=== PATIENT | male | born 1950 | race Caucasian/White ===

== ENCOUNTER → 2016-05-13 | Outpatient (CLI) | payer MEDICARE, OTHER ==
[2016-05-13 12:19] LABS: ALT 73 U/L (21-72); AST 100 U/L (17-59); Alkaline Phosphatase 100 U/L (38-126); Anion Gap 9 mmol/L; Blood Urea Nitrogen 16 mg/dL (9-20); Calcium 9.3 mg/dL (8.4-10.2); Carbon Dioxide 29 mmol/L (22-30); Chloride 98 mmol/L (98-107); Cholesterol 179 mg/dL (<200); Glucose 103 mg/dL (74-99); HDL Cholesterol 53 mg/dL (40-60); Non-African American GFR(MDRD) >60 (>60 ml/min/1.73 sqM); Potassium 4.3 mmol/L (3.5-5.1); Sodium 136 mmol/L (137-145); Total Bilirubin 0.9 mg/dL (0.2-1.3); Total Protein 7.6 g/dL (6.3-8.2); Triglycerides 90 mg/dL (<150)
[2016-05-13 12:29] LABS: Basophils % (A) 1 %; CHCM 32.7; Eosinophils # (A) 0.1 k/uL (0-0.7); Eosinophils % (A) 2 %; HCT 45.3 % (39.0-53.0); HDW 2.23; Luc # (Auto) 0.14; Luc % (Auto) 3; Lymphocytes % (A) 46 %; MCH 32.5 pg (25.0-35.0); MCHC 33.1 g/dL (31.0-37.0); MCV 98.2 fL (80.0-100.0); Mean Platelet Volume 6.8; Monocytes # (A) 0.3 k/uL (0-1.0); Monocytes % (A) 7 %; Neutrophils # (A) 1.9 k/uL (1.3-7.7); Neutrophils % (A) 42 %; RBC 4.62 m/uL (4.30-5.90); RDW 13.8 % (11.5-15.5); WBC 4.5 k/uL (3.8-10.6); WBC (Perox) 4.49
== END | disposition home or self-care (01) ==
LOC: LABWHC1 11:31
PROVIDERS: ATTEND Nurse Practitioner Family
DX: I10 Essential (primary) hypertension (principal); E55.9 Vitamin D deficiency, unspecified
CPT/HCPCS: 36415; 80053; 80061; 82306; 84439; 84443; 85025

== ENCOUNTER → 2016-12-22 | Outpatient (CLI) | payer MEDICARE, OTHER ==
--- NOTE | 2016-12-23 07:47 | XR ---
Right knee HISTORY: Chronic pain 3 views of the right knee correlated to prior exam 10/17/2014 There is no significant interval change. IMPRESSION: Osteoarthritis. Possible loose body.
== END ==
LOC: RADXRMAIN 15:55
PROVIDERS: ATTEND Family Medicine
DX: M16.11 Unilateral primary osteoarthritis, right hip (principal)

== ENCOUNTER → 2017-01-17 | Outpatient (CLI) | payer MEDICARE, OTHER ==
--- NOTE | 2017-01-17 15:57 | XR ---
Cervical spine HISTORY: Neck pain, lump posterior right-sided neck Views of the cervical spine, no comparisons There is marked facet arthropathy change present in the cervical spine. Loss of disc height present a t the intervertebral levels. There is multilevel spondylosis. Prevertebral soft tissues are normal. C ervical vertebral bodies show preserved height and alignment. Bone mineralization is normal. IMPRESSION: Degenerative disc disease and facet arthropathy. Cervical MRI may be of benefit.
== END | disposition home or self-care (01) ==
LOC: RADXRMAIN 15:25
PROVIDERS: ATTEND Family Medicine
DX: M50.30 Other cervical disc degeneration, unspecified cervical region (principal); M46.82 Other specified inflammatory spondylopathies, cervical region
CPT/HCPCS: 72050

== ENCOUNTER 2017-06-26 11:17 | Emergency (ER) | payer MEDICARE, OTHER ==
[2017-06-26 12:41] VITALS: BP 150/81; PULSE 62; RESP 16; TEMP 98.2
--- NOTE | 2017-06-26 12:47 | ED ---
General Adult HPI - General Chief complaint: ENT Stated complaint: lt ear impaction Time Seen by Provider: 06/26/17 12:32 Source: patient, RN notes reviewed Mode of arrival: ambulatory Limitations: no limitations - History of Present Illness Initial comments: Patient 66-year-old male presented to the emergency room today with a chief complaint of left sided ear cerumen impaction. Patient states she's had some decreased hearing over the last few days. He states had problems in the past which was family doctor today for this and was advised come here to the emergency room. Patient states that the family physician nurse used to irrigate the ears but there is a new nurse there today. He states he was advised follow-up with a specialist unsure when that appointment is. Patient denies any other complaints or symptoms. - Related Data Home Medications Medication Instructions Recorded Confirmed Aclidinium [place] [Tudorza 400 mcg PO BID 09/06/15 09/06/15 Pressair] Albuterol Inhaler [Ventolin Hfa 1 - 2 puff INHALATION Q6HR PRN 09/06/15 09/06/15 Inhaler] Enalapril [Vasotec] 10 mg PO BID 09/06/15 09/06/15 Gabapentin [Neurontin] 800 mg PO TID 09/06/15 09/06/15 Hydrochlorothiazide [Hydrodiuril] 25 mg PO DAILY 09/06/15 09/06/15 Meloxicam [Mobic] 15 mg PO DAILY 09/06/15 09/06/15 Omeprazole 20 mg PO BID 09/06/15 09/06/15 Primidone [Mysoline] 50 mg PO BID 09/06/15 09/06/15 Propranolol HCl [Propranolol HCl 60 mg PO DAILY 09/06/15 09/06/15 ER] Simvastatin [Zocor] 10 mg PO HS 09/06/15 09/06/15 buPROPion SR [Wellbutrin Sr] 150 mg PO BID 09/06/15 09/06/15 traZODone HCL 50 mg PO TID 09/06/15 09/06/15 Previous Rx's Medication Instructions Recorded Aclidinium [place] [Tudorza 1 puff PO BID #1 inhaler 09/06/15 Pressair] Gabapentin [Neurontin] 800 mg PO TID #90 tab 09/06/15 Omeprazole 20 mg PO BID #60 cap 09/06/15 Ofloxacin 0.3% Otic Soln [Floxin 10 drops LEFT EAR BID 7 Days ml 06/26/17 0.3% Otic Soln] Allergies Allergy/AdvReac Type Severity Reaction Status Date / Time methadone Allergy Rash/Hives Verified 06/26/17 12:41 Review of Systems ROS Statement: Those systems with pertinent positive or pertinent negative responses have been documented in the HPI. ROS Other: All systems not noted in ROS Statement are negative. Past Medical History Past Medical History: COPD, Deep Vein Thrombosis (DVT), Hyperlipidemia, Hypertension Additional Past Medical History / Comment(s): neuropathy, back pain History of Any Multi-Drug Resistant Organisms: None Reported Additional Past Surgical History / Comment(s): eye sx Past Psychological History: Bipolar Smoking Status: Current every day smoker Past Alcohol Use History: None Reported Past Drug Use History: None Reported General Exam - General Exam Comments Initial Comments: General: The patient is awake and alert, in no distress, and does not appear acutely ill. Eye: Pupils are equal, round and reactive to light, extra-ocular movements are intact. No nystagmus. There is normal conjunctiva bilaterally. No signs of icterus. Ears, nose, mouth and throat: There are moist mucous membranes and no oral lesions. Cervical impaction to the left Ear. Right TM clear. Neck: The neck is supple, there is no tenderness or JVD. Musculoskeletal: Normal ROM, no tenderness. Strength 5/5. Sensation intact. Pulses equal bilaterally 2+. Neurological: A&O x 3. CN II-XII intact, There are no obvious motor or sensory deficits. Coordination appears grossly intact. Speech is normal. Skin: Skin is warm and dry and no rashes or lesions are noted. Psychiatric: Cooperative, appropriate mood & affect, normal judgment. Limitations: no limitations Course Vital Signs 06/26/17 12:32 Temperature 98.2 F Pulse Rate 62 Respiratory 16 Rate Blood Pressure 150/81 O2 Sat by Pulse 94 L Oximetry Medical Decision Making - Medical Decision Making Patient did have your irrigation to the left ear which did remove small amount of wax. Patient does admit to some improvement. Patient does have swelling of the ear canal. Will be started on antibiotic drops. He is advised follow-up with his ENT doctor Dr. Clark. Disposition Clinical Impression: Acute otitis externa Disposition: HOME SELF-CARE Condition: Good Instructions: Otitis Externa (ED) Additional Instructions: Please use medication as discussed. Please follow-up with ENT/family doctor in the next 2 days of symptoms have not improved. Please return to emergency room if the symptoms increase or worsen or for any other concerns. Prescriptions: Ofloxacin 0.3% Otic Soln [Floxin 0.3% Otic Soln] 10 drops LEFT EAR BID 7 Days ml Is patient prescribed a controlled substance at discharge?: No Referrals: Raul Bernabe DO [Primary Care Provider] - 1-2 days Time of Disposition: 13:19
== END 2017-06-26 13:29 | disposition home or self-care (01) ==
LOC: EC 11:17
DX: H60.502 Unspecified acute noninfective otitis externa, left ear (principal); J44.9 Chronic obstructive pulmonary disease, unspecified; E78.5 Hyperlipidemia, unspecified; I10 Essential (primary) hypertension; G62.9 Polyneuropathy, unspecified; F17.200 Nicotine dependence, unspecified, uncomplicated; Z79.1 Long term (current) use of non-steroidal anti-inflammatories (NSAID); Z79.899 Other long term (current) drug therapy; Z88.5 Allergy status to narcotic agent
CPT/HCPCS: 99282

== ENCOUNTER → 2018-07-23 | Outpatient (CLI) | payer MEDICARE, OTHER ==
--- NOTE | 2018-07-23 13:52 | XR ---
EXAMINATION TYPE: XR chest 2V DATE OF EXAM: 07/23/2018 COMPARISON: 01/29/2014 TECHNIQUE: PA and lateral views submitted. HISTORY: Hemoptysis FINDINGS: There is a 1.8 cm spiculated mass in the right upper lobe. Biapical pleural thickening. Subsegmental basilar consolidation. Suspect right perihilar adenopathy. Hyperinflation suggests COPD. Hypertrophic and degenerative change of the spine. IMPRESSION: 1. Irregular mass right upper lobe 1.8 cm with suspected right hilar adenopathy. Recommend CT chest. 2. Correlate for COPD.
== END | disposition home or self-care (01) ==
LOC: RADXRMAIN 12:49
PROVIDERS: ATTEND Family Medicine
DX: R91.8 Other nonspecific abnormal finding of lung field (principal); R04.2 Hemoptysis
CPT/HCPCS: 71046

== ENCOUNTER → 2018-08-02 | Outpatient (CLI) | payer MEDICARE, OTHER ==
[2018-08-02 14:45] LABS: Blood Urea Nitrogen 9 mg/dL (9-20)
--- NOTE | 2018-08-02 15:54 | CT ---
EXAMINATION TYPE: CT chest w con DATE OF EXAM: 08/02/2018 COMPARISON: No prior CT. Comparison chest 07/23/2018 HISTORY: Cough, abnormal CXR CT DLP: 629.6 mGycm, Automated exposure control for dose reduction was used. CONTRAST: Performed injected with 100 mL of Isovue 300. TECHNIQUE: Axial images were obtained at 5 mm thick sections. Reconstructed images are reviewed on [employer] ([employer]) computer in the coronal plane. FINDINGS: Portion of the thyroid visualized is normal. There is a suspicious multilobular mass in the right upper lobe. As measured approximately 2.8 x 3.0 cm. Additional workup for neoplasm is recommended. Just below the lobular mass is an additional 0.8 cm density in the periphery of the right upper lung field which is also suspicious. There is a very large pretracheal lymph node which is likely compressing the superior vena cava. Thi s measures 3.9 cm in size and extends to the right main bronchus. The ascending aorta diameter at the level of the main pulmonary artery is 3.8 cm. The main pulmonary artery diameter at the bifurcation is 3.4 cm. Coronary artery calcifications present. Limited CT sections are obtained through the upper abdomen. Abdomen is essentially unremarkable. IMPRESSIONS: 1. Multilobular right upper lobe mass suspicious for neoplasm. 2. Very large right paratracheal lymph node may have partial compression of the superior vena cava pan spicious for metastatic lesion.
== END | disposition home or self-care (01) ==
LOC: RADCTMAIN 14:00
PROVIDERS: ATTEND Family Medicine
DX: R91.8 Other nonspecific abnormal finding of lung field (principal); R59.0 Localized enlarged lymph nodes
CPT/HCPCS: 82565; 84520; 71260; 36415; Q9967

== ENCOUNTER → 2018-08-11 | Outpatient (CLI) | payer MEDICARE, OTHER ==
--- NOTE | 2018-08-11 14:01 | PE ---
EXAMINATION TYPE: PET CT fusion skull to thigh DATE OF EXAM: 08/11/2018 COMPARISON: CT chest August 02, 2018. HISTORY: Lung mass, initial staging study. Abnormal CT. TECHNIQUE: Following the intravenous administration of 11.163 mCi of F-18 FDG, whole body images are performed from the skull base to the midthigh. Images are reviewed on the computer in the coronal, axial, and sagittal planes. Reconstructed rotating images are created on independent workstation and reviewed on the computer. A noncontrast CT is performed in conjunction with the PET scan. SCAN: Initial Scan FINDINGS: SKULL BASE AND NECK: In the deep inferior left parotid gland there is abnormal hypermetabolic oval l esion axial image 34 measuring 1.1 x 0.8 cm, max SUV is 6.61. Just below this in the posterior superficial right parotid gland inferior aspect there is oval 1.1 x 0.7 cm lesion axial image 39 with mild hypermetabolic uptake, max SUV of 2.97. No additional areas of suspicious hypermetabolic uptake. CHEST, MEDIASTINUM, AND HILAR REGION: Corresponding to recent CT there is persistent spiculated and l obulated lateral right upper lobe nodule measuring roughly 2.7 x 1.8 cm axial image 79, max SUV is 7. 28. There is large right paratracheal hypermetabolic mass or adenopathy is hypermetabolic measuring appro ximately 4.5 x 3.3 cm axial image 91, max SUV is 9.53. Craniocaudal extension is roughly 6 to 7 cm in to the right hilum and abutting upper lobe bronchus. No hypermetabolic masses in the left lung are present. ABDOMEN AND PELVIS: No areas of abnormal hypermetabolic uptake. No adrenal masses are seen. OSSEOUS STRUCTURES: No areas of abnormal hypermetabolic uptake. OTHER CT: Moderate to severe calcified plaque bilateral carotid bulbs, right greater than left is pre sent. Consider carotid ultrasound to better evaluate and characterize if desired. There is moderate to severe 3 vessel coronary artery calcification which is noted marked underlying c oronary artery disease. There is lipomatous hypertrophy of the intra-arterial septum. Exam noted suboptimal study due to patient's large body habitus. Metallic densities are presumed guns hot foreign bodies centered near the right hip causing streak artifact. There is facet arthropathy in the lower lumbar spine. IMPRESSION: 1. Suspect primary lung carcinoma with lateral right upper lobe nodule and large right paratracheal m ass extending to right hilar region where it is believed to beginning to invade the right upper lobe bronchus. Bronchoscopy for sampling can be performed. 2. Suspicious bilateral hypermetabolic parotid nodules worrisome for secondary malignancy, advised EN T referral and ultrasound-guided fine-needle aspiration for further investigation.
== END | disposition home or self-care (01) ==
LOC: RADPETMAIN 10:53
PROVIDERS: ATTEND Internal Medicine Critical Care Medicine
DX: R91.8 Other nonspecific abnormal finding of lung field (principal)
CPT/HCPCS: 78815; A9552

== ENCOUNTER 2018-08-15 10:48 | Day surgery (SDC) | payer MEDICARE, OTHER ==
[2018-08-10 16:23] VITALS: BMI 39.9
[~2018-08-15 10:48] MED LIST: ALBUTEROL NEB (CONC) 2.5 MG/0.5 ML INHALATION ONE; ATROPINE SULFATE 0.4 MG/ML 1 ML VIAL IM ONE; LIDOCAINE 2% (PF) 20 MG/ML 5 ML VIAL INHALATION ONE; LIDOCAINE VISCOUS 300 MG/15 ML CUP MUCOUS MEM ONE; SODIUM CHLORIDE 0.9% 1,000 ML IV SCH
[2018-08-15 11:40] LABS: Glucose,Whole Blood 95 mg/dL (75-99)
[2018-08-15] MEDS ORDERED: ONDANSETRON 4 MG/2 ML VIAL IVP ONE (12:35)
--- NOTE | 2018-08-15 12:44 | CT ---
EXAMINATION TYPE: CT Chest rafael Molina Protocol DATE OF EXAM: 08/15/2018 COMPARISON: Chest CT August 02, 2018. PET/CT August 11, 2018. HISTORY: Bronchial navigation. Abnormal CT and PET/CT, lung neoplasm suspected. CT DLP: 720 mGycm Automated exposure control for dose reduction was used. FINDINGS: Exam is for bronchial navigation planning and not diagnostic purposes. There is redemonstration of pan spicious spiculated nodule lateral right upper lung axial series 6 image 15. There is redemonstration of large right paratracheal mass or adenopathy with suspected endobronchial invasion series 5 image 28 redemonstrated. IMPRESSION: ABOVE.
[2018-08-15] MEDS ORDERED: MIDAZOLAM 2 MG/2 ML VIAL ONE (14:01)
[2018-08-15] MEDS ORDERED: PROPOFOL 10 MG/ML 20 ML VIAL IV ONE (14:01)
[2018-08-15] MEDS ORDERED: fentaNYL (PF) 50 MCG/ML 2 ML AMP ONE (14:01)
[2018-08-15] MEDS ORDERED: GLYCOPYRROLATE 0.2 MG/ML 2 ML VIAL ONE (14:01)
[2018-08-15] MEDS ORDERED: LIDOCAINE 1% INJ 10MG/ML (20 ML MDV) ONE (14:01)
[2018-08-15] MEDS ORDERED: SUCCINYLCHOLINE CHLORIDE VIAL 200 MG/10 ML VIAL IV ONE (14:01)
[2018-08-15] MEDS ORDERED: ePHEDrine SULFATE/0.9% NACL/PF 50 MG/5 ML SYRINGE IV ONE (14:01)
[2018-08-15] MEDS ORDERED: ROCURONIUM BROMIDE 10 MG/ML 10 ML VIAL IV ONE (14:01)
[2018-08-15] MEDS ORDERED: NEOSTIGMINE 1 MG/ML 10 ML VIAL ONE (14:01)
[2018-08-15 15:19] VITALS: TEMP 97.1
[2018-08-15 15:35] VITALS: RESP 20
[2018-08-15 16:09] VITALS: PULSE 59
[2018-08-15 16:23] VITALS: BP 131/75
--- NOTE | 2018-08-30 21:32 | PCN ---
PROCEDURE NOTE PROCEDURE PERFORMED: Navigational bronchoscopy. PREOP DIAGNOSIS: Mass, right upper lobe. POSTOP DIAGNOSIS: Mass, right upper lobe. DESCRIPTION OF PROCEDURE: The procedure was done in the operating room. There was informed consent and universal timeout. ANESTHESIA: Anesthesia provided general anesthesia. OPERATORS: Dr. Cary and Dr. Flores. We used a standard electromagnetic navigational system provided by the [facility]. After the patient was adequately sedated and anesthetized and an endotracheal tube placed in the trachea, the bronchoscope adapter for the endotracheal tube was attached. The bronchoscope was inserted through the bronchoscope adapter connected to the endotracheal tube. We made sure that the endotracheal tube was properly positioned in the trachea. Using the navigational system, we were able to navigate into the right upper lobe. There, under electromagnetic surveillance, we were able to sample the right upper lobe lesion. We did brushes and washes. We also did transbronchial biopsies and needle biopsies to that area. Multiple specimens were obtained. There was minimal bleeding. Blood loss was 5 mL or less. There was no immediate complication. The patient was stable throughout the entire procedure. Once the samples had been collected, the bronchoscope was withdrawn. The patient was recovered and extubated. We did speak to the family and gave them an update. The patient tolerated the procedure well. There was no immediate complication. MMODL / IJN: [id number] /
== END 2018-08-15 16:40 | disposition home or self-care (01) ==
LOC: ORWHC2ENDO 10:48
PROVIDERS: ATTEND Internal Medicine Critical Care Medicine
DX: C34.11 Malignant neoplasm of upper lobe, right bronchus or lung (principal); J43.9 Emphysema, unspecified; R04.2 Hemoptysis; I10 Essential (primary) hypertension; J44.1 Chronic obstructive pulmonary disease with (acute) exacerbation; E78.5 Hyperlipidemia, unspecified; Z86.718 Personal history of other venous thrombosis and embolism; G89.29 Other chronic pain; M54.9 Dorsalgia, unspecified; F31.9 Bipolar disorder, unspecified; F41.9 Anxiety disorder, unspecified; B18.2 Chronic viral hepatitis C; Z83.3 Family history of diabetes mellitus; Z82.49 Family history of ischemic heart disease and other diseases of the circulatory system; Z87.891 Personal history of nicotine dependence; K21.9 Gastro-esophageal reflux disease without esophagitis; Z79.1 Long term (current) use of non-steroidal anti-inflammatories (NSAID); Z79.52 Long term (current) use of systemic steroids; Z79.899 Other long term (current) drug therapy; Z88.5 Allergy status to narcotic agent
CPT/HCPCS: 31628; 88104; 88108; 88305; 88173; 71250; 31623; 31627; J2250; J0330; J2710; J2405; J2001; J3010; J2704; 31624; 31625; 31633

== ENCOUNTER 2018-09-04 08:44 | Day surgery (SDC) | payer MEDICARE, OTHER ==
[2018-09-04 09:09] VITALS: TEMP 97.6
[2018-09-04] MEDS ORDERED: ALPRAZolam 0.25 MG TAB PO STA (09:10)
--- NOTE | 2018-09-04 10:17 | P.PCN ---
Date of Procedure: 09/04/18 Preoperative Diagnosis: parotid mass, abnormal pet/ct Postoperative Diagnosis: same Procedure(s) Performed: fna left parotid mass Anesthesia: local Estimated Blood Loss (ml): 5 Pathology: other (to cyto tech) Condition: stable Disposition: no change Indications for Procedure: abnormal pet ct/lung ca Operative Findings: 3 x fna left parotid node
[2018-09-04 10:25] VITALS: BP 129/68; PULSE 68; RESP 18
--- NOTE | 2018-09-04 13:16 | US ---
EXAMINATION TYPE: US biopsy parotid gland DATE OF EXAM: 09/04/2018 COMPARISON: PET/CT 08/11/2018 HISTORY: Parotid nodules. Maximal barrier technique was utilized. After informed consent, skin overlying the left parotid lesi on was localized with ultrasound and the overlying skin prepped and draped. Ultrasound was utilized u sing sterile technique. Lidocaine was used for local anesthesia. 3 passes with a 25-gauge needle wer e made into the nodule and aspirated specimen was submitted to cytology. Following the procedure hem ostasis achieved. No immediate complication. The patient discharged in stable condition. IMPRESSION: STATUS POST ULTRASOUND GUIDED FINE NEEDLE ASPIRATION OF LEFT PAROTID NODULE, PATHOLOGY IS PENDING. THIS PROCEDURE WAS PERFORMED BY THE UNDERSIGNED. Patient deferred right-sided biopsy.
== END 2018-09-04 10:19 | disposition home or self-care (01) ==
LOC: RADPROMAIN 08:44
PROVIDERS: ATTEND Otolaryngology Plastic Surgery within the Head & Neck
DX: D11.0 Benign neoplasm of parotid gland (principal)
CPT/HCPCS: 10005; 42400; 76942; 88173; 88305

== ENCOUNTER → 2018-09-07 | Day surgery (SDC) | payer MEDICARE, OTHER ==
[2018-09-06 12:11] VITALS: BMI 38.9
[~2018-09-07] MED LIST changes: -ALBUTEROL NEB (CONC) 2.5 MG/0.5 ML INHALATION ONE; -ATROPINE SULFATE 0.4 MG/ML 1 ML VIAL IM ONE; +LIDOCAINE 1% INJ 10MG/ML (20 ML MDV) SQ ONE; -LIDOCAINE 2% (PF) 20 MG/ML 5 ML VIAL INHALATION ONE; -LIDOCAINE VISCOUS 300 MG/15 ML CUP MUCOUS MEM ONE; -SODIUM CHLORIDE 0.9% 1,000 ML IV SCH
[2018-09-07 11:04] VITALS: BP 123/57; PULSE 59; RESP 18; TEMP 97.8
[2018-09-07 11:46] LABS: Basophils % (A) 0 %; Eosinophils # (A) 0.1 k/uL (0-0.7); Eosinophils % (A) 2 %; HCT 40.4 % (39.0-53.0); HGB 13.6 gm/dL (13.0-17.5); Lymphocytes # (A) 1.4 k/uL (1.0-4.8); Lymphocytes % (A) 38 %; MCH 31.1 pg (25.0-35.0); MCHC 33.6 g/dL (31.0-37.0); MCV 92.8 fL (80.0-100.0); Mean Platelet Volume 6.4; Monocytes # (A) 0.3 k/uL (0-1.0); Monocytes % (A) 9 %; Neutrophils # (A) 1.8 k/uL (1.3-7.7); Neutrophils % (A) 48 %; Platelet Count 244 k/uL (150-450); RBC 4.36 m/uL (4.30-5.90); RDW 13.9 % (11.5-15.5); WBC 3.8 k/uL (3.8-10.6)
[2018-09-07 11:55] LABS: African American GFR (CKD) >90 (>60 ml/min/1.73 sqM); Anion Gap 10 mmol/L; Blood Urea Nitrogen 12 mg/dL (9-20); Calcium 8.8 mg/dL (8.4-10.2); Carbon Dioxide 24 mmol/L (22-30); Chloride 92 mmol/L (98-107); Glucose 88 mg/dL (74-99); Sodium 126 mmol/L (137-145)
--- NOTE | 2018-09-07 16:33 | IR ---
EXAMINATION TYPE: IR cvc insert >=5 years DATE OF EXAM: 09/07/2018 COMPARISON: NONE CLINICAL HISTORY: Needs long-term intravenous access for chemotherapy. PROCEDURE: After informed consent, the skin overlying the left basilic vein was localized with ultrasound and no ai to be compressible and patent. An ultrasound image was obtained and submitted on the patient's c delgado. The overlying skin was prepped and draped and Lidocaine was used for local anesthesia. A skin huy was made with a scalpel. Access was gained to the vein under ultrasound guidance with a 21 gau ge needle and a 0.018 inch wire was advanced. Access site was dilated with Peel-Away sheath and cath eter tailored to the appropriate length and advanced such that the distal tip is at the cavoatrial ju nction. Spot image was obtained verifying placement. Catheter was fixed to the skin and a sterile d ressing was placed following hemostasis. Catheter was aspirated and flushed with saline. Patient wa s discharged in stable condition without complication.Maximal barrier technique is utilized. Ultraso und image is documented on the chart. Ultrasound used with sterile technique. Fluoro time and fluoroscopic images submitted to document procedure: 0.2 minutes fluoroscopy time, 20 intraoperative images document the procedure IMPRESSION: STATUS POST ULTRASOUND AND FLUOROSCOPIC GUIDED PICC LINE PLACEMENT, READY FOR USE. THIS PROCEDURE WAS PERFORMED BY THE UNDERSIGNED.
== END ==
LOC: CATHCVL 10:37
PROVIDERS: ATTEND Radiology Diagnostic Radiology
DX: I87.2 Venous insufficiency (chronic) (peripheral) (principal); C34.11 Malignant neoplasm of upper lobe, right bronchus or lung; I10 Essential (primary) hypertension; E78.5 Hyperlipidemia, unspecified; Z80.1 Family history of malignant neoplasm of trachea, bronchus and lung; Z80.42 Family history of malignant neoplasm of prostate; Z83.2 Family history of diseases of the blood and blood-forming organs and certain disorders involving the immune mechanism; Z87.891 Personal history of nicotine dependence; Z79.1 Long term (current) use of non-steroidal anti-inflammatories (NSAID); Z79.891 Long term (current) use of opiate analgesic; Z79.899 Other long term (current) drug therapy
CPT/HCPCS: 36573; 80048; 85025; C1751; C1769; J2001

== ENCOUNTER 2018-09-10 15:44 | Emergency (ER) | payer MEDICARE, OTHER ==
[2018-09-10 15:59] VITALS: BP 146/78; PULSE 83; RESP 18; TEMP 98.6
--- NOTE | 2018-09-10 16:52 | ED ---
General Adult HPI - General Chief complaint: Recheck/Abnormal Lab/Rx Stated complaint: high potassium Time Seen by Provider: 09/10/18 16:07 Source: patient Mode of arrival: wheelchair Limitations: no limitations - History of Present Illness Initial comments: Patient signed out AGAINST MEDICAL ADVICE prior to evaluation by myself. According the nurse patient was sent here for elevated potassium. Patient did not want to stay for medical evaluation. No labs or EKG was performed. Patient told the nurse who told me that he has history of hypertension and did not feel the need to be evaluated. - Related Data Home Medications Medication Instructions Recorded Confirmed Albuterol Inhaler [Ventolin Hfa 1 - 2 puff INHALATION Q6HR PRN 09/06/15 09/07/18 Inhaler] Enalapril [Vasotec] 10 mg PO DAILY 09/06/15 09/07/18 Gabapentin [Neurontin] 800 mg PO TID 09/06/15 09/07/18 Meloxicam [Mobic] 15 mg PO DAILY 09/06/15 09/07/18 Omeprazole 20 mg PO BID 09/06/15 09/07/18 Primidone [Mysoline] 50 mg PO TID 09/06/15 09/07/18 Propranolol HCl [Propranolol HCl 60 mg PO DAILY 09/06/15 09/07/18 ER] Simvastatin [Zocor] 10 mg PO DAILY 09/06/15 09/07/18 buPROPion SR [Wellbutrin Sr] 150 mg PO BID 09/06/15 09/07/18 Allergies Allergy/AdvReac Type Severity Reaction Status Date / Time methadone Allergy Swelling Verified 09/10/18 15:59 Review of Systems ROS Statement: Those systems with pertinent positive or pertinent negative responses have been documented in the HPI. ROS Other: All systems not noted in ROS Statement are negative. 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 History of Any Multi-Drug Resistant Organisms: None Reported Past Surgical History: No Surgical Hx Reported Additional Past Surgical History / Comment(s): eye sx, lung biopsy Past Anesthesia/Blood Transfusion Reactions: No Reported Reaction Past Psychological History: Bipolar Smoking Status: Former smoker Past Alcohol Use History: None Reported Past Drug Use History: None Reported - Past Family History Mother Family Medical History: No Reported History Son(s) Family Medical History: Cancer Additional Family Medical History / Comment(s): lung cancer General Exam Limitations: no limitations Course Vital Signs 09/10/18 15:56 Temperature 98.6 F Pulse Rate 83 Respiratory 18 Rate Blood Pressure 146/78 O2 Sat by Pulse 96 Oximetry Disposition Clinical Impression: Abnormal laboratory test Disposition: Left Against Medical Advice Condition: Fair Referrals: Raul Bernabe DO [Primary Care Provider] - 1-2 days Time of Disposition: 16:52
--- NOTE | 2018-09-11 07:28 | CDI ---
Documentation Clarification OP Dear Hammad HANKINS, DO Please do the addendum for physical exam. Thank you, Solange Marquez Manager Philosophy If you have any question, Please contact edi manager at [phone] [facility]
== END 2018-09-10 17:03 | disposition left against medical advice (07) ==
LOC: EC 15:44
DX: R79.89 Other specified abnormal findings of blood chemistry (principal); J44.9 Chronic obstructive pulmonary disease, unspecified; K21.9 Gastro-esophageal reflux disease without esophagitis; E78.5 Hyperlipidemia, unspecified; I10 Essential (primary) hypertension; F31.9 Bipolar disorder, unspecified; G62.9 Polyneuropathy, unspecified; Z86.19 Personal history of other infectious and parasitic diseases; Z85.118 Personal history of other malignant neoplasm of bronchus and lung; Z87.891 Personal history of nicotine dependence; Z86.718 Personal history of other venous thrombosis and embolism; Z79.1 Long term (current) use of non-steroidal anti-inflammatories (NSAID); Z79.899 Other long term (current) drug therapy; Z88.8 Allergy status to other drugs, medicaments and biological substances
CPT/HCPCS: 99499

== ENCOUNTER → 2018-09-26 | Outpatient (CLI) | payer MEDICARE, OTHER ==
--- NOTE | 2018-09-27 07:46 | XR ---
EXAMINATION TYPE: XR chest 2V DATE OF EXAM: 09/26/2018 COMPARISON: Prior chest x-ray 07/23/2018 HISTORY: Cough, R05, right-sided chest pain, history of lung carcinoma TECHNIQUE: Frontal and lateral views of the chest are obtained. FINDINGS: There is a left-sided PICC line in place, distal tip is overlying the superior vena cava. No pneumothorax or pleural effusion. Asymmetric apical density on the right is again noted. Cardiomed iastinal silhouette, pulmonary vascularity and sharon are stable, right perihilar, mediastinal increase d density is again noted. IMPRESSION: Findings compatible with patient's history of lung carcinoma.
== END | disposition home or self-care (01) ==
LOC: RADXRMAIN 14:34
PROVIDERS: ATTEND Family Medicine
DX: R05 Cough (principal); Z85.118 Personal history of other malignant neoplasm of bronchus and lung
CPT/HCPCS: 71046

== ENCOUNTER 2018-10-12 01:21 | Inpatient (IN) | payer MEDICARE, OTHER ==
[2018-10-12] MEDS ORDERED: MORPHINE SULFATE 4 MG/ML SYRINGE IVP STA (01:55)
[2018-10-12] MEDS ORDERED: ALPRAZolam 0.5 MG TAB PO STA (02:08)
--- NOTE | 2018-10-12 02:10 | ED ---
Fall HPI - General Chief Complaint: Fall Stated Complaint: Fall Time Seen by Provider: 10/12/18 01:32 Source: EMS Mode of arrival: EMS - History of Present Illness Initial Comments: Patient is 67-year-old male with a history of lung cancer is presenting to emergency Department after fall. Patient was brought to the ED via EMS. Patient reports ongoing chemotherapy weekly for past 5 weeks. Patient reports being asymptomatic for the first 4 weeks with this last week has caused him lightheadedness, dizziness, hallucinations, gait instability and weakness. Patient reports he was supposed to receive his sixth treatment this week but was unable to make it to his appointment. Patient lives alone. Patient reports he felt twice today due to feeling weak and losing his balance. Patient denies head trauma or syncope. Patient reports pain in his lumbosacral region that is exacerbated in supine position and alleviated when sitting. Patient denies chest pain, chest tightness or shortness of breath. Patient denies one sided weakness, numbness or tingling. Patient denies saddle paresthesias, urinary or bladder incontinence. Patient denies nausea, vomiting. - Related Data Home Medications Medication Instructions Recorded Confirmed Albuterol Inhaler [Ventolin Hfa 1 - 2 puff INHALATION Q6HR PRN 09/06/15 09/07/18 Inhaler] Enalapril [Vasotec] 10 mg PO DAILY 09/06/15 09/07/18 Gabapentin [Neurontin] 800 mg PO TID 09/06/15 09/07/18 Meloxicam [Mobic] 15 mg PO DAILY 09/06/15 09/07/18 Omeprazole 20 mg PO BID 09/06/15 09/07/18 Primidone [Mysoline] 50 mg PO TID 09/06/15 09/07/18 Propranolol HCl [Propranolol HCl 60 mg PO DAILY 09/06/15 09/07/18 ER] Simvastatin [Zocor] 10 mg PO DAILY 09/06/15 09/07/18 buPROPion SR [Wellbutrin Sr] 150 mg PO BID 09/06/15 09/07/18 Allergies Allergy/AdvReac Type Severity Reaction Status Date / Time methadone Allergy Swelling Verified 10/12/18 01:30 Review of Systems ROS Statement: Those systems with pertinent positive or pertinent negative responses have been documented in the HPI. ROS Other: All systems not noted in ROS Statement are negative. 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 History of Any Multi-Drug Resistant Organisms: None Reported Past Surgical History: No Surgical Hx Reported Additional Past Surgical History / Comment(s): eye sx, lung biopsy Past Anesthesia/Blood Transfusion Reactions: No Reported Reaction Past Psychological History: Bipolar Smoking Status: Former smoker Past Alcohol Use History: None Reported Past Drug Use History: None Reported - Past Family History Mother Family Medical History: No Reported History Son(s) Family Medical History: Cancer Additional Family Medical History / Comment(s): lung cancer General Exam Limitations: no limitations General appearance: alert, in no apparent distress Head exam: Present: atraumatic, normocephalic, normal inspection Eye exam: Present: normal appearance, PERRL, EOMI Pupils: Present: normal accommodation ENT exam: Present: normal exam, mucous membranes moist, TM's normal bilaterally, normal external ear exam. Absent: normal oropharynx (2 white lesions noted on lower jaw) Neck exam: Present: normal inspection, full ROM. Absent: lymphadenopathy Respiratory exam: Present: normal lung sounds bilaterally Cardiovascular Exam: Present: regular rate, normal rhythm, normal heart sounds GI/Abdominal exam: Present: soft, normal bowel sounds Extremities exam: Present: normal inspection, tenderness (Vertebral tenderness in the lumbar region.), normal capillary refill, other (+2 ulnar and radial pulses.). Absent: full ROM (Limit range of motion due to pain), calf tenderness (Negative Homans bilaterally.) Back exam: Present: normal inspection, full ROM Neurological exam: Present: alert, oriented X3 Psychiatric exam: Present: normal affect, normal mood Skin exam: Present: warm, intact, normal color Course Vital Signs 10/12/18 10/12/18 10/12/18 01:25 03:13 04:12 Temperature 98 F Pulse Rate 77 84 89 Respiratory 18 18 18 Rate Blood Pressure 109/65 94/50 170/62 O2 Sat by Pulse 90 L 92 L 92 L Oximetry Medical Decision Making - Medical Decision Making Patient is a 67-year-old male presenting to emergency Department after fall. CBC is indicative of leukopenia and anemia. CMP showing neutropenia. Patient was given fluids, morphine and Xanax. CT of the lumbar region is negative for acute fractures or dislocations. An attempt to ambulate the patient was made and he failed. Patient lives home alone and based his condition he cannot take care of himself. Patient will be admitted for further management. The admitting physician is Dr. Orta. Case discussed with Dr. Marquez. - Lab Data Result diagrams: 10/12/18 02:14 10/12/18 02:14 Lab Results 10/12/18 10/12/18 Range/Units 02:14 02:14 WBC 2.2 L (3.8-10.6) k/uL RBC 3.11 L (4.30-5.90) m/uL Hgb 9.7 L D (13.0-17.5) gm/dL Hct 28.7 L (39.0-53.0) % MCV 92.5 (80.0-100.0) fL MCH 31.2 (25.0-35.0) pg MCHC 33.7 (31.0-37.0) g/dL RDW 16.3 H (11.5-15.5) % Plt Count 158 (150-450) k/uL Neutrophils % (Manual) 57 % Lymphocytes % (Manual) 25 % Monocytes % (Manual) 17 % Eosinophils % (Manual) 1 % Neutrophils # (Manual) 1.25 L (1.3-7.7) k/uL Lymphocytes # (Manual) 0.55 L (1.0-4.8) k/uL Monocytes # (Manual) 0.37 (0-1.0) k/uL Eosinophils # (Manual) 0.02 (0-0.7) k/uL Nucleated RBCs 0 (0-0) /100 WBC Manual Slide Review Performed Anisocytosis Slight Sodium 127 L (137-145) mmol/L Potassium 3.9 (3.5-5.1) mmol/L Chloride 93 L (98-107) mmol/L Carbon Dioxide 25 (22-30) mmol/L Anion Gap 9 mmol/L BUN 12 (9-20) mg/dL Creatinine 0.67 (0.66-1.25) mg/dL Est GFR (CKD-EPI)AfAm >90 (>60 ml/min/1.73 sqM) Est GFR (CKD-EPI)NonAf >90 (>60 ml/min/1.73 sqM) Glucose 104 H (74-99) mg/dL Calcium 7.6 L (8.4-10.2) mg/dL Total Bilirubin 1.0 (0.2-1.3) mg/dL AST 54 (17-59) U/L ALT 34 (21-72) U/L Alkaline Phosphatase 109 (38-126) U/L Total Protein 5.8 L (6.3-8.2) g/dL Albumin 2.5 L (3.5-5.0) g/dL Disposition Clinical Impression: Fall Disposition: HOME SELF-CARE Condition: Stable Instructions (If sedation given, give patient instructions): Fall Prevention for Older Adults (ED) Additional Instructions: Patient will be admitted. Is patient prescribed a controlled substance at d/c from ED?: No Referrals: Raul Bernabe DO [Primary Care Provider] - 1-2 days Time of Disposition: 04:28
[2018-10-12 02:34] LABS: Anisocytosis Slight; HCT 28.7 % (39.0-53.0); MCH 31.2 pg (25.0-35.0); MCHC 33.7 g/dL (31.0-37.0); MCV 92.5 fL (80.0-100.0); Mean Platelet Volume 7.1; Platelet Count 158 k/uL (150-450); RBC 3.11 m/uL (4.30-5.90); RDW 16.3 % (11.5-15.5); WBC 2.2 k/uL (3.8-10.6)
[2018-10-12 02:38] LABS: ALT 34 U/L (21-72); AST 54 U/L (17-59); African American GFR (CKD) >90 (>60 ml/min/1.73 sqM); Albumin 2.5 g/dL (3.5-5.0); Alkaline Phosphatase 109 U/L (38-126); Anion Gap 9 mmol/L; Blood Urea Nitrogen 12 mg/dL (9-20); Calcium 7.6 mg/dL (8.4-10.2); Carbon Dioxide 25 mmol/L (22-30); Chloride 93 mmol/L (98-107); Glucose 104 mg/dL (74-99); Potassium 3.9 mmol/L (3.5-5.1); Sodium 127 mmol/L (137-145); Total Protein 5.8 g/dL (6.3-8.2)
[2018-10-12 02:42] LABS: HGB 9.7 gm/dL (13.0-17.5)
--- NOTE | 2018-10-12 02:45 | CT ---
EXAM: CT Lumbar Spine Without Intravenous Contrast CLINICAL HISTORY: ITS.REASON CT Reason: Pain TECHNIQUE: Axial computed tomography images of the lumbar spine without intravenous contrast. CTDI is 88 mGy and DLP is 1675 mGy-cm. This CT exam was performed using one or more of the following dose reduction techniques: automated exposure control, adjustment of the mA and/or kV according to patient size, and/or use of iterative reconstruction technique. COMPARISON: 10/03/14 lumbar radiograph FINDINGS: Vertebrae: Age indeterminate 5% anterior wedging of L1 and 10% anterior wedging of L4. No retropulsion. Nonfused right L1 transverse process, likely congenital. Discs/spinal canal/neural foramina: No significant spinal canal stenosis. Multilevel degenerative disc disease with moderate disc height loss from L1-L3. Soft tissues: Unremarkable. IMPRESSION: Age indeterminate 5% anterior wedging of L1 and 10% anterior wedging of L4.
[2018-10-12 03:09] LABS: Eosinophils # (M) 0.02 k/uL (0-0.7); Lymphocytes # (M) 0.55 k/uL (1.0-4.8); Monocytes # (M) 0.37 k/uL (0-1.0); Neutrophils % (M) 57 %; Nucleated Red Blood Cells 0 /100 WBC (0-0); Total Cells Counted 100
[2018-10-12] MEDS ORDERED: SODIUM CHLORIDE 0.9% 500 ML 500 ML IV ONE (03:14)
[2018-10-12] MEDS ORDERED: NALOXONE 0.4 MG/ML 1 ML VIAL IV PRN (04:14)
[2018-10-12] MEDS: SODIUM CHLORIDE 0.9% 1,000 ML IV SCH ×2 (05:05→18:35)
[2018-10-12] MEDS: HYDROcodone/APAP 10-325MG 1 EACH TAB PO PRN (10:39)
[2018-10-12] MEDS: SYMBICORT 160-4.5 MCG INHALER INHALATION SCH ×2 (11:48→21:33)
[2018-10-12] MEDS: ATORVASTATIN 10 MG TAB PO SCH (12:34)
[2018-10-12] MEDS: PANTOPRAZOLE 40 MG TABLET PO SCH ×2 (12:34→18:34)
[2018-10-12] MEDS: GABAPENTIN 400 MG CAP PO SCH ×3 (12:34→23:40)
[2018-10-12] MEDS: buPROPion SR 150 MG TABLET.ER PO SCH ×2 (12:35→23:40)
[2018-10-12] MEDS: MELOXICAM 7.5 MG TAB PO SCH (12:35)
[2018-10-12] MEDS: PROPRANOLOL LA 60 MG CAP.SA.24H PO SCH (12:36)
[2018-10-12] MEDS: PRIMIDONE 50 MG TAB PO SCH ×3 (12:36→23:40)
[2018-10-12] MEDS: LISINOPRIL 20 MG TAB PO SCH (12:36)
[2018-10-12] MEDS ORDERED: ALPRAZolam 1 MG TAB PO STA (12:43)
--- NOTE | 2018-10-12 12:52 | P.CNOR ---
History of Present Illness - HPI Consult date: 10/12/18 Consult reason: other (Lower extremity weakness and inability to ambulate) History of present illness: Patient is a pleasant 67-year-old male who is admitted to the hospital after having a couple falls yesterday. He says that he is having significant difficulty with his ambulation and mobilization area he says he is a limited ambulator in general but has been worsening over the past weeks. Over the past few days as had some lightheadedness gait instability weakness. He lives alone. He denies any acute other trauma or injury. He says he had a history of pain in his back in the past where he had a fracture which healed appropriately. He denies any changes in bowel bladder function. He has a nausea vomiting or chest pain. He says he has great difficulty trying to stand up on his own and he feels weak in his legs equally bilaterally. Review of Systems As stated per HPI. He denies nausea vomiting 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 History of Any Multi-Drug Resistant Organisms: None Reported Past Surgical History: No Surgical Hx Reported Additional Past Surgical History / Comment(s): eye sx, lung biopsy Past Anesthesia/Blood Transfusion Reactions: No Reported Reaction Past Psychological History: Bipolar Smoking Status: Former smoker Past Alcohol Use History: None Reported Additional Past Alcohol Use History / Comment(s): quit 2018 smoked 45 years 1 ppd, quit drinker 30 years ago Past Drug Use History: None Reported - Past Family History Mother Family Medical History: No Reported History Son(s) Family Medical History: Cancer Additional Family Medical History / Comment(s): lung cancer Medications and Allergies Home Medications Medication Instructions Recorded Confirmed Type Albuterol Inhaler [Ventolin Hfa 1 - 2 puff INHALATION RT-Q4H PRN 09/06/15 10/12/18 History Inhaler] Enalapril [Vasotec] 10 mg PO DAILY 09/06/15 10/12/18 History Gabapentin [Neurontin] 800 mg PO TID 09/06/15 10/12/18 History Meloxicam [Mobic] 15 mg PO DAILY 09/06/15 10/12/18 History Omeprazole 20 mg PO BID 09/06/15 10/12/18 History Primidone [Mysoline] 50 mg PO TID 09/06/15 10/12/18 History Propranolol HCl [Propranolol HCl 60 mg PO DAILY 09/06/15 10/12/18 History ER] Simvastatin [Zocor] 10 mg PO DAILY 09/06/15 10/12/18 History buPROPion SR [Wellbutrin Sr] 150 mg PO BID 09/06/15 10/12/18 History Benzonatate [Tessalon Perles] 100 mg PO TID PRN 10/12/18 10/12/18 History Budesonide-Formot 160-4.5 Mcg 2 puff INHALATION RT-BID 10/12/18 10/12/18 History [Symbicort 160-4.5 Mcg Inhaler] Hydrocodone/Acetaminophen [[place] 1 tab PO Q6HR PRN 10/12/18 10/12/18 History 7.5-325] Prochlorperazine [Compazine] 10 mg PO Q8H PRN 10/12/18 10/12/18 History Allergies Allergy/AdvReac Type Severity Reaction Status Date / Time methadone Allergy Swelling Verified 10/12/18 08:33 Physical Examination Osteopathic Statement: *. No significant issues noted on an osteopathic s tructural exam other than those noted in the History and Physical/Consult. - L Spine: dermatomal strength & reflexes bilateral Strength: hip flexion: 4/5 (And the patient's bilateral lower extremities he has globally 3-4 out of 5 strength with hip flexion and knee extension dorsal flexion plantarflexion and EHL. He has no pain with internal/external rotation of his hips. He is able to lift his legs up off of the bed independently without pain. His pelvis is stable to rock. He has diffusely weak strength in his bilateral lower extremities. His abdomen soft is obese. His upper extremities have good active passive range motion. Has no neural tension signs. HEENT is no [place] atraumatic.) Results - Labs Labs: Abnormal Lab Results - Last 24 Hours (Table) 10/12/18 10/12/18 Range/Units 02:14 02:14 WBC 2.2 L (3.8-10.6) k/uL RBC 3.11 L (4.30-5.90) m/uL Hgb 9.7 L D (13.0-17.5) gm/dL Hct 28.7 L (39.0-53.0) % RDW 16.3 H (11.5-15.5) % Neutrophils # (Manual) 1.25 L (1.3-7.7) k/uL Lymphocytes # (Manual) 0.55 L (1.0-4.8) k/uL Sodium 127 L (137-145) mmol/L Chloride 93 L (98-107) mmol/L Glucose 104 H (74-99) mg/dL Calcium 7.6 L (8.4-10.2) mg/dL Total Protein 5.8 L (6.3-8.2) g/dL Albumin 2.5 L (3.5-5.0) g/dL H & H 10/12/18 Range/Units 02:14 Hgb 9.7 L D (13.0-17.5) gm/dL Hct 28.7 L (39.0-53.0) % Result Diagrams: 10/12/18 02:14 10/12/18 02:14 - Diagnostic results CT Scan - lumbar: report reviewed, image reviewed (Computed tomography scan lumbar spine is reviewed. Shows evidence of compression deformities L1 and L4 with no new height loss. I do not see evidence of new fracture. There is some mild disc bulging but it appears to be chronic. There is some diffuse spondylosis and stenosis but is difficult to fully ascertain the extent of stenosis present.) Assessment and Plan Assessment: Bilateral lower extremity weakness Inability to ambulate Chronic compression deformities L1 and L4 Diffuse lumbar spondylosis Lung cancer with active chemotherapy treatment Plan: Bilateral lower extremity weakness Inability to ambulate Chronic compression deformities L1 and L4 Diffuse lumbar spondylosis Lung cancer with active chemotherapy treatment The patient has had some worsening weakness and is having great copiously with his mobilization due to his lower extremities. His lumbar spine computed tomography scan does not show obvious acute changes but I think further imaging is necessary with MRI to further evaluate his neural compression. He does not have a specific radicular pattern and has primarily generalized weakness at his lower extremities. It is difficult to ascertain if this is stemming from his spine specifically. I would like see how he does with some dedicated steroid medication and we will order that for him. We have ordered Solu-Medrol for him. He is already scheduled for MRI of his lumbar spine and I think that is appropriate. He says he needs a medication help him for his claustrophobia we will order Xanax for him. We will have further recommendations based on the results of the MRI and we will see how he does with medication. Would like to see how he does with physical therapy as well we'll order that as well.
--- NOTE | 2018-10-12 14:22 | P.CONS ---
History of Present Illness - Reason for Consult Consult date: 10/12/18 Inability to walk lung cancer Requesting physician: Micah Orta - Chief Complaint Debility - History of Present Illness Mr. White is a pleasant male patient of Dr. Coats who is currently undergoing treatment for non-small cell lung cancer he has a weekly carboplatin and Taxol with concurrent radiation last treatment was October 02. He has been requiring G CSF growth factors secondary to chemo-induced cytopenias. When he originally presented within July 2018 he presented with complaints of progressive weakness shortness of breath and cough his symptoms had been pers istent over the past year although he stated that they were getting worse within the past month and more closer to diagnosis with evidence of hemoptysis. A chest x-ray on 07/23/2018 revealed an irregular mass in the right upper lobe which was 1.8 centimeters was suspected right hilar adenopathy CAT scan on August 02 showed multiple lobular masses in the right upper lobe of the lung measuring 2.8 x 3 cm there is also a large pretracheal prostate with superior vena cava at 3.9 cm extending to the right mainstream bronchus. PET scan completed on August 29 right upper lobe nodule with an SUV of 7.8 with a size of 2.7 x 1.8 abutting the right main bronchus a hypermetabolic nodule was seen in the right parotid gland also with a SUV of 6.61 underwent a bronchoscopy on August 15 and pathology did reveal moderate differentiated squamous cell carcinoma MRI of the brain was negative for metastatic disease at that time and he began concurrent carboplatin and Taxol therapy on 09/10/2018 has been tolerating well until recently has been having difficulty ambulating numbness tingling in fingers and toes and occasional nausea which was controlled with Compazine He says that he is having significant difficulty with his ambulation in general but has been worsening over the past weeks. Over the past few days as had some lightheadedness gait instability weakness. He lives alone. No changes in bowel bladder function. He has occassional nausea no vomiting or chest pain. He says he has great difficulty trying to stand up on his own and he feels weak in his legs equally bilaterally. He is now admitted after fall Review of Systems A 14 point review of systems was assessed and completed and are all negative except for HPI 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 History of Any Multi-Drug Resistant Organisms: None Reported Past Surgical History: No Surgical Hx Reported Additional Past Surgical History / Comment(s): eye sx, lung biopsy Past Anesthesia/Blood Transfusion Reactions: No Reported Reaction Past Psychological History: Bipolar Smoking Status: Former smoker Past Alcohol Use History: None Reported Additional Past Alcohol Use History / Comment(s): quit 2018 smoked 45 years 1 ppd, quit drinker 30 years ago Past Drug Use History: None Reported - Past Family History Mother Family Medical History: No Reported History Son(s) Family Medical History: Cancer Additional Family Medical History / Comment(s): lung cancer Medications and Allergies Home Medications Medication Instructions Recorded Confirmed Type Albuterol Inhaler [Ventolin Hfa 1 - 2 puff INHALATION RT-Q4H PRN 09/06/15 10/12/18 History Inhaler] Enalapril [Vasotec] 10 mg PO DAILY 09/06/15 10/12/18 History Gabapentin [Neurontin] 800 mg PO TID 09/06/15 10/12/18 History Meloxicam [Mobic] 15 mg PO DAILY 09/06/15 10/12/18 History Omeprazole 20 mg PO BID 09/06/15 10/12/18 History Primidone [Mysoline] 50 mg PO TID 09/06/15 10/12/18 History Propranolol HCl [Propranolol HCl 60 mg PO DAILY 09/06/15 10/12/18 History ER] Simvastatin [Zocor] 10 mg PO DAILY 09/06/15 10/12/18 History buPROPion SR [Wellbutrin Sr] 150 mg PO BID 09/06/15 10/12/18 History Benzonatate [Tessalon Perles] 100 mg PO TID PRN 10/12/18 10/12/18 History Budesonide-Formot 160-4.5 Mcg 2 puff INHALATION RT-BID 10/12/18 10/12/18 History [Symbicort 160-4.5 Mcg Inhaler] Hydrocodone/Acetaminophen [[place] 1 tab PO Q6HR PRN 10/12/18 10/12/18 History 7.5-325] Prochlorperazine [Compazine] 10 mg PO Q8H PRN 10/12/18 10/12/18 History Allergies Allergy/AdvReac Type Severity Reaction Status Date / Time methadone Allergy Swelling Verified 10/12/18 08:33 Physical Exam Vitals: Vital Signs Temp Pulse Pulse Resp BP BP Pulse Ox 10/12/18 11:24 97.5 F L 71 18 126/76 94 L 10/12/18 07:30 18 10/12/18 05:38 97.5 F L 76 16 113/74 91 L 10/12/18 05:08 98.3 F 70 18 101/58 93 L 10/12/18 04:12 89 18 107/62 92 L 10/12/18 03:13 84 18 94/50 92 L 10/12/18 01:25 98 F 77 18 109/65 90 L Intake and Output 10/11/18 10/12/18 10/12/18 22:59 06:59 14:59 Intake Total 590 Output Total 800 Balance 590 -800 Intake: Oral 590 Output: Urine 800 Other: Voiding Method Urinal # Voids 2 Weight 135.034 kg General: Alert and Oriented x3, No Acute Distress Head: Normocytic, Atraumatic Neck: Supple Mouth: No Lesions, No Thrush Eyes: Non-sclerotic No Palpable cervical, supraclavicular, axillary adenopathy Heart: Regular Rate, Regular Rhythm Lungs: Clear to Ausculations, No Wheeze, No Rhonchi, Diminishe bilateral lower lobes, No increased respiratory effort noted Abdomen: Soft, Non-Distended, Non-Tended, BSx4 Extremities: No Edema, Equal Strength Neurological: No Focal Defects: No sensory or motor deficits noted Psych: Calm and cooperative Results CBC & Chem 7: 10/12/18 02:14 10/12/18 02:14 Labs: Abnormal Lab Results - Last 24 Hours (Table) 10/12/18 10/12/18 Range/Units 02:14 02:14 WBC 2.2 L (3.8-10.6) k/uL RBC 3.11 L (4.30-5.90) m/uL Hgb 9.7 L D (13.0-17.5) gm/dL Hct 28.7 L (39.0-53.0) % RDW 16.3 H (11.5-15.5) % Neutrophils # (Manual) 1.25 L (1.3-7.7) k/uL Lymphocytes # (Manual) 0.55 L (1.0-4.8) k/uL Sodium 127 L (137-145) mmol/L Chloride 93 L (98-107) mmol/L Glucose 104 H (74-99) mg/dL Calcium 7.6 L (8.4-10.2) mg/dL Total Protein 5.8 L (6.3-8.2) g/dL Albumin 2.5 L (3.5-5.0) g/dL Comments: CT lumbar Assessment and Plan Plan: Assessment and rcommendations: Non-Small Cell Lung Cancer - Squamous Cell: - Currently on concurrent chemo and radiation weekly carbo and taxol Inability to ambulity and weakness lower extremities: - CT lumbar spine Reviewed - MRI Thoracic and Lumbar Recommended - Rec Dex q6-8hours possibility of compression or metastatic disease. Patient on Methyprednisone, continue and re-evaluate after imaging - Unable to perform MRI brain with contrast secondary to need to be sent out for test, will do CT brain with contrast here and MRI (preferred with contrast Spine) as send out to appropriate machine. Notified unable to perfor thoracic and with contrast secondary to time slot therefore will perform Lumbar without contrast and again re-evaluate. Hyponatremia: - Dehydration versus SIADH - Re-assess mets to brain Plan: - Ortho spine following - Radiation oncology Following - CBC/CMP daily - Steroids and PPI - Brain imaging - Spoke with Radiation onc Once established diagnoses plan can be set in place and will likely require hold of chemotherapy and radiation to participate in outpatient rehabiliation
[2018-10-12 14:46] VITALS: BMI 36.2
[2018-10-12] MEDS ORDERED: RX INFO: IV CONTRAST WAS GIVEN 1 EACH MISC MISCELLANE PRN (15:09)
[2018-10-12] MEDS: DIPHENOX-ATROP 2.5-0.025 MG 1 EACH TAB PO PRN (15:44)
--- NOTE | 2018-10-12 16:56 | P.HPIM ---
History of Present Illness H&P Date: 10/12/18 Chief Complaint: Weak and tired History of presenting complaint: This is a pleasant 67-year-old patient of Dr. Laura Bernabe. Patient's oncologist is Dr. Mireles and radiation oncologist is Dr. Knox. Patient chronic stable medical conditions include COPD, GERD, hypertension, hyperlipidemia, osteoarthritis and peripheral neuropathy. Patient has been diagnosed with moderately differentiated's, squamous cell carcinoma. Has been getting weekly treatment with carboplatin and Taxol with concurrent radiation treatment. Last radiation treatment was October 02. Patient also got chemo-induced cytopenias. Patient is weekly chemotherapy. Has received 5 cycles. In the last few days patient has been become progressively weak. Had some vomiting. Also has some diarrhea. Has been using a walker. Appetite has been told. Weak and tired. She also took a couple of falls because of weakness. Had a CAT scan in the ER. Showed 5% anterior wedging of L1 and 10% anterior wedging of L4. Somewhat age indeterminate. Because of weakness patient is having trouble walking. No bowel or urinary retention. Admitted for the same. No fever no chills. 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 Stopped in 2017. Lives alone. No alcohol. Used to work in construction. Family history: Lung cancer Physical examination: VITAL SIGNS: 98, 77, 18, 109/65, 90% room air GENERAL: BMI 36.2, laying in bed, tired appearing. EYES: Pupils equal. Conjunctiva palel. HEENT: External appearance of nose and ears normal, oral cavity grossly normal. NECK: JVD not raised; masses not palpable. HEART: First and second heart sounds are normal; no edema. LUNGS: Respiratory rate increased, decreased breath sounds. ABDOMEN: Soft, nontender, liver spleen not palpable, no masses palpable. PSYCH: Alert and oriented x3; mood and affect normal. NEUROLOGICAL: Cranial nerves grossly intact; no facial asymmetry, decreased bowel in the lower extremity, decreased sensation distally. LYMPHATICS: No lymph nodes palpable in the axilla and neck Investigations: White count 2.2 hemoglobin 9.7 platelets 158 potassium 3.9 bun 12 creatinine 0.67 Albumin 2.5 sodium 127 Computed tomography scan of the lumbar spine as above Assessment: -This patient presents with difficulty walking. Has had couple of falls. Patient is found to have some anterior wedging of L1 and L4. Orthopedic spine Dr. Haq was consulted. 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 MRI of the spine was ordered. Patient did open MRI. They're looking at getting in the right Dr. Chavez's office or at [facility]. Further plan depending on the findings. Patient was seen by oncology. Care was discussed with the patient. Questions were answered. Home medications resumed. Patient also in IV Solu-Medrol and anti-inflammatory. Given IV fluids. Lovenox for DVT prophylaxis. 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 History of Any Multi-Drug Resistant Organisms: None Reported Past Surgical History: No Surgical Hx Reported Additional Past Surgical History / Comment(s): eye sx, lung biopsy Past Anesthesia/Blood Transfusion Reactions: No Reported Reaction Past Psychological History: Bipolar Smoking Status: Former smoker Past Alcohol Use History: None Reported Additional Past Alcohol Use History / Comment(s): quit 2018 smoked 45 years 1 ppd, quit drinker 30 years ago Past Drug Use History: None Reported - Past Family History Mother Family Medical History: No Reported History Son(s) Family Medical History: Cancer Additional Family Medical History / Comment(s): lung cancer Medications and Allergies Home Medications Medication Instructions Recorded Confirmed Type Albuterol Inhaler [Ventolin Hfa 1 - 2 puff INHALATION RT-Q4H PRN 09/06/15 10/12/18 History Inhaler] Enalapril [Vasotec] 10 mg PO DAILY 09/06/15 10/12/18 History Gabapentin [Neurontin] 800 mg PO TID 09/06/15 10/12/18 History Meloxicam [Mobic] 15 mg PO DAILY 09/06/15 10/12/18 History Omeprazole 20 mg PO BID 09/06/15 10/12/18 History Primidone [Mysoline] 50 mg PO TID 09/06/15 10/12/18 History Propranolol HCl [Propranolol HCl 60 mg PO DAILY 09/06/15 10/12/18 History ER] Simvastatin [Zocor] 10 mg PO DAILY 09/06/15 10/12/18 History buPROPion SR [Wellbutrin Sr] 150 mg PO BID 09/06/15 10/12/18 History Benzonatate [Tessalon Perles] 100 mg PO TID PRN 10/12/18 10/12/18 History Budesonide-Formot 160-4.5 Mcg 2 puff INHALATION RT-BID 10/12/18 10/12/18 History [Symbicort 160-4.5 Mcg Inhaler] Hydrocodone/Acetaminophen [[place] 1 tab PO Q6HR PRN 10/12/18 10/12/18 History 7.5-325] Prochlorperazine [Compazine] 10 mg PO Q8H PRN 10/12/18 10/12/18 History Allergies Allergy/AdvReac Type Severity Reaction Status Date / Time methadone Allergy Swelling Verified 10/12/18 08:33 Physical Exam Vitals: Vital Signs Temp Pulse Pulse Resp BP BP Pulse Ox 10/12/18 11:24 97.5 F L 71 18 126/76 94 L 10/12/18 07:30 18 10/12/18 05:38 97.5 F L 76 16 113/74 91 L 10/12/18 05:08 98.3 F 70 18 101/58 93 L 10/12/18 04:12 89 18 107/62 92 L 10/12/18 03:13 84 18 94/50 92 L 10/12/18 01:25 98 F 77 18 109/65 90 L Intake and Output 10/12/18 10/12/18 10/12/18 06:59 14:59 22:59 Intake Total 590 Output Total 800 Balance 590 -800 Intake: Oral 590 Output: Urine 800 Other: Voiding Method Urinal # Voids 2 # Bowel Movements 1 1 Weight 135.034 kg 135.034 kg Results CBC & Chem 7: 10/12/18 02:14 10/12/18 02:14 Labs: Abnormal Lab Results - Last 24 Hours (Table) 10/12/18 10/12/18 Range/Units 02:14 02:14 WBC 2.2 L (3.8-10.6) k/uL RBC 3.11 L (4.30-5.90) m/uL Hgb 9.7 L D (13.0-17.5) gm/dL Hct 28.7 L (39.0-53.0) % RDW 16.3 H (11.5-15.5) % Neutrophils # (Manual) 1.25 L (1.3-7.7) k/uL Lymphocytes # (Manual) 0.55 L (1.0-4.8) k/uL Sodium 127 L (137-145) mmol/L Chloride 93 L (98-107) mmol/L Glucose 104 H (74-99) mg/dL Calcium 7.6 L (8.4-10.2) mg/dL Total Protein 5.8 L (6.3-8.2) g/dL Albumin 2.5 L (3.5-5.0) g/dL Thrombosis Risk Factor Assmnt - Choose All That Apply Each Factor Represents 1 point: Obesity (BMI >25) Each Risk Factor Represents 2 Points: Age 61-74 years, Malignancy Each Risk Factor Represents 3 Points: History of DVT/PE Thrombosis Risk Factor Assessment Total Risk Factor Score: 8 Thrombosis Risk Factor Assessment Level: High Risk
[2018-10-12] MEDS: ENOXAPARIN 40 MG/0.4 ML SYRINGE SQ SCH (18:35)
--- NOTE | 2018-10-12 19:45 | CT ---
EXAMINATION TYPE: CT brain w con DATE OF EXAM: 10/12/2018 COMPARISON: NONE HISTORY: Confusion, Concern for mets CT DLP: 1013.7 mGycm Automated Exposure Control for Dose Reduction was Utilized. TECHNIQUE: CT scan of the head is performed with IV contrast.,CT scan of the head is performed withou t and with with IV Contrast, patient injected with 100 mL of Isovue 300. FINDINGS: The ventricles and sulci are within normal limits in size. Diffuse age-related atrophy is seen as there is peripheral sulcal and ventricular symmetric prominence. Postcontrast images show no suspicious enhancing intraparenchymal mass. The globes are intact and the visualized sinuses are nguyen ar. Slight nodular prominence of the right ICA terminus is seen on postcontrast series 3 image 20. Ca lvarium appears intact. Mild atherosclerosis of the intracranial vasculature. IMPRESSION: 1. No abnormal intracranial enhancement. No evidence of intracranial metastasis on CT. MRI would prov suman increased sensitivity for small lesions. 2. Further evaluation of the right MCA terminus could also BE performed with MRA Brain to evaluate fo r small aneurysm or prominent infundibulum.
[2018-10-12] MEDS: methylPREDNISolone SOD SUCCI 125 MG/2 ML VIAL IV SCH (23:39)
[2018-10-13 07:39] LABS: Anisocytosis Slight; HCT 31.1 % (39.0-53.0); MCH 31.7 pg (25.0-35.0); MCHC 32.1 g/dL (31.0-37.0); Macrocytosis Slight; Mean Platelet Volume 7.9; Platelet Count 128 k/uL (150-450); RBC 3.16 m/uL (4.30-5.90); RDW 17.7 % (11.5-15.5); WBC 1.6 k/uL (3.8-10.6)
[2018-10-13 07:40] LABS: MCV 98.6 fL (80.0-100.0)
[2018-10-13 07:52] LABS: African American GFR (CKD) >90 (>60 ml/min/1.73 sqM); Albumin 2.5 g/dL (3.5-5.0); Anion Gap 10 mmol/L; Blood Urea Nitrogen 10 mg/dL (9-20); Calcium 7.8 mg/dL (8.4-10.2); Carbon Dioxide 23 mmol/L (22-30); Chloride 98 mmol/L (98-107); Glucose 136 mg/dL (74-99); Sodium 131 mmol/L (137-145); Total Bilirubin 0.9 mg/dL (0.2-1.3); Total Protein 6.1 g/dL (6.3-8.2)
[2018-10-13 08:04] LABS: ALT 39 U/L (21-72); AST 59 U/L (17-59); Potassium 5.1 mmol/L (3.5-5.1)
[2018-10-13 08:05] LABS: Alkaline Phosphatase 98 U/L (38-126); Magnesium 1.4 mg/dL (1.6-2.3)
[2018-10-13] MEDS: LISINOPRIL 20 MG TAB PO SCH (08:13)
[2018-10-13] MEDS: PRIMIDONE 50 MG TAB PO SCH ×3 (08:13→22:11)
[2018-10-13] MEDS: MELOXICAM 7.5 MG TAB PO SCH (08:13)
[2018-10-13] MEDS: PROPRANOLOL LA 60 MG CAP.SA.24H PO SCH (08:13)
[2018-10-13] MEDS: buPROPion SR 150 MG TABLET.ER PO SCH ×2 (08:13→22:11)
[2018-10-13] MEDS: GABAPENTIN 400 MG CAP PO SCH ×3 (08:14→22:11)
[2018-10-13] MEDS: ATORVASTATIN 10 MG TAB PO SCH (08:14)
[2018-10-13] MEDS: PANTOPRAZOLE 40 MG TABLET PO SCH ×2 (08:14→15:18)
[2018-10-13] MEDS: methylPREDNISolone SOD SUCCI 125 MG/2 ML VIAL IV SCH (08:15)
[2018-10-13] MEDS: SODIUM CHLORIDE 0.9% 1,000 ML IV SCH (08:15)
[2018-10-13] MEDS: ENOXAPARIN 40 MG/0.4 ML SYRINGE SQ SCH (08:15)
[2018-10-13] MEDS: SYMBICORT 160-4.5 MCG INHALER INHALATION SCH ×2 (08:26→20:15)
[2018-10-13] MEDS: HYDROcodone/APAP 10-325MG 1 EACH TAB PO PRN ×3 (08:31→22:15)
[2018-10-13 08:36] LABS: Band Neutrophils % 3 %; Basophils # (M) 0.02 k/uL (0-0.2); Eosinophils # (M) 0.02 k/uL (0-0.7); Lymphocytes # (M) 0.18 k/uL (1.0-4.8); Monocytes # (M) 0.08 k/uL (0-1.0); Neutrophils % (M) 79 %; Nucleated Red Blood Cells 0 /100 WBC (0-0); Poikilocytosis (M) Present; Total Cells Counted 100
--- NOTE | 2018-10-13 09:53 | P.PN ---
Subjective Progress Note Date: 10/13/18 Principal diagnosis: Lower extremity weakness and inability to ambulate The patient is a 67 y/o male who we have been following for bilateral lower extremity weakness and inability to ambulate. An MRI was obtained yesterday and the patient was started on Solu-Medrol. This morning, the patient is sleeping soundly and will only arouse briefly and fall quickly back to sleep. He appears comfortable today. Objective - Vital Signs Vital signs: Vital Signs Temp 97.8 F 10/13/18 04:42 Pulse 79 10/13/18 04:42 Resp 16 10/13/18 04:42 BP 148/74 10/13/18 04:42 Pulse Ox 94 L 10/13/18 04:42 Intake & Output 10/12/18 10/13/18 10/13/18 18:59 06:59 18:59 Intake Total 815 Output Total 800 300 Balance -800 515 Weight 135.034 kg Intake: Intake, IV Titration 225 Amount Sodium Chloride 0.9% 1, 225 000 ml @ 75 mls/hr IV . [id number] [facility] Rx#:[id number] Oral 590 Output: Urine 800 300 Other: Voiding Method Urinal Urinal # Voids 2 2 # Bowel Movements 1 - Exam The patient is a 67-year-old male who is in no acute distress. Upon exam he was sleeping, but easily arouses to voice but falls back to sleep. Unable to do full lumbar and lower extremity exam today. - Labs CBC & Chem 7: 10/13/18 06:54 10/13/18 06:54 Labs: Abnormal Lab Results - Last 24 Hours (Table) 10/13/18 10/13/18 Range/Units 06:54 06:54 WBC 1.6 L (3.8-10.6) k/uL RBC 3.16 L (4.30-5.90) m/uL Hgb 10.0 L (13.0-17.5) gm/dL Hct 31.1 L (39.0-53.0) % RDW 17.7 H (11.5-15.5) % Plt Count 128 L (150-450) k/uL Lymphocytes # (Manual) 0.18 L (1.0-4.8) k/uL Sodium 131 L (137-145) mmol/L Creatinine 0.49 L (0.66-1.25) mg/dL Glucose 136 H (74-99) mg/dL Calcium 7.8 L (8.4-10.2) mg/dL Magnesium 1.4 L (1.6-2.3) mg/dL Total Protein 6.1 L (6.3-8.2) g/dL Albumin 2.5 L (3.5-5.0) g/dL Assessment and Plan (1) Unable to ambulate Current Visit: Yes Status: Acute Code(s): R26.2 - DIFFICULTY IN WALKING, NOT ELSEWHERE CLASSIFIED SNOMED Code(s): 787053705 (2) Fall Current Visit: Yes Status: Acute Code(s): W19.XXXA - UNSPECIFIED FALL, INITIAL ENCOUNTER SNOMED Code(s): 9838409 Plan: The MRI findings were reviewed. No acute fractures or changes seen within the lumbar spine. No evidence of acute cord compression. Continue Solu-Medrol and [place] for pain. Continue physical therapy. We will continue to follow patient closely.
--- NOTE | 2018-10-13 13:03 | P.PN ---
Subjective Progress Note Date: 10/13/18 The patient was quite sleepy, but arousable. Even when awake he was quite drowsy. He stated that his diarrhea was decreased. He still quite weak but feels somewhat stronger. He stated that he was able to ambulate to the bathroom without difficulty. No history of any progressive loss of sensation in his lower extremities. Bowel and bladder sensation are maintained Objective - Vital Signs Vital signs: Vital Signs Temp 97.9 F 10/13/18 12:01 Pulse 75 10/13/18 12:01 Resp 17 10/13/18 12:01 BP 143/76 10/13/18 12:01 Pulse Ox 94 L 10/13/18 12:01 Intake & Output 10/12/18 10/13/18 10/13/18 18:59 06:59 18:59 Intake Total 815 Output Total 800 300 Balance -800 515 Weight 135.034 kg Intake: Intake, IV Titration 225 Amount Sodium Chloride 0.9% 1, 225 000 ml @ 75 mls/hr IV . [id number] [facility] Rx#:[id number] Oral 590 Output: Urine 800 300 Other: Voiding Method Urinal Urinal Urinal # Voids 2 2 # Bowel Movements 1 - Constitutional General appearance: Present: no acute distress - EENT Eyes: Present: EOMI ENT: Present: hearing grossly normal, normal oropharynx - Respiratory Respiratory: bilateral: CTA - Cardiovascular Rhythm: regular Heart sounds: normal: S1, S2 - Gastrointestinal General gastrointestinal: Present: normal bowel sounds, soft - Integumentary Integumentary: Present: normal - Neurologic Neurologic: Present: CNII-XII intact - Musculoskeletal Musculoskeletal: Present: generalized weakness, strength equal bilaterally - Psychiatric Psychiatric: Present: A&O x's 3, appropriate affect - Labs CBC & Chem 7: 10/13/18 06:54 10/13/18 06:54 Labs: Abnormal Lab Results - Last 24 Hours (Table) 10/13/18 10/13/18 Range/Units 06:54 06:54 WBC 1.6 L (3.8-10.6) k/uL RBC 3.16 L (4.30-5.90) m/uL Hgb 10.0 L (13.0-17.5) gm/dL Hct 31.1 L (39.0-53.0) % RDW 17.7 H (11.5-15.5) % Plt Count 128 L (150-450) k/uL Lymphocytes # (Manual) 0.18 L (1.0-4.8) k/uL Sodium 131 L (137-145) mmol/L Creatinine 0.49 L (0.66-1.25) mg/dL Glucose 136 H (74-99) mg/dL Calcium 7.8 L (8.4-10.2) mg/dL Magnesium 1.4 L (1.6-2.3) mg/dL Total Protein 6.1 L (6.3-8.2) g/dL Albumin 2.5 L (3.5-5.0) g/dL Assessment and Plan (1) Weakness generalized Narrative/Plan: The patient overall feels stronger. He has not had any recurrent falls. He was able to relate to the bathroom. There is no evidence of any progressive weakne ss or loss of sensation in the lower extremities, bowel or bladder. Clinically there appeared to be no evidence of cord compression. At the time of my evaluation MRI of the spine was pending . However CT scans had not shown any evidence of destructive lesions or cord compression either. Therefore at this time it is more likely that his symptoms of fall and difficulty regulating would due to generalized weakness, likely from dehydration. If MRI is negative for cord compression, the patient can be weaned off steroids Continue IV hydration. Current Visit: Yes Status: Acute Code(s): R53.1 - WEAKNESS SNOMED Code(s): 19362399 (2) Mass of upper lobe of right lung Narrative/Plan: The patient is currently on concurrent chemoradiation. We will resume treatment, once acute situation has sufficiently resolved. He has only one more weekly chemotherapy treatment left. Current Visit: No Status: Acute Code(s): R91.8 - OTHER NONSPECIFIC ABNORMAL FINDING OF LUNG FIELD SNOMED Code(s): 408670539 (3) Pancytopenia due to antineoplastic chemotherapy Narrative/Plan: Most recent chemotherapy was earlier this week. His counts are reduced but all are in a safe range and do not require supplementation. Continue to monitor Current Visit: Yes Status: Acute Code(s): D61.810 - ANTINEOPLASTIC CHEMOTHERAPY INDUCED PANCYTOPENIA; T45.1X5A - ADVERSE EFFECT OF ANTINEOPLASTIC AND IMMUNOSUP DRUGS, INIT SNOMED Code(s): 637690091781350
--- NOTE | 2018-10-13 15:34 | P.PN ---
Progress Note - Text Progress Note Date: 10/13/18 Chief Complaint: Weak and tired Interval history: This is a pleasant 67-year-old patient of Dr. Laura Bernabe. Patient's oncologist is Dr. Mireles and radiation oncologist is Dr. Knox. Patient chronic stable medical conditions include COPD, GERD, hypertension, hyperlipidemia, osteoarthritis and peripheral neuropathy. Patient has been diagnosed with moderately differentiated's, squamous cell carcinoma. Has been getting weekly treatment with carboplatin and Taxol with concurrent radiation treatment. Last radiation treatment was October 02. Patient also got chemo-induced cytopenias. Patient is weekly chemotherapy. Has received 5 cycles. In the last few days patient has been become progressively weak. Had some vomiting. Also has some diarrhea. Has been using a walker. Appetite has been told. Weak and tired. She also took a couple of falls because of weakness. Had a CAT scan in the ER. Showed 5% anterior wedging of L1 and 10% anterior wedging of L4. Somewhat age indeterminate. Because of weakness patient is having trouble walking. No bowel or urinary retention. Admitted for the same. No fever no chills. Today-laying bed. Feeling better. Did have an open MRI. No cord compression was reported. Appetite is fair. Able to get to the bathroom with a walker. Active Medications Hydrocodone Bitart/Acetaminophen ([place] 10) 1 each PO Q6H PRN PRN Reason: Pain Last Admin: 10/13/18 15:16 Dose: 1 each Documented by: Atorvastatin Calcium (Lipitor) 10 mg PO DAILY [facility] Last Admin: 10/13/18 08:14 Dose: 10 mg Documented by: Benzonatate (Tessalon Perles) 100 mg PO TID PRN PRN Reason: Cough Budesonide/Formoterol Fumarate (Symbicort 160-4.5 Mcg Inhaler) 2 puff INHALATION RT-BID [facility] Last Admin: 10/13/18 08:26 Dose: 2 puff Documented by: Bupropion HCl (Wellbutrin Sr) 150 mg PO BID [facility] Last Admin: 10/13/18 08:13 Dose: 150 mg Documented by: Diphenoxylate HCl/Atropine (Lomotil) 1 each PO Q6HR PRN PRN Reason: Diarrhea Last Admin: 10/12/18 15:44 Dose: 1 each Documented by: Enoxaparin Sodium (Lovenox) 40 mg SQ DAILY [facility] Last Admin: 10/13/18 08:15 Dose: 40 mg Documented by: Gabapentin (Neurontin) 800 mg PO TID [facility] Last Admin: 10/13/18 15:16 Dose: 800 mg Documented by: Sodium Chloride ([place] 0.9%) 1,000 mls @ 75 mls/hr IV .[id number] [facility] Last Admin: 10/13/18 08:15 Dose: 75 mls/hr Documented by: Lisinopril (Zestril) 20 mg PO DAILY [facility] Last Admin: 10/13/18 08:13 Dose: 20 mg Documented by: Meloxicam (Mobic) 15 mg PO DAILY [facility] Last Admin: 10/13/18 08:13 Dose: 15 mg Documented by: Methylprednisolone Sodium Succinate (Solu-Medrol) 60 mg IV Q12HR [facility] Last Admin: 10/13/18 08:15 Dose: 60 mg Documented by: Miscellaneous Information (Rx Info: Iv Contrast Was Given) 1 each MISCELLANE DAILY PRN PRN Reason: Per Protocol Stop: 10/14/18 15:09 Naloxone HCl (Narcan) 0.2 mg IV Q2M PRN PRN Reason: Opioid Reversal Pantoprazole Sodium (Protonix) 40 mg PO AC-BID [facility] Last Admin: 10/13/18 15:18 Dose: 40 mg Documented by: Primidone (Mysoline) 50 mg PO TID [facility] Last Admin: 10/13/18 15:18 Dose: 50 mg Documented by: Propranolol HCl (Inderal La) 60 mg PO DAILY [facility] Last Admin: 10/13/18 08:13 Dose: 60 mg Documented by: Physical examination: VITAL SIGNS: 97.9, city 5, 17, 143% 6, 94% room air GENERAL: Laying in bed, more cheerful today. EYES: Pupils equal. Conjunctiva palel. HEENT: External appearance of nose and ears normal, oral cavity grossly normal. NECK: JVD not raised; masses not palpable. HEART: First and second heart sounds are normal; no edema. LUNGS: Respiratory rate increased, decreased breath sounds. ABDOMEN: Soft, nontender, liver spleen not palpable, no masses palpable. PSYCH: Alert and oriented x3; mood and affect normal. NEUROLOGICAL: Cranial nerves grossly intact; no facial asymmetry, decreased power in the lower extremity, decreased sensation distally. Able to walk to the bathroom with walker Investigations: White count 1.6 hemoglobin 10 platelets 128 Potassium 5.1 creatinine 0[address] Chavez's office-no evidence of cord chronic depression Assessment: -This patient presents with difficulty walking. Has had couple of falls. Patient is found to have some anterior wedging of L1 and L4. Orthopedic spine Dr. Haq was consulted. 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 PTOT is on the case. Depending how he does, he will go to to rehab on Monday. Care was discussed with the patient.
[2018-10-13] MEDS: BENZONATATE 100 MG CAP PO PRN (19:37)
[2018-10-14] MEDS: ALBUTEROL NEBULIZED 2.5 MG/3 ML INHALATION PRN ×7 (00:33→23:36)
[2018-10-14] MEDS: DIPHENOX-ATROP 2.5-0.025 MG 1 EACH TAB PO PRN (03:49)
[2018-10-14] MEDS: SODIUM CHLORIDE 0.9% 1,000 ML IV SCH ×2 (03:54→11:04)
[2018-10-14] MEDS: HYDROcodone/APAP 10-325MG 1 EACH TAB PO PRN ×4 (03:59→23:10)
[2018-10-14] MEDS: BENZONATATE 100 MG CAP PO PRN ×2 (04:23→13:36)
[2018-10-14] MEDS: GABAPENTIN 400 MG CAP PO SCH ×3 (07:31→21:39)
[2018-10-14] MEDS: LISINOPRIL 20 MG TAB PO SCH (07:31)
[2018-10-14] MEDS: ENOXAPARIN 40 MG/0.4 ML SYRINGE SQ SCH (07:31)
[2018-10-14] MEDS: PROPRANOLOL LA 60 MG CAP.SA.24H PO SCH (07:31)
[2018-10-14] MEDS: ATORVASTATIN 10 MG TAB PO SCH (07:32)
[2018-10-14] MEDS: buPROPion SR 150 MG TABLET.ER PO SCH ×2 (07:32→21:40)
[2018-10-14] MEDS: MELOXICAM 7.5 MG TAB PO SCH (07:32)
[2018-10-14] MEDS: PRIMIDONE 50 MG TAB PO SCH ×3 (07:33→21:40)
[2018-10-14] MEDS: PANTOPRAZOLE 40 MG TABLET PO SCH ×2 (07:33→17:02)
[2018-10-14] MEDS: SYMBICORT 160-4.5 MCG INHALER INHALATION SCH ×2 (07:54→20:07)
--- NOTE | 2018-10-14 09:58 | P.PN ---
Subjective Progress Note Date: 10/14/18 Principal diagnosis: Lower extremity weakness and inability to ambulate The patient is a 67 y/o male who we have been following for bilateral lower extremity weakness and inability to ambulate. An MRI was obtained and the patient was started on Solu-Medrol. This morning, the patient states his pain has not improved but his mobility has improved according to nursing staff. He has been up to the bathroom with his 4-wheeled walker and assistance. He is refusing skilled rehab at this time. The patient states he needs to be home tomorrow to pay his bills. Objective - Vital Signs Vital signs: Vital Signs Temp 97.4 F L 10/14/18 05:39 Pulse 80 10/14/18 08:07 Resp 16 10/14/18 05:39 BP 147/78 10/14/18 05:39 Pulse Ox 95 10/14/18 05:39 Intake & Output 10/13/18 10/14/18 10/14/18 18:59 06:59 18:59 Intake Total 240 815 Output Total 300 Balance -60 815 Intake: Intake, IV Titration 225 Amount Sodium Chloride 0.9% 1, 225 000 ml @ 75 mls/hr IV . [id number] [facility] Rx#:[id number] Oral 240 590 Output: Urine 300 Other: Voiding Method Urinal Urinal # Voids 2 3 # Bowel Movements 1 - Exam The patient is a 67-year-old male who is in no acute distress. He is alert and oriented 3. Abdomen is soft and nontender. No neurological changes to his legs since admission. Bilateral sustained dorsiflexion and plantar flexion and EHL function. He has good foot and ankle motion. Bilateral calves are soft and nontender. Neurological and circulatory status is intact. - Labs CBC & Chem 7: 10/13/18 06:54 10/13/18 06:54 Assessment and Plan (1) Unable to ambulate Current Visit: Yes Status: Acute Code(s): R26.2 - DIFFICULTY IN WALKING, NOT ELSEWHERE CLASSIFIED SNOMED Code(s): 196611658 (2) Fall Current Visit: Yes Status: Acute Code(s): W19.XXXA - UNSPECIFIED FALL, INI TIAL ENCOUNTER SNOMED Code(s): 1278204 Plan: The clinical and MRI findings were discussed with the patient. No acute fractures or changes seen within the lumbar spine. No evidence of acute cord compression. Continue pain control. Internal medicine discontinued Solu-medrol. Continue physical therapy. We recommend skill rehab but the patient states he has someone to stay with him for 3 weeks after discharge. From an orthopedic standpoint, the patient appears to be improving. He may follow up with Dr. Haq in the office as an outpatient if needed.
--- NOTE | 2018-10-14 15:06 | P.PN ---
Progress Note - Text Progress Note Date: 10/14/18 Chief Complaint: Weak and tired Interval history: This is a pleasant 67-year-old patient of Dr. Laura Bernabe. Patient's oncologist is Dr. Mireles and radiation oncologist is Dr. Knox. Patient chronic stable medical conditions include COPD, GERD, hypertension, hyperlipidemia, osteoarthritis and peripheral neuropathy. Patient has been diagnosed with moderately differentiated's, squamous cell carcinoma. Has been getting weekly treatment with carboplatin and Taxol with concurrent radiation treatment. Last radiation treatment was October 02. Patient also got chemo-induced cytopenias. Patient is weekly chemotherapy. Has received 5 cycles. In the last few days patient has been become progressively weak. Had some vomiting. Also has some diarrhea. Has been using a walker. Appetite has been told. Weak and tired. She also took a couple of falls because of weakness. Had a CAT scan in the ER. Showed 5% anterior wedging of L1 and 10% anterior wedging of L4. Somewhat age indeterminate. Because of weakness patient is having trouble walking. No bowel or urinary retention. Admitted for the same. No fever no chills. Today-current is to feel better. Appetite much improved. Patient actually wanted to go home maybe. 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 Active Medications Hydrocodone Bitart/Acetaminophen ([place] 10) 1 each PO Q6H PRN PRN Reason: Pain Last Admin: 10/14/18 11:00 Dose: 1 each Documented by: Albuterol Sulfate (Ventolin Nebulized) 2.5 mg INHALATION RT-Q4H PRN PRN Reason: Shortness Of Breath Or Wheezing Last Admin: 10/14/18 11:20 Dose: 2.5 mg Documented by: Atorvastatin Calcium (Lipitor) 10 mg PO DAILY [facility] Last Admin: 10/14/18 07:32 Dose: 10 mg Documented by: Benzonatate (Tessalon Perles) 100 mg PO TID PRN PRN Reason: Cough Last Admin: 10/14/18 13:36 Dose: 100 mg Documented by: Budesonide/Formoterol Fumarate (Symbicort 160-4.5 Mcg Inhaler) 2 puff INHALATION RT-BID [facility] Last Admin: 10/14/18 07:54 Dose: 2 puff Documented by: Bupropion HCl (Wellbutrin Sr) 150 mg PO BID [facility] Last Admin: 10/14/18 07:32 Dose: 150 mg Documented by: Diphenoxylate HCl/Atropine (Lomotil) 1 each PO Q6HR PRN PRN Reason: Diarrhea Last Admin: 10/14/18 03:49 Dose: 1 each Documented by: Enoxaparin Sodium (Lovenox) 40 mg SQ DAILY [facility] Last Admin: 10/14/18 07:31 Dose: 40 mg Documented by: Gabapentin (Neurontin) 800 mg PO TID [facility] Last Admin: 10/14/18 07:31 Dose: 800 mg Documented by: Sodium Chloride (Saline 0.9%) 1,000 mls @ 75 mls/hr IV .[id number] [facility] Last Admin: 10/14/18 11:04 Dose: 75 mls/hr Documented by: Lisinopril (Zestril) 20 mg PO DAILY [facility] Last Admin: 10/14/18 07:31 Dose: 20 mg Documented by: Meloxicam (Mobic) 15 mg PO DAILY [facility] Last Admin: 10/14/18 07:32 Dose: 15 mg Documented by: Miscellaneous Information (Rx Info: Iv Contrast Was Given) 1 each MISCELLANE DAILY PRN PRN Reason: Per Protocol Stop: 10/14/18 15:09 Naloxone HCl (Narcan) 0.2 mg IV Q2M PRN PRN Reason: Opioid Reversal Pantoprazole Sodium (Protonix) 40 mg PO AC-BID [facility] Last Admin: 10/14/18 07:33 Dose: 40 mg Documented by: Primidone (Mysoline) 50 mg PO TID [facility] Last Admin: 10/14/18 07:33 Dose: 50 mg Documented by: Propranolol HCl (Inderal La) 60 mg PO DAILY [facility] Last Admin: 10/14/18 07:31 Dose: 60 mg Documented by: Physical examination: VITAL SIGNS: 97.8, 66, 17, 173 x 100, 94 % room air GENERAL: Laying in bed propped up, more comfortable. EYES: Pupils equal. Conjunctiva palel. HEENT: External appearance of nose and ears normal, oral cavity grossly normal. NECK: JVD not raised; masses not palpable. HEART: First and second heart sounds are normal; no edema. LUNGS: Respiratory rate increased, decreased breath sounds. ABDOMEN: Soft, nontender, liver spleen not palpable, no masses palpable. PSYCH: Alert and oriented x3; mood and affect normal. NEUROLOGICAL: Cranial nerves grossly intact; no facial asymmetry, decreased power in the lower extremity, decreased sensation distally. Able to walk to the bathroom with walker Investigations: White count 1.6 hemoglobin 10 platelets 128 Potassium 5.1 creatinine 0[address] Chavez's office-no evidence of cord chronic depression Assessment: -This patient presents with difficulty walking. Has had couple of falls. Patient is found to have some anterior wedging of L1 and L4. Orthopedic spine Dr. Haq was consulted. 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 Social work and case repairer to coordinate discharge
[2018-10-15] MEDS: BENZONATATE 100 MG CAP PO PRN ×2 (00:25→08:20)
[2018-10-15] MEDS: HYDROcodone/APAP 10-325MG 1 EACH TAB PO PRN ×2 (04:59→11:32)
[2018-10-15] MEDS: ENOXAPARIN 40 MG/0.4 ML SYRINGE SQ SCH (08:19)
[2018-10-15] MEDS: PANTOPRAZOLE 40 MG TABLET PO SCH (08:20)
[2018-10-15] MEDS: GABAPENTIN 400 MG CAP PO SCH (08:20)
[2018-10-15] MEDS: LISINOPRIL 20 MG TAB PO SCH (08:20)
[2018-10-15] MEDS: DIPHENOX-ATROP 2.5-0.025 MG 1 EACH TAB PO PRN (08:20)
[2018-10-15] MEDS: ATORVASTATIN 10 MG TAB PO SCH (08:20)
[2018-10-15] MEDS: buPROPion SR 150 MG TABLET.ER PO SCH (08:20)
[2018-10-15] MEDS: PRIMIDONE 50 MG TAB PO SCH (08:21)
[2018-10-15] MEDS: MELOXICAM 7.5 MG TAB PO SCH (08:21)
[2018-10-15] MEDS: PROPRANOLOL LA 60 MG CAP.SA.24H PO SCH (08:21)
[2018-10-15] MEDS: SODIUM CHLORIDE 0.9% 1,000 ML IV SCH ×2 (08:23→14:36)
[2018-10-15] MEDS: SYMBICORT 160-4.5 MCG INHALER INHALATION SCH (08:56)
[2018-10-15] MEDS: ALBUTEROL NEBULIZED 2.5 MG/3 ML INHALATION PRN (08:56)
[2018-10-15 09:55] LABS: Anisocytosis Slight; HCT 30.4 % (39.0-53.0); HGB 10.3 gm/dL (13.0-17.5); MCHC 33.9 g/dL (31.0-37.0); MCV 94.3 fL (80.0-100.0); Macrocytosis Slight; Mean Platelet Volume 7.3; Platelet Count 192 k/uL (150-450); RBC 3.22 m/uL (4.30-5.90); RDW 18.6 % (11.5-15.5); WBC 3.3 k/uL (3.8-10.6)
[2018-10-15 10:00] LABS: ALT 58 U/L (21-72); AST 106 U/L (17-59); African American GFR (CKD) >90 (>60 ml/min/1.73 sqM); Albumin 2.5 g/dL (3.5-5.0); Alkaline Phosphatase 99 U/L (38-126); Anion Gap 9 mmol/L; Blood Urea Nitrogen 9 mg/dL (9-20); Calcium 8.1 mg/dL (8.4-10.2); Carbon Dioxide 27 mmol/L (22-30); Chloride 98 mmol/L (98-107); Glucose 141 mg/dL (74-99); Potassium 4.6 mmol/L (3.5-5.1); Sodium 134 mmol/L (137-145); Total Bilirubin 0.7 mg/dL (0.2-1.3)
[2018-10-15 11:08] LABS: Basophils # (M) 0.03 k/uL (0-0.2); Eosinophils # (M) 0.03 k/uL (0-0.7); Lymphocytes # (M) 0.73 k/uL (1.0-4.8); Metamyelocytes # (M) 0.03 k/uL (0); Metamyelocytes % 1 %; Monocytes # (M) 0.66 k/uL (0-1.0); Myelocytes # (M) 0.07 k/uL (0); Myelocytes % 2 %; Neutrophils % (M) 55 %; Nucleated Red Blood Cells 0 /100 WBC (0-0); Total Cells Counted 200
[2018-10-15 11:09] LABS: Poikilocytosis (M) Present
--- NOTE | 2018-10-15 12:02 | P.PN ---
Subjective Progress Note Date: 10/15/18 Principal diagnosis: Dehydration on chemo Patient eager to go home Objective - Vital Signs Vital signs: Vital Signs Temp 97.7 F 10/15/18 05:00 Pulse 76 10/15/18 09:06 Resp 18 10/15/18 07:15 BP 152/62 10/15/18 05:00 Pulse Ox 95 10/15/18 05:00 Intake & Output 10/14/18 10/15/18 10/15/18 18:59 06:59 18:59 Intake Total 240 675 Output Total 300 800 Balance -60 -125 Intake: Intake, IV Titration 225 Amount Sodium Chloride 0.9% 1, 225 000 ml @ 75 mls/hr IV . [id number] EMILY Rx#:[id number] Oral 240 450 Output: Urine 300 800 Other: Voiding Method Urinal Urinal Urinal # Voids 3 2 # Bowel Movements 2 - Exam General: Alert and Oriented x3, No Acute Distress Head: Normocytic, Atraumatic Neck: Supple Mouth: No Lesions, No Thrush Eyes: Non-sclerotic No Palpable cervical, supraclavicular, axillary adenopathy Heart: Regular Rate, Regular Rhythm Lungs: Clear to Ausculations, No Wheeze, No Rhonchi, Diminishe bilateral lower lobes, No increased respiratory effort noted Abdomen: Soft, Non-Distended, Non-Tended, BSx4 Extremities: No Edema, Equal Strength Neurological: No Focal Defects: No sensory or motor deficits noted Psych: Calm and cooperative - Labs CBC & Chem 7: 10/15/18 08:58 10/15/18 08:58 Labs: Abnormal Lab Results - Last 24 Hours (Table) 10/15/18 10/15/18 Range/Units 08:58 08:58 WBC 3.3 L (3.8-10.6) k/uL RBC 3.22 L (4.30-5.90) m/uL Hgb 10.3 L (13.0-17.5) gm/dL Hct 30.4 L (39.0-53.0) % RDW 18.6 H (11.5-15.5) % Lymphocytes # (Manual) 0.73 L (1.0-4.8) k/uL Metamyelocytes # (Man) 0.03 H (0) k/uL Myelocytes # (Manual) 0.07 H (0) k/uL Sodium 134 L (137-145) mmol/L Creatinine 0.55 L (0.66-1.25) mg/dL Glucose 141 H (74-99) mg/dL Calcium 8.1 L (8.4-10.2) mg/dL AST 106 H (17-59) U/L Total Protein 6.0 L (6.3-8.2) g/dL Albumin 2.5 L (3.5-5.0) g/dL Assessment and Plan Plan: Assessment and recommendations: Non-Small Cell Lung Cancer - Squamous Cell: - Currently on concurrent chemo and radiation weekly carbo and taxol Inability to ambulity and weakness lower extremities: - CT lumbar spine Reviewed - MRI Thoracic and Lumbar Recommended - Rec Dex q6-8hours possibility of compression or metastatic disease. Patient on Methyprednisone, continue and re-evaluate after imaging - Unable to perform MRI brain with contrast secondary to need to be sent out for test, will do CT brain with contrast here and MRI (preferred with contrast Spine) as send out to appropriate machine. Notified unable to perfor thoracic and with contrast secondary to time slot therefore will perform Lumbar without contrast and again re-evaluate. Hyponatremia: - Dehydration versus SIADH - Re-assess mets to brain Plan: - Ok with discharge from oncology standpoint - Re-education on adequate po intake and hydration - Set up for IV Hydration 2 days after next cycle - office will call to set up next follow-up date - Await repeat labs prior to discharge. - Appreciate PT/OT recs, rec home PT/OT home care at discharge
[2018-10-15 12:28] VITALS: BP 143/83; PULSE 73; RESP 16; TEMP 97.6
--- NOTE | 2018-10-15 23:56 | P.DS ---
Providers Date of admission: 10/12/18 04:48 Expected date of discharge: 10/15/18 Attending physician: Micah Orta Consults: 10/12/18 10:18 Consult Physician Routine Consulting Provider: Beth Haq Consult Reason/Comments: lumbar fractute/fall Do you want consulting provider notified?: Yes 10/12/18 11:53 Consult Physician Routine Consulting Provider: Sean Mireles Consult Reason/Comments: reccomendation treatment versus rehab Do you want consulting provider notified?: Yes 10/12/18 14:12 Consult Physician Routine Consulting Provider: Christopher Knox Consult Reason/Comments: inability to ambulate, PKTY Ashwini Do you want consulting provider notified?: Yes Primary care physician: Raul Bernabe [facility] Course: Hospital course: This is a pleasant 67-year-old patient of Dr. Laura Bernabe. Patient's oncologist is Dr. Mireles and radiation oncologist is Dr. Knox. Patient chronic stable medical conditions include COPD, GERD, hypertension, hyperlipidemia, osteoarthritis and peripheral neuropathy. Patient has been diagnosed with moderately differentiated's, squamous cell carcinoma. Has been getting weekly treatment with carboplatin and Taxol with concurrent radiation treatment. Last radiation treatment was October 02. Patient also got chemo-induced cytopenias. Patient is weekly chemotherapy. Has received 5 cycles. In the last few days patient has been become progressively weak. Had some vomiting. Also has some diarrhea. Has been using a walker. Appetite has been told. Weak and tired. She also took a couple of falls because of weakness. Had a CAT scan in the ER. Showed 5% anterior wedging of L1 and 10% anterior wedging of L4. Somewhat age indeterminate. Because of weakness patient is having trouble walking. No bowel or urinary retention. Admitted for the same. No fever no chills. Patient had an MRI done. No evidence of spinal cord involvement. Patient is doing much better. Starting a diet. Using a walker. She'll be going home with home physical therapy. cleared by oncology and orthopedic spine Consultation: Dr. Armando Ward from orthopedic spine Dr. Mireles from oncology Physical examination: VITAL SIGNS: 97 x 6, 73, 16, 143 Curtis 3, 97% room air GENERAL: Sitting up, comfortable. EYES: Pupils equal. Conjunctiva palel. HEENT: External appearance of nose and ears normal, oral cavity grossly normal. NECK: JVD not raised; masses not palpable. HEART: First and second heart sounds are normal; no edema. LUNGS: Respiratory rate increased, decreased breath sounds. ABDOMEN: Soft, nontender, liver spleen not palpable, no masses palpable. PSYCH: Alert and oriented x3; mood and affect normal. NEUROLOGICAL: Cranial nerves grossly intact; no facial asymmetry, decreased power in the lower extremity, decreased sensation distally. Walking much better with a walker Investigations: White count 3.3 hemoglobin 10.3 platelets 192 potassium 4.6 creatinine 0[address] Chavez's office-no evidence of cord chronic compression Assessment: -Acute medical debility from chemotherapy, peripheral neuropathy, improving. 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 -COPD in an ex-smoker -GERD -Hyperlipidemia -Essential hypertension -Primary osteoarthritis -Peripheral neuropathy from a combination of being on chemotherapy and from underlying malignancy Disposition: Home with physical therapy Patient Condition at Discharge: Stable Plan - Discharge Summary Discharge Rx Participant: No New Discharge Prescriptions: Continue Meloxicam [Mobic] 15 mg PO DAILY Omeprazole 20 mg PO BID Enalapril [Vasotec] 10 mg PO DAILY buPROPion SR [Wellbutrin SR] 150 mg PO BID Simvastatin [Zocor] 10 mg PO DAILY Gabapentin [Neurontin] 800 mg PO TID Albuterol Inhaler [Ventolin Hfa Inhaler] 1 - 2 puff INHALATION RT-Q4H PRN PRN Reason: Shortness Of Breath Primidone [Mysoline] 50 mg PO TID Propranolol HCl [Propranolol HCl ER] 60 mg PO DAILY Benzonatate [Tessalon Perles] 100 mg PO TID PRN PRN Reason: Cough Hydrocodone/Acetaminophen [[place] 7.5-325] 1 tab PO Q6HR PRN PRN Reason: Pain Budesonide-Formot 160-4.5 Mcg [Symbicort 160-4.5 Mcg Inhaler] 2 puff INHALATION RT-BID Prochlorperazine [Compazine] 10 mg PO Q8H PRN PRN Reason: Nausea And Vomiting Discharge Medication List Albuterol Inhaler [Ventolin Hfa Inhaler] 1 - 2 puff INHALATION RT-Q4H PRN 09/06/15 [History] Enalapril [Vasotec] 10 mg PO DAILY 09/06/15 [History] Gabapentin [Neurontin] 800 mg PO TID 09/06/15 [History] Meloxicam [Mobic] 15 mg PO DAILY 09/06/15 [History] Omeprazole 20 mg PO BID 09/06/15 [History] Primidone [Mysoline] 50 mg PO TID 09/06/15 [History] Propranolol HCl [Propranolol HCl ER] 60 mg PO DAILY 09/06/15 [History] Simvastatin [Zocor] 10 mg PO DAILY 09/06/15 [History] buPROPion SR [Wellbutrin SR] 150 mg PO BID 09/06/15 [History] Benzonatate [Tessalon Perles] 100 mg PO TID PRN 10/12/18 [History] Budesonide-Formot 160-4.5 Mcg [Symbicort 160-4.5 Mcg Inhaler] 2 puff INHALATION RT-BID 10/12/18 [History] Hydrocodone/Acetaminophen [[place] 7.5-325] 1 tab PO Q6HR PRN 10/12/18 [History] Prochlorperazine [Compazine] 10 mg PO Q8H PRN 10/12/18 [History] Follow up Appointment(s)/Referral(s): oncologist, [Other] - 1 Week Sean Mireles MD [STAFF PHYSICIAN] - 10/19/18 8:15 am () Beth Haq DO [Doctor of Osteopathic Medicine] - As Needed Raul Bernabe DO [Primary Care Provider] - 10/25/18 3:45 pm [facility] Visiting Nurse, [NON-STAFF] - 1-2 Days Patient Instructions/Handouts: Fall Prevention for Older Adults (ED) Activity/Diet/Wound Care/Special Instructions: Patient will be admitted. Discharge Disposition: HOME WITH HOME HEALTH SERVICES
--- NOTE | 2018-10-16 00:11 | P.PN ---
Subjective Progress Note Date: 10/15/18 The patient overall feels much improved, and is anxious to go home. He states that he gets dizzy if he stands up suddenly, but otherwise is able to ambulate to the bathroom without much discomfort. Diarrhea has slowed considerably. Appetite is improved. Objective - Vital Signs Vital signs: Vital Signs Temp 97.6 F 10/15/18 12:27 Pulse 73 10/15/18 12:27 Resp 16 10/15/18 12:27 BP 143/83 10/15/18 12:27 Pulse Ox 97 10/15/18 12:27 Intake & Output 10/15/18 10/15/18 10/16/18 06:59 18:59 06:59 Intake Total 675 1450 Output Total 800 Balance -125 1450 Intake: Intake, IV Titration 225 550 Amount Sodium Chloride 0.9% 1, 225 550 000 ml @ 75 mls/hr IV . [id number] EMILY Rx#:[id number] Oral 450 900 Output: Urine 800 Other: Voiding Method Urinal Urinal # Voids 2 3 # Bowel Movements 2 - Constitutional General appearance: Present: no acute distress - Respiratory Respiratory: bilateral: CTA - Cardiovascular Rhythm: regular Heart sounds: normal: S1, S2 - Gastrointestinal General gastrointestinal: Present: normal bowel sounds, soft - Integumentary Integumentary: Present: normal - Neurologic Neurologic: Present: CNII-XII intact - Musculoskeletal Musculoskeletal: Present: generalized weakness - Psychiatric Psychiatric: Present: A&O x's 3, appropriate affect - Labs CBC & Chem 7: 10/15/18 08:58 10/15/18 08:58 Labs: Abnormal Lab Results - Last 24 Hours (Table) 10/15/18 10/15/18 Range/Units 08:58 08:58 WBC 3.3 L (3.8-10.6) k/uL RBC 3.22 L (4.30-5.90) m/uL Hgb 10.3 L (13.0-17.5) gm/dL Hct 30.4 L (39.0-53.0) % RDW 18.6 H (11.5-15.5) % Lymphocytes # (Manual) 0.73 L (1.0-4.8) k/uL Metamyelocytes # (Man) 0.03 H (0) k/uL Myelocytes # (Manual) 0.07 H (0) k/uL Sodium 134 L (137-145) mmol/L Creatinine 0.55 L (0.66-1.25) mg/dL Glucose 141 H (74-99) mg/dL Calcium 8.1 L (8.4-10.2) mg/dL AST 106 H (17-59) U/L Total Protein 6.0 L (6.3-8.2) g/dL Albumin 2.5 L (3.5-5.0) g/dL Assessment and Plan (1) Weakness generalized Narrative/Plan: There his been no evidence of infection. Patient has improved with decrease in diarrhea, and hydration. Most likely his symptoms are due to dehydration. Imaging study of the spine showed no evidence of cord compression. Patient can be discharged from our standpoint, if felt to be okay by the admitting service. He has been assessed for possible JULIANA, but would rather be discharged home with home physical therapy Status: Acute Code(s): R53.1 - WEAKNESS SNOMED Code(s): 49428068 (2) Mass of upper lobe of right lung Narrative/Plan: Currently on chemoradiation. This will resume after discharge, assuming counts have recovered sufficiently Status: Acute Code(s): R91.8 - OTHER NONSPECIFIC ABNORMAL FINDING OF LUNG FIELD SNOMED Code(s): 833065183 (3) Pancytopenia due to antineoplastic chemotherapy Narrative/Plan: Repeat labs today, prior to discharge to ensure adequate counts. Resume chemotherapy/radiation only after count recovery Status: Acute Code(s): D61.810 - ANTINEOPLASTIC CHEMOTHERAPY INDUCED PANCYTOPENIA; T45.1X5A - ADVERSE EFFECT OF ANTINEOPLASTIC AND IMMUNOSUP DRUGS, INIT SNOMED Code(s): 559038429358796
== END 2018-10-15 15:56 | disposition home health service (06) | DRG 640 ==
LOC: EC 01:21 → 3NMEDONC 04:48 → OBSVTOIN 04:48
PROVIDERS: ADMIT Hospitalist; ATTEND Hospitalist
PROC: 05HB33Z Insertion of Infusion Device into Right Basilic Vein, Percutaneous Approach (ICD-10-PCS; principal; 2018-10-15 10:45)
DX: E87.1 Hypo-osmolality and hyponatremia (principal); D61.810 Antineoplastic chemotherapy induced pancytopenia; C34.90 Malignant neoplasm of unspecified part of unspecified bronchus or lung; M48.56XA Collapsed vertebra, not elsewhere classified, lumbar region, initial encounter for fracture; T45.1X5A Adverse effect of antineoplastic and immunosuppressive drugs, initial encounter; G62.9 Polyneuropathy, unspecified; E78.5 Hyperlipidemia, unspecified; E86.0 Dehydration; I10 Essential (primary) hypertension; J44.9 Chronic obstructive pulmonary disease, unspecified; K21.9 Gastro-esophageal reflux disease without esophagitis; M19.90 Unspecified osteoarthritis, unspecified site; M47.816 Spondylosis without myelopathy or radiculopathy, lumbar region; W19.XXXA Unspecified fall, initial encounter; Z79.1 Long term (current) use of non-steroidal anti-inflammatories (NSAID); Z79.51 Long term (current) use of inhaled steroids; Z79.899 Other long term (current) drug therapy; Z80.1 Family history of malignant neoplasm of trachea, bronchus and lung; Z87.891 Personal history of nicotine dependence; R26.2 Difficulty in walking, not elsewhere classified; Z60.2 Problems related to living alone; K76.9 Liver disease, unspecified; Z91.81 History of falling; Z88.5 Allergy status to narcotic agent; R53.81 Other malaise
CPT/HCPCS: 36410; 36415; 70460; 72131; 76937; 80053; 83735; 85025; 94640

== ENCOUNTER 2018-11-06 16:20 | Inpatient (IN) | payer MEDICARE, OTHER ==
[2018-11-06] MEDS ORDERED: SODIUM CHLORIDE 0.9% 1,000 ML IV STA ×2 (16:30→17:44)
[2018-11-06] MEDS ORDERED: MORPHINE SULFATE 4 MG/ML SYRINGE IVP STA (16:34)
[2018-11-06] MEDS ORDERED: ACETAMINOPHEN TAB 500 MG TAB PO STA (16:39)
--- NOTE | 2018-11-06 16:39 | ED ---
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 No fevers or recent travel history no sick contacts. She has multiple recent hospital admissions including earlier this month. Patient denying any significant pain or changes in pain from prior. He did have a fall today's had multiple falls since last admission is daily N his right hip and his back states he always has significant back pain. No fevers. No other complaints MD Complaint: generalized weakness, difficulty walking -: days(s) Location: generalized, other (Also complaining of right hip and back pain) Severity: moderate Severity scale (1-10): 7 Consistency: constant Improves with: none Worsens with: none Context: history of similar Associated Symptoms: loss of appetite, nausea/vomiting - Related Data Home Medications Medication Instructions Recorded Confirmed Albuterol Inhaler [Ventolin Hfa 2 puff INHALATION RT-Q4H PRN 09/06/15 11/06/18 Inhaler] Enalapril [Vasotec] 10 mg PO DAILY 09/06/15 11/06/18 Gabapentin [Neurontin] 800 mg PO TID 09/06/15 11/06/18 Meloxicam [Mobic] 15 mg PO DAILY 09/06/15 11/06/18 Omeprazole 20 mg PO BID 09/06/15 11/06/18 Primidone [Mysoline] 50 mg PO TID 09/06/15 11/06/18 Propranolol HCl [Propranolol HCl 60 mg PO DAILY 09/06/15 11/06/18 ER] Simvastatin [Zocor] 10 mg PO DAILY 09/06/15 11/06/18 buPROPion SR [Wellbutrin SR] 150 mg PO BID 09/06/15 11/06/18 Benzonatate [Tessalon Perles] 100 mg PO TID PRN 10/12/18 11/06/18 Budesonide-Formot 160-4.5 Mcg 2 puff INHALATION RT-BID 10/12/18 11/06/18 [Symbicort 160-4.5 Mcg Inhaler] Hydrocodone/Acetaminophen [[place] 1 tab PO Q6HR PRN 10/12/18 11/06/18 7.5-325] Prochlorperazine [Compazine] 10 mg PO Q8H PRN 10/12/18 11/06/18 Allergies Allergy/AdvReac Type Severity Reaction Status Date / Time methadone Allergy Swelling Verified 11/06/18 18:10 Review of Systems ROS Statement: Those systems with pertinent positive or pertinent negative responses have been documented in the HPI. ROS Other: All systems not noted in ROS Statement are negative. 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 History of Any Multi-Drug Resistant Organisms: None Reported Past Surgical History: No Surgical Hx Reported Additional Past Surgical History / Comment(s): eye sx, lung biopsy Past Anesthesia/Blood Transfusion Reactions: No Reported Reaction Past Psychological History: Bipolar Smoking Status: Former smoker Past Alcohol Use History: None Reported Past Drug Use History: None Reported - Past Family History Mother Family Medical History: No Reported History Son(s) Family Medical History: Cancer Additional Family Medical History / Comment(s): lung cancer General Exam Limitations: no limitations General appearance: alert, in no apparent distress Head exam: Present: atraumatic, normocephalic, normal inspection Eye exam: Present: normal appearance, PERRL, EOMI. Absent: scleral icterus, conjunctival injection, periorbital swelling ENT exam: Present: normal exam, mucous membranes moist Neck exam: Present: normal inspection. Absent: tenderness, meningismus, lymphadenopathy Respiratory exam: Present: normal lung sounds bilaterally. Absent: respiratory distress, wheezes, rales, rhonchi, stridor Cardiovascular Exam: Present: regular rate, normal rhythm, normal heart sounds. Absent: systolic murmur, diastolic murmur, rubs, gallop, clicks GI/Abdominal exam: Present: soft, normal bowel sounds. Absent: distended, tenderness, guarding, rebound, rigid Extremities exam: Present: normal inspection, full ROM, normal capillary refill. Absent: tenderness, pedal edema, joint swelling, calf tenderness Back exam: Present: normal inspection Neurological exam: Present: alert, oriented X3, CN II-XII intact Psychiatric exam: Present: normal affect, normal mood Skin exam: Present: warm, dry, intact, normal color. Absent: rash Course Vital Signs 11/06/18 11/06/18 11/06/18 16:23 17:31 18:54 Temperature 100.0 F H 98.2 F Pulse Rate 76 76 73 Respiratory 16 16 16 Rate Blood Pressure 117/69 110/66 106/68 O2 Sat by Pulse 97 99 99 Oximetry - Reevaluation(s) Reevaluation #1: 11/06/18 16:39 Adequate record reviewed Reevaluation #2: 11/06/18 18:16 Symptoms mildly improved with IV hydration fever control Reevaluation #3: 11/06/18 18:16 Vital Signs remained normal and stable 11/06/18 18:17 Patient's in no acute distress EKG Findings - EKG Comments: EKG Findings:: EKG shows sinus tach heart rate 11, MN 150, QRS 92, QTc 503 Medical Decision Making - Medical Decision Making 68 male the ER for evaluation of weakness and fall. Patient has positive neutropenia positive fever, will admit for IV antibiotics - Lab Data Result diagrams: 11/06/18 16:54 11/06/18 16:54 Lab Results 11/06/18 11/06/18 11/06/18 Range/Units 16:54 16:54 16:54 WBC 0.5 L* (3.8-10.6) k/uL RBC 2.79 L (4.30-5.90) m/uL Hgb 9.1 L (13.0-17.5) gm/dL Hct 26.5 L (39.0-53.0) % MCV 94.8 (80.0-100.0) fL MCH 32.7 (25.0-35.0) pg MCHC 34.5 (31.0-37.0) g/dL RDW 19.8 H (11.5-15.5) % Plt Count 90 L D (150-450) k/uL Neutrophils # [employer]STER Differential Comment P Manual Slide Review Performed Hypochromasia (manual) Present Anisocytosis Slight Anisocytosis (manual) Present Macrocytosis Slight Stomatocytes Present PT (9.0-12.0) sec INR (<1.2) APTT (22.0-30.0) sec Sodium 126 L (137-145) mmol/L Potassium 4.5 (3.5-5.1) mmol/L Chloride 93 L (98-107) mmol/L Carbon Dioxide 24 (22-30) mmol/L Anion Gap 9 mmol/L BUN 10 (9-20) mg/dL Creatinine 0.42 L (0.66-1.25) mg/dL Est GFR (CKD-EPI)AfAm >90 (>60 ml/min/1.73 sqM) Est GFR (CKD-EPI)NonAf >90 (>60 ml/min/1.73 sqM) Glucose 106 H (74-99) mg/dL Lactic Ac Sepsis Rflx Plasma Lactic Acid Art 2.6 H* (0.7-2.0) mmol/L Calcium 8.3 L (8.4-10.2) mg/dL Magnesium 1.5 L (1.6-2.3) mg/dL Total Bilirubin 1.8 H (0.2-1.3) mg/dL AST 45 (17-59) U/L ALT 36 (21-72) U/L Alkaline Phosphatase 117 (38-126) U/L Troponin I (0.000-0.034) ng/mL Total Protein 6.9 (6.3-8.2) g/dL Albumin 3.1 L (3.5-5.0) g/dL 11/06/18 11/06/18 11/06/18 Range/Units 16:54 17:21 18:00 WBC (3.8-10.6) k/uL RBC (4.30-5.90) m/uL Hgb (13.0-17.5) gm/dL Hct (39.0-53.0) % MCV (80.0-100.0) fL MCH (25.0-35.0) pg MCHC (31.0-37.0) g/dL RDW (11.5-15.5) % Plt Count (150-450) k/uL Neutrophils # Differential Comment Manual Slide Review Hypochromasia (manual) Anisocytosis Anisocytosis (manual) Macrocytosis Stomatocytes PT 11.1 (9.0-12.0) sec INR 1.0 (<1.2) APTT 19.6 L (22.0-30.0) sec Sodium (137-145) mmol/L Potassium (3.5-5.1) mmol/L Chloride (98-107) mmol/L Carbon Dioxide (22-30) mmol/L Anion Gap mmol/L BUN (9-20) mg/dL Creatinine (0.66-1.25) mg/dL Est GFR (CKD-EPI)AfAm (>60 ml/min/1.73 sqM) Est GFR (CKD-EPI)NonAf (>60 ml/min/1.73 sqM) Glucose (74-99) mg/dL Lactic Ac Sepsis Rflx Y Plasma Lactic Acid Art (0.7-2.0) mmol/L Calcium (8.4-10.2) mg/dL Magnesium (1.6-2.3) mg/dL Total Bilirubin (0.2-1.3) mg/dL AST (17-59) U/L ALT (21-72) U/L Alkaline Phosphatase (38-126) U/L Troponin I <0.012 (0.000-0.034) ng/mL Total Protein (6.3-8.2) g/dL Albumin (3.5-5.0) g/dL - Radiology Data Radiology results: report reviewed (X-ray pelvis right hip negative for traumatic injury, chest x-ray shows no significant pneumonia some atelectasis), image reviewed Critical Care Time Critical Care Time: Yes Total Critical Care Time: 31 Disposition Clinical Impression: Weakness generalized, Hyponatremia, Neutropenic fever, Fall Disposition: ADMITTED IP TO THIS [facility] Condition: Serious Is patient prescribed a controlled substance at d/c from ED?: No
[2018-11-06 17:13] LABS: Anisocytosis Slight; HCT 26.5 % (39.0-53.0); HGB 9.1 gm/dL (13.0-17.5); MCH 32.7 pg (25.0-35.0); MCHC 34.5 g/dL (31.0-37.0); MCV 94.8 fL (80.0-100.0); Macrocytosis Slight; Mean Platelet Volume 7.9; RBC 2.79 m/uL (4.30-5.90); RDW 19.8 % (11.5-15.5)
[2018-11-06 17:17] LABS: ALT 36 U/L (21-72); AST 45 U/L (17-59); African American GFR (CKD) >90 (>60 ml/min/1.73 sqM); Albumin 3.1 g/dL (3.5-5.0); Alkaline Phosphatase 117 U/L (38-126); Anion Gap 9 mmol/L; Blood Urea Nitrogen 10 mg/dL (9-20); Calcium 8.3 mg/dL (8.4-10.2); Carbon Dioxide 24 mmol/L (22-30); Chloride 93 mmol/L (98-107); Glucose 106 mg/dL (74-99); Magnesium 1.5 mg/dL (1.6-2.3); Potassium 4.5 mmol/L (3.5-5.1); Sodium 126 mmol/L (137-145); Total Bilirubin 1.8 mg/dL (0.2-1.3); Total Protein 6.9 g/dL (6.3-8.2)
[2018-11-06 17:18] LABS: WBC 0.5 k/uL (3.8-10.6)
[2018-11-06 17:40] LABS: Anisocytosis (M) Present; Hypochromasia (M) Present; Platelet Count 90 k/uL (150-450); Stomatocytes Present
[2018-11-06] MEDS ORDERED: PIPERACILLIN-TAZOBACTAM 3.375 GM in SODIUM CHLORIDE 0.9% 100 ML IVPB STA (17:44)
[2018-11-06] MEDS ORDERED: VANCOMYCIN IV PER PHARMACY 1 EACH MISC MISCELLANE PRN (17:44)
[2018-11-06] MEDS ORDERED: VANCOMYCIN 2,000 MG in SODIUM CHLORIDE 0.9% 500 ML 500 ML IVPB STA (17:49)
[2018-11-06 18:26] LABS: Prothrombin Time 11.1 sec (9.0-12.0)
[2018-11-06 18:28] LABS: Partial Thromboplastin Time 19.6 sec (22.0-30.0)
[2018-11-06] MEDS: SODIUM CHLORIDE 0.9% 1,000 ML IV SCH (18:48)
[2018-11-06 19:16] LABS: Appearance,Urine Cloudy (Clear); Bilirubin,Urine Negative (Negative); Blood,Urine Negative (Negative); Color,Urine Yellow; Glucose,Urine (UA) Negative (Negative); Ketones,Urine Negative (Negative); Leukocyte Esterase,Urine Negative (Negative); Mucus,Urine Occasional /hpf; Nitrite,Urine Negative (Negative); PH, Urine 7.5 (5.0-8.0); Protein,Urine 1+ (Negative); Specific Gravity,Urine 1.022 (1.001-1.035); WBC,Urine 3 /hpf (0-5)
--- NOTE | 2018-11-06 20:26 | XR ---
EXAMINATION: XR chest 2V DATE AND TIME: 11/06/2018 7:14 PM CLINICAL INDICATION: PHH; Weakness TECHNIQUE: Departmental protocol COMPARISON: 09/26/2018 FINDINGS: Since the prior study of the left upper extremity PICC line has been removed. The lungs are predominantly clear and well expanded. However, there is a new linear band of added opa [place] at the left mid lung zone, which could represent discoid atelectasis. The previously seen linear band of added opacity in the lateral right apex is redemonstrated. The pleural spaces are negative. The cardiac silhouette is borderline enlarged. The remainder of the mediastinal silhouette is unremar kable. The skeletal structures and soft tissues are negative for acute findings. IMPRESSION: Predominantly stable chest, but horizontal linear band of added opacity left midlung zone noted.
--- NOTE | 2018-11-06 20:27 | XR ---
PROCEDURE: XR Hip RT and AP Pelvis - 3V DATE AND TIME: 11/06/2018 7:14 PM CLINICAL INDICATION: PHH; Pain TECHNIQUE: Department protocol COMPARISON: None FINDINGS: There is no fracture or malalignment. The soft tissues are negative for acute findings. [place] metallic opacities over the right hip noted. IMPRESSION: NO ACUTE PROCESS.
[2018-11-06] MEDS: MORPHINE SULFATE 4 MG/ML SYRINGE IVP PRN (20:49)
[2018-11-06 21:34] VITALS: BMI 35.2
[2018-11-06] MEDS ORDERED: BENZONATATE 100 MG CAP PO PRN (22:49)
[2018-11-06] MEDS ORDERED: PROCHLORPERAZINE 10 MG TAB PO PRN (22:49)
[2018-11-06] MEDS ORDERED: ALBUTEROL NEBULIZED 2.5 MG/3 ML INHALATION PRN (22:49)
[2018-11-06] MEDS: GABAPENTIN 400 MG CAP PO SCH (23:32)
[2018-11-06] MEDS: MELATONIN 3 MG TABLET PO PRN (23:32)
[2018-11-06] MEDS: PRIMIDONE 50 MG TAB PO SCH (23:32)
[2018-11-06] MEDS: buPROPion SR 150 MG TABLET.ER PO SCH (23:32)
[2018-11-06] MEDS: PIPERACILLIN-TAZOBACTAM 3.375 GM in SODIUM CHLORIDE 0.9% 100 ML IVPB SCH (23:35)
[2018-11-07] MEDS: SODIUM CHLORIDE 0.9% 1,000 ML IV SCH ×4 (01:36→20:15)
[2018-11-07] MEDS ORDERED: VANCOMYCIN 2,000 MG in SODIUM CHLORIDE 0.9% 500 ML 500 ML IVPB SCH (02:00)
[2018-11-07] MEDS ORDERED: MORPHINE SULFATE 4 MG/ML SYRINGE ONE (04:06)
[2018-11-07] MEDS: PANTOPRAZOLE 40 MG TABLET PO SCH (06:11)
[2018-11-07 07:41] LABS: African American GFR (CKD) >90 (>60 ml/min/1.73 sqM)
[2018-11-07] MEDS: SYMBICORT 160-4.5 MCG INHALER INHALATION SCH ×2 (07:56→19:26)
[2018-11-07] MEDS: ATORVASTATIN 10 MG TAB PO SCH (07:59)
[2018-11-07] MEDS: MELOXICAM 7.5 MG TAB PO SCH (07:59)
[2018-11-07] MEDS: PROPRANOLOL LA 60 MG CAP.SA.24H PO SCH (07:59)
[2018-11-07] MEDS: buPROPion SR 150 MG TABLET.ER PO SCH ×2 (07:59→22:31)
[2018-11-07] MEDS: GABAPENTIN 400 MG CAP PO SCH ×3 (08:00→22:31)
[2018-11-07] MEDS: PRIMIDONE 50 MG TAB PO SCH ×3 (08:00→22:32)
[2018-11-07] MEDS: LISINOPRIL 20 MG TAB PO SCH (08:00)
[2018-11-07] MEDS: PIPERACILLIN-TAZOBACTAM 3.375 GM in SODIUM CHLORIDE 0.9% 100 ML IVPB SCH ×3 (08:00→23:00)
[2018-11-07] MEDS: MORPHINE SULFATE 4 MG/ML SYRINGE IVP PRN ×3 (08:21→20:35)
[2018-11-07] MEDS: VANCOMYCIN 2,000 MG in SODIUM CHLORIDE 0.9% 500 ML 500 ML IVPB SCH ×2 (12:46→20:08)
[2018-11-07] MEDS: HYDROcodone/APAP 7.5-325MG 1 EACH TAB PO PRN (12:58)
--- NOTE | 2018-11-07 14:40 | P.CONS ---
History of Present Illness - Reason for Consult Consult date: 11/07/18 Malignancy on treatment - Chief Complaint weakness - History of Present Illness Mr. White is a pleasant male patient of Dr. Coats who is currently undergoing treatment for non-small cell lung cancer he has a weekly carboplatin and Taxol with concurrent radiation last treatment was October 02. He has been requiring G CSF growth factors secondary to chemo-induced cytopenias. When he originally presented within July 2018 he presented with complaints of progressive weakness shortness of breath and cough his symptoms had been persistent over the past year although he stated that they were getting worse within the past month and more closer to diagnosis with evidence of hemoptysis. A chest x-ray on 07/23/2018 revealed an irregular mass in the right upper lobe which was 1.8 centimeters was suspected right hilar adenopathy CAT scan on August 02 showed multiple lobular masses in the right upper lobe of the lung measuring 2.8 x 3 cm there is also a large pretracheal prostate with superior vena cava at 3.9 cm extending to the right mainstream bronchus. PET scan completed on August 29 right upper lobe nodule with an SUV of 7.8 with a size of 2.7 x 1.8 abutting the right main bronchus a hypermetabolic nodule was seen in the right parotid gland also with a SUV of 6.61 underwent a bronchoscopy on August 15 and pathology did reveal moderate differentiated squamous cell carcinoma MRI of the brain was negative for metastatic disease at that time and he began concurrent carboplatin and Taxol therapy on 09/10/2018 has been tolerating well until recently has been having difficulty ambulating numbness tingling in fingers and toes and occasional nausea which was controlled with Compazine He was recently admitted for significant difficulty with his ambulation in general but has been worsening over the past weeks. Over the past few days as had some lightheadedness gait instability weakness. He lives alone. No changes in bowel bladder function. He has occassional nausea no vomiting or chest pain. He says he has great difficulty trying to stand up on his own and he feels weak in his legs equally bilaterally. Underwent MRI and testing and worked with PT.OT improved and was discharged He now presents back to emergency for further evaluation of weakness. His last treatment carboplatin and taxol on 11.02.18, he has been receiving Neupogen daily after chemotherapy due to insurance and last received on 11.05. Review of Systems A 14 point review of systems was assessed and completed and are all negative except for HPI 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 History of Any Multi-Drug Resistant Organisms: None Reported Past Surgical History: No Surgical Hx Reported Additional Past Surgical History / Comment(s): eye sx, lung biopsy Past Anesthesia/Blood Transfusion Reactions: No Reported Reaction Past Psychological History: Bipolar Smoking Status: Former smoker Past Alcohol Use History: None Reported Additional Past Alcohol Use History / Comment(s): quit 2018 smoked 45 years 1 ppd, quit drinker 30 years ago Past Drug Use History: None Reported - Past Family History Mother Family Medical History: No Reported History Son(s) Family Medical History: Cancer Additional Family Medical History / Comment(s): lung cancer Medications and Allergies Home Medications Medication Instructions Recorded Confirmed Type Albuterol Inhaler [Ventolin Hfa 2 puff INHALATION RT-Q4H PRN 09/06/15 11/06/18 History Inhaler] Enalapril [Vasotec] 10 mg PO DAILY 09/06/15 11/06/18 History Gabapentin [Neurontin] 800 mg PO TID 09/06/15 11/06/18 History Meloxicam [Mobic] 15 mg PO DAILY 09/06/15 11/06/18 History Omeprazole 20 mg PO BID 09/06/15 11/06/18 History Primidone [Mysoline] 50 mg PO TID 09/06/15 11/06/18 History Propranolol HCl [Propranolol HCl 60 mg PO DAILY 09/06/15 11/06/18 History ER] Simvastatin [Zocor] 10 mg PO DAILY 09/06/15 11/06/18 History buPROPion SR [Wellbutrin SR] 150 mg PO BID 09/06/15 11/06/18 History Benzonatate [Tessalon Perles] 100 mg PO TID PRN 10/12/18 11/06/18 History Budesonide-Formot 160-4.5 Mcg 2 puff INHALATION RT-BID 10/12/18 11/06/18 History [Symbicort 160-4.5 Mcg Inhaler] Hydrocodone/Acetaminophen [[place] 1 tab PO Q6HR PRN 10/12/18 11/06/18 History 7.5-325] Prochlorperazine [Compazine] 10 mg PO Q8H PRN 10/12/18 11/06/18 History Allergies Allergy/AdvReac Type Severity Reaction Status Date / Time methadone Allergy Swelling Verified 11/06/18 18:10 Physical Exam Vitals: Vital Signs Temp Pulse Pulse Resp BP BP Pulse Ox 11/07/18 12:21 98.5 F 79 16 112/57 98 11/07/18 08:08 98.6 F 88 16 116/59 93 L 11/07/18 04:00 98.9 F 80 18 110/55 93 L 11/07/18 00:00 97.6 F 77 18 93/51 98 11/06/18 21:25 98.2 F 75 18 138/65 95 11/06/18 21:20 75 18 11/06/18 20:52 97.6 F 78 19 130/80 98 11/06/18 18:54 98.2 F 73 16 106/68 99 11/06/18 17:31 76 16 110/66 99 11/06/18 16:23 100.0 F H 76 16 117/69 97 Intake and Output 11/06/18 11/07/18 11/07/18 22:59 06:59 14:59 Intake Total 360 Output Total 400 800 Balance -400 -440 Intake: Oral 360 Output: Urine 400 800 Other: Voiding Method Urinal Urinal Urinal Weight 131.542 kg 131 kg General: Alert and Oriented x3, No Acute Distress Head: Normocytic, Atraumatic Neck: Supple Mouth: No Lesions, No Thrush Eyes: Non-sclerotic No Palpable cervical, supraclavicular, axillary adenopathy Heart: Regular Rate, Regular Rhythm Lungs: Clear to Ausculations, No Wheeze, No Rhonchi, Diminishe bilateral lower lobes, No increased respiratory effort noted Abdomen: Soft, Non-Distended, Non-Tended, BSx4 Extremities: No Edema, Equal Strength Neurological: No Focal Defects: No sensory or motor deficits noted Psych: Calm and cooperative Results CBC & Chem 7: 08/28/19 15:21 11/07/18 07:10 Labs: Abnormal Lab Results - Last 24 Hours (Table) 11/06/18 11/06/18 11/06/18 Range/Units 16:54 16:54 16:54 WBC 0.5 L* (3.8-10.6) k/uL RBC 2.79 L (4.30-5.90) m/uL Hgb 9.1 L (13.0-17.5) gm/dL Hct 26.5 L (39.0-53.0) % RDW 19.8 H (11.5-15.5) % Plt Count 90 L D (150-450) k/uL APTT (22.0-30.0) sec Sodium 126 L (137-145) mmol/L Chloride 93 L (98-107) mmol/L Creatinine 0.42 L (0.66-1.25) mg/dL Glucose 106 H (74-99) mg/dL Plasma Lactic Acid Art 2.6 H* (0.7-2.0) mmol/L Calcium 8.3 L (8.4-10.2) mg/dL Magnesium 1.5 L (1.6-2.3) mg/dL Total Bilirubin 1.8 H (0.2-1.3) mg/dL Albumin 3.1 L (3.5-5.0) g/dL Urine Protein (Negative) Urine Mucus (None) /hpf 11/06/18 11/06/18 11/07/18 Range/Units 18:00 18:55 07:10 WBC (3.8-10.6) k/uL RBC (4.30-5.90) m/uL Hgb (13.0-17.5) gm/dL Hct (39.0-53.0) % RDW (11.5-15.5) % Plt Count (150-450) k/uL APTT 19.6 L (22.0-30.0) sec Sodium (137-145) mmol/L Chloride (98-107) mmol/L Creatinine 0.41 L (0.66-1.25) mg/dL Glucose (74-99) mg/dL Plasma Lactic Acid Art (0.7-2.0) mmol/L Calcium (8.4-10.2) mg/dL Magnesium (1.6-2.3) mg/dL Total Bilirubin (0.2-1.3) mg/dL Albumin (3.5-5.0) g/dL Urine Protein 1+ H (Negative) Urine Mucus Occasional H (None) /hpf Microbiology - Last 24 Hours (Table) 11/06/18 18:55 Urine Culture - Preliminary Urine,Voided Assessment and Plan Plan: Assessment and recommendations: Non-Small Cell Lung Cancer - Squamous Cell: - Currently on concurrent chemo and radiation weekly carbo and taxol - Last 11.02.18 with neuopgen (only one day) 11.05 Inability to ambulity and weakness lower extremities last admission: - He underwent full work-up with CT lumbar spine, MRI Thoracic and Lumbar imaging brain. treated with steroid, fluid and PT/OT Hyponatremia: - Dehydration versus SIADH - Re-assess mets to brain, unable to obtain MRI last admission he did not follow-up with outpatient MRI - Will order to reassess - Rec Dieticien and Nephrology evaluation Febrile Neutropenia: - ID is following and managed Dr. Castro - Re-started Neupogen equavalent GEORGE Fine
[2018-11-07] MEDS: FILGRASTIM-SNDZ 480 MCG/0.8 ML SYRINGE SQ SCH (16:41)
[2018-11-07 16:42] LABS: Anisocytosis Slight; HCT 22.2 % (39.0-53.0); MCH 32.9 pg (25.0-35.0); MCHC 34.4 g/dL (31.0-37.0); MCV 95.8 fL (80.0-100.0); Macrocytosis Slight; Mean Platelet Volume 7.7; RBC 2.32 m/uL (4.30-5.90); RDW 19.8 % (11.5-15.5)
[2018-11-07 16:43] LABS: HGB 7.6 gm/dL (13.0-17.5)
[2018-11-07 16:56] LABS: Platelet Count 51 k/uL (150-450); Poikilocytosis (M) Present; Rouleaux Present; WBC 0.4 k/uL (3.8-10.6)
--- NOTE | 2018-11-07 21:53 | P.HPIM ---
History of Present Illness H&P Date: 11/07/18 Chief Complaint: Falls History of presenting complaint: This is a ple pleasant 68-year-old patient of Dr. Laura Bernabe. Patient's oncologist is Dr. Mireles and radiation oncologist is Dr. Knox. Patient chronic stable medical conditions include COPD, GERD, hypertension, hyperlipidemia, osteoarthritis and peripheral neuropathy. Patient has been diagnosed with moderately differentiated's, squamous cell carcinoma. Has been getting weekly treatment with carboplatin and Taxol with concurrent radiation treatment. Last radiation treatment was October 02. Patient also got chemo-induced cytopenias. Patient was getting weekly chemotherapy. Has received 5 cycles. Patient was admitted earlier in the month on October 12. Patient denies presented with falls feeling weak and tired. Patient does have a walker. But at home some does not use the same. Yet again presented with a fall. He was not using his walker. Was dizzy. Appetite is okay. No chest pain no palpitation. 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 Stopped in 2018. Lives alone. No alcohol. Used to work in construction. Family history: Lung cancer Physical examination: VITAL SIGNS: 100.0, 76, 16, 117/69, 97% room air GENERAL: BMI 35.2, laying in bed, not in distress EYES: Pupils equal. Conjunctiva pale. HEENT: External appearance of nose and ears normal, oral cavity grossly normal. NECK: JVD not raised; masses not palpable. HEART: First and second heart sounds are normal; no edema. LUNGS: Respiratory rate increased, decreased breath sounds. ABDOMEN: Soft, nontender, liver spleen not palpable, no masses palpable. PSYCH: Alert and oriented x3; mood and affect normal. NEUROLOGICAL: Cranial nerves grossly intact; no facial asymmetry, decreased sensation distally. LYMPHATICS: No lymph nodes palpable in the axilla and neck Investigations: White count 0.5 hemoglobin 9.1 platelets 90 sodium 126 potassium 4.5 Bun 10 creatinine 0.4 to lactic acid 2.6 total bilirubin 1.8 albumin 3.1 EKG tracing personally reviewed by me poor baseline tracing Hip and pelvis x-ray negative for fracture Chest x-ray film personally reviewed by me know obvious infiltrates Assessment: -Febrile neutropenia -Lactic acidosis possibly predominantly type II -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 Consultations made to oncology and infectious disease. Home medications are renewed. Patient is empirically on vancomycin and Zosyn. Patient also on filgrastim. Expect the patient will hospital at least for 2 nights. We'll also give the patient normal saline. Repeat labs in the morning 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 History of Any Multi-Drug Resistant Organisms: None Reported Past Surgical History: No Surgical Hx Reported Additional Past Surgical History / Comment(s): eye sx, lung biopsy Past Anesthesia/Blood Transfusion Reactions: No Reported Reaction Past Psychological History: Bipolar Smoking Status: Former smoker Past Alcohol Use History: None Reported Additional Past Alcohol Use History / Comment(s): quit 2018 smoked 45 years 1 ppd, quit drinker 30 years ago Past Drug Use History: None Reported - Past Family History Mother Family Medical History: No Reported History Son(s) Family Medical History: Cancer Additional Family Medical History / Comment(s): lung cancer Medications and Allergies Home Medications Medication Instructions Recorded Confirmed Type Albuterol Inhaler [Ventolin Hfa 2 puff INHALATION RT-Q4H PRN 09/05/11/06/18 History Inhaler] Enalapril [Vasotec] 10 mg PO DAILY 09/06/15 11/06/18 History Gabapentin [Neurontin] 800 mg PO TID 09/06/15 11/06/18 History Meloxicam [Mobic] 15 mg PO DAILY 09/06/15 11/06/18 History Omeprazole 20 mg PO BID 09/06/15 11/06/18 History Primidone [Mysoline] 50 mg PO TID 09/06/15 11/06/18 History Propranolol HCl [Propranolol HCl 60 mg PO DAILY 09/06/15 11/06/18 History ER] Simvastatin [Zocor] 10 mg PO DAILY 09/06/15 11/06/18 History buPROPion SR [Wellbutrin SR] 150 mg PO BID 09/06/15 11/06/18 History Benzonatate [Tessalon Perles] 100 mg PO TID PRN 10/12/18 11/06/18 History Budesonide-Formot 160-4.5 Mcg 2 puff INHALATION RT-BID 10/12/18 11/06/18 History [Symbicort 160-4.5 Mcg Inhaler] Hydrocodone/Acetaminophen [[place] 1 tab PO Q6HR PRN 10/12/18 11/06/18 History 7.5-325] Prochlorperazine [Compazine] 10 mg PO Q8H PRN 10/12/18 11/06/18 History Allergies Allergy/AdvReac Type Severity Reaction Status Date / Time methadone Allergy Swelling Verified 11/06/18 18:10 Physical Exam Vitals: Vital Signs Temp Pulse Pulse Resp BP BP Pulse Ox 11/07/18 08:08 98.6 F 88 16 116/59 93 L 11/07/18 04:00 98.9 F 80 18 110/55 93 L 11/07/18 00:00 97.6 F 77 18 93/51 98 11/06/18 21:25 98.2 F 75 18 138/65 95 11/06/18 21:20 75 18 11/06/18 20:52 97.6 F 78 19 130/80 98 11/06/18 18:54 98.2 F 73 16 106/68 99 11/06/18 17:31 76 16 110/66 99 11/06/18 16:23 100.0 F H 76 16 117/69 97 Intake and Output 11/06/18 11/07/18 11/07/18 22:59 06:59 14:59 Output Total 400 Balance -400 Output: Urine 400 Other: Voiding Method Urinal Urinal Urinal Weight 131.542 kg 131 kg Results CBC & Chem 7: 11/07/18 15:21 11/07/18 07:10 Labs: Abnormal Lab Results - Last 24 Hours (Table) 11/06/18 11/06/18 11/06/18 Range/Units 16:54 16:54 16:54 WBC 0.5 L* (3.8-10.6) k/uL RBC 2.79 L (4.30-5.90) m/uL Hgb 9.1 L (13.0-17.5) gm/dL Hct 26.5 L (39.0-53.0) % RDW 19.8 H (11.5-15.5) % Plt Count 90 L D (150-450) k/uL APTT (22.0-30.0) sec Sodium 126 L (137-145) mmol/L Chloride 93 L (98-107) mmol/L Creatinine 0.42 L (0.66-1.25) mg/dL Glucose 106 H (74-99) mg/dL Plasma Lactic Acid Art 2.6 H* (0.7-2.0) mmol/L Calcium 8.3 L (8.4-10.2) mg/dL Magnesium 1.5 L (1.6-2.3) mg/dL Total Bilirubin 1.8 H (0.2-1.3) mg/dL Albumin 3.1 L (3.5-5.0) g/dL Urine Protein (Negative) Urine Mucus (None) /hpf 11/06/18 11/06/18 11/07/18 Range/Units 18:00 18:55 07:10 WBC (3.8-10.6) k/uL RBC (4.30-5.90) m/uL Hgb (13.0-17.5) gm/dL Hct (39.0-53.0) % RDW (11.5-15.5) % Plt Count (150-450) k/uL APTT 19.6 L (22.0-30.0) sec Sodium (137-145) mmol/L Chloride (98-107) mmol/L Creatinine 0.41 L (0.66-1.25) mg/dL Glucose (74-99) mg/dL Plasma Lactic Acid Art (0.7-2.0) mmol/L Calcium (8.4-10.2) mg/dL Magnesium (1.6-2.3) mg/dL Total Bilirubin (0.2-1.3) mg/dL Albumin (3.5-5.0) g/dL Urine Protein 1+ H (Negative) Urine Mucus Occasional H (None) /hpf Microbiology - Last 24 Hours (Table) 11/06/18 18:55 Urine Culture - Preliminary Urine,Voided Thrombosis Risk Factor Assmnt - Choose All That Apply Any of the Below Risk Factors Present?: Yes Each Factor Represents 1 point: Abnormal pulmonary function (COPD) Other Risk Factors: Yes Each Risk Factor Represents 2 Points: Age 61-74 years Other congenital or acquired thrombophilia - If yes, enter type in comment: No Thrombosis Risk Factor Assessment Total Risk Factor Score: 3 Thrombosis Risk Factor Assessment Level: Moderate Risk
[2018-11-07] MEDS: MELATONIN 3 MG TABLET PO PRN (22:32)
[2018-11-08] MEDS: SODIUM CHLORIDE 0.9% 1,000 ML IV SCH ×3 (04:59→17:42)
[2018-11-08] MEDS: VANCOMYCIN 2,000 MG in SODIUM CHLORIDE 0.9% 500 ML 500 ML IVPB SCH (04:59)
[2018-11-08] MEDS: PANTOPRAZOLE 40 MG TABLET PO SCH (06:14)
--- NOTE | 2018-11-08 07:39 | P.CONS ---
History of Present Illness - Reason for Consult Consult date: 11/07/18 Febrile neutropenia Requesting physician: Micah Orta - Chief Complaint Weakness and fall x few days - History of Present Illness Patient is a 68-year-old male with a past medical history significant for non-small cell lung cancer for the patient is currently undergoing chemotherapy last chemo has been on October 02 presenting to the ER with chief complaints of generalized weakness and no energy and falls patient did have a fall before coming to the hospital has been complaining of some pain in his hip area patient on presentation hospital noticed to have low-grade fever of 160 with the left upper lobe infiltrate the patient has been complaining of shortn ess of breath he did have a cough which is mildly did in intensity and is mostly dry in nature no pleuritic chest pain no nausea no vomiting or choking on the food no known pain and no diarrhea denies having any urinary symptoms and his UA was negative patient was started on vancomycin and Zosyn and admitted to the hospital infectious disease was consulted for further recommendation regarding antibiotic therapy Review of Systems Positive points has been mentioned in HPI rest of the systems are negative Past Medical History Past Medical History: Cancer, COPD, Deep Vein Thrombosis (DVT), GERD/Reflux, Hyperlipidemia, Hypertension, Liver Disease, Osteoarthritis (OA) Additional Past Medical History / Comment(s): neuropathy, back pain with 2 broken vertebrae but no surgery, hepatitis C 20 years ago with treatment and not detected since, states he has cancer but he does not know what kind but biopsy d ated 08/15/18 of lung is invasive moderately differentiated squamous cell carcinoma History of Any Multi-Drug Resistant Organisms: None Reported Past Surgical History: No Surgical Hx Reported Additional Past Surgical History / Comment(s): eye sx, lung biopsy Past Anesthesia/Blood Transfusion Reactions: No Reported Reaction Past Psychological History: Bipolar Smoking Status: Former smoker Past Alcohol Use History: None Reported Additional Past Alcohol Use History / Comment(s): quit 2018 smoked 45 years 1 ppd, quit drinker 30 years ago Past Drug Use History: None Reported - Past Family History Mother Family Medical History: No Reported History Son(s) Family Medical History: Cancer Additional Family Medical History / Comment(s): lung cancer Medications and Allergies Home Medications Medication Instructions Recorded Confirmed Type Albuterol Inhaler [Ventolin Hfa 2 puff INHALATION RT-Q4H PRN 09/06/15 11/06/18 History Inhaler] Enalapril [Vasotec] 10 mg PO DAILY 09/06/15 11/06/18 History Gabapentin [Neurontin] 800 mg PO TID 09/06/15 11/06/18 History Meloxicam [Mobic] 15 mg PO DAILY 09/06/15 11/06/18 History Omeprazole 20 mg PO BID 09/06/15 11/06/18 History Primidone [Mysoline] 50 mg PO TID 09/06/15 11/06/18 History Propranolol HCl [Propranolol HCl 60 mg PO DAILY 09/06/15 11/06/18 History ER] Simvastatin [Zocor] 10 mg PO DAILY 09/06/15 11/06/18 History buPROPion SR [Wellbutrin SR] 150 mg PO BID 09/06/15 11/06/18 History Benzonatate [Tessalon Perles] 100 mg PO TID PRN 10/12/18 11/06/18 History Budesonide-Formot 160-4.5 Mcg 2 puff INHALATION RT-BID 10/12/18 11/06/18 History [Symbicort 160-4.5 Mcg Inhaler] Hydrocodone/Acetaminophen [[place] 1 tab PO Q6HR PRN 10/12/18 11/06/18 History 7.5-325] Prochlorperazine [Compazine] 10 mg PO Q8H PRN 10/12/18 11/06/18 History Allergies Allergy/AdvReac Type Severity Reaction Status Date / Time methadone Allergy Swelling Verified 11/06/18 18:10 Physical Exam Vitals: Vital Signs Temp Pulse Pulse Resp BP BP Pulse Ox 11/07/18 12:21 98.5 F 79 16 112/57 98 11/07/18 08:08 98.6 F 88 16 116/59 93 L 11/07/18 04:00 98.9 F 80 18 110/55 93 L 11/07/18 00:00 97.6 F 77 18 93/51 98 11/06/18 21:25 98.2 F 75 18 138/65 95 11/06/18 21:20 75 18 11/06/18 20:52 97.6 F 78 19 130/80 98 11/06/18 18:54 98.2 F 73 16 106/68 99 11/06/18 17:31 76 16 110/66 99 11/06/18 16:23 100.0 F H 76 16 117/69 97 Intake and Output 11/06/18 11/07/18 11/07/18 22:59 06:59 14:59 Intake Total 360 Output Total 400 800 Balance -400 -440 Intake: Oral 360 Output: Urine 400 800 Other: Voiding Method Urinal Urinal Urinal Weight 131.542 kg 131 kg GENERAL DESCRIPTION: Elderly male lying in bed, no distress. No tachypnea or accessory muscle of respiration use. HEENT: Shows Pallor , no scleral icterus. Oral mucous membrane is dry. No pharyngeal erythema or thrush NECK: Trachea central, no thyromegaly. LUNGS: Unlabored breathing. Decreased breath sound the bases. No wheeze or crackle. HEART: S1, S2, regular rate and rhythm. No loud murmur ABDOMEN: Soft, no tenderness , guarding or rigidity, no organomegaly EXTREMITIES: No edema of feet. SKIN: No rash, no masses palpable. NEUROLOGICAL: The patient is awake, alert, oriented x3, mood and affect normal. Results CBC & Chem 7: 11/07/18 15:21 11/07/18 07:10 Labs: Abnormal Lab Results - Last 24 Hours (Table) 11/06/18 11/06/18 11/06/18 Range/Units 16:54 16:54 16:54 WBC 0.5 L* (3.8-10.6) k/uL RBC 2.79 L (4.30-5.90) m/uL Hgb 9.1 L (13.0-17.5) gm/dL Hct 26.5 L (39.0-53.0) % RDW 19.8 H (11.5-15.5) % Plt Count 90 L D (150-450) k/uL APTT (22.0-30.0) sec Sodium 126 L (137-145) mmol/L Chloride 93 L (98-107) mmol/L Creatinine 0.42 L (0.66-1.25) mg/dL Glucose 106 H (74-99) mg/dL Plasma Lactic Acid Art 2.6 H* (0.7-2.0) mmol/L Calcium 8.3 L (8.4-10.2) mg/dL Magnesium 1.5 L (1.6-2.3) mg/dL Total Bilirubin 1.8 H (0.2-1.3) mg/dL Albumin 3.1 L (3.5-5.0) g/dL Urine Protein (Negative) Urine Mucus (None) /hpf 11/06/18 11/06/18 11/07/18 Range/Units 18:00 18:55 07:10 WBC (3.8-10.6) k/uL RBC (4.30-5.90) m/uL Hgb (13.0-17.5) gm/dL Hct (39.0-53.0) % RDW (11.5-15.5) % Plt Count (150-450) k/uL APTT 19.6 L (22.0-30.0) sec Sodium (137-145) mmol/L Chloride (98-107) mmol/L Creatinine 0.41 L (0.66-1.25) mg/dL Glucose (74-99) mg/dL Plasma Lactic Acid Art (0.7-2.0) mmol/L Calcium (8.4-10.2) mg/dL Magnesium (1.6-2.3) mg/dL Total Bilirubin (0.2-1.3) mg/dL Albumin (3.5-5.0) g/dL Urine Protein 1+ H (Negative) Urine Mucus Occasional H (None) /hpf Microbiology - Last 24 Hours (Table) 11/06/18 18:55 Urine Culture - Preliminary Urine,Voided Assessment and Plan Assessment: 1-patient presented to hospital with generalized weakness and no energy falls in this patient who is currently undergoing chemotherapy for non-small cell lung cancer patient did have evidence of neutropenia/leukopenia and he did have a low-grade fever with some respiratory symptoms and a left upper lobe infiltrate concerning for possible pneumonia as the patient currently with no other clinical focus of infection of his UA has been negative his abdominal soft and clinical examination and no evidence of any cellulitis or joint swelling Plan: 1-discontinue the vancomycin and Zosyn to decrease risk of nephrotoxicity 2-cefepime 2 g every 8 hours 3-try to obtained sputum for Gram stain and culture 4-repeat chest x-ray PA and lateral we will follow on clinical condition and culture to further adjust medication if needed Thank you for this consultation will follow this patient along with you
[2018-11-08 07:51] LABS: African American GFR (CKD) >90 (>60 ml/min/1.73 sqM); Anion Gap 6 mmol/L; Blood Urea Nitrogen 5 mg/dL (9-20); Calcium 7.4 mg/dL (8.4-10.2); Carbon Dioxide 24 mmol/L (22-30); Chloride 98 mmol/L (98-107); Glucose 111 mg/dL (74-99); Potassium 3.5 mmol/L (3.5-5.1); Sodium 128 mmol/L (137-145)
[2018-11-08] MEDS: GABAPENTIN 400 MG CAP PO SCH ×3 (07:53→20:41)
[2018-11-08] MEDS: ATORVASTATIN 10 MG TAB PO SCH (07:54)
[2018-11-08] MEDS: buPROPion SR 150 MG TABLET.ER PO SCH ×2 (07:54→20:41)
[2018-11-08] MEDS: MELOXICAM 7.5 MG TAB PO SCH (07:54)
[2018-11-08] MEDS: LISINOPRIL 20 MG TAB PO SCH (07:55)
[2018-11-08] MEDS: PRIMIDONE 50 MG TAB PO SCH ×3 (07:55→20:41)
[2018-11-08] MEDS: FILGRASTIM-SNDZ 480 MCG/0.8 ML SYRINGE SQ SCH (07:55)
[2018-11-08] MEDS: PROPRANOLOL LA 60 MG CAP.SA.24H PO SCH (07:55)
[2018-11-08] MEDS: MORPHINE SULFATE 4 MG/ML SYRINGE IVP PRN ×3 (07:55→23:54)
[2018-11-08 08:37] LABS: Anisocytosis Slight; HGB 7.1 gm/dL (13.0-17.5); MCH 33.8 pg (25.0-35.0); MCHC 35.8 g/dL (31.0-37.0); MCV 94.2 fL (80.0-100.0); Macrocytosis Slight; Mean Platelet Volume 8.3; RDW 19.8 % (11.5-15.5)
[2018-11-08] MEDS: SYMBICORT 160-4.5 MCG INHALER INHALATION SCH ×2 (08:53→19:29)
[2018-11-08 08:55] LABS: WBC 0.2 k/uL (3.8-10.6)
[2018-11-08 08:56] LABS: HCT 19.8 % (39.0-53.0)
[2018-11-08 10:31] LABS: Platelet Count 47 k/uL (150-450)
[2018-11-08] MEDS: CEFEPIME 2 GM in SODIUM CHLORIDE 0.9% 100 ML IVPB SCH ×3 (11:45→23:55)
[2018-11-08 13:25] LABS: ALT 33 U/L (21-72); AST 27 U/L (17-59); Albumin 2.4 g/dL (3.5-5.0); Alkaline Phosphatase 80 U/L (38-126); Total Bilirubin 0.7 mg/dL (0.2-1.3); Total Protein 5.7 g/dL (6.3-8.2)
[2018-11-08] MEDS: HYDROcodone/APAP 7.5-325MG 1 EACH TAB PO PRN ×2 (15:13→19:53)
[2018-11-08] MEDS: MELATONIN 3 MG TABLET PO PRN (20:41)
--- NOTE | 2018-11-08 20:54 | P.PN ---
Progress Note - Text Progress Note Date: 11/08/18 Chief Complaint: Falls Interval history: This is a ple pleasant 68-year-old patient of Dr. Laura Bernabe. Patient's oncologist is Dr. Mireles and radiation oncologist is Dr. Knox. Patient chronic stable medical conditions include COPD, GERD, hypertension, hyperlipidemia, osteoarthritis and peripheral neuropathy. Patient has been diagnosed with moderately differentiated's, squamous cell carcinoma. Has been getting weekly treatment with carboplatin and Taxol with concurrent radiation treatment. Last radiation treatment was October 02. Patient also got chemo-induced cytopenias. Patient was getting weekly chemotherapy. Has received 5 cycles. Patient was admitted earlier in the month on October 12. Patient denies presented with falls feeling weak and tired. Patient does have a walker. But at home some does not use the same. Yet again presented with a fall. He was not using his walker. Was dizzy. Appetite is okay. No chest pain no palpitation. Had a temperature of 100 in the ER Admitted with febrile neutropenia, asthenia weak and tired Today-laying in bed. Tired appearing. Did tolerate his breakfast. Fevers are down. Review of systems: Was done for constitutional, cardiovascular, GI, pulmonary. relevant finding as above Active Medications Hydrocodone Bitart/Acetaminophen ([place] 7.5-325) 1 each PO Q6HR PRN PRN Reason: Pain Last Admin: 11/08/18 19:53 Dose: 1 each Documented by: Albuterol Sulfate (Ventolin Nebulized) 2.5 mg INHALATION RT-Q4H PRN PRN Reason: Shortness Of Breath Atorvastatin Calcium (Lipitor) 10 mg PO DAILY [facility] Last Admin: 11/08/18 07:54 Dose: 10 mg Documented by: Benzonatate (Tessalon Perles) 100 mg PO TID PRN PRN Reason: Cough Budesonide/Formoterol Fumarate (Symbicort 160-4.5 Mcg Inhaler) 2 puff INHALATION RT-BID [facility] Last Admin: 11/08/18 19:29 Dose: Not Given Documented by: Bupropion HCl (Wellbutrin Sr) 150 mg PO BID [facility] Last Admin: 11/08/18 20:41 Dose: 150 mg Documented by: Filgrastim (Zarxio) 480 mcg SQ DAILY [facility] Last Admin: 11/08/18 07:55 Dose: 480 mcg Documented by: Gabapentin (Neurontin) 800 mg PO TID [facility] Last Admin: 11/08/18 20:41 Dose: 800 mg Documented by: Sodium Chloride (Saline 0.9%) 1,000 mls @ 150 mls/hr IV .Q6H40M [facility] Last Admin: 11/08/18 17:42 Dose: Not Given Documented by: Cefepime HCl 2 gm/ Sodium (Chloride) 100 mls @ 200 mls/hr IVPB Q8HR [facility] Last Admin: 11/08/18 17:37 Dose: 200 mls/hr Documented by: Lisinopril (Zestril) 20 mg PO DAILY [facility] Last Admin: 11/08/18 07:55 Dose: 20 mg Documented by: Melatonin (Melatonin) 3 mg PO HS PRN PRN Reason: Insomnia Last Admin: 11/08/18 20:41 Dose: 3 mg Documented by: Meloxicam (Mobic) 15 mg PO DAILY [facility] Last Admin: 11/08/18 07:54 Dose: 15 mg Documented by: Morphine Sulfate (Morphine Sulfate (Inj)) 4 mg IVP Q4HR PRN PRN Reason: Pain Last Admin: 11/08/18 15:32 Dose: 4 mg Documented by: Pantoprazole Sodium (Protonix) 20 mg PO DAILY@0730 [facility] Last Admin: 11/08/18 06:14 Dose: 20 mg Documented by: Primidone (Mysoline) 50 mg PO TID [facility] Last Admin: 11/08/18 20:41 Dose: 50 mg Documented by: Prochlorperazine Maleate (Compazine) 10 mg PO Q8H PRN PRN Reason: Nausea And Vomiting Propranolol HCl (Inderal La) 60 mg PO DAILY [facility] Last Admin: 11/08/18 07:55 Dose: 60 mg Documented by: Physical examination: VITAL SIGNS: 98.3, 78, 16, 1:30 was 64, 94% room air GENERAL: Laying in bed, awake EYES: Pupils equal. Conjunctiva pale. HEENT: External appearance of nose and ears normal, oral cavity grossly normal. NECK: JVD not raised; masses not palpable. HEART: First and second heart sounds are normal; no edema. LUNGS: Respiratory rate increased, decreased breath sounds. ABDOMEN: Soft, nontender, liver spleen not palpable, no masses palpable. PSYCH: Alert and oriented x3; mood and affect normal. Investigations: White count 0.2 hemoglobin 7.1 L 47 potassium 3.5 sodium 128 creatinine 0.46 Admission labs: White count 0.5 hemoglobin 9.1 platelets 90 sodium 126 potassium 4.5 Bun 10 creatinine 0.4 to lactic acid 2.6 total bilirubin 1.8 albumin 3.1 EKG tracing personally reviewed by me poor baseline tracing Hip and pelvis x-ray negative for fracture Chest x-ray film personally reviewed by me know obvious infiltrates Assessment: -Febrile neutropenia, source unknown -Lactic acidosis possibly predominantly type II -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 Also getting IV fluids. Care was discussed with the patient. Encouraged to sit up in a chair. Follow
[2018-11-08] MEDS: LACTATED RINGERS 1,000 ML IV SCH (23:53)
[2018-11-09] MEDS: MORPHINE SULFATE 4 MG/ML SYRINGE IVP PRN ×5 (03:58→21:47)
--- NOTE | 2018-11-09 05:16 | PN ---
PROGRESS NOTE DATE OF SERVICE: 11/08/2018 REASON FOR FOLLOWUP: Febrile neutropenia and concern for possible pneumonia. INTERVAL HISTORY: The patient is currently afebrile. Patient has been breathing more comfortably. He denies having any chest pain. Occasional cough. No nausea, no vomiting. No abdominal pain, no diarrhea. PHYSICAL EXAMINATION: On examination, blood pressure 132/81 with a pulse of 83, temperature 98.4. He is 94% on room air. General description is an elderly male lying in bed in no distress. RESPIRATORY SYSTEM: Unlabored breathing, decreased breath sounds. No wheeze. HEART: S1, S2. Regular rate and rhythm. ABDOMEN: Soft, no tenderness. LABS: Hemoglobin is 7.1, white count 0.2 with a BUN of 5, creatinine 0.46. Blood and sputum cultures so far negative. DIAGNOSTIC IMPRESSION AND PLAN: Patient admitted to the hospital with generalized weakness, no energy in this patient who did have a low-grade fever and concern for pneumonia in this patient who did have neutropenic currently covered with cefepime on presentation with a fever. The patient to continue with cefepime to continue with cefepime while inpatient and waiting for the culture to finalized. Continue with supportive care. MMODL / IJN: [id number] /
[2018-11-09] MEDS: PANTOPRAZOLE 40 MG TABLET PO SCH (06:11)
[2018-11-09 08:11] LABS: African American GFR (CKD) >90 (>60 ml/min/1.73 sqM); Anion Gap 7 mmol/L; Blood Urea Nitrogen 5 mg/dL (9-20); Calcium 7.6 mg/dL (8.4-10.2); Carbon Dioxide 25 mmol/L (22-30); Chloride 96 mmol/L (98-107); Glucose 116 mg/dL (74-99); Potassium 3.3 mmol/L (3.5-5.1); Sodium 128 mmol/L (137-145)
[2018-11-09 08:17] LABS: Anisocytosis Slight; HGB 7.6 gm/dL (13.0-17.5); MCH 33.7 pg (25.0-35.0); MCHC 34.5 g/dL (31.0-37.0); MCV 97.6 fL (80.0-100.0); Macrocytosis Slight; Mean Platelet Volume 7.6; RBC 2.26 m/uL (4.30-5.90); RDW 18.5 % (11.5-15.5)
[2018-11-09] MEDS: PROPRANOLOL LA 60 MG CAP.SA.24H PO SCH (08:21)
[2018-11-09] MEDS: GABAPENTIN 400 MG CAP PO SCH ×3 (08:21→21:43)
[2018-11-09] MEDS: buPROPion SR 150 MG TABLET.ER PO SCH ×2 (08:22→21:42)
[2018-11-09] MEDS: MELOXICAM 7.5 MG TAB PO SCH (08:22)
[2018-11-09] MEDS: PRIMIDONE 50 MG TAB PO SCH ×3 (08:23→21:43)
[2018-11-09] MEDS: CEFEPIME 2 GM in SODIUM CHLORIDE 0.9% 100 ML IVPB SCH ×2 (08:23→16:14)
[2018-11-09] MEDS: ATORVASTATIN 10 MG TAB PO SCH (08:23)
[2018-11-09] MEDS: LISINOPRIL 20 MG TAB PO SCH (08:23)
[2018-11-09 08:24] LABS: Platelet Count 51 k/uL (150-450); WBC 0.3 k/uL (3.8-10.6)
[2018-11-09] MEDS: FILGRASTIM-SNDZ 480 MCG/0.8 ML SYRINGE SQ SCH (08:24)
[2018-11-09] MEDS: SYMBICORT 160-4.5 MCG INHALER INHALATION SCH ×2 (08:31→18:38)
[2018-11-09 09:01] LABS: Poikilocytosis (M) Present
[2018-11-09] MEDS ORDERED: POTASSIUM CHLORIDE ER 20 MEQ TAB.ER PO STA (09:53)
[2018-11-09] MEDS: LACTATED RINGERS 1,000 ML IV SCH ×2 (12:18→16:15)
--- NOTE | 2018-11-09 15:08 | P.PN ---
Subjective Progress Note Date: 11/09/18 Principal diagnosis: neutropenia, weakness Hypokalemia and hyponatremia today. CBC not improved Objective - Vital Signs Vital signs: Vital Signs Temp 98.6 F 11/09/18 12:00 Pulse 80 11/09/18 12:00 Resp 18 11/09/18 12:00 BP 130/64 11/09/18 12:00 Pulse Ox 97 11/09/18 12:00 Intake & Output 11/08/18 11/09/18 11/09/18 18:59 06:59 18:59 Intake Total 720 1540 840 Balance 720 1540 840 Weight 297.2 kg Intake: Intake, IV Titration 1300 600 Amount Cefepime 2 gm In Sodium 100 Chloride 0.9% 100 ml @ 200 mls/hr IVPB Q8HR [facility] Rx#:[id number] Lactated Ringers 1,000 ml 600 @ 75 mls/hr IV .[id number] [facility] Rx#:[id number] Sodium Chloride 0.9% 1, 1200 000 ml @ 150 mls/hr IV . Q6H40M [facility] Rx#:[id number] Oral 720 240 240 Other: Voiding Method Urinal Urinal # Voids 2 - Exam General: Alert and Oriented x3, No Acute Distress Head: Normocytic, Atraumatic Neck: Supple Mouth: No Lesions, No Thrush Eyes: Non-sclerotic No Palpable cervical, supraclavicular, axillary adenopathy Heart: Regular Rate, Regular Rhythm Lungs: Clear to Ausculations, No Wheeze, No Rhonchi, Diminishe bilateral lower lobes, No increased respiratory effort noted Abdomen: Soft, Non-Distended, Non-Tended, BSx4 Extremities: No Edema, Equal Strength Neurological: No Focal Defects: No sensory or motor deficits noted Psych: Calm and cooperative - Labs CBC & Chem 7: 11/09/18 06:55 11/09/18 06:55 Labs: Abnormal Lab Results - Last 24 Hours (Table) 11/09/18 11/09/18 Range/Units 06:55 06:55 WBC 0.3 L* (3.8-10.6) k/uL RBC 2.26 L (4.30-5.90) m/uL Hgb 7.6 L (13.0-17.5) gm/dL Hct 22.0 L (39.0-53.0) % RDW 18.5 H (11.5-15.5) % Plt Count 51 L (150-450) k/uL Sodium 128 L (137-145) mmol/L Potassium 3.3 L (3.5-5.1) mmol/L Chloride 96 L (98-107) mmol/L BUN 5 L (9-20) mg/dL Creatinine 0.46 L (0.66-1.25) mg/dL Glucose 116 H (74-99) mg/dL Calcium 7.6 L (8.4-10.2) mg/dL Microbiology - Last 24 Hours (Table) 11/06/18 17:13 Blood Culture - Preliminary Blood No Growth after 48 hours 11/08/18 16:48 Sputum Culture - Final Sputum Assessment and Plan Plan: Assessment and recommendations: Non-Small Cell Lung Cancer - Squamous Cell: - Currently on concurrent chemo and radiation weekly carbo and taxol - Last 11.02. with neuopgen (only one day) 8. Inability to ambulity and weakness lower extremities last admission: - He underwent full work-up with CT lumbar spine, MRI Thoracic and Lumbar imaging brain. treated with steroid, fluid and PT/OT Hyponatremia: - Dehydration versus SIADH - Re-assess mets to brain, unable to obtain MRI last admission he did not follow-up with outpatient MRI - Will order to reassess - Rec Dieticien and Nephrology evaluation Febrile Neutropenia: - ID is following and managed Dr. Castro - Re-started Neupogen equavalent - Afebrile since admission - COntinue Zarxio Hypokalemia: - supp per primary and check mag GEORGE Fine
--- NOTE | 2018-11-09 21:29 | P.PN ---
Progress Note - Text Progress Note Date: 11/09/18 Chief Complaint: Falls Interval history: This is a pleasant 68-year-old patient of Dr. Laura Bernabe. Patient's oncologist is Dr. Mireles and radiation oncologist is Dr. Knox. Patient chronic stable medical conditions include COPD, GERD, hypertension, hyperlipidemia, osteoarthritis and peripheral neuropathy. Patient has been diagnosed with moderately differentiated's, squamous cell carcinoma. Has been getting weekly treatment with carboplatin and Taxol with concurrent radiation treatment. Last radiation treatment was October 02. Patient also got chemo-induced cytopenias. Patient was getting weekly chemotherapy. Has received 5 cycles. Patient was admitted earlier in the month on October 12. Patient denies presented with falls feeling weak and tired. Patient does have a walker. But at home some does not use the same. Yet again presented with a fall. He was not using his walker. Was dizzy. Appetite is okay. No chest pain no palpitation. Had a temperature of 100 in the ER Admitted with febrile neutropenia, asthenia weak and tired Today-feel a bit better. Tolerating a diet. Bit tired. Getting antibiotics. Review of systems: Was done for constitutional, cardiovascular, GI, pulmonary. relevant finding as above Active Medications Hydrocodone Bitart/Acetaminophen ([place] 7.5-325) 1 each PO Q6HR PRN PRN Reason: Pain Last Admin: 11/08/18 19:53 Dose: 1 each Documented by: Albuterol Sulfate (Ventolin Nebulized) 2.5 mg INHALATION RT-Q4H PRN PRN Reason: Shortness Of Breath Atorvastatin Calcium (Lipitor) 10 mg PO DAILY [facility] Last Admin: 11/09/18 08:23 Dose: 10 mg Documented by: Benzonatate (Tessalon Perles) 100 mg PO TID PRN PRN Reason: Cough Budesonide/Formoterol Fumarate (Symbicort 160-4.5 Mcg Inhaler) 2 puff INHALATION RT-BID [facility] Last Admin: 11/09/18 18:38 Dose: 2 puff Documented by: Bupropion HCl (Wellbutrin Sr) 150 mg PO BID [facility] Last Admin: 11/09/18 08:22 Dose: 150 mg Documented by: Filgrastim (Zarxio) 480 mcg SQ DAILY [facility] Last Admin: 11/09/18 08:24 Dose: 480 mcg Documented by: Gabapentin (Neurontin) 800 mg PO TID [facility] Last Admin: 11/09/18 16:14 Dose: 800 mg Documented by: Cefepime HCl 2 gm/ Sodium (Chloride) 100 mls @ 200 mls/hr IVPB Q8HR [facility] Last Admin: 11/09/18 16:14 Dose: 200 mls/hr Documented by: Lactated Ringer's (Lactated Ringers) 1,000 mls @ 75 mls/hr IV .[id number] [facility] Last Admin: 11/09/18 16:15 Dose: 75 mls/hr Documented by: Lisinopril (Zestril) 20 mg PO DAILY [facility] Last Admin: 11/09/18 08:23 Dose: 20 mg Documented by: Melatonin (Melatonin) 3 mg PO HS PRN PRN Reason: Insomnia Last Admin: 11/08/18 20:41 Dose: 3 mg Documented by: Meloxicam (Mobic) 15 mg PO DAILY [facility] Last Admin: 11/09/18 08:22 Dose: 15 mg Documented by: Morphine Sulfate (Morphine Sulfate (Inj)) 4 mg IVP Q4HR PRN PRN Reason: Pain Last Admin: 11/09/18 16:24 Dose: 4 mg Documented by: Pantoprazole Sodium (Protonix) 20 mg PO DAILY@0730 [facility] Last Admin: 11/09/18 06:11 Dose: 20 mg Documented by: Primidone (Mysoline) 50 mg PO TID [facility] Last Admin: 11/09/18 16:14 Dose: 50 mg Documented by: Prochlorperazine Maleate (Compazine) 10 mg PO Q8H PRN PRN Reason: Nausea And Vomiting Propranolol HCl (Inderal La) 60 mg PO DAILY [facility] Last Admin: 11/09/18 08:21 Dose: 60 mg Documented by: Physical examination: VITAL SIGNS: Afebrile, 74, 18, 107/53, 97% room air GENERAL: Propped up in bed, awake EYES: Pupils equal. Conjunctiva pale. HEENT: External appearance of nose and ears normal, oral cavity grossly normal. NECK: JVD not raised; masses not palpable. HEART: First and second heart sounds are normal; no edema. LUNGS: Respiratory rate increased, decreased breath sounds. ABDOMEN: Soft, nontender, liver spleen not palpable, no masses palpable. PSYCH: Alert and oriented x3; mood and affect normal. Investigations: White count 0.3 hemoglobin 7.6 platelets 51 potassium 3.3 creatinine 0.46 Blood, urine culture, all negative Admission labs: White count 0.5 hemoglobin 9.1 platelets 90 sodium 126 potassium 4.5 Bun 10 creatinine 0.4 to lactic acid 2.6 total bilirubin 1.8 albumin 3.1 EKG tracing personally reviewed by me poor baseline tracing Hip and pelvis x-ray negative for fracture Chest x-ray film personally reviewed by me know obvious infiltrates Assessment: -Febrile neutropenia, source unknown, with tragal improvement -Lactic acidosis possibly predominantly type II -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 -Pancytopenia from chemotherapy, slow to respond -Hyponatremia likely from hypoosmolality from decreased solute intake -Moderately differentiated squamous cell carcinoma of the lung undergoing chemo and radiation treatment -COPD in an ex-smoker -GERD -Hyperlipidemia -Essential hypertension -Primary osteoarthritis -Peripheral neuropathy from a combination of being on chemotherapy and from underlying malignancy Plan: Continue on IV cefepime, also on filgrastim. Other medications to continue. Care was discussed with the patient. Follow.
[2018-11-09] MEDS: MELATONIN 3 MG TABLET PO PRN (21:47)
[2018-11-10] MEDS: CEFEPIME 2 GM in SODIUM CHLORIDE 0.9% 100 ML IVPB SCH ×3 (00:47→16:11)
[2018-11-10] MEDS: MORPHINE SULFATE 4 MG/ML SYRINGE IVP PRN ×5 (01:44→20:46)
[2018-11-10] MEDS: LACTATED RINGERS 1,000 ML IV SCH ×3 (05:14→20:50)
[2018-11-10 06:14] LABS: Anisocytosis Moderate; HCT 23.6 % (39.0-53.0); HGB 8.5 gm/dL (13.0-17.5); Hyperchromasia Slight; MCH 33.8 pg (25.0-35.0); MCV 93.7 fL (80.0-100.0); Macrocytosis Slight; Mean Platelet Volume 8.7; RBC 2.52 m/uL (4.30-5.90); RDW 20.1 % (11.5-15.5); WBC 0.7 k/uL (3.8-10.6)
[2018-11-10 06:15] LABS: Platelet Count 38 k/uL (150-450)
[2018-11-10 06:30] LABS: Polychromasia Present
[2018-11-10 06:34] LABS: African American GFR (CKD) >90 (>60 ml/min/1.73 sqM); Anion Gap 8 mmol/L; Blood Urea Nitrogen 5 mg/dL (9-20); Calcium 7.9 mg/dL (8.4-10.2); Carbon Dioxide 25 mmol/L (22-30); Chloride 96 mmol/L (98-107); Glucose 113 mg/dL (74-99); Sodium 129 mmol/L (137-145)
[2018-11-10] MEDS: PANTOPRAZOLE 40 MG TABLET PO SCH (06:38)
[2018-11-10 06:57] LABS: Potassium 3.6 mmol/L (3.5-5.1)
[2018-11-10] MEDS: MELOXICAM 7.5 MG TAB PO SCH (08:02)
[2018-11-10] MEDS: buPROPion SR 150 MG TABLET.ER PO SCH ×2 (08:03→22:48)
[2018-11-10] MEDS: GABAPENTIN 400 MG CAP PO SCH ×3 (08:03→20:45)
[2018-11-10] MEDS: PRIMIDONE 50 MG TAB PO SCH ×3 (08:03→20:46)
[2018-11-10] MEDS: ATORVASTATIN 10 MG TAB PO SCH (08:03)
[2018-11-10] MEDS: LISINOPRIL 20 MG TAB PO SCH (08:03)
[2018-11-10] MEDS: PROPRANOLOL LA 60 MG CAP.SA.24H PO SCH (08:03)
[2018-11-10] MEDS: FILGRASTIM-SNDZ 480 MCG/0.8 ML SYRINGE SQ SCH (08:03)
[2018-11-10] MEDS: SYMBICORT 160-4.5 MCG INHALER INHALATION SCH ×2 (08:09→21:17)
--- NOTE | 2018-11-10 10:18 | PN ---
PROGRESS NOTE DATE OF SERVICE: 11/09/2018 REASON FOR FOLLOWUP: Febrile neutropenia. INTERVAL HISTORY: The patient is currently afebrile. The patient has been breathing comfortably. He did have very minimal cough, not bringing up any sputum. No chest pain. No nausea, no vomiting. No abdominal pain, no diarrhea. PHYSICAL EXAMINATION: Blood pressure is 135/72 with a pulse of 81, temperature 98.5. He is 98% on room air. General description is an elderly male, lying in bed in no distress. RESPIRATORY SYSTEM: Unlabored breathing. Decreased breath sounds at bases, no wheeze. HEART: S1, S2. Regular rate and rhythm. ABDOMEN: Soft, no tenderness. LABS: Hemoglobin 7.7, white count is 0.3, BUN of 5, creatinine 0.46. DIAGNOSTIC IMPRESSION AND PLAN: Patient admitted to the hospital with fever and did have evidence of neutropenia with some abdominal [QAMARKER] and possible pneumonia. Patient is currently covered with to continue home. Will monitor his clinical course closely. Continue supportive care. MMODL / IJN: [id number] /
--- NOTE | 2018-11-10 17:28 | P.PN ---
Progress Note - Text Progress Note Date: 11/10/18 Chief Complaint: Falls Interval history: This is a pleasant 68-year-old patient of Dr. Laura Bernabe. Patient's oncologist is Dr. Mireles and radiation oncologist is Dr. Knox. Patient chronic stable medical conditions include COPD, GERD, hypertension, hyperlipidemia, osteoarthritis and peripheral neuropathy. Patient has been diagnosed with moderately differentiated's, squamous cell carcinoma. Has been getting weekly treatment with carboplatin and Taxol with concurrent radiation treatment. Last radiation treatment was October 02. Patient also got chemo-induced cytopenias. Patient was getting weekly chemotherapy. Has received 5 cycles. Patient was admitted earlier in the month on October 12. Patient denies presented with falls feeling weak and tired. Patient does have a walker. But at home some does not use the same. Yet again presented with a fall. He was not using his walker. Was dizzy. Appetite is okay. No chest pain no palpitation. Had a temperature of 100 in the ER Admitted with febrile neutropenia, asthenia weak and tired Today-No new issues today. Just feels a bit tired. Otherwise doing well. Starting a diet. Cultures remain negative. Hasn't been out of bed. Review of systems: Was done for constitutional, cardiovascular, GI, pulmonary. relevant finding as above Active Medications Hydrocodone Bitart/Acetaminophen ([place] 7.5-325) 1 each PO Q6HR PRN PRN Reason: Pain Last Admin: 11/08/18 19:53 Dose: 1 each Documented by: Albuterol Sulfate (Ventolin Nebulized) 2.5 mg INHALATION RT-Q4H PRN PRN Reason: Shortness Of Breath Atorvastatin Calcium (Lipitor) 10 mg PO DAILY [facility] Last Admin: 11/10/18 08:03 Dose: 10 mg Documented by: Benzonatate (Tessalon Perles) 100 mg PO TID PRN PRN Reason: Cough Budesonide/Formoterol Fumarate (Symbicort 160-4.5 Mcg Inhaler) 2 puff INHALATION RT-BID [facility] Last Admin: 11/10/18 08:09 Dose: 2 puff Documented by: Bupropion HCl (Wellbutrin Sr) 150 mg PO BID [facility] Last Admin: 11/10/18 08:03 Dose: 150 mg Documented by: Filgrastim (Zarxio) 480 mcg SQ DAILY [facility] Last Admin: 11/10/18 08:03 Dose: 480 mcg Documented by: Gabapentin (Neurontin) 800 mg PO TID [facility] Last Admin: 11/10/18 16:10 Dose: 800 mg Documented by: Cefepime HCl 2 gm/ Sodium (Chloride) 100 mls @ 200 mls/hr IVPB Q8HR [facility] Last Admin: 11/10/18 16:11 Dose: 200 mls/hr Documented by: Lactated Ringer's (Lactated Ringers) 1,000 mls @ 75 mls/hr IV .[id number] [facility] Last Admin: 11/10/18 16:12 Dose: Not Given Documented by: Lisinopril (Zestril) 20 mg PO DAILY [facility] Last Admin: 11/10/18 08:03 Dose: 20 mg Documented by: Melatonin (Melatonin) 3 mg PO HS PRN PRN Reason: Insomnia Last Admin: 11/09/18 21:47 Dose: 3 mg Documented by: Meloxicam (Mobic) 15 mg PO DAILY [facility] Last Admin: 11/10/18 08:02 Dose: 15 mg Documented by: Morphine Sulfate (Morphine Sulfate (Inj)) 4 mg IVP Q4HR PRN PRN Reason: Pain Last Admin: 11/10/18 14:10 Dose: 4 mg Documented by: Pantoprazole Sodium (Protonix) 20 mg PO DAILY@0730 [facility] Last Admin: 11/10/18 06:38 Dose: 20 mg Documented by: Primidone (Mysoline) 50 mg PO TID [facility] Last Admin: 11/10/18 16:10 Dose: 50 mg Documented by: Prochlorperazine Maleate (Compazine) 10 mg PO Q8H PRN PRN Reason: Nausea And Vomiting Propranolol HCl (Inderal La) 60 mg PO DAILY [facility] Last Admin: 11/10/18 08:03 Dose: 60 mg Documented by: Physical examination: VITAL SIGNS: 97.8, 76, 16, 11 3 x 6 2, 96% room air GENERAL: Laying in bed, awake, comfortable EYES: Pupils equal. Conjunctiva pale. HEENT: External appearance of nose and ears normal, oral cavity grossly normal. NECK: JVD not raised; masses not palpable. HEART: First and second heart sounds are normal; no edema. LUNGS: Respiratory rate increased, decreased breath sounds. ABDOMEN: Soft, nontender, liver spleen not palpable, no masses palpable. PSYCH: Alert and oriented x3; mood and affect normal. Investigations: White count 0.7 hemoglobin 8.5 potassium 3.6 sodium 129 Blood, urine culture, all negative Admission labs: White count 0.5 hemoglobin 9.1 platelets 90 sodium 126 potassium 4.5 Bun 10 creatinine 0.4 to lactic acid 2.6 total bilirubin 1.8 albumin 3.1 EKG tracing personally reviewed by me poor baseline tracing Hip and pelvis x-ray negative for fracture Chest x-ray film personally reviewed by me know obvious infiltrates Assessment: -Febrile neutropenia, possible pneumonia, with continued improvement -Lactic acidosis possibly predominantly type II -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 -Pancytopenia from chemotherapy, slow to respond -Hyponatremia likely from hypoosmolality from decreased solute intake -Moderately differentiated squamous cell carcinoma of the lung undergoing chemo and radiation treatment -COPD in an ex-smoker -GERD -Hyperlipidemia -Essential hypertension -Primary osteoarthritis -Peripheral neuropathy from a combination of being on chemotherapy and from underlying malignancy Plan: Continue on IV cefepime, also on filgrastim. Spoke to the nurse to have the patient sit up in a chair. And ambulate as tolerated. White count is slowly coming up.
--- NOTE | 2018-11-10 21:27 | PN ---
PROGRESS NOTE DATE OF SERVICE: 11/10/2018 REASON FOR FOLLOWUP: Febrile neutropenia and possible pneumonia. INTERVAL HISTORY: The patient is currently afebrile. The patient has been breathing more comfortably. He has some cough, although decreased intensity. No chest pain. No nausea, vomiting. No abdominal pain, no diarrhea. PHYSICAL EXAMINATION: Blood pressure 119/56, pulse of 64, temperature 97.9, he is 94% on room air. General description is an elderly male lying in bed in no distress. Respiratory system: Unlabored breathing with decreased breath sounds in the base, with no wheeze. Heart S1, S2. Regular rhythm and rate. Abdomen soft, no tenderness. LABS: Hemoglobin 8.5, white count 0.7, BUN of 5, creatinine 0.48. Sputum has been negative. DIAGNOSTIC IMPRESSION AND PLAN: Patient with febrile neutropenia, possible pneumonia. Currently covered with cefepime to continue for now as no resistant organism has been grown. ( ) oral antibiotic on discharge. Continue supportive care. MMODL / IJN: [id number] /
[2018-11-11] MEDS: MORPHINE SULFATE 4 MG/ML SYRINGE IVP PRN ×5 (01:21→21:05)
[2018-11-11] MEDS: CEFEPIME 2 GM in SODIUM CHLORIDE 0.9% 100 ML IVPB SCH ×4 (01:25→23:06)
[2018-11-11] MEDS: PANTOPRAZOLE 40 MG TABLET PO SCH (06:18)
[2018-11-11 06:47] LABS: Anisocytosis Moderate; HCT 21.2 % (39.0-53.0); HGB 7.4 gm/dL (13.0-17.5); MCH 33.4 pg (25.0-35.0); MCV 95.3 fL (80.0-100.0); Macrocytosis Slight; Mean Platelet Volume 7.8; Poikilocytosis Slight; RBC 2.23 m/uL (4.30-5.90); RDW 20.7 % (11.5-15.5); WBC 2.4 k/uL (3.8-10.6)
[2018-11-11 07:03] LABS: Platelet Count 61 k/uL (150-450)
[2018-11-11 07:09] LABS: Band Neutrophils % 9 %; Eosinophils # (M) 0.02 k/uL (0-0.7); Lymphocytes # (M) 0.31 k/uL (1.0-4.8); Metamyelocytes # (M) 0.14 k/uL (0); Metamyelocytes % 6 %; Monocytes # (M) 0.38 k/uL (0-1.0); Myelocytes # (M) 0.02 k/uL (0); Myelocytes % 1 %; Neutrophils % (M) 54 %; Nucleated Red Blood Cells 0 /100 WBC (0-0); Total Cells Counted 100
[2018-11-11] MEDS: SYMBICORT 160-4.5 MCG INHALER INHALATION SCH ×2 (08:17→20:12)
[2018-11-11] MEDS: buPROPion SR 150 MG TABLET.ER PO SCH ×2 (09:36→21:04)
[2018-11-11] MEDS: PRIMIDONE 50 MG TAB PO SCH ×3 (09:36→21:04)
[2018-11-11] MEDS: PROPRANOLOL LA 60 MG CAP.SA.24H PO SCH (09:36)
[2018-11-11] MEDS: LISINOPRIL 20 MG TAB PO SCH (09:36)
[2018-11-11] MEDS: MELOXICAM 7.5 MG TAB PO SCH (09:36)
[2018-11-11] MEDS: ATORVASTATIN 10 MG TAB PO SCH (09:36)
[2018-11-11] MEDS: GABAPENTIN 400 MG CAP PO SCH ×3 (09:36→21:04)
[2018-11-11] MEDS: LACTATED RINGERS 1,000 ML IV SCH (09:46)
--- NOTE | 2018-11-11 10:47 | P.PN ---
Subjective Progress Note Date: 11/11/18 The patient feels stronger overall. No history of any fevers/chills/nausea/vomiting. No diarrhea noted this time. Appetite is improving. Objective - Vital Signs Vital signs: Vital Signs Temp 97.9 F 11/11/18 09:10 Pulse 78 11/11/18 09:10 Resp 16 11/11/18 09:10 BP 122/58 11/11/18 09:10 Pulse Ox 96 11/11/18 09:10 Intake & Output 11/10/18 11/11/18 11/11/18 18:59 06:59 18:59 Intake Total 1642 850 480 Balance 1642 850 480 Weight 135.9 kg Intake: Intake, IV Titration 700 450 Amount Cefepime 2 gm In Sodium 100 Chloride 0.9% 100 ml @ 200 mls/hr IVPB Q8HR [facility] Rx#:[id number] Lactated Ringers 1,000 ml 600 450 @ 75 mls/hr IV .[id number] [facility] Rx#:[id number] Oral 942 400 480 Other: Voiding Method Urinal # Voids 2 3 - Constitutional General appearance: Present: no acute distress - EENT Eyes: Present: EOMI ENT: Present: hearing grossly normal, normal oropharynx - Respiratory Respiratory: bilateral: CTA - Cardiovascular Rhythm: regular Heart sounds: normal: S1, S2 - Gastrointestinal General gastrointestinal: Present: normal bowel sounds, soft - Integumentary Integumentary: Present: normal - Neurologic Neurologic: Present: CNII-XII intact - Musculoskeletal Musculoskeletal: Present: generalized weakness, strength equal bilaterally - Psychiatric Psychiatric: Present: A&O x's 3, appropriate affect - Labs CBC & Chem 7: 11/11/18 05:46 11/10/18 05:43 Labs: Abnormal Lab Results - Last 24 Hours (Table) 11/11/18 Range/Units 05:46 WBC 2.4 L (3.8-10.6) k/uL RBC 2.23 L (4.30-5.90) m/uL Hgb 7.4 L (13.0-17.5) gm/dL Hct 21.2 L (39.0-53.0) % RDW 20.7 H (11.5-15.5) % Plt Count 61 L D (150-450) k/uL Lymphocytes # (Manual) 0.31 L (1.0-4.8) k/uL Metamyelocytes # (Man) 0.14 H (0) k/uL Myelocytes # (Manual) 0.02 H (0) k/uL Microbiology - Last 24 Hours (Table) 11/06/18 17:13 Blood Culture - Preliminary Blood No Growth after 96 hours Assessment and Plan (1) Neutropenic fever Narrative/Plan: He has had no recurrence of fever. Neutropenia is resolving with WBC 2.4 and ANC greater than 1000 today. Continue filgrastim today. If WBC is in the normal range, this can be stopped tomorrow. Continue antibiotics per ID. Cultures negative so far. Current Visit: Yes Status: Acute Code(s): D70.9 - NEUTROPENIA, UNSPECIFIED; R50.81 - FEVER PRESENTING WITH CONDITIONS CLASSIFIED ELSEWHERE SNOMED Code(s): 848641308 (2) Pancytopenia due to antineoplastic chemotherapy Narrative/Plan: WBC improving as noted. Hemoglobin and platelets are in a safe range. Continue to monitor with transfusions as needed Current Visit: No Status: Acute Code(s): D61.810 - ANTINEOPLASTIC CH EMOTHERAPY INDUCED PANCYTOPENIA; T45.1X5A - ADVERSE EFFECT OF ANTINEOPLASTIC AND IMMUNOSUP DRUGS, INIT SNOMED Code(s): 941238233245282 (3) Mass of upper lobe of right lung Narrative/Plan: He will resume treatment as an outpatient, once performance status improves sufficiently Current Visit: No Status: Acute Code(s): R91.8 - OTHER NONSPECIFIC ABNORMAL FINDING OF LUNG FIELD SNOMED Code(s): 007153290
[2018-11-11] MEDS: FILGRASTIM-SNDZ 480 MCG/0.8 ML SYRINGE SQ SCH (12:45)
[2018-11-11] MEDS: HYDROcodone/APAP 7.5-325MG 1 EACH TAB PO PRN (12:45)
[2018-11-11] MEDS ORDERED: LACTULOSE 20 GM/30 ML CUP PO ONE (18:46)
[2018-11-11 20:06] VITALS: RESP 18
--- NOTE | 2018-11-11 20:55 | P.PN ---
Progress Note - Text Progress Note Date: 11/11/18 Chief Complaint: Falls Interval history: This is a pleasant 68-year-old patient of Dr. Laura Bernabe. Patient's oncologist is Dr. Mireles and radiation oncologist is Dr. Knox. Patient chronic stable medical conditions include COPD, GERD, hypertension, hyperlipidemia, osteoarthritis and peripheral neuropathy. Patient has been diagnosed with moderately differentiated's, squamous cell carcinoma. Has been getting weekly treatment with carboplatin and Taxol with concurrent radiation treatment. Last radiation treatment was October 02. Patient also got chemo-induced cytopenias. Patient was getting weekly chemotherapy. Has received 5 cycles. Patient was admitted earlier in the month on October 12. Patient denies presented with falls feeling weak and tired. Patient does have a walker. But at home some does not use the same. Yet again presented with a fall. He was not using his walker. Was dizzy. Appetite is okay. No chest pain no palpitation. Had a temperature of 100 in the ER Admitted with febrile neutropenia, possible pneumonia asthenia weak and tired Today-feeling better. Blood counts are improving. Up to the bathroom. Eating better. Review of systems: Was done for constitutional, cardiovascular, GI, pulmonary. relevant finding as above Active Medications Hydrocodone Bitart/Acetaminophen ([place] 7.5-325) 1 each PO Q6HR PRN PRN Reason: Pain Last Admin: 11/11/18 12:45 Dose: 1 each Documented by: Albuterol Sulfate (Ventolin Nebulized) 2.5 mg INHALATION RT-Q4H PRN PRN Reason: Shortness Of Breath Atorvastatin Calcium (Lipitor) 10 mg PO DAILY [facility] Last Admin: 11/11/18 09:36 Dose: 10 mg Documented by: Benzonatate (Tessalon Perles) 100 mg PO TID PRN PRN Reason: Cough Budesonide/Formoterol Fumarate (Symbicort 160-4.5 Mcg Inhaler) 2 puff INHALATION RT-BID [facility] Last Admin: 11/11/18 20:12 Dose: 2 puff Documented by: Bupropion HCl (Wellbutrin Sr) 150 mg PO BID [facility] Last Admin: 11/11/18 09:36 Dose: 150 mg Documented by: Filgrastim (Zarxio) 480 mcg SQ DAILY [facility] Last Admin: 11/11/18 12:45 Dose: 480 mcg Documented by: Gabapentin (Neurontin) 800 mg PO TID [facility] Last Admin: 11/11/18 17:04 Dose: 800 mg Documented by: Cefepime HCl 2 gm/ Sodium (Chloride) 100 mls @ 200 mls/hr IVPB Q8HR [facility] Last Admin: 11/11/18 17:03 Dose: 200 mls/hr Documented by: Lactated Ringer's (Lactated Ringers) 1,000 mls @ 75 mls/hr IV .[id number] [facility] Last Admin: 11/11/18 09:46 Dose: 75 mls/hr Documented by: Lisinopril (Zestril) 20 mg PO DAILY [facility] Last Admin: 11/11/18 09:36 Dose: 20 mg Documented by: Melatonin (Melatonin) 3 mg PO HS PRN PRN Reason: Insomnia Last Admin: 11/09/18 21:47 Dose: 3 mg Documented by: Meloxicam (Mobic) 15 mg PO DAILY [facility] Last Admin: 11/11/18 09:36 Dose: 15 mg Documented by: Morphine Sulfate (Morphine Sulfate (Inj)) 4 mg IVP Q4HR PRN PRN Reason: Pain Last Admin: 11/11/18 17:04 Dose: 4 mg Documented by: Pantoprazole Sodium (Protonix) 20 mg PO DAILY@0730 [facility] Last Admin: 11/11/18 06:18 Dose: 20 mg Documented by: Primidone (Mysoline) 50 mg PO TID [facility] Last Admin: 11/11/18 17:04 Dose: 50 mg Documented by: Prochlorperazine Maleate (Compazine) 10 mg PO Q8H PRN PRN Reason: Nausea And Vomiting Propranolol HCl (Inderal La) 60 mg PO DAILY [facility] Last Admin: 11/11/18 09:36 Dose: 60 mg Documented by: Physical examination: VITAL SIGNS: 97.8, 75, 16, 121/63, 95% room air GENERAL: Laying in bed, more poor. EYES: Pupils equal. Conjunctiva pale. HEENT: External appearance of nose and ears normal, oral cavity grossly normal. NECK: JVD not raised; masses not palpable. HEART: First and second heart sounds are normal; no edema. LUNGS: Respiratory rate increased, decreased breath sounds. ABDOMEN: Soft, nontender, liver spleen not palpable, no masses palpable. PSYCH: Alert and oriented x3; mood and affect normal. Investigations: White count 2.4 hemoglobin 7.4 platelets 61 Blood, urine culture, all negative Admission labs: White count 0.5 hemoglobin 9.1 platelets 90 sodium 126 potassium 4.5 Bun 10 creatinine 0.4 to lactic acid 2.6 total bilirubin 1.8 albumin 3.1 EKG tracing personally reviewed by me poor baseline tracing Hip and pelvis x-ray negative for fracture Chest x-ray film personally reviewed by me know obvious infiltrates Assessment: -Febrile neutropenia, possible pneumonia, much improved -Lactic acidosis possibly predominantly type II -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 -Pancytopenia from chemotherapy, slow to respond -Hyponatremia likely from hypoosmolality from decreased solute intake -Moderately differentiated squamous cell carcinoma of the lung undergoing chemo and radiation treatment -COPD in an ex-smoker -GERD -Hyperlipidemia -Essential hypertension -Primary osteoarthritis -Peripheral neuropathy from a combination of being on chemotherapy and from underlying malignancy Plan: She'll overall looking much better. Counts are much improved. Hopefully can be discharged tomorrow. Discussed with the patient. Encouraged to ambulate.
[2018-11-11] MEDS: MELATONIN 3 MG TABLET PO PRN (23:07)
--- NOTE | 2018-11-11 23:29 | PN ---
PROGRESS NOTE DATE OF SERVICE: 11/11/2018 REASON FOR FOLLOW UP: Febrile neutropenia. INTERVAL HISTORY: The patient is currently afebrile. Patient has been breathing comfortably. The patient did have occasional dry hacking cough, but no chest pain. No nausea, vomiting. No abdominal pain and no diarrhea. PHYSICAL EXAMINATION: Blood pressure 120/58 with a pulse of 70, temperature 97.9, he is 96% on room air. General description is an elderly male lying in bed in no distress. Respiratory system: Unlabored breathing, decreased breath sounds in the base, no wheeze. Heart S1, S2. Regular rate and rhythm. Abdomen soft. LABS: Hemoglobin 7.4, white 2.4. Blood culture so far negative. Sputum is negative. DIAGNOSTIC IMPRESSION AND PLAN: Patient with febrile neutropenia concerning for possible gram-negative, however, sputum has been negative for resistant pathogen. Currently on cefepime will be transitioned to oral antibiotic on discharge short course. Continue supportive care. MMODL / IJN: [id number] /
[2018-11-12] MEDS: MORPHINE SULFATE 4 MG/ML SYRINGE IVP PRN ×2 (02:17→08:54)
[2018-11-12] MEDS: PANTOPRAZOLE 40 MG TABLET PO SCH (06:43)
[2018-11-12] MEDS: LACTATED RINGERS 1,000 ML IV SCH (06:44)
[2018-11-12 06:50] LABS: Anisocytosis Slight; HCT 22.7 % (39.0-53.0); HGB 7.9 gm/dL (13.0-17.5); MCH 32.9 pg (25.0-35.0); MCHC 34.7 g/dL (31.0-37.0); MCV 95.1 fL (80.0-100.0); Macrocytosis Slight; Mean Platelet Volume 7.6; Poikilocytosis Slight; RBC 2.38 m/uL (4.30-5.90); RDW 19.5 % (11.5-15.5)
[2018-11-12 06:51] LABS: Platelet Count 73 k/uL (150-450)
[2018-11-12 07:10] LABS: Band Neutrophils % 5 %; Eosinophils # (M) 0.07 k/uL (0-0.7); Lymphocytes # (M) 0.33 k/uL (1.0-4.8); Monocytes # (M) 0.98 k/uL (0-1.0); Myelocytes # (M) 0.07 k/uL (0); Myelocytes % 1 %; Neutrophils % (M) 74 %; Nucleated Red Blood Cells 1 /100 WBC (0-0); Total Cells Counted 200; WBC 6.5 k/uL (3.8-10.6)
[2018-11-12 07:11] LABS: Polychromasia Present
[2018-11-12] MEDS: SYMBICORT 160-4.5 MCG INHALER INHALATION SCH (08:04)
[2018-11-12] MEDS: CEFEPIME 2 GM in SODIUM CHLORIDE 0.9% 100 ML IVPB SCH (08:53)
[2018-11-12] MEDS: PRIMIDONE 50 MG TAB PO SCH (08:53)
[2018-11-12] MEDS: ATORVASTATIN 10 MG TAB PO SCH (08:53)
[2018-11-12] MEDS: MELOXICAM 7.5 MG TAB PO SCH (08:53)
[2018-11-12] MEDS: GABAPENTIN 400 MG CAP PO SCH (08:53)
[2018-11-12] MEDS: LISINOPRIL 20 MG TAB PO SCH (08:53)
[2018-11-12] MEDS: PROPRANOLOL LA 60 MG CAP.SA.24H PO SCH (08:56)
[2018-11-12] MEDS: buPROPion SR 150 MG TABLET.ER PO SCH (08:57)
[2018-11-12] MEDS: FILGRASTIM-SNDZ 480 MCG/0.8 ML SYRINGE SQ SCH (09:03)
[2018-11-12] MEDS ORDERED: CEFDINIR 300 MG CAP PO STA (10:54)
[2018-11-12 12:43] VITALS: BP 118/65; PULSE 76; TEMP 98.1
--- NOTE | 2018-11-12 12:44 | PN ---
PROGRESS NOTE DATE OF SERVICE: 11/12/2018. REASON FOR FOLLOWUP: Pneumonia. INTERVAL HISTORY: The patient is currently afebrile. The patient has been feeling better. He is breathing more comfortably. Denies any chest pain. Occasional cough. No nausea, no vomiting. No abdominal pain and no diarrhea. PHYSICAL EXAMINATION: Blood pressure 145/75 with a pulse of 83, temperature 97.6. He is 94% on room air. General description is an elderly male lying in bed in no distress. RESPIRATORY SYSTEM: Unlabored breathing. Clear to auscultation anteriorly. HEART: S1, S2. Regular rate and rhythm. ABDOMEN: Soft, no tenderness. LABS: Hemoglobin 7.8, white count 6.5. Sputum with Dulce likely a colonizer. DIAGNOSTIC IMPRESSION AND PLAN: Patient admitted to the hospital with febrile neutropenia. The patient's neutropenia has resolved. Sputum has been negative for resistant pathogen. Dulce is likely a colonizer and no need for any therapy for the same. Finish therapy with short course of oral Ceftin. Prescription sent to the pharmacy. Continue supportive care. MMODL / IJN: [id number] /
--- NOTE | 2018-11-12 16:59 | P.DS ---
Providers Date of admission: 11/06/18 18:15 Expected date of discharge: 11/12/18 Attending physician: Micah Orta Consults: 11/06/18 19:16 Consult Physician Routine Consulting Provider: Paul Castro Consult Reason/Comments: fever Do you want consulting provider notified?: Yes 11/06/18 20:26 Consult Physician Routine Consulting Provider: Denny Molina Consult Reason/Comments: known Do you want consulting provider notified?: Yes Primary care physician: [facility] Course: Chief Complaint: [place] Hospital course: This is a pleasant 68-year-old patient of Dr. Laura Bernabe. Patient's oncologist is Dr. Mireles and radiation oncologist is Dr. Knox. Patient chronic stable medical conditions include COPD, GERD, hypertension, hyperlipidemia, osteoarthritis and peripheral neuropathy. Patient has been diagnosed with moderately differentiated's, squamous cell carcinoma. Has been getting weekly treatment with carboplatin and Taxol with concurrent radiation treatment. Last radiation treatment was October 02. Patient also got chemo-induced cytopenias. Patient was getting weekly chemotherapy. Has received 5 cycles. Patient was admitted earlier in the month on October 12. Patient denies presented with falls feeling weak and tired. Patient does have a walker. But at home some does not use the same. Yet again presented with a fall. He was not using his walker. Was dizzy. Appetite is okay. No chest pain no palpitation. Had a temperature of 100 in the ER Admitted with febrile neutropenia, possible pneumonia asthenia weak and tired. Doing well. Patient's white count did come up with G-CSF. Doing well at the time of discharge up and about. Care was discussed with the patient. Cultures all remained negative. Consultation: Dr. Castro from ID Dr. Mireles from oncology Physical examination: VITAL SIGNS: 97.6, 83, 18, 145 and 75, 94% room air GENERAL: Sitting up comfortable-looking current. EYES: Pupils equal. Conjunctiva pale. HEENT: External appearance of nose and ears normal, oral cavity grossly normal. NECK: JVD not raised; masses not palpable. HEART: First and second heart sounds are normal; no edema. LUNGS: Respiratory rate increased, decreased breath sounds. ABDOMEN: Soft, nontender, liver spleen not palpable, no masses palpable. PSYCH: Alert and oriented x3; mood and affect normal. Investigations: White count 6.5 hemoglobin 7.9 platelets 73 Blood, urine culture, all negative Sputum culture growing Dulce glabrata-felt to be colonizing per ID Admission labs: White count 0.5 hemoglobin 9.1 platelets 90 sodium 126 potassium 4.5 Bun 10 creatinine 0.4 to lactic acid 2.6 total bilirubin 1.8 albumin 3.1 EKG tracing personally reviewed by me poor baseline tracing Hip and pelvis x-ray negative for fracture Chest x-ray film personally reviewed by me know obvious infiltrates Discharge diagnosis: -Febrile neutropenia, possible pneumonia, much improved -Lactic acidosis possibly predominantly type II -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 -COPD in an ex-smoker -GERD -Hyperlipidemia -Essential hypertension -Primary osteoarthritis -Peripheral neuropathy from a combination of being on chemotherapy and from underlying malignancy Disposition: Home Patient Condition at Discharge: Stable Plan - Discharge Summary Discharge Rx Participant: No New Discharge Prescriptions: New Cefuroxime Axetil [Ceftin] 500 mg PO BID #14 tab Melatonin 3 mg PO HS PRN tablet PRN Reason: Insomnia Continue Meloxicam [Mobic] 15 mg PO DAILY Omeprazole 20 mg PO BID Enalapril [Vasotec] 10 mg PO DAILY buPROPion SR [Wellbutrin SR] 150 mg PO BID Simvastatin [Zocor] 10 mg PO DAILY Gabapentin [Neurontin] 800 mg PO TID Albuterol Inhaler [Ventolin Hfa Inhaler] 2 puff INHALATION RT-Q4H PRN PRN Reason: Shortness Of Breath Primidone [Mysoline] 50 mg PO TID Propranolol HCl [Propranolol HCl ER] 60 mg PO DAILY Benzonatate [Tessalon Perles] 100 mg PO TID PRN PRN Reason: Cough Hydrocodone/Acetaminophen [[place] 7.5-325] 1 tab PO Q6HR PRN PRN Reason: Pain Budesonide-Formot 160-4.5 Mcg [Symbicort 160-4.5 Mcg Inhaler] 2 puff INHALATION RT-BID Prochlorperazine [Compazine] 10 mg PO Q8H PRN PRN Reason: Nausea And Vomiting Discharge Medication List Albuterol Inhaler [Ventolin Hfa Inhaler] 2 puff INHALATION RT-Q4H PRN 09/06/15 [History] Enalapril [Vasotec] 10 mg PO DAILY 09/06/15 [History] Gabapentin [Neurontin] 800 mg PO TID 09/06/15 [History] Meloxicam [Mobic] 15 mg PO DAILY 09/06/15 [History] Omeprazole 20 mg PO BID 09/06/15 [History] Primidone [Mysoline] 50 mg PO TID 09/06/15 [History] Propranolol HCl [Propranolol HCl ER] 60 mg PO DAILY 09/06/15 [History] Simvastatin [Zocor] 10 mg PO DAILY 09/06/15 [History] buPROPion SR [Wellbutrin SR] 150 mg PO BID 09/06/15 [History] Benzonatate [Tessalon Perles] 100 mg PO TID PRN 10/12/18 [History] Budesonide-Formot 160-4.5 Mcg [Symbicort 160-4.5 Mcg Inhaler] 2 puff INHALATION RT-BID 10/12/18 [History] Hydrocodone/Acetaminophen [[place] 7.5-325] 1 tab PO Q6HR PRN 10/12/18 [History] Prochlorperazine [Compazine] 10 mg PO Q8H PRN 10/12/18 [History] Cefuroxime Axetil [Ceftin] 500 mg PO BID #14 tab 11/12/18 [Rx] Melatonin 3 mg PO HS PRN tablet 11/12/18 [Rx] Follow up Appointment(s)/Referral(s): Mono Dumont MD [Primary Care Provider] - 1-2 days (Pt make appointment, as the office is closed at time of discharge.) [facility] Visiting Nurse, [NON-STAFF] - 1-2 Days (Pt make appointment, as the office is closed at time of discharge.) Patient Instructions/Handouts: Neutropenia (DC) Discharge Disposition: HOME SELF-CARE
== END 2018-11-12 15:01 | disposition home health service (06) | DRG 193 ==
LOC: EC 16:20 → 3SCARD 18:15
PROVIDERS: ADMIT Hospitalist; ATTEND Hospitalist
PROC: 05HB33Z Insertion of Infusion Device into Right Basilic Vein, Percutaneous Approach (ICD-10-PCS; principal; 2018-11-07 10:10)
DX: J18.9 Pneumonia, unspecified organism (principal); D61.810 Antineoplastic chemotherapy induced pancytopenia; C34.11 Malignant neoplasm of upper lobe, right bronchus or lung; E87.1 Hypo-osmolality and hyponatremia; E87.2 Acidosis; J44.0 Chronic obstructive pulmonary disease with (acute) lower respiratory infection; M48.56XA Collapsed vertebra, not elsewhere classified, lumbar region, initial encounter for fracture; G62.9 Polyneuropathy, unspecified; D70.3 Neutropenia due to infection; R50.81 Fever presenting with conditions classified elsewhere; E78.5 Hyperlipidemia, unspecified; E87.6 Hypokalemia; I10 Essential (primary) hypertension; K21.9 Gastro-esophageal reflux disease without esophagitis; M19.91 Primary osteoarthritis, unspecified site; T45.1X5A Adverse effect of antineoplastic and immunosuppressive drugs, initial encounter; R29.6 Repeated falls; M19.90 Unspecified osteoarthritis, unspecified site; E86.0 Dehydration; Z79.1 Long term (current) use of non-steroidal anti-inflammatories (NSAID); Z79.51 Long term (current) use of inhaled steroids; Z79.899 Other long term (current) drug therapy; Z88.5 Allergy status to narcotic agent; Z86.718 Personal history of other venous thrombosis and embolism; Z87.891 Personal history of nicotine dependence; Z80.1 Family history of malignant neoplasm of trachea, bronchus and lung; W19.XXXA Unspecified fall, initial encounter
CPT/HCPCS: 36410; 36415; 71046; 73502; 76937; 80048; 80053; 81001; 82565; 83605; 83735; 84484; 85025; 85610; 85730; 87040; 87070; 87086; 87205; 87502; 94640; 96365; 96366; 96375; 96376; 99291

== ENCOUNTER → 2018-12-29 | Outpatient (CLI) | payer MEDICARE, OTHER ==
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
== END | disposition home or self-care (01) ==
LOC: RADPETMAIN 07:26
PROVIDERS: ATTEND Internal Medicine Hematology & Oncology
DX: R91.8 Other nonspecific abnormal finding of lung field (principal)
CPT/HCPCS: 78815; A9552

== ENCOUNTER → 2019-02-05 | Day surgery (SDC) | payer MEDICARE, OTHER ==
[2019-02-04 08:49] VITALS: BMI 36.9
[~2019-02-05] MED LIST changes: +BUPIVACAIN-EPI 0.25%-1:200,000 30 ML VIAL SQ ONE; +DEXAMETHASONE SOD PHOSPHATE 10 MG/ML 1 ML VIAL IV ONE; +HEPARIN SODIUM 1,000 UN/ML (10ML VL) MISCELLANE ONE; +HYDROmorphone 0.5 MG/0.5 ML SYRINGE IVP PRN; +IOPAMIDOL-370 50ML BTL MISCELLANE ONE; +KETAMINE 10 MG/ML 20 ML VIAL ONE; +LACTATED RINGERS 1,000 ML IV SCH; +LIDOCAINE 1% 20 ML VIAL (10MG/ML) FOR IV START INTRADERMA PRN; -LIDOCAINE 1% INJ 10MG/ML (20 ML MDV) SQ ONE; +MIDAZOLAM 2 MG/2 ML VIAL ONE; +ONDANSETRON 4 MG/2 ML VIAL IVP ONE; +PROPOFOL 10 MG/ML 20 ML VIAL IV ONE; +Pre Op ABX Message 1 EACH MISC MISCELLANE ONE; +fentaNYL (PF) 50 MCG/ML 2 ML AMP ONE
[2019-02-05 12:40] VITALS: TEMP 97.3
--- NOTE | 2019-02-05 14:26 | P.OP ---
Date of Procedure: 02/05/19 Preoperative Diagnosis: Lung cancer, need for IV access Postoperative Diagnosis: Lung cancer, need for IV access Procedure(s) Performed: Port placement Anesthesia: MAC Surgeon: Lila Leiva Estimated Blood Loss (ml): 5 Pathology: none sent Condition: stable Disposition: PACU Indications for Procedure: The patient needs a port for chemotherapy Description of Procedure: The patient's taken the operative suite where he is prepped and draped in the usual sterile manner under IV sedation. Local anesthetic was instilled into the skin and subcutaneous tissue on the right chest wall, then above the clavicle, and then 2 finger breaths above the clavicle and posterior to the sternocleidomastoid muscle. The internal jugular vein is cannulated using ultrasound guidance. A guidewire is passed easily and the position is verified fluoroscopically. A skin huy is made near the guidewire and a skin incision is made on the anterior chest wall. A catheter is tunneled between the 2 openings. A vessel dilator with breakaway sheath was placed over the guidewire into the superior vena cava and the position was verified fluoroscopically. The catheter was then threaded through the breakaway sheath into the superior vena cava and position was verified fluoroscopically. The breakaway sheath was removed. The catheter was trimmed to size and attached to the previously flushed port. The port was secured to the fascia of the anterior chest wall using 0 Vicryl. The skin incisions were closed with 4-0 Vicryl in a subcuticular manner. Steri- Strips were applied. Nursing had requested that the port be left access as he was receiving treatment tomorrow. So the port was accessed percutaneously. It showed good back flash of dark red blood and flushed easily with heparinized saline solution. Sterile dressings were applied. He tolerated the procedure without difficulty and was taken to recovery room in satisfactory condition. According to or personnel, all counts were correct. Plan - Discharge Summary Discharge Rx Participant: No New Discharge Prescriptions: No Action Meloxicam [Mobic] 15 mg PO DAILY Omeprazole 20 mg PO BID Enalapril [Vasotec] 10 mg PO DAILY buPROPion SR [Wellbutrin SR] 150 mg PO BID Simvastatin [Zocor] 10 mg PO DAILY Gabapentin [Neurontin] 800 mg PO TID Albuterol Inhaler [Ventolin Hfa Inhaler] 2 puff INHALATION RT-Q4H PRN PRN Reason: Shortness Of Breath Primidone [Mysoline] 50 mg PO TID Propranolol HCl [Propranolol HCl ER] 60 mg PO DAILY Hydrocodone/Acetaminophen [[place] 7.5-325] 1 tab PO Q6HR PRN PRN Reason: Pain Budesonide-Formot 160-4.5 Mcg [Symbicort 160-4.5 Mcg Inhaler] 2 puff INHALATION RT-BID Magnesium (Unknown Dose) 1 tab PO DAILY Discharge Medication List Albuterol Inhaler [Ventolin Hfa Inhaler] 2 puff INHALATION RT-Q4H PRN 09/06/15 [History] Enalapril [Vasotec] 10 mg PO DAILY 09/06/15 [History] Gabapentin [Neurontin] 800 mg PO TID 09/06/15 [History] Meloxicam [Mobic] 15 mg PO DAILY 09/06/15 [History] Omeprazole 20 mg PO BID 09/06/15 [History] Primidone [Mysoline] 50 mg PO TID 09/06/15 [History] Propranolol HCl [Propranolol HCl ER] 60 mg PO DAILY 09/06/15 [History] Simvastatin [Zocor] 10 mg PO DAILY 09/06/15 [History] buPROPion SR [Wellbutrin SR] 150 mg PO BID 09/06/15 [History] Budesonide-Formot 160-4.5 Mcg [Symbicort 160-4.5 Mcg Inhaler] 2 puff INHALATION RT-BID 10/12/18 [History] Hydrocodone/Acetaminophen [[place] 7.5-325] 1 tab PO Q6HR PRN 10/12/18 [History] Magnesium (Unknown Dose) 1 tab PO DAILY 02/04/19 [History] Activity/Diet/Wound Care/Special Instructions: Ice to the incision 24 hours. Leave the current dressings in place until then the dressings may be removed and you may shower. Do not shower with the port accessed however. Remove the Steri-Strips in 1-2 weeks. Expect some bruising. Call if you have questions or concerns. Follow-up with Dr. Leiva as needed. Discharge Disposition: HOME SELF-CARE
[2019-02-05 14:44] VITALS: BP 113/70; PULSE 68; RESP 18
--- NOTE | 2019-02-05 15:44 | FL ---
Fluoroscopy HISTORY: Port-A-Cath placement 4 seconds fluoroscopy time supplied to the referring clinician. 1 intraoperative C-arm images docume nt the procedure. See dictated report from general surgery.
== END | disposition home or self-care (01) ==
LOC: OR 12:05
PROVIDERS: ATTEND Surgery
DX: C34.90 Malignant neoplasm of unspecified part of unspecified bronchus or lung (principal); I10 Essential (primary) hypertension; J44.9 Chronic obstructive pulmonary disease, unspecified; E78.00 Pure hypercholesterolemia, unspecified; K21.9 Gastro-esophageal reflux disease without esophagitis; M19.90 Unspecified osteoarthritis, unspecified site; Z86.19 Personal history of other infectious and parasitic diseases; Z88.5 Allergy status to narcotic agent; Z87.891 Personal history of nicotine dependence; Z79.891 Long term (current) use of opiate analgesic; Z79.899 Other long term (current) drug therapy
CPT/HCPCS: 77001; 36561; C1788; J2250; J1100; J2405; J3010; J1644; J2704; Q9967

== ENCOUNTER → 2019-04-24 | Outpatient (CLI) | payer MEDICARE, OTHER ==
[2019-04-24 08:45] LABS: African American GFR (CKD) >90 (>60 ml/min/1.73 sqM); Blood Urea Nitrogen 13 mg/dL (9-20); Non-African American GFR(CKD) >90 (>60 ml/min/1.73 sqM)
--- NOTE | 2019-04-24 13:23 | CT ---
EXAMINATION TYPE: CT ChestAbdPelvis w con DATE OF EXAM: 04/24/2019 COMPARISON: Prior PET/CT 12/29/2018 HISTORY: Lung Cancer CT DLP: 1934 mGycm Automated exposure control for dose reduction was used. CONTRAST: CT scan of the chest, abdomen and pelvis is performed with Oral Contrast and with IV Contrast, patien t injected with 100 ml mL of Isovue 300. FINDINGS: LUNGS: There are similar findings, abnormal increased attenuation is present in the right upper lobe adjacent to the mediastinum with abnormal soft tissue about the right upper lobe bronchus, right main stem bronchus and extending into the retrocaval pretracheal region with some mass effect in the poste rior aspect of the superior vena cava. The right upper lobe lung nodule is again identified is measur ing 5 mm now measures approximately 2 cm in size. Abnormal stellate density in the right upper lobe h as increased towards the cardiac apex extending to the pleural surface as compared to prior exam. Lef t upper lobe lung nodule is present measuring 16 mm where as in retrospect approximately 5 mm on prio r exam. There is volume loss in the right hemithorax. No pleural or pericardial effusion. There is pan ggestion of an additional nodular density towards the right upper lobe on axial image 16 and 17 withi n the abnormal soft tissue measuring 13 mm. MEDIASTINUM: There are no greater than 1 cm hilar or mediastinal lymph nodes. No pericardial effusi on is seen. Port-A-Cath is present on the right pectoral region courses via a internal jugular appro ach into the superior vena cava. Cortical spaces are present. AORTA: No significant abnormality is seen. OTHER: No additional significant abnormality is seen. LIVER/GB: No significant abnormality is appreciated. PANCREAS: No significant abnormality is seen. SPLEEN: There is easily present about the spleen. ADRENALS: No significant abnormality is seen. KIDNEYS: No significant abnormality is seen. REPRODUCTIVE ORGANS: No gross abnormality seen. BOWEL: Indeterminate thickening of the rectosigmoid junction is present, suggestion of some pericolo eliana fat increased attenuation FREE AIR: No Free Air visible. ASCITES: None seen. RETROPERITONEAL ADENOPATHY: No retroperitoneal adenopathy is seen. LYMPH NODES: No greater than 1 cm abdominal or pelvic lymph nodes are appreciated. URINARY BLADDER: No significant abnormality is seen. PELVIC ADENOPATHY: None visualized. OSSEOUS STRUCTURES: Extensive metallic densities are scattered at the level of the soft tissues at t he proximal right femur. IMPRESSION: Pulmonary nodules have increased in size, progression in the increased attenuation in the right upper lobe could be related to posttreatment change, difficult to exclude postobstructive atel ectasis versus radiation change, spread of tumor.
== END | disposition home or self-care (01) ==
LOC: RADPROMAIN 07:42
PROVIDERS: ATTEND Internal Medicine Hematology & Oncology
DX: Z03.89 Encounter for observation for other suspected diseases and conditions ruled out (principal); C34.11 Malignant neoplasm of upper lobe, right bronchus or lung; R91.8 Other nonspecific abnormal finding of lung field
CPT/HCPCS: 82565; 84520; 71260; 74177; Q9967

== ENCOUNTER 2019-08-30 17:25 | Inpatient (IN) | payer MEDICARE, OTHER ==
[2019-08-30] MEDS ORDERED: ALBUTEROL NEBULIZED 2.5 MG/3 ML INHALATION STA (17:28)
[2019-08-30] MEDS ORDERED: IPRATROPIUM 0.5 MG/2.5 ML NEBU INHALATION STA (17:28)
[2019-08-30] MEDS ORDERED: methylPREDNISolone SOD SUCCI 125 MG/2 ML VIAL IV STA (17:28)
--- NOTE | 2019-08-30 17:36 | ED ---
General Adult HPI - General Stated complaint: SOB Time Seen by Provider: 08/30/19 17:28 Source: patient, EMS, RN notes reviewed, old records reviewed - History of Present Illness Initial comments: 68-year-old male history of COPD, lung cancer presenting for evaluation of worsening dyspnea. No reported fever. Patient has a cough which is also been worsening over the past one week. He has currently following with both pulmono logy and oncology. He states he has not had any recent chemotherapy. He denies fever. Denies central chest pain. Denies lower extremity pain or swelling. - Related Data Home Medications Medication Instructions Recorded Confirmed Albuterol Inhaler (Mhu) [Ventolin 2 puff INHALATION RT-Q4H PRN 09/06/15 02/05/19 Hfa Inhaler (Mhu)] Enalapril [Vasotec] 10 mg PO DAILY 09/06/15 02/05/19 Gabapentin [Neurontin] 800 mg PO TID 09/06/15 02/05/19 Meloxicam [Mobic] 15 mg PO DAILY 09/06/15 02/05/19 Omeprazole 20 mg PO BID 09/06/15 02/05/19 Primidone [Mysoline] 50 mg PO TID 09/06/15 02/05/19 Propranolol HCl [Propranolol HCl 60 mg PO DAILY 09/06/15 02/05/19 ER] Simvastatin [Zocor] 10 mg PO DAILY 09/06/15 02/05/19 buPROPion SR [Wellbutrin SR] 150 mg PO BID 09/06/15 02/05/19 Budesonide-Formot 160-4.5 Mcg 2 puff INHALATION RT-BID 10/12/18 02/05/19 [Symbicort 160-4.5 Mcg Inhaler] Hydrocodone/Acetaminophen [[place] 1 tab PO Q6HR PRN 10/12/18 02/05/19 7.5-325] Magnesium (Unknown Dose) 1 tab PO DAILY 02/04/19 02/05/19 Allergies Allergy/AdvReac Type Severity Reaction Status Date / Time methadone Allergy Swelling Verified 08/30/19 17:42 of Ears Review of Systems ROS Statement: Those systems with pertinent positive or pertinent negative responses have been documented in the HPI. ROS Other: All systems not noted in ROS Statement are negative. Past Medical History Past Medical History: Cancer, COPD, Deep Vein Thrombosis (DVT), GERD/Reflux, Hyperlipidemia, Hypertension, Liver Disease, Osteoarthritis (OA) Additional Past Medical History / Comment(s): neuropathy, hx broken vertebrae., back pain, states hx of fall x2 during chemo tx., hepatitis C 20 years ago with tx, Right Lung Cancer (2019)- Chemo & radiation tx., Pt states abcess on gum and thrush which is "almost gone"- pt to notify Dr. Leiva. History of Any Multi-Drug Resistant Organisms: None Reported Past Surgical History: No Surgical Hx Reported Additional Past Surgical History / Comment(s): eye sx, lung biopsy, liver bx Past Anesthesia/Blood Transfusion Reactions: No Reported Reaction Past Psychological History: Bipolar Additional Psychological History / Comment(s): pt does not think he has bipolar. Smoking Status: Former smoker Past Alcohol Use History: None Reported Additional Past Alcohol Use History / Comment(s): quit 2018 smoked 45 years 1 ppd, quit drinker 30 years ago Past Drug Use History: None Reported - Past Family History Mother Family Medical History: No Reported History Son(s) Family Medical History: Cancer Additional Family Medical History / Comment(s): lung cancer General Exam General appearance: alert, in no apparent distress Head exam: Present: atraumatic, normocephalic Eye exam: Present: normal appearance, PERRL, EOMI ENT exam: Present: normal exam Neck exam: Present: normal inspection. Absent: tenderness, meningismus Respiratory exam: Present: respiratory distress, wheezes, rhonchi, decreased breath sounds Cardiovascular Exam: Present: regular rate, normal rhythm GI/Abdominal exam: Present: soft. Absent: distended, tenderness, guarding Extremities exam: Present: normal capillary refill. Absent: pedal edema Neurological exam: Present: alert, oriented X3, CN II-XII intact. Absent: motor sensory deficit Psychiatric exam: Present: normal affect, normal mood Skin exam: Present: warm, dry, intact. Absent: cyanosis, diaphoretic Course Vital Signs 08/30/19 08/30/19 08/30/19 17:39 17:40 18:06 Temperature 98.2 F Pulse Rate 66 89 90 Respiratory 18 Rate Blood Pressure 130/85 O2 Sat by Pulse 95 Oximetry EKG Findings - EKG Comments: EKG Findings:: EKG: Sinus rhythm with first-degree AV block, occasional PVC, Q waves in the inferior leads rate of 90, SC interval 260, QRS duration 92, QTC 440, no ST segment elevation. Medical Decision Making - Medical Decision Making 60-year-old male with COPD, lung cancer presenting with dyspnea. Patient has cough, no spasm, diffuse wheezing. Chest x-ray showing elevation of the right hemidiaphragm and progression of known right lung mass. Patient has normal white blood cell count, stable hemoglobin, he has hyponatremia with sodium 128) treated with normal saline. He will be admitted for COPD exacerbation, reevaluation by both pulmonology and oncology. Case discussed with Dr. Hinds will admit - Lab Data Result diagrams: 08/30/19 18:15 08/30/19 18:15 Lab Results 08/30/19 08/30/19 08/30/19 Range/Units 18:15 18:15 18:15 WBC 5.2 (3.8-10.6) k/uL RBC 3.78 L (4.30-5.90) m/uL Hgb 12.4 L (13.0-17.5) gm/dL Hct 35.8 L (39.0-53.0) % MCV 94.8 (80.0-100.0) fL MCH 32.9 (25.0-35.0) pg MCHC 34.7 (31.0-37.0) g/dL RDW 14.8 (11.5-15.5) % Plt Count 184 (150-450) k/uL Neutrophils % 55 % Lymphocytes % 28 % Monocytes % 8 % Eosinophils % 5 % Basophils % 1 % Neutrophils # 2.9 (1.3-7.7) k/uL Lymphocytes # 1.5 (1.0-4.8) k/uL Monocytes # 0.4 (0-1.0) k/uL Eosinophils # 0.3 (0-0.7) k/uL Basophils # 0.0 (0-0.2) k/uL PT 11.5 (9.0-12.0) sec INR 1.1 (<1.2) APTT 26.4 (22.0-30.0) sec Sodium 128 L (137-145) mmol/L Potassium 4.6 (3.5-5.1) mmol/L Chloride 91 L (98-107) mmol/L Carbon Dioxide 28 (22-30) mmol/L Anion Gap 9 mmol/L BUN 14 (9-20) mg/dL Creatinine 0.54 L (0.66-1.25) mg/dL Est GFR (CKD-EPI)AfAm >90 (>60 ml/min/1.73 sqM) Est GFR (CKD-EPI)NonAf >90 (>60 ml/min/1.73 sqM) Glucose 105 H (74-99) mg/dL Plasma Lactic Acid Art (0.7-2.0) mmol/L Calcium 9.1 (8.4-10.2) mg/dL Magnesium 1.5 L (1.6-2.3) mg/dL Total Bilirubin 1.0 (0.2-1.3) mg/dL AST 64 H (17-59) U/L ALT 50 H (4-49) U/L Alkaline Phosphatase 170 H (38-126) U/L NT-Pro-B Natriuret Pep pg/mL Total Protein 7.4 (6.3-8.2) g/dL Albumin 3.4 L (3.5-5.0) g/dL 08/30/19 08/30/19 Range/Units 18:15 18:15 WBC (3.8-10.6) k/uL RBC (4.30-5.90) m/uL Hgb (13.0-17.5) gm/dL Hct (39.0-53.0) % MCV (80.0-100.0) fL MCH (25.0-35.0) pg MCHC (31.0-37.0) g/dL RDW (11.5-15.5) % Plt Count (150-450) k/uL Neutrophils % % Lymphocytes % % Monocytes % % Eosinophils % % Basophils % % Neutrophils # (1.3-7.7) k/uL Lymphocytes # (1.0-4.8) k/uL Monocytes # (0-1.0) k/uL Eosinophils # (0-0.7) k/uL Basophils # (0-0.2) k/uL PT (9.0-12.0) sec INR (<1.2) APTT (22.0-30.0) sec Sodium (137-145) mmol/L Potassium (3.5-5.1) mmol/L Chloride (98-107) mmol/L Carbon Dioxide (22-30) mmol/L Anion Gap mmol/L BUN (9-20) mg/dL Creatinine (0.66-1.25) mg/dL Est GFR (CKD-EPI)AfAm (>60 ml/min/1.73 sqM) Est GFR (CKD-EPI)NonAf (>60 ml/min/1.73 sqM) Glucose (74-99) mg/dL Plasma Lactic Acid Art 1.0 (0.7-2.0) mmol/L Calcium (8.4-10.2) mg/dL Magnesium (1.6-2.3) mg/dL Total Bilirubin (0.2-1.3) mg/dL AST (17-59) U/L ALT (4-49) U/L Alkaline Phosphatase (38-126) U/L NT-Pro-B Natriuret Pep 322 pg/mL Total Protein (6.3-8.2) g/dL Albumin (3.5-5.0) g/dL Critical Care Time Critical Care Time: Yes Total Critical Care Time: 35 Disposition Clinical Impression: Acute exacerbation of chronic obstructive pulmonary disease Disposition: ADMITTED IP TO THIS [facility] Condition: Stable Is patient prescribed a controlled substance at d/c from ED?: No Referrals: Jonas Thomas MD [Primary Care Provider] - 1-2 days Decision to Admit Reason: Admit from EC Decision Date: 08/30/19 Decision Time: 19:29
[2019-08-30 18:26] LABS: Basophils % (A) 1 %; Eosinophils # (A) 0.3 k/uL (0-0.7); Eosinophils % (A) 5 %; HCT 35.8 % (39.0-53.0); HGB 12.4 gm/dL (13.0-17.5); Lymphocytes # (A) 1.5 k/uL (1.0-4.8); Lymphocytes % (A) 28 %; MCH 32.9 pg (25.0-35.0); MCHC 34.7 g/dL (31.0-37.0); MCV 94.8 fL (80.0-100.0); Mean Platelet Volume 6.7; Monocytes # (A) 0.4 k/uL (0-1.0); Monocytes % (A) 8 %; Neutrophils # (A) 2.9 k/uL (1.3-7.7); Neutrophils % (A) 55 %; Platelet Count 184 k/uL (150-450); RBC 3.78 m/uL (4.30-5.90); RDW 14.8 % (11.5-15.5); WBC 5.2 k/uL (3.8-10.6)
[2019-08-30 18:43] LABS: ALT 50 U/L (4-49); AST 64 U/L (17-59); African American GFR (CKD) >90 (>60 ml/min/1.73 sqM); Albumin 3.4 g/dL (3.5-5.0); Alkaline Phosphatase 170 U/L (38-126); Anion Gap 9 mmol/L; Blood Urea Nitrogen 14 mg/dL (9-20); Calcium 9.1 mg/dL (8.4-10.2); Carbon Dioxide 28 mmol/L (22-30); Chloride 91 mmol/L (98-107); Glucose 105 mg/dL (74-99); Magnesium 1.5 mg/dL (1.6-2.3); Non-African American GFR(CKD) >90 (>60 ml/min/1.73 sqM); Potassium 4.6 mmol/L (3.5-5.1); Sodium 128 mmol/L (137-145); Total Protein 7.4 g/dL (6.3-8.2)
--- NOTE | 2019-08-30 18:47 | XR ---
EXAMINATION TYPE: XR chest 2V DATE OF EXAM: 08/30/2019 COMPARISON: 11/06/2018. CT 04/24/2019. HISTORY: 68-year-old male shortness of breath, difficulty breathing TECHNIQUE: AP and lateral views FINDINGS: New asymmetric elevation right hemidiaphragm. Heart remains enlarged. Diffuse interstitial density. T he focal 2 x 1 cm mass projecting in the right midlung. No sizable effusion. The minor fissure appear s to be upwardly retracted. Right-sided injection port with catheter tip at the mid to lower SVC. IMPRESSION: There seems to be progressive enlargement of a 3.1 cm right midlung mass as compared to the CT of 04/13. Volume loss in the right hemithorax with upward retraction of the right hemidiaphragm. Given upward d isplacement of the minor fissure as well, suspect this to be secondary to ongoing partial collapse of the right upper lobe as seen on CT.
[2019-08-30] MEDS ORDERED: MAGNESIUM SULFATE-D5W PMX 1 GM in DEXTROSE/WATER 1 100ML.BAG IVPB ONE (18:49)
[2019-08-30 18:55] LABS: INR 1.1 (<1.2); Partial Thromboplastin Time 26.4 sec (22.0-30.0); Prothrombin Time 11.5 sec (9.0-12.0)
[2019-08-30] MEDS: SODIUM CHLORIDE 0.9% 1,000 ML IV SCH (19:15)
[2019-08-30] MEDS ORDERED: IPRATROPIUM-ALBUTEROL 3 ML NEB INHALATION PRN (19:23)
[2019-08-30] MEDS: SYMBICORT 160-4.5 MCG INHALER INHALATION SCH (22:01)
[2019-08-30] MEDS: IPRATROPIUM-ALBUTEROL 3 ML NEB INHALATION SCH (22:01)
[2019-08-30] MEDS: GABAPENTIN 400 MG CAP PO SCH (22:07)
--- NOTE | 2019-08-30 23:22 | P.HPADDEND ---
H&P Addendum H&P Addendum Date: 08/30/19 Advanced Care Planning Active diagnoses: obstructive pneumonia , lung cancer progressive Background: The patient was admitted for treatment of copd exacerbation , Obstuctive pneumonia , and hyponatremia Discussion: Person(s) present and participating in discussion: The patient, and myself Summary: the patient lives alone, he receives visiting nurse service, he has been confined to home , self isolating and following good hygiene. He wishes to be full code, he is willing to use BiPAP if needed, and to use everything that is medically indicated to save his life , including pressors and intubation if needed. I explained to the patient his provisional diagnosis and treatment plan. Patient is hoping in improving his breathing , and pursuing treatment for his lung cancer Time spent: Total time spent face to face in education and discussion directly related to advanced care plannin minutes
--- NOTE | 2019-08-30 23:38 | P.HPIM ---
History of Present Illness H&P Date: 08/30/19 Chief Complaint: progressive dyspnea 68 year old male with hypertension , lung cancer diagnosed one year ago , COPD, and he quit smoking 2 years ago patient comes in from home with complaint of progressive dyspnea, and coughing productive of whitish sputum, no blood. no fever, no chills. he reports progressive dyspnea over the past week, with occasional wheezing. patient has not been confined to home, self isolating and social distancing, he only gets visits from his nurse. he denies any sick contacts or travel he reports SOB on minimal exertion . denies any sore throat, loss of taste, or smell sensation , denies any chest pain , nausea or vomiting ,denies any liza rrhea or GI bleed. patient during his interview, coughed occasionally , denies any chest pain , and reports chronic low back pain that he is asking for pain medication s in the ED , the CXR did show progression of his right mid lung mass of 3.1 cm compared to his prior CT , and collapse of the right upper lung, suspected to have post obstructive pneumonia blood work , showed no leukocytosis , stable Hgb, hyponatremia . Review of Systems Pertinent positives as noted in HPI. All other systems were reviewed and are negative Past Medical History Past Medical History: Cancer, COPD, Deep Vein Thrombosis (DVT), GERD/Reflux, Hyperlipidemia, Hypertension, Liver Disease, Osteoarthritis (OA) Additional Past Medical History / Comment(s): neuropathy, hx broken vertebrae., back pain, states hx of fall x2 during chemo tx., hepatitis C 20 years ago with tx, Right Lung Cancer (2019)- Chemo & radiation tx. History of Any Multi-Drug Resistant Organisms: None Reported Past Surgical History: No Surgical Hx Reported Additional Past Surgical History / Comment(s): eye sx, lung biopsy, liver bx Past Anesthesia/Blood Transfusion Reactions: No Reported Reaction Past Psychological History: Bipolar Additional Psychological History / Comment(s): pt does not think he has bipolar. Smoking Status: Former smoker Past Alcohol Use History: None Reported Additional Past Alcohol Use History / Comment(s): quit 2018 smoked 45 years 1 ppd, quit drinker 30 years ago Past Drug Use History: None Reported - Past Family History Mother Family Medical History: No Reported History Son(s) Family Medical History: Cancer Additional Family Medical History / Comment(s): lung cancer Medications and Allergies Home Medications Medication Instructions Recorded Confirmed Type Enalapril [Vasotec] 10 mg PO DAILY 09/06/15 08/30/19 History Gabapentin [Neurontin] 800 mg PO TID 09/06/15 08/30/19 History Meloxicam [Mobic] 15 mg PO DAILY 09/06/15 08/30/19 History Omeprazole 20 mg PO BID 09/06/15 08/30/19 History Primidone [Mysoline] 50 mg PO TID 09/06/15 08/30/19 History Simvastatin [Zocor] 10 mg PO DAILY 09/06/15 08/30/19 History buPROPion SR [Wellbutrin SR] 150 mg PO BID 09/06/15 08/30/19 History Budesonide-Formot 160-4.5 Mcg 2 puff INHALATION RT-BID 10/12/18 08/30/19 History [Symbicort 160-4.5 Mcg Inhaler] Hydrocodone/Acetaminophen [[place] 1 tab PO BID PRN 10/12/18 08/30/19 History 7.5-325] Albuterol Sulfate [Albuterol 2 puff PO RT-Q6H 08/30/19 08/30/19 History Sulfate Hfa] Propranolol HCl 60 mg PO DAILY 08/30/19 08/30/19 History Allergies Allergy/AdvReac Type Severity Reaction Status Date / Time methadone Allergy Swelling Verified 08/30/19 22:06 of Ears Physical Exam Vitals: Vital Signs Temp Pulse Resp BP Pulse Ox 08/30/19 18:06 90 08/30/19 17:40 89 08/30/19 17:39 98.2 F 66 18 130/85 95 Intake and Output 08/30/19 08/30/19 08/30/19 06:59 14:59 22:59 Other: Weight 136.078 kg Constitutional: No acute distress, conversant, pleasant Eyes: Anicteric sclerae, moist conjunctiva, Pupils equal round reactive to light ENMT: NC/AT Oropharynx clear, no erythema, exudates Neck: Supple, FROM, no masses, or JVD No carotid bruits No thyromegaly Lungs: bronchial breathing right upper lung, no wheezing , no rhoci, no rales Clear to percussion Normal respiratory effort, no accessory muscle use Cardiovascular: Heart regular in rate and rhythm, No murmurs, gallops, or rubs trace peripheral edema bilaterally Abdominal: Soft Nontender, no guarding, rebound or rigidity Abdomen moving with respiration Normoactive bowel sounds No hepatomegaly, No splenomegaly No palpable mass No abdominal wall hernia noted Skin: Normal temperature, tone, texture, turgor No induration No subcutaneous nodules No rash, lesions No ulcers Extremities: No digital cyanosis No clubbing Pedal pulses intact and symmetrical Radial pulses intact and symmetrical No calf tenderness Psychiatric: Alert and oriented to person, place and time Appropriate affect fair judgement Neuro Muscles Strength 5/5 in all 4 extremities Sensation to light touch grossly present throughout Cranial nerves II-XII grossly intact No focal sensory deficits Lymphatics: no palpable cervical or supraclavicular , or inguinal lymph nodes Results CBC & Chem 7: 08/30/19 18:15 08/30/19 18:15 Labs: Abnormal Lab Results - Last 24 Hours (Table) 08/30/19 08/30/19 Range/Units 18:15 18:15 RBC 3.78 L (4.30-5.90) m/uL Hgb 12.4 L (13.0-17.5) gm/dL Hct 35.8 L (39.0-53.0) % Sodium 128 L (137-145) mmol/L Chloride 91 L (98-107) mmol/L Creatinine 0.54 L (0.66-1.25) mg/dL Glucose 105 H (74-99) mg/dL Magnesium 1.5 L (1.6-2.3) mg/dL AST 64 H (17-59) U/L ALT 50 H (4-49) U/L Alkaline Phosphatase 170 H (38-126) U/L Albumin 3.4 L (3.5-5.0) g/dL Assessment and Plan Assessment: 68 year old male with lung cancer, comes in due to progressive SOB, and coughing , suspected to have post obstructive penumonia, and progressive lung cancer, admitted as inpatient with anticipated length of stay > 2 midnights post obstructive pneumonia progressive lung cancer start patient on Unasyn follow up cultures pulmonary consult oncology consult pain control of his chronic low back pain 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 trial of normal saline, if no improvement in sodium , then hold NS IVF to avoid worsening due to SIADH this could be chronic and stable acute COPD exacerbation systemic IV steroids breathing treatment PRN supplemental oxygen as needed hypertension controlled resume home meds anemia of chronic disease patient denies any bleeding continue to monitor verify home medication s patient did not have his list of meds CODE STATUS: full code DVT prophylaxis: heparin sc tid Discussed with: Patient, ER, RN Anticipated length of stay > than [address]: home A total of 75 minutes was spent on the care of this complex patient more than 50% of the time was spent in counseling and care coordination.
[2019-08-30] MEDS: methylPREDNISolone SOD SUCCI 125 MG/2 ML VIAL IV SCH (23:59)
[2019-08-31] MEDS: MORPHINE SULFATE 4 MG/ML SYRINGE IVP PRN ×3 (00:03→21:11)
[2019-08-31] MEDS: methylPREDNISolone SOD SUCCI 125 MG/2 ML VIAL IV SCH ×3 (05:36→17:31)
[2019-08-31] MEDS: AMPICILLIN-SULBACTAM 3 GM in SODIUM CHLORIDE 0.9% 100 ML IVPB SCH ×4 (05:36→11:34)
[2019-08-31] MEDS: SYMBICORT 160-4.5 MCG INHALER INHALATION SCH ×2 (07:56→19:11)
[2019-08-31] MEDS: IPRATROPIUM-ALBUTEROL 3 ML NEB INHALATION SCH ×4 (07:56→19:09)
[2019-08-31 08:03] LABS: Basophils % (A) 0 %; Eosinophils % (A) 1 %; HCT 35.9 % (39.0-53.0); HGB 12.4 gm/dL (13.0-17.5); Lymphocytes # (A) 0.6 k/uL (1.0-4.8); Lymphocytes % (A) 17 %; MCH 32.9 pg (25.0-35.0); MCHC 34.4 g/dL (31.0-37.0); MCV 95.7 fL (80.0-100.0); Mean Platelet Volume 7.2; Monocytes # (A) 0.1 k/uL (0-1.0); Monocytes % (A) 2 %; Neutrophils # (A) 2.5 k/uL (1.3-7.7); Neutrophils % (A) 80 %; Platelet Count 161 k/uL (150-450); RBC 3.76 m/uL (4.30-5.90); RDW 14.5 % (11.5-15.5); WBC 3.2 k/uL (3.8-10.6)
[2019-08-31 08:24] LABS: African American GFR (CKD) >90 (>60 ml/min/1.73 sqM); Anion Gap 7 mmol/L; Blood Urea Nitrogen 11 mg/dL (9-20); Calcium 8.9 mg/dL (8.4-10.2); Carbon Dioxide 30 mmol/L (22-30); Chloride 92 mmol/L (98-107); Glucose 211 mg/dL (74-99); Magnesium 1.6 mg/dL (1.6-2.3); Non-African American GFR(CKD) >90 (>60 ml/min/1.73 sqM); Potassium 4.4 mmol/L (3.5-5.1); Sodium 129 mmol/L (137-145)
[2019-08-31] MEDS: GABAPENTIN 400 MG CAP PO SCH ×3 (08:57→21:11)
[2019-08-31] MEDS: SODIUM CHLORIDE 0.9% 1,000 ML IV SCH (08:57)
[2019-08-31] MEDS: PANTOPRAZOLE 40 MG TABLET PO SCH (08:57)
[2019-08-31] MEDS: PROPRANOLOL LA 60 MG CAP.SA.24H PO SCH (08:57)
[2019-08-31] MEDS: HEPARIN SODIUM,PORCINE 5,000 UNIT/ML 1 ML VIAL SQ SCH ×3 (08:57→17:31)
[2019-08-31] MEDS: ATORVASTATIN 10 MG TAB PO SCH (08:57)
--- NOTE | 2019-08-31 14:32 | CONS ---
CONSULTATION PULMONARY/CRITICAL CARE CONSULTATION: DATE OF CONSULTATION: 08/31/2019 This is a 68-year-old male with a history of underlying severe COPD and recently diagnosed lung cancer. In fact, I think I did his navigational bronchoscopy back in early 2018. I believe his diagnosis was that of non-small cell lung cancer and I think it is quite advanced. Anyway, he went to chemotherapy with Dr. Molina I believe and also radiation therapy with Dr. Mathew Steinberg. Apparently, he has been following with either Dr. Molina or Dr. Mireles. His primary care provider is Dr. Thomas. Anyway, he comes into the hospital through the emergency room on August 29 with complaints of increasing shortness of breath as well as some cough. The cough is sometimes productive of yellow phlegm. No fever or chills. No chest pain or chest discomfort. He also denies any nausea, vomiting, diarrhea, or any abdominal pain and also likewise denies any genitourinary complaints. The patient is status post chemotherapy and radiation therapy as mentioned. In addition, he apparently was receiving some immune therapy for about 4 months before the COVID pandemic prevented him from having any additional treatment. MEDICATIONS: Reviewed. He is on albuterol inhaler, Vasotec, Neurontin, Mobic, omeprazole, Mysoline, propranolol, Zocor, Wellbutrin SR, Symbicort, [place], and magnesium. ALLERGIES: METHADONE. PAST MEDICAL HISTORY: Includes severe COPD, lung cancer, DVT, GERD, hyperlipidemia, hypertension, and osteoarthritis. Other medical issues include neuropathy, chronic back pain, hepatitis C, as well as some other minor medical problems. SURGICAL HISTORY: Includes the navigational bronchoscopy done by [facility], liver biopsy, and eye surgery. SOCIAL HISTORY: Positive for previous heavy tobacco use. Does not smoke currently. Denies alcohol. No illicit drug use. He quit drinking 30 years ago. He quit smoking in 2018. Smoked a pack a day for 45 years. FAMILY HISTORY: Positive for a mother who is healthy and actually a son, surprisingly, who had lung cancer. REVIEW OF SYSTEMS: CONSTITUTIONAL: Negative. NEUROLOGIC: Negative. HEENT: Negative. CARDIOVASCULAR: Negative. PULMONARY: Shortness of breath and cough, productive of phlegm. GI: Negative. : Negative. RHEUMATOLOGIC: Negative. IMMUNOLOGIC: Negative. ENDOCRINOLOGIC: Negative. DERMATOLOGIC: Negative. PHYSICAL EXAMINATION: VITAL SIGNS: Current vital signs are reviewed. Temperature 97.8, heart rate 88, respiratory rate 16, blood pressure 168/69 and saturations of 91% on 3 L. Appears in no acute distress. There is no conversational dyspnea, use of accessory muscles or audible wheezing. HEENT: Examination is grossly unremarkable. NECK: Supple. Full range of motion. No adenopathy, thyromegaly or neck vein distention. CARDIOVASCULAR: Examination reveals regular rhythm and rate. Heart rate 88 beats per minute. S1, S2 normal. LUNGS: Reveal a few scattered rhonchi. Breath sounds are diminished throughout. No wheezes or crackles. ABDOMEN: Obese. Bowel sounds are heard. EXTREMITIES are intact. No cyanosis, clubbing, or edema. SKIN: Without rash. NEUROLOGIC: Examination is brief but nonfocal. LABS: Reviewed. White count 3.2, hemoglobin 12.4, hematocrit 35.9, platelet count 161,000. PT/INR normal, PTT normal. Sodium 129, potassium 4.4, chloride 92, CO2 is 30, anion gap 7. BUN and creatinine were 11 and 0.47. N terminal proBNP was 322. Micro is negative. A chest x-ray shows an increasing lesion in the right mid lung measuring about 3.1 cm, compared to the CT scan that was done April 24, 2019. In addition, there is some volume loss in the right hemithorax with upward retraction of the right hemidiaphragm. Current medications are reviewed. He is on Unasyn, Lipitor, Symbicort, gabapentin, heparin, albuterol and Atrovent updrafts q.i.d. and p.r.n., melatonin, Solu-Medrol, morphine, Protonix propranolol, sodium chloride. I am going to add Symbicort to the regimen, DC the Unasyn in favor of an oral antibiotic. ASSESSMENT: 1. Chronic obstructive pulmonary disease exacerbation complicated by mild purulent tracheobronchitis. 2. No evidence to suggest pneumonia at this time. 3. Advanced lung cancer, squamous cell type, diagnosed by navigational bronchoscopy by myself earlier last year, status post chemotherapy and radiation therapy and immune therapy with Imfinzi. 4. History of deep venous thrombosis. 5. History of gastroesophageal reflux disease. 6. Hyperlipidemia. 7. History of hypertension. 8. History of hepatitis C. 9. Degenerative joint disease. 10.Neuropathy. 11.Chronic back pain. PLAN: The patient has been seen by either Dr. Molina or Aline. They should be consulted. I will add Symbicort and DC the Unasyn in favor of an oral antibiotic. His other medications are appropriate. Quite concerning as the lesion in the right mid lung which is increasing in size compared to a CT scan done in April of this year. A followup CT scan should be done. Additional recommendations and suggestions are forthcoming. Prognosis is guarded. The patient was on treatment with Imfinzi but apparently due to the COVID pandemic, that has not been able to be continued. MMODL / IJN: [id number] /
--- NOTE | 2019-08-31 15:05 | P.PN ---
Subjective Progress Note Date: 08/31/19 Principal diagnosis: sob Patient is feeling better compared to when he came in. Still feeling weak, no fevers or chills. No chest pain. Still having a cough. Objective - Vital Signs Vital signs: Vital Signs Temp 97.5 F L 08/31/19 11:31 Pulse 79 08/31/19 11:31 Resp 17 08/31/19 11:31 BP 120/68 08/31/19 11:31 Pulse Ox 95 08/31/19 11:31 Intake & Output 08/30/19 08/31/19 08/31/19 18:59 06:59 18:59 Intake Total 1540 Output Total 700 Balance 840 Weight 136.078 kg 136.078 kg Intake: Intake, IV Titration 700 Amount Ampicillin-Sulbactam 3 gm 200 In Sodium Chloride 0.9% 100 ml @ 200 mls/hr IVPB Q6HR [facility] Rx#:[id number] Sodium Chloride 0.9% 1, 500 000 ml @ 75 mls/hr IV . [id number] [facility] Rx#:[id number] Oral 840 Output: Urine 700 Other: # Voids 1 - Exam Constitutional: No acute distress, conversant, pleasant Eyes:Anicteric sclerae, moist conjunctiva, no lid-lag, PERRLA, ENMT: Oropharynx clear, no erythema, exudates Neck: Supple, FROM, no masses, or JVD, No carotid bruits, No thyromegaly Lungs: Significant wheezing on the right chest field , Normal respiratory effort, no accessory muscle use Cardiovascular: Heart regular in rate and rhythm, No murmurs, gallops, or rubs, No peripheral edema Abdominal: Soft, Nontender, no guarding, rebound or rigidity, Normoactive bowel sounds, No hepatomegaly, No splenomegaly, No palpable mass Skin: Normal temperature, tone, texture, turgor, no induration, No subcutaneous nodules, No rash, lesions, No ulcers Extremities: No digital cyanosis, No clubbing, Pedal pulses intact and symmetrical, Radial pulses intact and symmetrical, No calf tenderness Psychiatric: Alert and oriented to person, place and time, appropriate affect, intact judgement Neuro: Muscles Strength 5/5 in all 4 extremities, Sensation to light touch grossly present throughout, Cranial nerves II-XII grossly intact, no focal sensory deficits - Labs CBC & Chem 7: 08/31/19 07:40 08/31/19 07:40 Labs: Abnormal Lab Results - Last 24 Hours (Table) 08/30/19 08/30/19 08/31/19 Range/Units 18:15 18:15 07:40 WBC 3.2 L (3.8-10.6) k/uL RBC 3.78 L 3.76 L (4.30-5.90) m/uL Hgb 12.4 L 12.4 L (13.0-17.5) gm/dL Hct 35.8 L 35.9 L (39.0-53.0) % Lymphocytes # 0.6 L (1.0-4.8) k/uL Sodium 128 L (137-145) mmol/L Chloride 91 L (98-107) mmol/L Creatinine 0.54 L (0.66-1.25) mg/dL Glucose 105 H (74-99) mg/dL Magnesium 1.5 L (1.6-2.3) mg/dL AST 64 H (17-59) U/L ALT 50 H (4-49) U/L Alkaline Phosphatase 170 H (38-126) U/L Albumin 3.4 L (3.5-5.0) g/dL 08/31/19 Range/Units 07:40 WBC (3.8-10.6) k/uL RBC (4.30-5.90) m/uL Hgb (13.0-17.5) gm/dL Hct (39.0-53.0) % Lymphocytes # (1.0-4.8) k/uL Sodium 129 L (137-145) mmol/L Chloride 92 L (98-107) mmol/L Creatinine 0.47 L (0.66-1.25) mg/dL Glucose 211 H (74-99) mg/dL Magnesium (1.6-2.3) mg/dL AST (17-59) U/L ALT (4-49) U/L Alkaline Phosphatase (38-126) U/L Albumin (3.5-5.0) g/dL Assessment and Plan Plan: Post obstructive pneumonia with progressive lung cancer Antibiotics switched to Augmentin follow up sputum and blood cultures pulmonary recommendations appreciated oncology consult pending pain control of his chronic low back pain Hyponatremia Secondary to dehydration versus SIADH Improved with normal saline, will continue, follow in a.m. Acute COPD exacerbation Continue systemic IV steroids and bronchodilators supplemental oxygen as needed Hypertension controlled resume home meds Anemia of chronic disease Stable CODE STATUS: full code DVT prophylaxis: heparin sc tid Discussed with: Patient, RN Anticipated discharge place: home
--- NOTE | 2019-08-31 15:29 | P.CONS ---
History of Present Illness - Reason for Consult Consult date: 08/31/19 lung cancer Requesting physician: Vishnu Hinds - Chief Complaint SOB - History of Present Illness Mr. White is a very pleasant 68 yo male with multiple comorbidities as listed in PMH including stage III lung cancer on maintenance immunotherapy under Dr. Mireles, who is here for worsening SOB, found to have increasing lung nodule on CXR as well as COPD exacerbation and pneumonia, possibly post-obstructive pneumonia. Last chemotherapy was given on 06/12/19, and pt has not followed up since then. Send 07/2018 when he presented to his PCP for worsening shortness of breath and cough. He was treated with steroid pack without significant relief. Further workup revealed an irregular mass in the right upper lobe, multilobular mass in the right upper lung, peripheral right upper lung nodules, as well as large pretracheal lymph node compressing the superior vena cava. 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 MRI of the brain was negative. He was started on concurrent chemotherapy with radiation with carboplatin and Taxol on 09/10/18. He completed 5 cycles. He did miss several days of radiation and ended up extending his radiation course to complete the full dose. Last radiation 11/23/18. He was hospitalized during this time for weakness. Posttreatment PET scan from 12/31/18 showed a complete response he was started on maintenance immunotherapy in 02/06/19, which she has been tolerating. Last computed tomography scan from 04/2019 suggestive of possible progression. He was last seen by Dr. Mireles on 05/10/19 at which time repeat computed tomography scan was recommended 4-6 weeks later. He continued to have Imfinzi immunotherapy until 06/12/19 when he stopped following up due to COVID. Unfortunately it does not appear that he had repeat imaging since 04/2019. Now presents with worsening SOB and CXR suggestive of 3mg lung nodule from 2cm on prior CT chest in 04/2019. Review of Systems All systems: negative Constitutional: Reports as per HPI Past Medical History Past Medical History: Cancer, COPD, Deep Vein Thrombosis (DVT), GERD/Reflux, Hyperlipidemia, Hypertension, Liver Disease, Osteoarthritis (OA) Additional Past Medical History / Comment(s): neuropathy, hx broken vertebrae., back pain, states hx of fall x2 during chemo tx., hepatitis C 20 years ago with tx, Right Lung Cancer (2019)- Chemo & radiation tx. History of Any Multi-Drug Resistant Organisms: None Reported Past Surgical History: No Surgical Hx Reported Additional Past Surgical History / Comment(s): eye sx, lung biopsy, liver bx Past Anesthesia/Blood Transfusion Reactions: No Reported Reaction Past Psychological History: Bipolar Additional Psychological History / Comment(s): pt does not think he has bipolar. Smoking Status: Former smoker Past Alcohol Use History: None Reported Additional Past Alcohol Use History / Comment(s): quit 2018 smoked 45 years 1 ppd, quit drinker 30 years ago Past Drug Use History: None Reported - Past Family History Mother Family Medical History: No Reported History Son(s) Family Medical History: Cancer Additional Family Medical History / Comment(s): lung cancer Medications and Allergies Home Medications Medication Instructions Recorded Confirmed Type Enalapril [Vasotec] 10 mg PO DAILY 09/06/15 08/30/19 History Gabapentin [Neurontin] 800 mg PO TID 09/06/15 08/30/19 History Meloxicam [Mobic] 15 mg PO DAILY 09/06/15 08/30/19 History Omeprazole 20 mg PO BID 09/06/15 08/30/19 History Primidone [Mysoline] 50 mg PO TID 09/06/15 08/30/19 History Simvastatin [Zocor] 10 mg PO DAILY 09/06/15 08/30/19 History buPROPion SR [Wellbutrin SR] 150 mg PO BID 09/06/15 08/30/19 History Budesonide-Formot 160-4.5 Mcg 2 puff INHALATION RT-BID 10/12/18 08/30/19 History [Symbicort 160-4.5 Mcg Inhaler] Hydrocodone/Acetaminophen [[place] 1 tab PO BID PRN 10/12/18 08/30/19 History 7.5-325] Albuterol Sulfate [Albuterol 2 puff PO RT-Q6H 08/30/19 08/30/19 History Sulfate Hfa] Propranolol HCl 60 mg PO DAILY 08/30/19 08/30/19 History Allergies Allergy/AdvReac Type Severity Reaction Status Date / Time methadone Allergy Swelling Verified 08/30/19 22:06 of Ears Physical Exam Vitals: Vital Signs Temp Pulse Pulse Resp BP BP Pulse Ox 08/31/19 11:31 97.5 F L 79 17 120/68 95 08/31/19 08:13 89 08/31/19 07:56 88 08/31/19 05:40 97.8 F 100 16 168/69 91 L 08/31/19 00:00 20 08/30/19 22:11 94 08/30/19 22:01 94 08/30/19 21:09 97.6 F 86 20 157/89 91 L 08/30/19 20:00 98.4 F 87 16 146/59 93 L 08/30/19 18:06 90 08/30/19 17:40 89 08/30/19 17:39 98.2 F 66 18 130/85 95 Intake and Output 08/30/19 08/31/19 08/31/19 22:59 06:59 14:59 Intake Total 480 1060 Output Total 700 Balance 480 360 Intake: Intake, IV Titration 700 Amount Ampicillin-Sulbactam 3 gm 200 In Sodium Chloride 0.9% 100 ml @ 200 mls/hr IVPB Q6HR [facility] Rx#:[id number] Sodium Chloride 0.9% 1, 500 000 ml @ 75 mls/hr IV . [id number] [facility] Rx#:[id number] Oral 480 360 Output: Urine 700 Other: # Voids 1 Weight 136.078 kg Constitutional: No acute distress. HEENT: Mucosa moist. Neck: Neck supple. Lungs:No respiratory distress. On NC. Heart: Normal rate. Abdomen: Soft, nontender, nondistended. MSK: 4/4 strength in all 4 extremities. Neuro: Alert and oriented x 3. Skin: No jaundice. Psych: Appropriate affect. Results CBC & Chem 7: 08/31/19 07:40 08/31/19 07:40 Labs: Abnormal Lab Results - Last 24 Hours (Table) 08/30/19 08/30/19 08/31/19 Range/Units 18:15 18:15 07:40 WBC 3.2 L (3.8-10.6) k/uL RBC 3.78 L 3.76 L (4.30-5.90) m/uL Hgb 12.4 L 12.4 L (13.0-17.5) gm/dL Hct 35.8 L 35.9 L (39.0-53.0) % Lymphocytes # 0.6 L (1.0-4.8) k/uL Sodium 128 L (137-145) mmol/L Chloride 91 L (98-107) mmol/L Creatinine 0.54 L (0.66-1.25) mg/dL Glucose 105 H (74-99) mg/dL Magnesium 1.5 L (1.6-2.3) mg/dL AST 64 H (17-59) U/L ALT 50 H (4-49) U/L Alkaline Phosphatase 170 H (38-126) U/L Albumin 3.4 L (3.5-5.0) g/dL 08/31/19 Range/Units 07:40 WBC (3.8-10.6) k/uL RBC (4.30-5.90) m/uL Hgb (13.0-17.5) gm/dL Hct (39.0-53.0) % Lymphocytes # (1.0-4.8) k/uL Sodium 129 L (137-145) mmol/L Chloride 92 L (98-107) mmol/L Creatinine 0.47 L (0.66-1.25) mg/dL Glucose 211 H (74-99) mg/dL Magnesium (1.6-2.3) mg/dL AST (17-59) U/L ALT (4-49) U/L Alkaline Phosphatase (38-126) U/L Albumin (3.5-5.0) g/dL Chest x-ray: report reviewed, image reviewed CT scan - chest: report reviewed, image reviewed Assessment and Plan Assessment: 1. P[place]om[place] 2. COPD exacerbation 3. Lung cancer on immunotherapy Plan: Mr. White is a very pleasant 68 yo male with stage III squamous cell lung cancer s/p chemotherapy with RT in -11/2018 followed by maintenance immunotherapy starting 01/2019, last treatment given on 06/12/19 and pt failed to follow up afterwards due to COVID who is here for SOB felt to be due to COPD exacerbation and pneumonia. Imaging with CXR suggestive of progressing lung nodules. Patient's last CT was 04/2019 and repeat was recommended in 4-6 weeks. This was not done due to Covid. There was concern even at that time of disease progression. Agree with COPD and pneumonia treatment. Recommend repeating CT of the chest. This could be done outpatient after infection improves. Hold further treatments until patient improves and is discharged. He will need to follow-up with Dr. Mireles to discuss further treatment based on his imaging results. Discussed with patient and he is agreeable to the plan. All of his questions were answered.
[2019-08-31] MEDS ORDERED: SYMBICORT 160-4.5 MCG INHALER INHALATION SCH (20:00)
[2019-08-31] MEDS: MELATONIN 3 MG TABLET PO SCH ×2 (21:11)
[2019-08-31] MEDS: AMOXIC-POT CLAV 875-125MG 1 EACH TAB PO SCH (21:11)
[2019-09-01] MEDS: HEPARIN SODIUM,PORCINE 5,000 UNIT/ML 1 ML VIAL SQ SCH ×4 (00:13→23:14)
[2019-09-01] MEDS: methylPREDNISolone SOD SUCCI 125 MG/2 ML VIAL IV SCH ×5 (00:14→23:14)
[2019-09-01] MEDS: SODIUM CHLORIDE 0.9% 1,000 ML IV SCH ×3 (01:59→23:17)
[2019-09-01] MEDS: MORPHINE SULFATE 4 MG/ML SYRINGE IVP PRN ×3 (02:31→16:53)
[2019-09-01 07:11] LABS: HGB 11.8 gm/dL (13.0-17.5); MCH 33.2 pg (25.0-35.0); MCHC 34.6 g/dL (31.0-37.0); MCV 96.1 fL (80.0-100.0); Mean Platelet Volume 7.1; Platelet Count 185 k/uL (150-450); RBC 3.54 m/uL (4.30-5.90); RDW 14.6 % (11.5-15.5); WBC 8.4 k/uL (3.8-10.6)
[2019-09-01] MEDS: IPRATROPIUM-ALBUTEROL 3 ML NEB INHALATION SCH ×4 (07:13→20:08)
[2019-09-01] MEDS: SYMBICORT 160-4.5 MCG INHALER INHALATION SCH ×2 (07:13→20:08)
[2019-09-01 07:40] LABS: African American GFR (CKD) >90 (>60 ml/min/1.73 sqM); Anion Gap 6 mmol/L; Blood Urea Nitrogen 10 mg/dL (9-20); Calcium 8.8 mg/dL (8.4-10.2); Carbon Dioxide 31 mmol/L (22-30); Chloride 96 mmol/L (98-107); Glucose 139 mg/dL (74-99); Magnesium 1.8 mg/dL (1.6-2.3); Non-African American GFR(CKD) >90 (>60 ml/min/1.73 sqM); Potassium 4.5 mmol/L (3.5-5.1); Sodium 133 mmol/L (137-145)
[2019-09-01] MEDS: ATORVASTATIN 10 MG TAB PO SCH (08:31)
[2019-09-01] MEDS: PANTOPRAZOLE 40 MG TABLET PO SCH (08:31)
[2019-09-01] MEDS: PROPRANOLOL LA 60 MG CAP.SA.24H PO SCH (08:31)
[2019-09-01] MEDS: GABAPENTIN 400 MG CAP PO SCH ×3 (08:31→21:00)
[2019-09-01] MEDS: AMOXIC-POT CLAV 875-125MG 1 EACH TAB PO SCH ×2 (08:31→20:07)
--- NOTE | 2019-09-01 11:04 | P.PN ---
Subjective Progress Note Date: 09/01/19 Principal diagnosis: sob Patient is currently feeling better. He is not back at his baseline yet in terms of breathing. He still having right-sided pleuritic chest pain that is worse with coughing and deep breathing. No fevers or chills. Objective - Vital Signs Vital signs: Vital Signs Temp 97.8 F 09/01/19 04:38 Pulse 82 09/01/19 07:25 Resp 20 09/01/19 04:38 BP 170/80 09/01/19 04:38 Pulse Ox 95 09/01/19 04:38 Intake & Output 08/31/19 09/01/19 09/01/19 18:59 06:59 18:59 Intake Total 1180 1260 Output Total 700 425 Balance 480 835 Intake: Intake, IV Titration 100 300 Amount Ampicillin-Sulbactam 3 gm 100 In Sodium Chloride 0.9% 100 ml @ 200 mls/hr IVPB Q6HR [facility] Rx#:[id number] Sodium Chloride 0.9% 1, 300 000 ml @ 75 mls/hr IV . [id number] [facility] Rx#:[id number] Oral 1080 960 Output: Urine 700 425 Other: # Voids 6 2 - Exam Constitutional: No acute distress, conversant, pleasant Eyes:Anicteric sclerae, moist conjunctiva, no lid-lag, PERRLA, ENMT: Oropharynx clear, no erythema, exudates Neck: Supple, FROM, no masses, or JVD, No carotid bruits, No thyromegaly Lungs: Significant wheezing on the right chest field , Normal respiratory effo rt, no accessory muscle use Cardiovascular: Heart regular in rate and rhythm, No murmurs, gallops, or rubs, No peripheral edema Abdominal: Soft, Nontender, no guarding, rebound or rigidity, Normoactive bowel sounds, No hepatomegaly, No splenomegaly, No palpable mass Skin: Normal temperature, tone, texture, turgor, no induration, No subcutaneous nodules, No rash, lesions, No ulcers Extremities: No digital cyanosis, No clubbing, Pedal pulses intact and symmetrical, Radial pulses intact and symmetrical, No calf tenderness Psychiatric: Alert and oriented to person, place and time, appropriate affect, intact judgement Neuro: Muscles Strength 5/5 in all 4 extremities, Sensation to light touch grossly present throughout, Cranial nerves II-XII grossly intact, no focal sensory deficits - Labs CBC & Chem 7: 09/01/19 06:33 09/01/19 06:33 Labs: Abnormal Lab Results - Last 24 Hours (Table) 09/01/19 09/01/19 Range/Units 06:33 06:33 RBC 3.54 L (4.30-5.90) m/uL Hgb 11.8 L (13.0-17.5) gm/dL Hct 34.0 L (39.0-53.0) % Sodium 133 L (137-145) mmol/L Chloride 96 L (98-107) mmol/L Carbon Dioxide 31 H (22-30) mmol/L Creatinine 0.48 L (0.66-1.25) mg/dL Glucose 139 H (74-99) mg/dL Microbiology - Last 24 Hours (Table) 08/30/19 18:15 Blood Culture - Preliminary Blood No Growth after 24 hours Assessment and Plan Plan: Post obstructive pneumonia with progressive lung cancer Antibiotics switched to Augmentin blood cultures negative follow up sputum cultures pulmonary recommendations appreciated oncology consulted, advised follow-up computed tomography scan of the chest after resolution of pneumonia in 2-3 weeks. This is to evaluate the progression of the lung cancer. pain control of his chronic low back pain Hyponatremia Secondary to dehydration versus SIADH Improved with normal saline, will continue, follow in a.m. Acute COPD exacerbation Continue systemic IV steroids and bronchodilators supplemental oxygen as needed Hypertension controlled resume home meds Anemia of chronic disease Stable CODE STATUS: full code DVT prophylaxis: heparin sc tid Discussed with: Patient, RN Anticipated discharge place: home
--- NOTE | 2019-09-01 14:41 | P.PN ---
Subjective Progress Note Date: 09/01/19 Principal diagnosis: Acute exacerbation of chronic obstructive pulmonary disease The patient is seen today 09/01/2019 in follow-up on the regular medical floor. He has a history of the cell type and is status post chemo and radiation therapy along with immunotherapy in the form of Imfinzi. He had presented here with complaints of increasing shortness of breath cough and congestion. Chest x-ray showed increasing lesion in the right midlung measuring 3.1 cm. There is some volume loss in the right hemithorax and upward retraction of the right hemidiaphragm. He's been treated for COPD exacerbation. He is seen today in follow-up on the regular medical floor. He is currently sitting up in a chair at the bedside. Awake and alert in no acute distress. Maintaining O2 s aturations in the 90s on 3 L/m per nasal cannula. He's been afebrile. He's been on Symbicort, DuoNeb's, IV Solu-Medrol. Antibiotics in the form of Augmentin. Objective - Vital Signs Vital signs: Vital Signs Temp 97.6 F 09/01/19 11:04 Pulse 84 09/01/19 11:30 Resp 18 09/01/19 11:04 BP 170/92 09/01/19 11:04 Pulse Ox 95 09/01/19 11:04 Intake & Output 08/31/19 09/01/19 09/01/19 18:59 06:59 18:59 Intake Total 1180 1260 Output Total 700 425 Balance 480 835 Intake: Intake, IV Titration 100 300 Amount Ampicillin-Sulbactam 3 gm 100 In Sodium Chloride 0.9% 100 ml @ 200 mls/hr IVPB Q6HR [facility] Rx#:[id number] Sodium Chloride 0.9% 1, 300 000 ml @ 75 mls/hr IV . [id number] [facility] Rx#:[id number] Oral 1080 960 Output: Urine 700 425 Other: # Voids 6 2 - Exam GENERAL EXAM: Alert, pleasant 68-year-old gentleman, on 3 L nasal cannula, comfortable in no apparent distress. HEAD: Normocephalic. EYES: Normal reaction of pupils, equal size. NOSE: Clear with pink turbinates. THROAT: No erythema or exudates. NECK: No masses, no JVD. CHEST: No chest wall deformity. LUNGS: Equal air entry with scattered wheezing, diminished in the right lung base. CVS: S1 and S2 normal with no audible murmur, regular rhythm. ABDOMEN: No hepatosplenomegaly, normal bowel sounds, no guarding or rigidity. SPINE: No scoliosis or deformity SKIN: No rashes CENTRAL NERVOUS SYSTEM: No focal deficits, tone is normal in all 4 extremities. EXTREMITIES: There is no peripheral edema. No clubbing, no cyanosis. Peripheral pulses are intact. - Labs CBC & Chem 7: 09/01/19 06:33 09/01/19 06:33 Labs: Abnormal Lab Results - Last 24 Hours (Table) 09/01/19 09/01/19 Range/Units 06:33 06:33 RBC 3.54 L (4.30-5.90) m/uL Hgb 11.8 L (13.0-17.5) gm/dL Hct 34.0 L (39.0-53.0) % Sodium 133 L (137-145) mmol/L Chloride 96 L (98-107) mmol/L Carbon Dioxide 31 H (22-30) mmol/L Creatinine 0.48 L (0.66-1.25) mg/dL Glucose 139 H (74-99) mg/dL Microbiology - Last 24 Hours (Table) 08/30/19 18:15 Blood Culture - Preliminary Blood No Growth after 24 hours Assessment and Plan Assessment: 1 Acute exacerbation of chronic obstructive pulmonary disease, complicated by purulent tracheobronchitis 2 Advanced lung cancer, squamous cell, status post chemotherapy and radiation therapy and received immunotherapy in the form of Imfinzi 3 History of DVT 4 History of GERD 5 Hyperlipidemia 6 Hypertension 7 History of hepatitis C 8 Degenerative joint disease 9 Neuropathy 10 Chronic back pain Plan: The patient was seen and evaluated by Dr. Cary Improved today from the pulmonary standpoint Consult oncology We'll continue to follow I, the cosigning physician, performed a history & physical examination of the patient. Lungs sounds with end expiratory wheeze, diminished right lung base. Maintaining good O2 saturations in the 90s on 3 L/m per nasal cannula. I discussed the assessment and plan of care with my nurse practitioner, Cherie Flores. I attest to the above note as dictated by her.
[2019-09-01] MEDS: MELATONIN 3 MG TABLET PO SCH (20:07)
[2019-09-02] MEDS: HYDROcodone/APAP 10-325MG 1 EACH TAB PO PRN ×3 (00:42→19:47)
[2019-09-02] MEDS: methylPREDNISolone SOD SUCCI 125 MG/2 ML VIAL IV SCH ×4 (06:08→23:40)
[2019-09-02] MEDS: IPRATROPIUM-ALBUTEROL 3 ML NEB INHALATION SCH ×4 (07:19→20:03)
[2019-09-02] MEDS: SYMBICORT 160-4.5 MCG INHALER INHALATION SCH ×2 (07:19→20:03)
[2019-09-02 07:24] LABS: Basophils % (A) 0 %; Eosinophils % (A) 0 %; HCT 39.1 % (39.0-53.0); HGB 12.6 gm/dL (13.0-17.5); Lymphocytes # (A) 0.9 k/uL (1.0-4.8); Lymphocytes % (A) 12 %; MCHC 32.1 g/dL (31.0-37.0); MCV 96.5 fL (80.0-100.0); Mean Platelet Volume 6.6; Monocytes # (A) 0.4 k/uL (0-1.0); Monocytes % (A) 5 %; Neutrophils # (A) 6.2 k/uL (1.3-7.7); Neutrophils % (A) 82 %; Platelet Count 199 k/uL (150-450); RBC 4.06 m/uL (4.30-5.90); RDW 14.9 % (11.5-15.5); WBC 7.6 k/uL (3.8-10.6)
[2019-09-02 07:32] LABS: African American GFR (CKD) >90 (>60 ml/min/1.73 sqM); Anion Gap 6 mmol/L; Blood Urea Nitrogen 11 mg/dL (9-20); Carbon Dioxide 33 mmol/L (22-30); Chloride 94 mmol/L (98-107); Glucose 126 mg/dL (74-99); Non-African American GFR(CKD) >90 (>60 ml/min/1.73 sqM); Potassium 4.5 mmol/L (3.5-5.1); Sodium 133 mmol/L (137-145)
[2019-09-02] MEDS: PROPRANOLOL LA 60 MG CAP.SA.24H PO SCH (08:50)
[2019-09-02] MEDS: AMOXIC-POT CLAV 875-125MG 1 EACH TAB PO SCH ×2 (08:50→21:11)
[2019-09-02] MEDS: HEPARIN SODIUM,PORCINE 5,000 UNIT/ML 1 ML VIAL SQ SCH ×3 (08:50→23:40)
[2019-09-02] MEDS: PANTOPRAZOLE 40 MG TABLET PO SCH (08:50)
[2019-09-02] MEDS: ATORVASTATIN 10 MG TAB PO SCH (08:50)
[2019-09-02] MEDS: GABAPENTIN 400 MG CAP PO SCH ×3 (08:50→21:11)
[2019-09-02 09:57] LABS: ALT 54 U/L (4-49); AST 69 U/L (17-59); Albumin 3.1 g/dL (3.5-5.0); Alkaline Phosphatase 136 U/L (38-126); Bilirubin, Delta 0.1 mg/dL (0.0-0.2); Bilirubin,Unconjugated 0.4 mg/dL (0.0-1.1); Total Bilirubin 0.5 mg/dL (0.2-1.3); Total Protein 7.1 g/dL (6.3-8.2)
[2019-09-02] MEDS ORDERED: RX INFO: IV CONTRAST WAS GIVEN 1 EACH MISC MISCELLANE PRN (12:16)
[2019-09-02] MEDS ORDERED: ALPRAZolam 0.5 MG TAB PO STA (13:24)
--- NOTE | 2019-09-02 13:57 | P.PN ---
Subjective Progress Note Date: 09/02/19 Principal diagnosis: Acute exacerbation of chronic obstructive pulmonary disease The patient is seen today 09/01/2019 in follow-up on the regular medical floor. He has a history of the cell type and is status post chemo and radiation therapy along with immunotherapy in the form of Imfinzi. He had presented here with complaints of increasing shortness of breath cough and congestion. Chest x-ray showed increasing lesion in the right midlung measuring 3.1 cm. There is some volume loss in the right hemithorax and upward retraction of the right hemidiaphragm. He's been treated for COPD exacerbation. He is seen today in follow-up on the regular medical floor. He is currently sitting up in a chair at the bedside. Awake and alert in no acute distress. Maintaining O2 s aturations in the 90s on 3 L/m per nasal cannula. He's been afebrile. He's been on Symbicort, DuoNeb's, IV Solu-Medrol. Antibiotics in the form of Augmentin. On 09/02/2019 patient seen in follow-up on general medical surgical floor. He is sitting up on the edge of the bed, he states his breathing is improving, he remains on 3 L of oxygen his pulse ox is 92%, no fever or chills, lung sounds re veal diffuse rhonchi at bilateral posterior bases, no fever or chills. Blood culture showed no growth, sputum culture showed few gram-positive cocci and few budding yeast. Remains on amoxicillin for antibiotic coverage, remains on Symbicort, and IV steroids. Today's labs have been reviewed. Patient's last CT of the chest was back in April 2019 and it showed progression of squamous cell lung cancer. Patient has not had any treatment for his lung cancer since the start of the quarantined for Covid 19 pending. We'll obtain follow-up CT chest Objective - Vital Signs Vital signs: Vital Signs Temp 97.7 F 09/02/19 12:15 Pulse 89 09/02/19 12:15 Resp 18 09/02/19 12:15 BP 144/93 09/02/19 12:15 Pulse Ox 95 09/02/19 12:15 Intake & Output 09/01/19 09/02/19 09/02/19 18:59 06:59 18:59 Intake Total 1460 1420 Output Total 425 275 Balance 1035 1145 Intake: Intake, IV Titration 600 Amount Sodium Chloride 0.9% 1, 600 000 ml @ 75 mls/hr IV . [id number] [facility] Rx#:[id number] Oral 860 1420 Output: Urine 425 275 Other: Voiding Method Toilet Toilet Urinal Urinal # Voids 5 3 - Exam GENERAL EXAM: Alert, very pleasant, 68-year-old white male, on 3 L of oxygen with pulse ox of 90-92% comfortable in no apparent distress. HEAD: Normocephalic/atraumatic. EYES: Normal reaction of pupils, equal size. Conjunctiva pink, sclera white. NOSE: Clear with pink turbinates. THROAT: No erythema or exudates. NECK: No masses, no JVD, no thyroid enlargement, no adenopathy. CHEST: No chest wall deformity. Symmetrical expansion. LUNGS: Equal air entry with diffuse rhonchi at bilateral lower bases CVS: Regular rate and rhythm, normal S1 and S2, no gallops, no murmurs, no rubs ABDOMEN: Soft, nontender. No hepatosplenomegaly, normal bowel sounds, no guarding or rigidity. EXTREMITIES: No clubbing, no edema, no cyanosis, 2+ pulses and upper and lower extremities. MUSCULOSKELETAL: Muscle strength and tone normal. SPINE: No scoliosis or deformity SKIN: No rashes CENTRAL NERVOUS SYSTEM: Alert and oriented -3. No focal deficits, tone is normal in all 4 extremities. PSYCHIATRIC: Alert and oriented -3. Appropriate affect. Intact judgment and insight. - Labs CBC & Chem 7: 09/02/19 06:21 09/02/19 06:21 Labs: Abnormal Lab Results - Last 24 Hours (Table) 09/02/19 09/02/19 Range/Units 06:21 06:21 RBC 4.06 L (4.30-5.90) m/uL Hgb 12.6 L (13.0-17.5) gm/dL Lymphocytes # 0.9 L (1.0-4.8) k/uL Sodium 133 L (137-145) mmol/L Chloride 94 L (98-107) mmol/L Carbon Dioxide 33 H (22-30) mmol/L Creatinine 0.47 L (0.66-1.25) mg/dL Glucose 126 H (74-99) mg/dL AST 69 H (17-59) U/L ALT 54 H (4-49) U/L Alkaline Phosphatase 136 H (38-126) U/L Albumin 3.1 L (3.5-5.0) g/dL Microbiology - Last 24 Hours (Table) 09/01/19 11:00 Gram Stain - Preliminary Sputum Sputum Culture - Preliminary 08/30/19 18:15 Blood Culture - Preliminary Blood No Growth after 48 hours Assessment and Plan Plan: Assessment: 1 Acute exacerbation of chronic obstructive pulmonary disease, complicated by purulent tracheobronchitis 2 Advanced lung cancer, squamous cell, status post chemotherapy and radiation therapy and received immunotherapy in the form of Imfinzi 3 History of DVT 4 History of GERD 5 Hyperlipidemia 6 Hypertension 7 History of hepatitis C 8 Degenerative joint disease 9 Neuropathy 10 Chronic back pain Plan: We'll obtain a CT of the chest with contrast today. Continue with current medical treatment, continue present dose IV steroids, antibiotics, and breathing treatments. Patient is feeling better, breathing easier, we'll continue to follow. I performed a history & physical examination of the patient and discussed their management with my nurse practitioner, Neelima Zheng. I reviewed the nurse practitioner's note and agree with the documented findings and plan of care. Lung sounds are positive for diminished breath sounds. The findings and the impression was discussed with the patient. I attest to the documentation by the nurse practitioner. Time with Patient: Less than 30
--- NOTE | 2019-09-02 14:28 | P.PN ---
Subjective Progress Note Date: 09/02/19 Principal diagnosis: sob Patient doing very well, his breathing is almost back to normal per patient. He still having cough and pleuritic right-sided chest pain. When he was walked to check for his oxygen levels dropped to 90% on room air. According to nursing staff he was weak and had to use his walker. No fevers or chills. Objective - Vital Signs Vital signs: Vital Signs Temp 97.7 F 09/02/19 12:15 Pulse 89 09/02/19 12:15 Resp 18 09/02/19 12:15 BP 144/93 09/02/19 12:15 Pulse Ox 95 09/02/19 12:15 Intake & Output 09/01/19 09/02/19 09/02/19 18:59 06:59 18:59 Intake Total 1460 1420 Output Total 425 275 Balance 1035 1145 Intake: Intake, IV Titration 600 Amount Sodium Chloride 0.9% 1, 600 000 ml @ 75 mls/hr IV . [id number] [facility] Rx#:[id number] Oral 860 1420 Output: Urine 425 275 Other: Voiding Method Toilet Toilet Urinal Urinal # Voids 5 3 - Exam Constitutional: No acute distress, conversant, pleasant Eyes:Anicteric sclerae, moist conjunctiva, no lid-lag, PERRLA, ENMT: Oropharynx clear, no erythema, exudates Neck: Supple, FROM, no masses, or JVD, No carotid bruits, No thyromegaly Lungs: Significant wheezing on the right chest field , Normal respiratory effort, no accessory muscle use Cardiovascular: Heart regular in rate and rhythm, No murmurs, gallops, or rubs, No peripheral edema Abdominal: Soft, Nontender, no guarding, rebound or rigidity, Normoactive bowel sounds, No hepatomegaly, No splenomegaly, No palpable mass Skin: Normal temperature, tone, texture, turgor, no induration, No subcutaneous nodules, No rash, lesions, No ulcers Extremities: No digital cyanosis, No clubbing, Pedal pulses intact and symmetrical, Radial pulses intact and symmetrical, No calf tenderness Psychiatric: Alert and oriented to person, place and time, appropriate affect, intact judgement Neuro: Muscles Strength 5/5 in all 4 extremities, Sensation to light touch grossly present throughout, Cranial nerves II-XII grossly intact, no focal sensory deficits - Labs CBC & Chem 7: 09/02/19 06:21 09/02/19 06:21 Labs: Abnormal Lab Results - Last 24 Hours (Table) 09/02/19 09/02/19 Range/Units 06:21 06:21 RBC 4.06 L (4.30-5.90) m/uL Hgb 12.6 L (13.0-17.5) gm/dL Lymphocytes # 0.9 L (1.0-4.8) k/uL Sodium 133 L (137-145) mmol/L Chloride 94 L (98-107) mmol/L Carbon Dioxide 33 H (22-30) mmol/L Creatinine 0.47 L (0.66-1.25) mg/dL Glucose 126 H (74-99) mg/dL AST 69 H (17-59) U/L ALT 54 H (4-49) U/L Alkaline Phosphatase 136 H (38-126) U/L Albumin 3.1 L (3.5-5.0) g/dL Microbiology - Last 24 Hours (Table) 09/01/19 11:00 Gram Stain - Preliminary Sputum Sputum Culture - Preliminary 08/30/19 18:15 Blood Culture - Preliminary Blood No Growth after 48 hours Assessment and Plan Plan: Post obstructive pneumonia with progressive lung cancer On Augmentin blood cultures negative follow up sputum cultures pulmonary recommendations appreciated--ordered CT chest to evaluate progression of the lung cancer. pain control of his chronic low back pain Hyponatremia Secondary to dehydration versus SIADH Improved with normal saline, will continue, follow in a.m. Acute COPD exacerbation Continue systemic IV steroids and bronchodilators supplemental oxygen as needed Hypertension controlled resume home meds Anemia of chronic disease Stable CODE STATUS: full code DVT prophylaxis: heparin sc tid Discussed with: Patient, RN Anticipated discharge: tomorrow Anticipated discharge place: home
--- NOTE | 2019-09-02 15:32 | CT ---
EXAMINATION TYPE: CT chest w con DATE OF EXAM: 09/02/2019 COMPARISON: 04/24/2019 HISTORY: history of mass CT DLP: 818 mGycm, Automated exposure control for dose reduction was used. CONTRAST: Performed injected with 100 mL of Isovue 300. TECHNIQUE: Axial images were obtained at 5 mm thick sections. Reconstructed images are reviewed on [employer]) computer in the coronal plane. FINDINGS: Portion of the thyroid visualized is normal. There is a 2.0 x 1.7 nodule extending posterior to the sternal clavicular region. This has enlarged f rom prior study previously measuring 1.3 x 0.8 cm. There is a mass extending into the right apex from the right hilar region. Posterior lateral to the t rachea is an enlarging mass with some central hypodensity measuring 4.2 x 2.1 cm. This area was not e vident before. In the periphery of this mass there is a 4.2 x 2.8 cm more solid area which is larger than the comparison. Coronary artery calcifications present. Enlarged lymphadenopathy is not evident. The ascending aorta diameter at the level of the main pulmonary artery is 3.9 cm. The main pulmonary artery diameter at the bifurcation is 3.[address] sections are obtained through the upper abdomen. Abdomen is essentially unremarkable. IMPRESSIONS: 1. Enlarging solid-appearing areas extending from the right apical mass discussed above. 2. Enlarging left upper lobe anterior lung lesion.
[2019-09-02] MEDS: SODIUM CHLORIDE 0.9% 1,000 ML IV SCH ×2 (17:44→23:41)
[2019-09-02] MEDS: MELATONIN 3 MG TABLET PO SCH (21:11)
[2019-09-02] MEDS: LISINOPRIL 20 MG TAB PO SCH (21:44)
--- NOTE | 2019-09-02 22:12 | US ---
EXAMINATION TYPE: US abdomen complete DATE OF EXAM: 09/02/2019 COMPARISON: CT 2019 CLINICAL HISTORY: Increased LFTs, Hx: Lung Ca. Increased LFTs. Hx lung cancer. EXAM MEASUREMENTS: Liver Length: 16.7 cm Gallbladder Wall: Not well seen. CBD: 0.58 cm Spleen: 12.3 cm Right Kidney: 12.3 x 6.5 x 5.8 cm Left Kidney: 12.9 x 6.7 x 5.8 cm *Exam very limited due to body habitus and overlying bowel gas. Pancreas: Not seen. Liver: Increased attenuation, limited. Gallbladder: Measures 9.1 cm in length. Multiple echogenic areas seen within the gallbladder near wa ll. Wall not well seen. Evidence for sonographic Gar's sign: No CBD: Measures upper limits of normal. Spleen: Appears to be wnl. Right Kidney: Measures upper limits of normal. Left Kidney: Measures slightly enlarged. Upper IVC: Not well seen. Abd Aorta: Not well seen. There is no ascites. IMPRESSION: Numerous gallstones. No dilated ducts. Gallbladder is large and measures 8.6 x 3.7 cm and could relate to cholecystitis.
--- NOTE | 2019-09-02 23:09 | P.PN ---
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 Objective - Vital Signs Vital signs: Vital Signs Temp 97.6 F 09/02/19 21:00 Pulse 78 09/02/19 21:00 Resp 20 09/02/19 21:00 BP 187/93 09/02/19 21:15 Pulse Ox 93 L 09/02/19 21:00 Intake & Output 09/02/19 09/02/19 09/03/19 06:59 18:59 06:59 Intake Total 1420 590 Output Total 275 Balance 1145 590 Intake: Oral 1420 590 Output: Urine 275 Other: Voiding Method Toilet Toilet Urinal Urinal # Voids 3 2 2 - Exam Constitutional: No acute distress. HEENT: Mucosa moist. Neck: Neck supple. Lungs:No respiratory distress. On NC. Heart: Normal rate. Abdomen: Soft, nontender, nondistended. MSK: 4/4 strength in all 4 extremities. Neuro: Alert and oriented x 3. Skin: No jaundice. Psych:Flat affect. - Labs CBC & Chem 7: 09/02/19 06:21 09/02/19 06:21 Labs: Abnormal Lab Results - Last 24 Hours (Table) 09/02/19 09/02/19 Range/Units 06:21 06:21 RBC 4.06 L (4.30-5.90) m/uL Hgb 12.6 L (13.0-17.5) gm/dL Lymphocytes # 0.9 L (1.0-4.8) k/uL Sodium 133 L (137-145) mmol/L Chloride 94 L (98-107) mmol/L Carbon Dioxide 33 H (22-30) mmol/L Creatinine 0.47 L (0.66-1.25) mg/dL Glucose 126 H (74-99) mg/dL AST 69 H (17-59) U/L ALT 54 H (4-49) U/L Alkaline Phosphatase 136 H (38-126) U/L Albumin 3.1 L (3.5-5.0) g/dL Microbiology - Last 24 Hours (Table) 08/30/19 18:15 Blood Culture - Preliminary Blood No Growth after 72 hours 09/01/19 11:00 Gram Stain - Preliminary Sputum Sputum Culture - Preliminary Assessment and Plan (1) Pancytopenia due to antineoplastic chemotherapy Current Visit: No Status: Acute Code(s): D61.810 - ANTINEOPLASTIC CHEMOTHERAPY INDUCED PANCYTOPENIA; T45.1X5A - ADVERSE EFFECT OF ANTINEOPLASTIC AND IMMUNOSUP DRUGS, INIT SNOMED Code(s): 070840304300976 Plan: Chest x-ray: report reviewed, image reviewed CT scan - chest: report reviewed, image reviewed Assessment and Plan 1. Pneunomia: - Pulmonary Following - Antibiotics 2. COPD exacerbation: - Continue on abx and steroids with PPI - Steroid therapy to assist with immune related events 3. Lung cancer (Stage 3 SCC) on immunotherapy - CT scan with question of progression versus pseudo-progression - Hold Immune Therapy at this time - Restage in 4 weeks after resolution of pneumonia 4. Increased LFTs: - Abdominal Ultrasound with multiple gallstones, no dilation possible cho lecystitis - ?immune therapy related event?
[2019-09-03 04:55] VITALS: PULSE 80; RESP 16; TEMP 98
[2019-09-03 05:07] VITALS: BP 162/88
[2019-09-03] MEDS: methylPREDNISolone SOD SUCCI 125 MG/2 ML VIAL IV SCH ×2 (05:17→12:05)
[2019-09-03] MEDS: IPRATROPIUM-ALBUTEROL 3 ML NEB INHALATION SCH ×3 (07:14→15:42)
[2019-09-03] MEDS: SYMBICORT 160-4.5 MCG INHALER INHALATION SCH (07:14)
[2019-09-03] MEDS: LISINOPRIL 20 MG TAB PO SCH (09:38)
[2019-09-03] MEDS: PANTOPRAZOLE 40 MG TABLET PO SCH (09:38)
[2019-09-03] MEDS: AMOXIC-POT CLAV 875-125MG 1 EACH TAB PO SCH (09:38)
[2019-09-03] MEDS: ATORVASTATIN 10 MG TAB PO SCH (09:38)
[2019-09-03] MEDS: GABAPENTIN 400 MG CAP PO SCH ×2 (09:38→15:07)
[2019-09-03] MEDS: HEPARIN SODIUM,PORCINE 5,000 UNIT/ML 1 ML VIAL SQ SCH (09:38)
[2019-09-03] MEDS: PROPRANOLOL LA 60 MG CAP.SA.24H PO SCH (09:43)
[2019-09-03] MEDS: HYDROcodone/APAP 10-325MG 1 EACH TAB PO PRN ×2 (09:43→15:06)
--- NOTE | 2019-09-03 11:26 | P.PN ---
Subjective Progress Note Date: 09/03/19 Principal diagnosis: Acute exacerbation of chronic obstructive pulmonary disease The patient is seen today 09/01/2019 in follow-up on the regular medical floor. He has a history of the cell type and is status post chemo and radiation therapy along with immunotherapy in the form of Imfinzi. He had presented here with complaints of increasing shortness of breath cough and congestion. Chest x-ray showed increasing lesion in the right midlung measuring 3.1 cm. There is some volume loss in the right hemithorax and upward retraction of the right hemidiaphragm. He's been treated for COPD exacerbation. He is seen today in follow-up on the regular medical floor. He is currently sitting up in a chair at the bedside. Awake and alert in no acute distress. Maintaining O2 s aturations in the 90s on 3 L/m per nasal cannula. He's been afebrile. He's been on Symbicort, DuoNeb's, IV Solu-Medrol. Antibiotics in the form of Augmentin. On 09/02/2019 patient seen in follow-up on general medical surgical floor. He is sitting up on the edge of the bed, he states his breathing is improving, he remains on 3 L of oxygen his pulse ox is 92%, no fever or chills, lung sounds re veal diffuse rhonchi at bilateral posterior bases, no fever or chills. Blood culture showed no growth, sputum culture showed few gram-positive cocci and few budding yeast. Remains on amoxicillin for antibiotic coverage, remains on Symbicort, and IV steroids. Today's labs have been reviewed. Patient's last CT of the chest was back in April 2019 and it showed progression of squamous cell lung cancer. Patient has not had any treatment for his lung cancer since the start of the quarantined for Covid 19 pending. We'll obtain follow-up CT chest On 09/03/2019 patient seen in follow-up on oncology floor. Still congested, still has some mild wheezing, but no acute distress, remains on 3 L of oxygen, pulse ox is 92%, he is afebrile. Yesterday CT of the chest has been obtained showing disease progression with enlarging solid appearing areas extending from the right apical mass and enlarging left upper lobe anterior lung lesion. Reticulocyte oncology has been consulted. For now patient continues on medical treatment for acute exacerbation of COPD, patient is on breathing treatments, IV steroids and antibiotics. So far blood and sputum cultures are negative. Objective - Vital Signs Vital signs: Vital Signs Temp 98.0 F 09/03/19 04:54 Pulse 80 09/03/19 11:06 Resp 16 09/03/19 04:54 BP 162/88 09/03/19 05:07 Pulse Ox 92 L 09/03/19 04:54 Intake & Output 09/02/19 09/03/19 09/03/19 18:59 06:59 18:59 Intake Total 890 Balance 890 Intake: Oral 890 Other: Voiding Method Toilet Toilet Urinal Urinal # Voids 2 3 - Exam GENERAL EXAM: Alert, very pleasant, 68-year-old white male, on 3 L of oxygen with pulse ox of 90-92% comfortable in no apparent distress. HEAD: Normocephalic/atraumatic. EYES: Normal reaction of pupils, equal size. Conjunctiva pink, sclera white. NOSE: Clear with pink turbinates. THROAT: No erythema or exudates. NECK: No masses, no JVD, no thyroid enlargement, no adenopathy. CHEST: No chest wall deformity. Symmetrical expansion. LUNGS: Equal air entry with diffuse rhonchi at bilateral lower bases CVS: Regular rate and rhythm, normal S1 and S2, no gallops, no murmurs, no rubs ABDOMEN: Soft, nontender. No hepatosplenomegaly, normal bowel sounds, no guarding or rigidity. EXTREMITIES: No clubbing, no edema, no cyanosis, 2+ pulses and upper and lower extremities. MUSCULOSKELETAL: Muscle strength and tone normal. SPINE: No scoliosis or deformity SKIN: No rashes CENTRAL NERVOUS SYSTEM: Alert and oriented -3. No focal deficits, tone is normal in all 4 extremities. PSYCHIATRIC: Alert and oriented -3. Appropriate affect. Intact judgment and insight. - Labs CBC & Chem 7: 09/02/19 06:21 09/02/19 06:21 Labs: Microbiology - Last 24 Hours (Table) 09/01/19 11:00 Gram Stain - Final Sputum Sputum Culture - Final 08/30/19 18:15 Blood Culture - Preliminary Blood No Growth after 72 hours Assessment and Plan Plan: Assessment: 1 Acute exacerbation of chronic obstructive pulmonary disease, complicated by purulent tracheobronchitis 2 Advanced lung cancer, squamous cell, status post chemotherapy and radiation therapy and received immunotherapy in the form of Imfinzi. CT chest on 09/02/2019 shows disease progression 3 History of DVT 4 History of GERD 5 Hyperlipidemia 6 Hypertension 7 History of hepatitis C 8 Degenerative joint disease 9 Neuropathy 10 Chronic back pain Plan: CT of the chest has been reviewed by Dr. Snow, patient was seen and evaluated by Dr. Snow, CT chest showed disease progression in both lungs, medical oncology has been consulted. Continue medical treatment for acute COPD exacerbation, continue oral antibiotics, breathing treatments, and IV steroids. Will await further input from medical oncology. I performed a history & physical examination of the patient and discussed their management with my nurse practitioner, Neelima Zheng. I reviewed the nurse practitioner's note and agree with the documented findings and plan of care. Lung sounds are positive for diminished breath sounds. The findings and the impression was discussed with the patient. I attest to the documentation by the nurse practitioner. Time with Patient: Less than 30
--- NOTE | 2019-09-03 13:27 | P.DS ---
Providers Date of admission: 08/30/19 19:28 Expected date of discharge: 09/03/19 Attending physician: Vishnu Hinds MD Consults: 08/30/19 19:23 Consult Physician Routine Consulting Provider: Andrew Cary Consult Reason/Comments: COPD and Lung CA Do you want consulting provider notified?: Yes Consult Physician Routine Consulting Provider: Sean Mireles Consult Reason/Comments: COPD, Lung CA Do you want consulting provider notified?: Yes 09/03/19 07:53 Consult Physician Routine Consulting Provider: Steve Mares Consult Reason/Comments: cholecystitis? Do you want consulting provider notified?: Yes Primary care physician: Jonas Thomas MD Hospital Course: 68 year old male with hypertension, lung cancer diagnosed one year ago s/p chemo and immunotherapy, currently not receiving treatment due to COVID situation, hx of COPD, who quit smoking 2 years ago presented to the ER due to worsening dyspnea, even with minimal exertion, cough productive of whitish sputum, no blood. No fever, no chills. Also has been having right-sided lower chest pain that is worse with cough and deep breathing. Symptoms have been ongoing over the past week, with occasional wheezing. He states he has been confined to home, self isolating due to COVID19, he only gets visits from his nurse. he denies any sick contacts or travel. No sore throat, loss of taste, or smell sensation, no nausea or vomiting. In the ED , chest exam revealed significant wheezing especially on the right side. CXR did show progression of his right mid lung mass of compared to his prior CT done last April, it also showed collapse of the right upper lung. Laboratory analysis in the emergency department revealed mild hyponatremia with sodium level of 128. Clinically he was suspected to have post obstructive pneumonia and because of that he was started on antibiotics and admitted for further evaluation and management. Initially was started on Unasyn, was evaluated by pulmonary service who switched that to Augmentin by mouth. He was started on IV fluids for presumed dehydration and his sodium level did improve with that. Because of that SIADH was unlikely. He did have a repeat computed tomography scan of the chest that showed enlarging solid appearing areas around the old right apical lung mass. There was also enlarging mass in the left upper lobe as well. Patient was seen by oncology and will follow up with him in the office. Clinically his shortness of breath improved significantly with treatment. Due to persistent right lower chest pain and right upper quadrant abdominal pain a gallbladder ultrasound was done and that showed gallstones with distention consistent with possible cholecystitis. Due to that he was seen by Dr. Mares from general surgery who did not advise any surgical intervention. The symptoms were most likely secondary to the right sided pneumonia as opposed to the gallbladder. Patient will be discharged home with instructions to follow-up with pulmonary and oncology services as soon as possible after discharge. He will be prescribed some oral steroids as well as Augmentin for 10 days. He will be discharged in a stable condition. Time for discharge 35 minutes. Patient Condition at Discharge: Stable Plan - Discharge Summary New Discharge Prescriptions: New Amoxic-Pot Clav 875-125Mg [Augmentin 875-125] 1 each PO Q12HR 10 Days #20 tab methylPREDNISolone Dose Pack [Medrol Dose Pack] 4 mg PO DIRECTED #21 package Continue Meloxicam [Mobic] 15 mg PO DAILY Omeprazole 20 mg PO BID Enalapril [Vasotec] 10 mg PO DAILY buPROPion SR [Wellbutrin SR] 150 mg PO BID Simvastatin [Zocor] 10 mg PO DAILY Gabapentin [Neurontin] 800 mg PO TID Primidone [Mysoline] 50 mg PO TID Hydrocodone/Acetaminophen [[place] 7.5-325] 1 tab PO BID PRN PRN Reason: Pain Budesonide-Formot 160-4.5 Mcg [Symbicort 160-4.5 Mcg Inhaler] 2 puff IN HALATION RT-BID Propranolol HCl 60 mg PO DAILY Albuterol Sulfate [Albuterol Sulfate Hfa] 2 puff PO RT-Q6H Discharge Medication List Enalapril [Vasotec] 10 mg PO DAILY 09/06/15 [History] Gabapentin [Neurontin] 800 mg PO TID 09/06/15 [History] Meloxicam [Mobic] 15 mg PO DAILY 09/06/15 [History] Omeprazole 20 mg PO BID 09/06/15 [History] Primidone [Mysoline] 50 mg PO TID 09/06/15 [History] Simvastatin [Zocor] 10 mg PO DAILY 09/06/15 [History] buPROPion SR [Wellbutrin SR] 150 mg PO BID 09/06/15 [History] Budesonide-Formot 160-4.5 Mcg [Symbicort 160-4.5 Mcg Inhaler] 2 puff INHALATION RT-BID 10/12/18 [History] Hydrocodone/Acetaminophen [[place] 7.5-325] 1 tab PO BID PRN 10/12/18 [History] Albuterol Sulfate [Albuterol Sulfate Hfa] 2 puff PO RT-Q6H 08/30/19 [History] Propranolol HCl 60 mg PO DAILY 08/30/19 [History] Amoxic-Pot Clav 875-125Mg [Augmentin 875-125] 1 each PO Q12HR 10 Days #20 tab 09/03/19 [Rx] methylPREDNISolone Dose Pack [Medrol Dose Pack] 4 mg PO DIRECTED #21 package 09/03/19 [Rx] Follow up Appointment(s)/Referral(s): Jonas Thomas MD [Primary Care Provider] - 1-2 days (office to call you with appt. time and date.) [facility] Visiting Nurse, [NON-STAFF] - 1 Week
--- NOTE | 2019-09-03 16:16 | P.GSCN ---
History of Present Illness Consult date: 09/03/19 Reason for Consult: Cholecystitis History of present illness: : 68-year-old male hospitalized with shortness of breath. Patient with history of lung cancer treated with both chemotherapy and radiation therapy. Patient described a cough which was productive. Admits to some right-sided back pain and some right flank pain that has resolved. His liver enzymes were slightly elevated. For that reason ultrasound was obtained. Ultrasound showed a prominent gallbladder in size with possible stones. No thickening, fluid, or Gar sign. Feels well currently. Tolerating diet. Patient says he is going home today. Review of Systems The patient denies any acute changes in vision or hearing, no dysphagia or sam nophagia, no dysuria or hematuria, no headache, no runny nose, no rectal bleeding or melena, no unexplained weight loss Past Medical History Past Medical History: Cancer, COPD, Deep Vein Thrombosis (DVT), GERD/Reflux, Hyperlipidemia, Hypertension, Liver Disease, Osteoarthritis (OA) Additional Past Medical History / Comment(s): neuropathy, hx broken vertebrae., back pain, states hx of fall x2 during chemo tx., hepatitis C 20 years ago with tx, Right Lung Cancer (2019)- Chemo & radiation tx. History of Any Multi-Drug Resistant Organisms: None Reported Past Surgical History: No Surgical Hx Reported Additional Past Surgical History / Comment(s): eye sx, lung biopsy, liver bx Past Anesthesia/Blood Transfusion Reactions: No Reported Reaction Past Psychological History: Bipolar Additional Psychological History / Comment(s): pt does not think he has bipolar. Smoking Status: Former smoker Past Alcohol Use History: None Reported Additional Past Alcohol Use History / Comment(s): quit 2018 smoked 45 years 1 ppd, quit drinker 30 years ago Past Drug Use History: None Reported - Past Family History Mother Family Medical History: No Reported History Son(s) Family Medical History: Cancer Additional Family Medical History / Comment(s): lung cancer Medications and Allergies Home Medications Medication Instructions Recorded Confirmed Type Enalapril [Vasotec] 10 mg PO DAILY 09/06/15 08/30/19 History Gabapentin [Neurontin] 800 mg PO TID 09/06/15 08/30/19 History Meloxicam [Mobic] 15 mg PO DAILY 09/06/15 08/30/19 History Omeprazole 20 mg PO BID 09/06/15 08/30/19 History Primidone [Mysoline] 50 mg PO TID 09/06/15 08/30/19 History Simvastatin [Zocor] 10 mg PO DAILY 09/06/15 08/30/19 History buPROPion SR [Wellbutrin SR] 150 mg PO BID 09/06/15 08/30/19 History Budesonide-Formot 160-4.5 Mcg 2 puff INHALATION RT-BID 10/12/18 08/30/19 History [Symbicort 160-4.5 Mcg Inhaler] Hydrocodone/Acetaminophen [[place] 1 tab PO BID PRN 10/12/18 08/30/19 History 7.5-325] Albuterol Sulfate [Albuterol 2 puff PO RT-Q6H 08/30/19 08/30/19 History Sulfate Hfa] Propranolol HCl 60 mg PO DAILY 08/30/19 08/30/19 History Amoxic-Pot Clav 875-125Mg 1 each PO Q12HR 10 Days #20 tab 09/03/19 Rx [Augmentin 875-125] methylPREDNISolone Dose Pack 4 mg PO DIRECTED #21 package 09/03/19 Rx [Medrol Dose Pack] Allergies Allergy/AdvReac Type Severity Reaction Status Date / Time methadone Allergy Swelling Verified 08/30/19 22:06 of Ears Surgical - Exam Vital Signs Temp Pulse Resp BP Pulse Ox 98.2 F 66 18 130/85 95 08/30/19 17:39 08/30/19 17:39 08/30/19 17:39 08/30/19 17:39 08/30/19 17:39 Physical exam: General: Well-developed, well-nourished HEENT: Normocephalic, sclerae nonicteric Abdomen: Nontender, nondistended Extremities: No edema Neuro: Alert and oriented Results - Labs 09/02/19 06:21 09/02/19 06:21 Microbiology - Last 24 Hours (Table) 09/01/19 11:00 Gram Stain - Final Sputum Sputum Culture - Final 08/30/19 18:15 Blood Culture - Preliminary Blood No Growth after 72 hours Assessment and Plan (1) Gallstones Narrative/Plan: 68-year-old male with recent findings of gallstones. I do not suspect at this time the patient has significant symptoms from the gallstones. I do not believe the patient's liver enzymes are elevated from choledocholithiasis. Patient would like to go home. He may follow-up with me in the office. Further discussion regarding cholecystectomy will take place at that time. Status: Acute Code(s): K80.20 - CALCULUS OF GALLBLADDER W/O CHOLECYSTITIS W/O OBSTRUCTION SNOMED Code(s): 573425398
--- NOTE | 2019-09-03 17:46 | P.PN ---
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 He is up in chair alert and oriented and feeling better Objective - Vital Signs Vital signs: Vital Signs Temp 98.0 F 09/03/19 04:54 Pulse 80 09/03/19 11:06 Resp 16 09/03/19 04:54 BP 162/88 09/03/19 05:07 Pulse Ox 92 L 09/03/19 04:54 Intake & Output 09/02/19 09/03/19 09/03/19 18:59 06:59 18:59 Intake Total 890 Balance 890 Intake: Oral 890 Other: Voiding Method Toilet Toilet Urinal Urinal # Voids 2 3 - Exam Constitutional: No acute distress. HEENT: Mucosa moist. Neck: Neck supple. Lungs:No respiratory distress. On NC. Heart: Normal rate. Abdomen: Soft, nontender, nondistended. MSK: 4/4 strength in all 4 extremities. Neuro: Alert and oriented x 3. Skin: No jaundice. Psych:Flat affect. - Labs CBC & Chem 7: 09/02/19 06:21 09/02/19 06:21 Labs: Microbiology - Last 24 Hours (Table) 09/01/19 11:00 Gram Stain - Final Sputum Sputum Culture - Final 08/30/19 18:15 Blood Culture - Preliminary Blood No Growth after 72 hours Assessment and Plan (1) Pancytopenia due to antineoplastic chemotherapy Status: Acute Code(s): D61.810 - ANTINEOPLASTIC CHEMOTHERAPY INDUCED PANCYTOPENIA; T45.1X5A - ADVERSE EFFECT OF ANTINEOPLASTIC AND IMMUNOSUP DRUGS, INIT SNOMED Code(s): 532461503475684 Plan: Chest x-ray: report reviewed, image reviewed CT scan - chest: report reviewed, image reviewed Assessment and Plan 1. [place]: - Pulmonary Following - Antibiotics 2. COPD exacerbation: - Continue on abx and steroids with PPI - Steroid therapy to assist with immune related events 3. Lung cancer (Stage 3 SCC) on immunotherapy - CT scan with question of progression versus pseudo-progression - Hold Immune Therapy at this time - Restage in 4 weeks after resolution of pneumonia 4. Increased LFTs: - Abdominal Ultrasound with multiple gallstones, no dilation possible cholecystitis - ?immune therapy related event? Ok for discharge from onc standpoint PTOT at home Follow-up 1-[address] restage in 4 weeks
--- NOTE | 2019-09-04 12:03 | CDI ---
Documentation Clarification Form Date: 09/04/19 From: Jazmyn Hill Phone: If you have a question about this query, please contact Mary Camacho, Parking Line Painter at [phone] between 8am and 5pm. Admit Date: 08/30/19 Discharge Date: 09/03/19 Patient Name: JOSE SANTANA Visit Number: [id number] ATTENTION: The Clinical Documentation Specialists (CDI) and [facility] Coding Staff appreciate your assistance in clarifying documentation. Please respond to the clarification below the line at the bottom and electronically sign. The CDI & [facility] Coding staff will review the response and follow-up if needed. Please note: Queries are made part of the Legal Health Record. If you have any questions, please contact the author of this message via ITS. Dear Dr. Pooja Ruiz, Anemia of chronic disease is documented in the H&P, PNs 08/30, 08/31 & 09/01. History/Risk Factors: pancytopenia due to chemotherapy, RML cancer, post- obstructive pneumonia, acute hypoxic respiratory failure, COPD in acute exacerbation, hyponatremia, cholecystitis w cholelithiasis Clinical indicators: Ongoing dx of anemia of chronic disease Hemoglobin: 12.4, 12.4, 11.8, 12.6 Hematocrit: 35.8, 35.9, 34.0, 39.1 Treatment: monitor, IV fluids In order to capture the severity of condition, please clarify the type of anemia and etiology if known:. Anemia due to malignancy Anemia due to chemotherapy Unable to determine Other, please specify Anemia due to malignancy MTDD
== END 2019-09-03 15:45 | disposition home or self-care (01) | DRG 193 ==
LOC: EC 17:25 → 5NMEDONC 19:28
PROVIDERS: ADMIT Internal Medicine; ATTEND Internal Medicine
DX: J18.9 Pneumonia, unspecified organism (principal); J96.01 Acute respiratory failure with hypoxia; D61.810 Antineoplastic chemotherapy induced pancytopenia; J44.0 Chronic obstructive pulmonary disease with (acute) lower respiratory infection; J44.1 Chronic obstructive pulmonary disease with (acute) exacerbation; E87.1 Hypo-osmolality and hyponatremia; K80.10 Calculus of gallbladder with chronic cholecystitis without obstruction; C34.11 Malignant neoplasm of upper lobe, right bronchus or lung; J98.19 Other pulmonary collapse; Z20.828 Contact with and (suspected) exposure to other viral communicable diseases; E83.42 Hypomagnesemia; I44.0 Atrioventricular block, first degree; D63.0 Anemia in neoplastic disease; K21.9 Gastro-esophageal reflux disease without esophagitis; E86.0 Dehydration; E78.5 Hyperlipidemia, unspecified; I10 Essential (primary) hypertension; M19.90 Unspecified osteoarthritis, unspecified site; G62.9 Polyneuropathy, unspecified; G89.29 Other chronic pain; M54.5 Low back pain; T45.1X5A Adverse effect of antineoplastic and immunosuppressive drugs, initial encounter; F10.11 Alcohol abuse, in remission; Z79.51 Long term (current) use of inhaled steroids; Z79.1 Long term (current) use of non-steroidal anti-inflammatories (NSAID); Z79.899 Other long term (current) drug therapy; Z87.891 Personal history of nicotine dependence; Z86.19 Personal history of other infectious and parasitic diseases; Z92.25 Personal history of immunosuppression therapy; Z92.21 Personal history of antineoplastic chemotherapy; Z92.3 Personal history of irradiation; Z91.81 History of falling; Z86.718 Personal history of other venous thrombosis and embolism; Z87.81 Personal history of (healed) traumatic fracture; Z98.890 Other specified postprocedural states; Z88.8 Allergy status to other drugs, medicaments and biological substances; Z80.1 Family history of malignant neoplasm of trachea, bronchus and lung
CPT/HCPCS: 36415; 71046; 71260; 76700; 80048; 80053; 80076; 83605; 83735; 83880; 85025; 85027; 85610; 85730; 87040; 87070; 87205; 93005; 94640; 96365; 96375; 99291

== ENCOUNTER → 2019-09-17 | Outpatient (CLI) | payer MEDICARE, OTHER ==
[2019-09-17 11:03] LABS: African American GFR (CKD) >90 (>60 ml/min/1.73 sqM); Blood Urea Nitrogen 9 mg/dL (9-20); Non-African American GFR(CKD) >90 (>60 ml/min/1.73 sqM)
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
--- NOTE | 2019-09-18 08:06 | NM ---
EXAMINATION TYPE: NM bone scan whole body DATE OF EXAM: 09/17/2019 COMPARISON: 09/17/2019 CT scan HISTORY: Lung cancer Delayed whole-body scanning was performed following the injection of 25.3 mCi Tc 99m MDP. Images acq uired 3.5 hours post injection. FINDINGS: There is intense abnormal uptake in the region of the right sternoclavicular joint. Abnorma l uptake involving the knees and shoulders likely post arthritic. Nonspecific uptake involving the th oracic and lumbar spine could be degenerative. IMPRESSION: 1. Intense abnormal uptake involving the region of the right sternoclavicular joint. CT scan at this level demonstrates no definite destructive changes. 2. Abnormal uptake throughout the vertebral column is nonspecific but likely degenerative. More inten se uptake seen at L4 corresponds to a suspected Schmorl's node or compression fracture of L4.
== END | disposition home or self-care (01) ==
LOC: RADNMMAIN 10:16
PROVIDERS: ATTEND Internal Medicine Hematology & Oncology
DX: C78.2 Secondary malignant neoplasm of pleura (principal); R91.8 Other nonspecific abnormal finding of lung field; C78.7 Secondary malignant neoplasm of liver and intrahepatic bile duct; R93.7 Abnormal findings on diagnostic imaging of other parts of musculoskeletal system; C34.11 Malignant neoplasm of upper lobe, right bronchus or lung
CPT/HCPCS: 82565; 84520; 71260; 74177; 78306; A9503; J1642; Q9967

== ENCOUNTER 2019-10-08 04:38 | Inpatient (IN) | payer MEDICARE, OTHER ==
--- NOTE | 2019-10-08 04:52 | ED ---
Weakness HPI - General Chief complaint: Nausea/Vomiting/Diarrhea Stated complaint: Chest Pain, SOB Time Seen by Provider: 10/08/19 04:40 Source: patient, EMS, RN notes reviewed, old records reviewed Mode of arrival: EMS Limitations: physical limitation - History of Present Illness Initial comments: This is a 60-year-old male presented today for chest pain. No recent travel history or sick contacts. He has had recent hospital admissions currently com plaining of weakness lower extremity edema and shortness of breath he also has significant nausea vomiting with pain today unable to take medications MD Complaint: generalized weakness, lack of energy, difficulty walking -: days(s) Location: generalized, LLE, RLE Severity: moderate Severity scale (1-10): 7 Consistency: constant Improves with: none Worsens with: none Context: history of similar Associated Symptoms: confusion, shortness of breath - Related Data Home Medications Medication Instructions Recorded Confirmed Enalapril [Vasotec] 10 mg PO DAILY 09/06/15 10/08/19 Gabapentin [Neurontin] 800 mg PO TID 09/06/15 10/08/19 Meloxicam [Mobic] 15 mg PO DAILY 09/06/15 10/08/19 Omeprazole 20 mg PO BID 09/06/15 10/08/19 Primidone [Mysoline] 50 mg PO TID 09/06/15 10/08/19 Simvastatin [Zocor] 10 mg PO DAILY 09/06/15 10/08/19 buPROPion SR [Wellbutrin SR] 150 mg PO BID 09/06/15 10/08/19 Budesonide-Formot 160-4.5 Mcg 2 puff INHALATION RT-BID 10/12/18 10/08/19 [Symbicort 160-4.5 Mcg Inhaler] Albuterol Sulfate [Albuterol 2 puff PO RT-Q6H 08/30/19 10/08/19 Sulfate Hfa] Propranolol HCl 60 mg PO DAILY 08/30/19 10/08/19 Hydrocodone/Acetaminophen [[place] 1 tab PO Q6H PRN 10/08/19 10/08/19 10-325] Zolpidem [Ambien] 5 mg PO HS PRN 10/08/19 10/08/19 Allergies Allergy/AdvReac Type Severity Reaction Status Date / Time methadone Allergy Swelling Verified 07/28/20 07:24 of Ears Review of Systems ROS Statement: Those systems with pertinent positive or pertinent negative responses have been documented in the HPI. ROS Other: All systems not noted in ROS Statement are negative. Past Medical History Past Medical History: Cancer, COPD, Deep Vein Thrombosis (DVT), GERD/Reflux, Hyperlipidemia, Hypertension, Liver Disease, Osteoarthritis (OA) Additional Past Medical History / Comment(s): neuropathy, hx broken vertebrae., back pain, states hx of fall x2 during chemo tx., hepatitis C 20 years ago with tx, Right Lung Cancer (2019)- Chemo & radiation tx. History of Any Multi-Drug Resistant Organisms: None Reported Past Surgical History: No Surgical Hx Reported Additional Past Surgical History / Comment(s): eye sx, lung biopsy, liver bx Past Anesthesia/Blood Transfusion Reactions: No Reported Reaction Past Psychological History: Bipolar Smoking Status: Former smoker Past Alcohol Use History: None Reported Past Drug Use History: None Reported - Past Family History Mother Family Medical History: No Reported History Son(s) Family Medical History: Cancer Additional Family Medical History / Comment(s): lung cancer General Exam Limitations: altered mental status, physical limitation General appearance: alert, in no apparent distress Head exam: Present: atraumatic, normocephalic, normal inspection Eye exam: Present: normal appearance, PERRL, EOMI. Absent: scleral icterus, conjunctival injection, periorbital swelling ENT exam: Present: normal exam, mucous membranes moist Neck exam: Present: normal inspection. Absent: tenderness, meningismus, lymphadenopathy Respiratory exam: Present: wheezes, decreased breath sounds, prolonged expiratory. Absent: respiratory distress, rales, rhonchi, stridor Cardiovascular Exam: Present: normal rhythm, tachycardia, normal heart sounds. Absent: systolic murmur, diastolic murmur, rubs, gallop, clicks GI/Abdominal exam: Present: soft, normal bowel sounds. Absent: distended, tenderness, guarding, rebound, rigid Extremities exam: Present: normal inspection, full ROM, normal capillary refill. Absent: tenderness, pedal edema, joint swelling, calf tenderness Back exam: Present: normal inspection Neurological exam: Present: alert, oriented X3, CN II-XII intact Psychiatric exam: Present: normal affect, normal mood Skin exam: Present: warm, dry, intact, normal color. Absent: rash Course Vital Signs 10/08/19 10/08/1910/07/20 04:45 05:00 06:30 Temperature 97.8 F Pulse Rate 114 H 113 H Respiratory 18 18 18 Rate Blood Pressure 142/80 133/83 Blood Pressure [Left Radial Artery] O2 Sat by Pulse 94 L 93 L Oximetry 10/08/19 10/08/19 10/08/19 08:00 08:09 08:14 Temperature Pulse Rate 86 86 Respiratory 18 18 Rate Blood Pressure 133/83 Blood Pressure [Left Radial Artery] O2 Sat by Pulse 93 L Oximetry 10/08/19 10/08/19 10/08/19 08:20 12:36 12:47 Temperature Pulse Rate 92 92 92 Respiratory Rate Blood Pressure Blood Pressure [Left Radial Artery] O2 Sat by Pulse Oximetry 10/08/19 10/08/19 10/08/19 15:00 15:49 15:57 Temperature 97.3 F L Pulse Rate 90 92 Respiratory 18 Rate Blood Pressure Blood Pressure 122/67 [Left Radial Artery] O2 Sat by Pulse 98 Oximetry - Reevaluation(s) Reevaluation #1: Medical records reviewed Patient is in no distress EKG Findings - EKG Comments: EKG Findings:: EKG shows sinus tachycardia 112, PA 216 QRS 84 QTC 431 Medical Decision Making - Medical Decision Making 68 male with persistent nausea vomiting diarrhea and swelling significant protein calorie malnutrition left lower extremity edema COPD hypoxia, hyponatremia. - Lab Data Result diagrams: 10/08/19 05:11 10/08/19 05:11 Lab Results 10/08/19 10/08/19 10/08/19 Range/Units 05:11 05:11 05:11 WBC 5.5 (3.8-10.6) k/uL RBC 3.97 L (4.30-5.90) m/uL Hgb 12.9 L (13.0-17.5) gm/dL Hct 38.3 L (39.0-53.0) % MCV 96.5 (80.0-100.0) fL MCH 32.5 (25.0-35.0) pg MCHC 33.6 (31.0-37.0) g/dL RDW 15.8 H (11.5-15.5) % Plt Count 176 (150-450) k/uL Neutrophils % 69 % Lymphocytes % 19 % Monocytes % 8 % Eosinophils % 1 % Basophils % 1 % Neutrophils # 3.8 (1.3-7.7) k/uL Lymphocytes # 1.0 (1.0-4.8) k/uL Monocytes # 0.4 (0-1.0) k/uL Eosinophils # 0.1 (0-0.7) k/uL Basophils # 0.0 (0-0.2) k/uL PT 11.7 (9.0-12.0) sec INR 1.2 H (<1.2) APTT 26.8 (22.0-30.0) sec Sodium 124 L (137-145) mmol/L Potassium 3.9 (3.5-5.1) mmol/L Chloride 87 L (98-107) mmol/L Carbon Dioxide 29 (22-30) mmol/L Anion Gap 8 mmol/L BUN 7 L (9-20) mg/dL Creatinine 0.43 L (0.66-1.25) mg/dL Est GFR (CKD-EPI)AfAm >90 (>60 ml/min/1.73 sqM) Est GFR (CKD-EPI)NonAf >90 (>60 ml/min/1.73 sqM) Glucose 132 H (74-99) mg/dL Calcium 8.9 (8.4-10.2) mg/dL Magnesium 1.4 L (1.6-2.3) mg/dL Total Bilirubin 1.3 (0.2-1.3) mg/dL AST 57 (17-59) U/L ALT 41 (4-49) U/L Alkaline Phosphatase 162 H (38-126) U/L Troponin I (0.000-0.034) ng/mL NT-Pro-B Natriuret Pep pg/mL Total Protein 6.5 (6.3-8.2) g/dL Albumin 3.1 L (3.5-5.0) g/dL Lipase 106 (23-300) U/L 10/08/19 10/08/19 Range/Units 05:11 05:11 WBC (3.8-10.6) k/uL RBC (4.30-5.90) m/uL Hgb (13.0-17.5) gm/dL Hct (39.0-53.0) % MCV (80.0-100.0) fL MCH (25.0-35.0) pg MCHC (31.0-37.0) g/dL RDW (11.5-15.5) % Plt Count (150-450) k/uL Neutrophils % % Lymphocytes % % Monocytes % % Eosinophils % % Basophils % % Neutrophils # (1.3-7.7) k/uL Lymphocytes # (1.0-4.8) k/uL Monocytes # (0-1.0) k/uL Eosinophils # (0-0.7) k/uL Basophils # (0-0.2) k/uL PT (9.0-12.0) sec INR (<1.2) APTT (22.0-30.0) sec Sodium (137-145) mmol/L Potassium (3.5-5.1) mmol/L Chloride (98-107) mmol/L Carbon Dioxide (22-30) mmol/L Anion Gap mmol/L BUN (9-20) mg/dL Creatinine (0.66-1.25) mg/dL Est GFR (CKD-EPI)AfAm (>60 ml/min/1.73 sqM) Est GFR (CKD-EPI)NonAf (>60 ml/min/1.73 sqM) Glucose (74-99) mg/dL Calcium (8.4-10.2) mg/dL Magnesium (1.6-2.3) mg/dL Total Bilirubin (0.2-1.3) mg/dL AST (17-59) U/L ALT (4-49) U/L Alkaline Phosphatase (38-126) U/L Troponin I 0.022 (0.000-0.034) ng/mL NT-Pro-B Natriuret Pep 877 pg/mL Total Protein (6.3-8.2) g/dL Albumin (3.5-5.0) g/dL Lipase (23-300) U/L - Radiology Data Radiology results: report reviewed (Chest x-ray is negative for acute disease), image reviewed Disposition Clinical Impression: Hyponatremia, Weakness generalized, Dehydration, Nausea & vomiting Disposition: ADMITTED IP TO THIS [facility] Condition: Fair Is patient prescribed a controlled substance at d/c from ED?: No
[2019-10-08] MEDS ORDERED: SODIUM CHLORIDE 0.9% 1,000 ML IV STA (05:14)
[2019-10-08] MEDS ORDERED: ONDANSETRON 4 MG/2 ML VIAL IVP STA (05:14)
--- NOTE | 2019-10-08 05:30 | XR ---
EXAMINATION TYPE: XR chest 2V DATE OF EXAM: 10/08/2019 COMPARISON: 08/30/2019 HISTORY: Chest pain TECHNIQUE: 2 views FINDINGS: There is right-sided central venous catheter with tip in the superior vena cava. There is w idening of the mediastinum consistent with adenopathy. There is increased density at the right pulmon tiara hilum consistent with adenopathy. There is 3.2 cm rounded mass in the right midlung. There is 3 c m rounded mass over the anterior left first rib. There is no heart failure. There is slight elevated right diaphragm. There is fluid in the right major fissure. There is some consolidation at the right lung apex unchanged. Trachea is deviated slightly to the right side. There is no heart failure. IMPRESSION: There is pleural thickening and volume loss in the right hemithorax unchanged. Pulmonary mass is unchanged. No heart failure seen.
[2019-10-08 05:57] LABS: Basophils % (A) 1 %; Eosinophils # (A) 0.1 k/uL (0-0.7); Eosinophils % (A) 1 %; HCT 38.3 % (39.0-53.0); HGB 12.9 gm/dL (13.0-17.5); Lymphocytes % (A) 19 %; MCH 32.5 pg (25.0-35.0); MCHC 33.6 g/dL (31.0-37.0); MCV 96.5 fL (80.0-100.0); Mean Platelet Volume 6.7; Monocytes # (A) 0.4 k/uL (0-1.0); Monocytes % (A) 8 %; Neutrophils # (A) 3.8 k/uL (1.3-7.7); Neutrophils % (A) 69 %; Platelet Count 176 k/uL (150-450); RBC 3.97 m/uL (4.30-5.90); RDW 15.8 % (11.5-15.5); WBC 5.5 k/uL (3.8-10.6)
[2019-10-08 06:05] LABS: INR 1.2 (<1.2); Partial Thromboplastin Time 26.8 sec (22.0-30.0); Prothrombin Time 11.7 sec (9.0-12.0)
[2019-10-08 06:11] LABS: ALT 41 U/L (4-49); AST 57 U/L (17-59); African American GFR (CKD) >90 (>60 ml/min/1.73 sqM); Albumin 3.1 g/dL (3.5-5.0); Alkaline Phosphatase 162 U/L (38-126); Anion Gap 8 mmol/L; Blood Urea Nitrogen 7 mg/dL (9-20); Calcium 8.9 mg/dL (8.4-10.2); Carbon Dioxide 29 mmol/L (22-30); Chloride 87 mmol/L (98-107); Glucose 132 mg/dL (74-99); Magnesium 1.4 mg/dL (1.6-2.3); Non-African American GFR(CKD) >90 (>60 ml/min/1.73 sqM); Potassium 3.9 mmol/L (3.5-5.1); Sodium 124 mmol/L (137-145); Total Bilirubin 1.3 mg/dL (0.2-1.3); Total Protein 6.5 g/dL (6.3-8.2)
[2019-10-08] MEDS ORDERED: MORPHINE SULFATE 4 MG/ML SYRINGE IVP STA (06:16)
[2019-10-08] MEDS ORDERED: MORPHINE SULFATE 4 MG/ML SYRINGE IVP PRN (06:16)
[2019-10-08] MEDS ORDERED: ONDANSETRON 4 MG/2 ML VIAL IVP PRN (06:18)
[2019-10-08] MEDS ORDERED: SODIUM CHLORIDE 0.9% 1,000 ML IV SCH (06:30)
[2019-10-08] MEDS: IPRATROPIUM-ALBUTEROL 3 ML NEB INHALATION SCH ×4 (08:05→20:52)
[2019-10-08] MEDS ORDERED: ZOLPIDEM 5 MG TAB PO PRN (09:59)
[2019-10-08] MEDS ORDERED: Magnesium Replacement Protocol 1 EACH MISC MISCELLANE PRN (10:44)
--- NOTE | 2019-10-08 10:49 | P.CRDCN ---
History of Present Illness History of present illness: HISTORY OF PRESENTING ILLNESS This is a pleasant 68-year-old male past medical history significant for COPD, non-small cell lung cancer treated with both chemotherapy and radiation, hypertension, dyslipidemia and former nicotine dependence. Denies prior history of coronary artery disease and does not follow with a senior web services developer for any reason. We have been asked to see in consultation for chest pain. He presented to the hospital with symptoms of chest discomfort in the right anterior chest wall that is exacerbated by deep inspiration with associated cough and shortness of breath. Chest x-ray reveals pleural thickening and volume loss in the right hemithorax with an unchanged pulmonary mass and no heart failure. He is seen and examined sitting up in bed in no acute distress. His respirations are equal and unlabored. He is continuing to have chest discomfort on the right side when he takes a deep breath. Recent bone scan performed earlier this month revealed intense abnormal uptake involving the region of the right sternoclavicular joint as well as vertebral column. Recent computed tomography scan of the chest abdomen and pelvis revealed definite progression right hilar right upper lobe site treated disease with new an enlarging masses and nodules present in the right upper lobe. Metastasis to the right lateral mid lung and progressive enlargement of the anterior left upper lobe nodule with 2 new right hepatic sites of metastasis. DIAGNOSTICS EKG reveals sinus tachycardia with first-degree AV block heart rate of 112 with inferior Q wave. Laboratory reviewed, WBC 5.5, hemoglobin 12.9, platelets 176, INR 1.2, sodium 124, potassium 3.9, creatinine 0.43, magnesium 1.4, cardiac enzymes negative 1 and and T proBNP 877. Current cardiac medications include enalapril 10 mg daily, propanolol 60 mg daily and simvastatin 10 mg daily. REVIEW OF SYSTEMS At the time of my exam: CONSTITUTIONAL: Denies fever or chills. CARDIOVASCULAR: Denies chest pain, shortness of breath, orthopnea, PND or palpitations. RESPIRATORY: Denies cough. GASTROINTESTINAL: Denies abdominal pain, diarrhea, constipation, nausea or vomiting. MUSCULOSKELETAL: Denies myalgias. NEUROLOGIC: Denies numbness, tingling or weakness. ENDOCRINE: Denies fatigue, weight change, polydipsia or polyurina. GENITOURINARY: Denies burning, hematuria or urgency with micturation. HEMATOLOGIC: Denies history of anemia or bleeding. PHYSICAL EXAMINATION Blood pressure 133/83 heart rate 86 afebrile and maintaining oxygen saturation on nasal cannula. CONSTITUTIONAL: No apparent distress. Obese. HEENT: Head is normocephalic. Pupils are equal, round. Sclerae anicteric. Mucous membranes of the mouth are moist. No JVD. No carotid bruit. CHEST EXAMINATION: Lungs are clear to auscultation. No chest wall tenderness is noted on palpation or with deep breathing. Diminished bilaterally. HEART EXAMINATION: Regular rate and rhythm. S1, S2 heard. No murmurs, gallops or rub. ABDOMEN: Soft, nontender. Positive bowel sounds. EXTREMITIES: 2+ peripheral pulses, mild lower extremity non-pitting edema and no calf tenderness. NEUROLOGIC EXAMINATION: Patient is awake, alert and oriented x3. ASSESSMENT Chest pain, pleuritic. Atypical for angina. Hyponatremia Hypomagnesemia Lung cancer with metastasis Hypertension Dyslipidemia COPD Former nicotine dependence Obesity, BMI 35 PLAN Pain is atypical to be related to angina. Musculoskeletal in nature. We will check a second troponin to rule out an acute event given his abnormal EKG. Obtain 2-D echocardiogram and Doppler study to assess cardiac structure and function. Change propanolol to metoprolol tartrate 25 mg 3 times a day. Replace magnesium per protocol. If there is no changes in his echocardiogram we will follow along as needed. Ongoing medical management. Thank you kindly for this consultation. Nurse Practitioner note has been reviewed, I agree with a documented findings and plan of care. Patient was seen and examined. Past Medical History Past Medical History: Cancer, COPD, Deep Vein Thrombosis (DVT), GERD/Reflux, Hyperlipidemia, Hypertension, Liver Disease, Osteoarthritis (OA) Additional Past Medical History / Comment(s): neuropathy, hx broken vertebrae., back pain, states hx of fall x2 during chemo tx., hepatitis C 20 years ago with tx, Right Lung Cancer (2019)- Chemo & radiation tx. History of Any Multi-Drug Resistant Organisms: None Reported Past Surgical History: No Surgical Hx Reported Additional Past Surgical History / Comment(s): eye sx, lung biopsy, liver bx Past Anesthesia/Blood Transfusion Reactions: No Reported Reaction Past Psychological History: Bipolar Smoking Status: Former smoker Past Alcohol Use History: None Reported Past Drug Use History: None Reported - Past Family History Mother Family Medical History: No Reported History Son(s) Family Medical History: Cancer Additional Family Medical History / Comment(s): lung cancer Medications and Allergies Home Medications Medication Instructions Recorded Confirmed Type Enalapril [Vasotec] 10 mg PO DAILY 09/06/15 10/08/19 History Gabapentin [Neurontin] 800 mg PO TID 09/06/15 10/08/19 History Meloxicam [Mobic] 15 mg PO DAILY 09/06/15 10/08/19 History Omeprazole 20 mg PO BID 09/06/15 10/08/19 History Primidone [Mysoline] 50 mg PO TID 09/06/15 10/08/19 History Simvastatin [Zocor] 10 mg PO DAILY 09/06/15 10/08/19 History buPROPion SR [Wellbutrin SR] 150 mg PO BID 09/06/15 10/08/19 History Budesonide-Formot 160-4.5 Mcg 2 puff INHALATION RT-BID 10/12/18 10/08/19 History [Symbicort 160-4.5 Mcg Inhaler] Albuterol Sulfate [Albuterol 2 puff PO RT-Q6H 08/30/19 10/08/19 History Sulfate Hfa] Propranolol HCl 60 mg PO DAILY 08/30/19 10/08/19 History Hydrocodone/Acetaminophen [[place] 1 tab PO Q6H PRN 10/08/19 10/08/19 History 10-325] Zolpidem [Ambien] 5 mg PO HS PRN 10/08/19 10/08/19 History Allergies Allergy/AdvReac Type Severity Reaction Status Date / Time methadone Allergy Swelling Verified 10/08/19 07:24 of Ears Physical Exam Vitals: Vital Signs Temp Pulse Resp BP Pulse Ox 10/08/19 08:14 86 18 133/83 93 L 10/08/19 08:09 86 10/08/19 06:30 113 H 18 133/83 93 L 10/08/19 05:00 18 10/08/19 04:45 97.8 F 114 H 18 142/80 94 L Intake and Output 10/07/19 10/08/19 10/08/19 22:59 06:59 14:59 Other: Weight 131.542 kg Results 10/08/19 05:11 10/08/19 05:11 Cardiac Enzymes 10/08/19 10/08/19 Range/Units 05:11 05:11 AST 57 (17-59) U/L Troponin I 0.022 (0.000-0.034) ng/mL Coagulation 10/08/19 Range/Units 05:11 PT 11.7 (9.0-12.0) sec APTT 26.8 (22.0-30.0) sec CBC 10/08/19 Range/Units 05:11 WBC 5.5 (3.8-10.6) k/uL RBC 3.97 L (4.30-5.90) m/uL Hgb 12.9 L (13.0-17.5) gm/dL Hct 38.3 L (39.0-53.0) % Plt Count 176 (150-450) k/uL Comprehensive Metabolic Panel 10/08/19 Range/Units 05:11 Sodium 124 L (137-145) mmol/L Potassium 3.9 (3.5-5.1) mmol/L Chloride 87 L (98-107) mmol/L Carbon Dioxide 29 (22-30) mmol/L BUN 7 L (9-20) mg/dL Creatinine 0.43 L (0.66-1.25) mg/dL Glucose 132 H (74-99) mg/dL Calcium 8.9 (8.4-10.2) mg/dL AST 57 (17-59) U/L ALT 41 (4-49) U/L Alkaline Phosphatase 162 H (38-126) U/L Total Protein 6.5 (6.3-8.2) g/dL Albumin 3.1 L (3.5-5.0) g/dL Current Medications Generic Name Dose Route Start Last Admin Trade Name Freq PRN Reason Stop Dose Admin Hydrocodone Bitart/Acetaminophen 1 each 10/08/19 09:59 [place] 10 PO Q6H PRN Pain Albuterol Sulfate 2.5 mg 10/08/19 14:00 Ventolin Nebulized INHALATION RT-Q6H EMILY Albuterol/Ipratropium 3 ml 10/08/19 08:00 10/08/19 08:05 Duoneb 0.5 Mg-3 Mg/3 Ml Soln INHALATION 3 ml RT-QID EMILY Administration Atorvastatin Calcium 10 mg 10/08/19 10:00 Lipitor PO DAILY EMILY Budesonide/Formoterol Fumarate 2 puff 10/08/19 09:59 Symbicort 160-4.5 Mcg Inhaler INHALATION RT-BID [facility] Bupropion HCl 150 mg 10/08/19 10:00 Wellbutrin Sr PO BID [facility] Gabapentin 800 mg 10/08/19 10:00 Neurontin PO TID [facility] Sodium Chloride 1,000 mls @ 20 mls/hr 10/08/19 06:30 Saline 0.9% IV .Q24H [facility] Lisinopril 20 mg 10/08/19 10:00 Zestril PO DAILY [facility] Meloxicam 15 mg 10/08/19 10:15 Mobic PO DAILY [facility] Metoprolol Tartrate 25 mg 10/08/19 09:00 Lopressor PO TID [facility] Morphine Sulfate 4 mg 10/08/19 06:16 Morphine Sulfate (Inj) IVP Q4HR PRN Pain Ondansetron HCl 4 mg 10/08/19 06:18 Zofran IVP Q6HR PRN Nausea And Vomiting Pantoprazole Sodium 40 mg 10/08/19 10:00 Protonix PO AC-BRKFST [facility] Primidone 50 mg 10/08/19 10:00 Mysoline PO TID [facility] Propranolol HCl 60 mg 10/08/19 10:00 Inderal La PO DAILY [facility] Zolpidem Tartrate 5 mg 10/08/19 09:59 Ambien PO HS PRN Insomnia Intake and Output 10/07/19 10/08/19 10/08/19 22:59 06:59 14:59 Other: Weight 131.542 kg 10/08/19 05:11 10/08/19 05:11
[2019-10-08] MEDS: buPROPion SR 150 MG TABLET.ER PO SCH ×2 (10:57→20:20)
[2019-10-08] MEDS: PRIMIDONE 50 MG TAB PO SCH ×3 (10:57→20:20)
[2019-10-08] MEDS: METOPROLOL TARTRATE 25 MG TAB PO SCH ×3 (10:57→20:20)
[2019-10-08] MEDS: lisinopriL 20 MG TAB PO SCH (10:57)
[2019-10-08] MEDS: PANTOPRAZOLE 40 MG TABLET PO SCH (10:57)
[2019-10-08] MEDS: MELOXICAM 7.5 MG TAB PO SCH (10:57)
[2019-10-08] MEDS: ATORVASTATIN 10 MG TAB PO SCH (10:57)
[2019-10-08] MEDS: PROPRANOLOL LA 60 MG CAP.SA.24H PO SCH (10:59)
[2019-10-08] MEDS: MAGNESIUM SULFATE-D5W PMX 1 GM in DEXTROSE/WATER 1 100ML.BAG IVPB SCH ×3 (10:59→14:32)
[2019-10-08] MEDS: GABAPENTIN 400 MG CAP PO SCH ×3 (11:16→20:20)
[2019-10-08] MEDS: SYMBICORT 160-4.5 MCG INHALER INHALATION SCH ×2 (11:59→20:52)
--- NOTE | 2019-10-08 13:38 | ECHOF ---
Referral Reason:cp MEASUREMENTS -------- HEIGHT: 193.0 cm WEIGHT: 131.5 kg BP: 133/83 RVIDd: 2.9 cm (< 3.3) IVSd: 1.8 cm (0.6 - 1.1) LVIDd: 3.7 cm (3.9 - 5.3) LVPWd: 1.7 cm (0.6 - 1.1) IVSs: 2.2 cm LVIDs: 2.6 cm LVPWs: 2.0 cm Ao Diam: 3.8 cm (2.0 - 3.7) AV Cusp: 2.3 cm (1.5 - 2.6) MV EXCURSION: 17.153 mm (> 18.000) MV EF SLOPE: 90 mm/s (70 - 150) EPSS: 0.2 cm RAP: 5.00 mmHg RVSP: 34.98 mmHg FINDINGS -------- This was a technically difficult study with suboptimal views. The left ventricular size is normal. There is moderate concentric left ventricular hypertrophy. O verall left ventricular systolic function is normal with, an EF between 55 - 60 %. Mitral Doppler i nflow pattern suggests diastolic filling abnormality {E/E'}. The right ventricle is normal in size. The left atrium was not well visualized. The right atrium was not well visualized. 5.0mg of Lumason was utilized for enhancement of images Interatrial and interventricular septum intact. There is mild aortic valve sclerosis. There is no evidence of aortic regurgitation. There is no e vidence of aortic stenosis. The mitral valve was not well visualized. No mitral regurgitation. The tricuspid valve was not well visualized. Mild tricuspid regurgitation present. There is borde rline pulmonary artery hypertension. The right ventricular systolic pressure, as measured by Dopple r, is 34.98mmHg. There is no pulmonic regurgitation present. The aortic root size is normal. IVC Not well visulized. There is no pericardial effusion. CONCLUSIONS -------- 1. The left ventricular size is normal. 2. There is moderate concentric left ventricular hypertrophy. 3. Mitral Doppler inflow pattern suggest diastolic filling abnormality {E/E'}. 4. There is mild aortic valve sclerosis. 5. Mild tricuspid regurgitation present. 6. There is borderline pulmonary artery hypertension. 7. The right ventricular systolic pressure, as measured by Doppler, is 34.98mmHg. SCALER: Silvia Childress RDCS
[2019-10-08] MEDS ORDERED: ALBUTEROL NEBULIZED 2.5 MG/3 ML INHALATION SCH (14:00)
[2019-10-08] MEDS: HYDROcodone/APAP 10-325MG 1 EACH TAB PO PRN (15:32)
--- NOTE | 2019-10-08 17:01 | CONS ---
CONSULTATION PULMONARY/CRITICAL CARE CONSULTATION: DATE OF SERVICE: 10/08/2019 This is a 68-year-old gentleman, well known to me. I saw him about 5 weeks ago in mid August. At that time, the patient was admitted with a COPD exacerbation complicated by purulent tracheobronchitis. The patient does have a history of advanced lung cancer. He has non-small cell lung cancer, squamous cell type, status post diagnosis made by navigational bronchoscopy, and chemo radiation therapy as well as immunotherapy with Imfinzi. He sees Dr. Mathew Steinberg and also Dr. Mireles. He also has a history of deep venous thrombosis, GERD, hyperlipidemia, hypertension, hepatitis C, DJD, neuropathy, and chronic back pain. He presents to the emergency room on 10/07 at 0430 in the morning with nausea, vomiting, diarrhea, chest pain and shortness of breath. He is evaluated in the emergency room by Dr. Shah and admitted with a diagnosis of hyponatremia, weakness, and dehydration. Currently, the patient states he is not having any difficulty with his breathing. He apparently has developed some lower extremity edema. Since I saw him last, he has not been back to Oncology. He was to go back for consideration of additional therapy. Currently, he is resting comfortably in the emergency room. He is on 2 L nasal cannula. He is getting a basic IV. CURRENT HOME MEDICATIONS: Include Vasotec, Neurontin, Mobic, omeprazole, Mysoline, Zocor, Wellbutrin, Symbicort, Ransom, albuterol inhaler, and propranolol. Other medications include Medrol Dosepak and Augmentin. ALLERGIES: METHADONE. MEDICAL HISTORY: As noted. He has got non-small cell lung cancer, which is rather advanced, status post chemoradiation as well as immunotherapy with Imfinzi, COPD, DVT, GERD, hyperlipidemia, hypertension, hepatitis C, and DJD. In addition, the patient has a history of neuropathy, as well as the lung cancer as mentioned. SURGICAL HISTORY: Includes eye surgery, navigational biopsy for the diagnosis of the lung cancer, and liver biopsy. SOCIAL HISTORY: Positive for previous tobacco use. He was a heavy smoker in the past. Denies any alcohol or illicit drug use currently. FAMILY HISTORY: Positive for mother who is healthy and a son with a history of cancer. The son apparently has lung cancer as well. REVIEW OF SYSTEMS: CONSTITUTIONAL: Weakness. NEUROLOGIC: Negative. HEENT: Negative. CARDIOVASCULAR: Negative. PULMONARY: Shortness of breath. GI: Nausea, vomiting. : Negative. RHEUMATOLOGIC: Negative. IMMUNOLOGIC: Negative. ENDOCRINOLOGIC: Negative. DERMATOLOGIC: Negative. Current vital signs are reviewed, temperature is 97.8, heart rate 86, respiratory rate 18, blood pressure 133/83, saturations are 93% on 3 L. Appears in no acute distress. HEENT: Examination is grossly unremarkable. NECK: Supple, full range of motion. No adenopathy. Neck veins are flat. CARDIOVASCULAR: Examination reveals regular rhythm and rate. S1, S2 normal. No S3, S4, or murmur. LUNGS: Reveal a few scattered rhonchi. No wheezes or crackles. For the most part, his lungs are clear. Breath sounds are equal. ABDOMEN: Obese, bowel sounds are heard. EXTREMITIES: Reveal some edema. It is 1 to 2+ and pitting in the lower extremities. SKIN: Without rash. NEUROLOGIC: Examination is brief but nonfocal. LABS: Reviewed. White count 5.5, hemoglobin 12.9, hematocrit 38.3, platelet count 176,000. PT 11.7, INR 1.2, PTT is 26.8. Sodium 124, potassium 3.9, chloride 87, CO2 is 29, anion gap is 8, BUN and creatinine were 7 and 0.43. Glucose 143, magnesium 1.4, alkaline phosphatase 162. Troponins were 0.022 and 0.016. N terminal proBNP 877. Albumin 3.1. Lipase normal. The patient had a chest x-ray. There is evidence of pleural thickening, volume loss, in the right hemithorax, which is unchanged. Chest x-ray shows right perihilar enlargement. There is a 3.3 cm rounded mass in the right mid lung, a 3 cm around a mass over the anterior left first rib, but no evidence of heart failure. There is also some consolidation at the right lung apex which has been present in the past. All in all, lung findings are unchanged. Medications are reviewed. From the pulmonary standpoint, he is on albuterol and Symbicort. The rest of his medications are typically his chronic medications. ASSESSMENT: 1. Vague complaints of shortness of breath, weakness, dehydration, nausea, vomiting, and diarrhea with some component of dehydration. 2. Hyponatremia, likely secondary to #1. 3. History of COPD, mostly stable at this time. 4. No evidence of pneumonia on chest x-ray. 5. Advanced lung cancer, with multiple lesions bilaterally as well as significant right perihilar and hilar enlargement. 6. Non-small cell lung cancer, status post chemoradiation as well as immune therapy with Imfinzi. Currently not receiving treatment. 7. History of gastroesophageal reflux disease. 8. History of deep venous thrombosis. 9. History of hyperlipidemia. 10.History of hypertension. 11.History of hepatitis C. 12.Degenerative joint disease. 13.Neuropathy. 14.Chronic back pain. PLAN: Currently, the patient seems to be doing relatively well. I will review his medications. He is about 50% active at this time. No additional recommendations are made. It would not be a bad idea for him to see Oncology while he is here in the hospital. He has not resumed any additional treatment. He states that he has not been contacted by Dr. Mireles. Additional recommendations and suggestions are forthcoming. Will follow along. TARIK / ALEM: [id number] /
[2019-10-08] MEDS ORDERED: RX INFO: IV CONTRAST WAS GIVEN 1 EACH MISC MISCELLANE PRN (22:58)
--- NOTE | 2019-10-08 22:58 | P.HPIM ---
History of Present Illness H&P Date: 10/08/19 Chief Complaint: tired History of presenting complaint: This is a pleasant 68-year-old patient of Dr. Laura Bernabe. Patient's oncologist is Dr. Mireles and radiation oncologist is Dr. Knox. Patient chronic stable medical conditions include COPD, GERD, hypertension, hyperlipidemia, osteoarthritis and peripheral neuropathy. Patient has been diagnosed with moderately differentiated's, squamous cell carcinomaTHE lung.. Has been getting weekly treatment with carboplatin and Taxol with concurrent radiation treatment. also had chemo-induced cytopenias. in the hospital about a month ago with postobstructive pneumonia. Dehydration. patient brought in by the EMS feeling nauseated, some shortness of breath some pain on the right positive chest some edema. Symptoms appear there for about a week or more. No obvious fever and chills. Review of systems: GEN.: Weak tired EYES: None HEENT: None NECK: None RESPIRATORY: as above CARDIOVASCULAR: right chest wall pain GASTROINTESTINAL: As above GENITOURINARY: None MUSCULOSKELETAL: Chronic back pain LYMPHATICS: None HEMATOLOGICAL: None PSYCHIATRY: None NEUROLOGICAL: Numbness tingling and some weakness of lower extremity past medical history to include: Moderately differentiated squamous cell carcinoma of the lung, COPD, DVT, GERD, hyperlipidemia, hypertension, osteoarthritis, peripheral neuropathy, pancytopenia Social history: Smoked a pack a day for 45 years. Stopped in 2018. Lives alone. No alcohol. Used to work in construction. Family history: Lung cancer Physical examination: VITAL SIGNS: 97.8, 114, 18, 142/80, 94% on room air upon presentation GENERAL: BMI 35.2, problem number, tired EYES: Pupils equal. Conjunctiva pale. HEENT: External appearance of nose and ears normal, oral cavity grossly normal. NECK: JVD not raised; masses not palpable. HEART: First and second heart sounds are normal; edema present LUNGS: Respiratory rate increased, decreased breath sounds. ABDOMEN: Soft, nontender, liver spleen not palpable, no masses palpable. PSYCH: tired but able to answer questions NEUROLOGICAL: Cranial nerves grossly intact; no facial asymmetry, decreased sensation distally. LYMPHATICS: No lymph nodes palpable in the axilla and neck Investigations: white count 5.5 hemoglobin 12.9 platelets 176 sodium 134 to percussion 3.9 bun 7 creatinine 0.43albumin 3.1 EKG tracing personally reviewed by me-normal sinus rhythm Q waves in inferior leads and nonspecific findings Chest x-ray film personally reviewed by me-showing possible mass Assessment: -Symptomatic hyponatremia suspect hypoosmolar -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 -Moderately differentiated squamous cell carcinoma of the lung status post chemo and radiation treatment -COPD in an ex-smoker -GERD -Hyperlipidemia -Essential hypertension -Primary osteoarthritis -Peripheral neuropathy from a combination of being on chemotherapy and from underlying malignancy -Obesity BMI 35.3 -Hypomagnesemia Plan: patient be started on saline. Home medications to be resumed. Consult PTOT. Consult oncology.rule out PE. Cutback nose of Neurontin. Past Medical History Past Medical History: Cancer, COPD, Deep Vein Thrombosis (DVT), GERD/Reflux, Hyperlipidemia, Hypertension, Liver Disease, Osteoarthritis (OA) Additional Past Medical History / Comment(s): neuropathy, hx broken vertebrae., back pain, states hx of fall x2 during chemo tx., hepatitis C 20 years ago with tx, Right Lung Cancer (2019)- Chemo & radiation tx. History of Any Multi-Drug Resistant Organisms: None Reported Past Surgical History: No Surgical Hx Reported Additional Past Surgical History / Comment(s): eye sx, lung biopsy, liver bx Past Anesthesia/Blood Transfusion Reactions: No Reported Reaction Past Psychological History: Bipolar Smoking Status: Former smoker Past Alcohol Use History: None Reported Past Drug Use History: None Reported - Past Family History Mother Family Medical History: No Reported History Son(s) Family Medical History: Cancer Additional Family Medical History / Comment(s): lung cancer Medications and Allergies Home Medications Medication Instructions Recorded Confirmed Type Enalapril [Vasotec] 10 mg PO DAILY 09/06/15 10/08/19 History Gabapentin [Neurontin] 800 mg PO TID 09/06/15 10/08/19 History Meloxicam [Mobic] 15 mg PO DAILY 09/06/15 10/08/19 History Omeprazole 20 mg PO BID 09/06/15 10/08/19 History Primidone [Mysoline] 50 mg PO TID 09/06/15 10/08/19 History Simvastatin [Zocor] 10 mg PO DAILY 09/06/15 10/08/19 History buPROPion SR [Wellbutrin SR] 150 mg PO BID 09/06/15 10/08/19 History Budesonide-Formot 160-4.5 Mcg 2 puff INHALATION RT-BID 10/12/18 10/08/19 History [Symbicort 160-4.5 Mcg Inhaler] Albuterol Sulfate [Albuterol 2 puff PO RT-Q6H 08/30/19 10/08/19 History Sulfate Hfa] Propranolol HCl 60 mg PO DAILY 08/30/19 10/08/19 History Hydrocodone/Acetaminophen [[place] 1 tab PO Q6H PRN 10/08/19 10/08/19 History 10-325] Zolpidem [Ambien] 5 mg PO HS PRN 10/08/19 10/08/19 History Allergies Allergy/AdvReac Type Severity Reaction Status Date / Time methadone Allergy Swelling Verified 10/08/19 07:24 of Ears Physical Exam Vitals: Vital Signs Temp Pulse Resp BP Pulse Ox 10/08/19 08:14 86 18 133/83 93 L 10/08/19 08:09 86 10/08/19 06:30 113 H 18 133/83 93 L 10/08/19 05:00 18 10/08/19 04:45 97.8 F 114 H 18 142/80 94 L Intake and Output 10/07/19 10/08/19 10/08/19 22:59 06:59 14:59 Other: Weight 131.542 kg Results CBC & Chem 7: 10/08/19 05:11 10/08/19 05:11 Labs: Abnormal Lab Results - Last 24 Hours (Table) 10/08/19 10/08/19 10/08/19 Range/Units 05:11 05:11 05:11 RBC 3.97 L (4.30-5.90) m/uL Hgb 12.9 L (13.0-17.5) gm/dL Hct 38.3 L (39.0-53.0) % RDW 15.8 H (11.5-15.5) % INR 1.2 H (<1.2) Sodium 124 L (137-145) mmol/L Chloride 87 L (98-107) mmol/L BUN 7 L (9-20) mg/dL Creatinine 0.43 L (0.66-1.25) mg/dL Glucose 132 H (74-99) mg/dL Magnesium 1.4 L (1.6-2.3) mg/dL Alkaline Phosphatase 162 H (38-126) U/L Albumin 3.1 L (3.5-5.0) g/dL
[2019-10-09] MEDS: SODIUM CHLORIDE 0.9% 1,000 ML IV SCH ×2 (02:10→16:57)
[2019-10-09] MEDS: HYDROcodone/APAP 10-325MG 1 EACH TAB PO PRN ×2 (07:37→16:06)
[2019-10-09 08:15] LABS: African American GFR (CKD) >90 (>60 ml/min/1.73 sqM); Anion Gap 1 mmol/L; Blood Urea Nitrogen 7 mg/dL (9-20); Calcium 8.3 mg/dL (8.4-10.2); Carbon Dioxide 35 mmol/L (22-30); Chloride 91 mmol/L (98-107); Glucose 164 mg/dL (74-99); Magnesium 1.6 mg/dL (1.6-2.3); Non-African American GFR(CKD) >90 (>60 ml/min/1.73 sqM); Potassium 4.4 mmol/L (3.5-5.1); Sodium 127 mmol/L (137-145)
[2019-10-09] MEDS: IPRATROPIUM-ALBUTEROL 3 ML NEB INHALATION SCH ×4 (08:33→20:02)
[2019-10-09] MEDS: SYMBICORT 160-4.5 MCG INHALER INHALATION SCH ×2 (08:34→20:02)
[2019-10-09] MEDS: PRIMIDONE 50 MG TAB PO SCH ×3 (10:29→20:59)
[2019-10-09] MEDS: ATORVASTATIN 10 MG TAB PO SCH (10:31)
[2019-10-09] MEDS: lisinopriL 20 MG TAB PO SCH (10:32)
[2019-10-09] MEDS: GABAPENTIN 300 MG CAP PO SCH ×3 (10:32→20:59)
[2019-10-09] MEDS: MELOXICAM 7.5 MG TAB PO SCH (10:33)
[2019-10-09] MEDS: PANTOPRAZOLE 40 MG TABLET PO SCH (10:35)
[2019-10-09] MEDS: buPROPion SR 150 MG TABLET.ER PO SCH ×2 (10:36→20:59)
[2019-10-09] MEDS: PROPRANOLOL LA 60 MG CAP.SA.24H PO SCH (10:37)
[2019-10-09] MEDS: METOPROLOL TARTRATE 25 MG TAB PO SCH ×3 (10:37→20:59)
--- NOTE | 2019-10-09 11:08 | CT ---
EXAMINATION TYPE: CT angio chest DATE OF EXAM: 10/09/2019 8:00 AM COMPARISON: CT chest 09/17/2019 HISTORY: PE, known lung CA CT DLP: 774.6 mGycm Automated exposure control for dose reduction was used. CONTRAST: CTA scan of the thorax is performed with IV Contrast, patient injected with 100 mL of Isovue 370, pul monary embolism protocol. MIP images are created on a separate workstation and reviewed. FINDINGS: LUNGS: There is redemonstrated right hilar and suprahilar obstructing lung mass with postobstructive atelectasis and consolidation changes, spanning a region of approximately 6.8 x 8.9 cm in the right u pper lobe lung apex, with mildly more confluent consolidation versus 09/17/2019 comparison. The right h ilar component demonstrates increased post obstructive linear atelectasis versus 09/17/2019. Right lowe r lobe lobulated 2.9 cm mass redemonstrated (406:64). Left upper lobe lobulated 2.6 cm mass redemonst rated (4 6:39). Small right pleural effusion new versus 09/17/2019. No pneumothorax. MEDIASTINUM: There is satisfactory enhancement of the pulmonary artery and its branches. The subsegme ntal branches of the right upper lobar pulmonary artery demonstrates attenuation and occlusion of the posterior lung apex due to large known lung mass. Largest mediastinal lymph node measures 1.3 x 3.2 cm left para-aortic (401:56). Normal heart size. No pericardial effusion is seen. Right-sided MediPor t with distal tip in the superior vena cava. OTHER: Hepatic dome metastases redemonstrated (401:90, 401:113). IMPRESSION: 1. RIGHT HILAR AND SUPRAHILAR KNOWN LUNG MASS DEMONSTRATES INCREASED ASSOCIATED CONFLUENT CONSOLIDATI VE OPACITIES OF THE RIGHT UPPER LOBE AND RIGHT UPPER LOBE ATELECTASIS VERSUS 09/17/2019 COMPARISON, [facility] MAY REPRESENT POSTOBSTRUCTIVE AND/OR INFECTIOUS ETIOLOGY. THERE IS ATTENUATION AND OCCLUSION OF TH E RIGHT POSTERIOR LUNG APEX DISTAL SUBSEGMENTAL PULMONARY ARTERIES WITHIN THE DOMINANT RIGHT UPPER ERIN NG MASS. 2. NEW SMALL RIGHT PLEURAL EFFUSION. 3. OTHER PULMONARY METASTASES AND HEPATIC METASTASES UNCHANGED VERSUS 09/17/2019.
--- NOTE | 2019-10-09 14:31 | P.PN ---
Subjective Progress Note Date: 10/09/19 Principal diagnosis: Shortness of breath, weakness, dehydration, nausea, vomiting and diarrhea, hyponatremia 68-year-old male patient of Dr. Jonas Thomas who was admitted yesterday on 10/08/2019 after the patient came in to the hospital for evaluation of weakness, nausea, vomiting, diarrhea, chest pain and shortness of breath. Patient was found to have hyponatremia related to dehydration. Patient denied any significant shortness of breath. He did report some increased lower extremity edema. He has a known history of COPD, history of advanced lung cancer, squamous cell type, status post chemoradiation and most recently immunotherapy with Imfinzi. Patient's chest x-ray showed evidence of pleural thickening, volume loss in the right hemithorax, right perihilar enlargement, with a 3.3 cm rounded mass in the right midlung, a 3 cm round mass over the anterior left first rib but no evidence of heart failure. There was also some consolidation at the right lung apex which has been present in the past. Follow-up CTA chest was completed today showing right hilar and suprahilar known lung mass redemonstrated, appears increased associated confluent consolidative opacities of the right upper lobe, and right upper lobe atelectasis versus postobstructive and/or infectious etiology. There is attenuation and occlusion of the right posterior lung apex distal subsegmental pulmonary arteries within the dominant right upper lung mass. There was new small right pleural effusion other pulmonary metastasis and hepatic metastasis unchanged since 09/17/2019. On today's exam patient is seen on a general medical surgical floor, he is awake and alert, she is resting comfortably in bed, she looks better, and he states he is breathing easier, lung sounds are diminished with some scattered rhonchi, he remains on 3 L of oxygen the pulse ox of 98%. No chest pain, no hemoptysis, patient is afebrile. His IV fluids have been hep-locked, there has been no further nausea vomiting or diarrhea. Still has some lower extremity edema. Today's sodium is up to 127 from 124 on yesterday's labs, potassium is 4.4, chloride is 91, CO2 is 35, B1 is 7 creatinine 0.41, 2 sets of troponins were negative at 0.0-2, and 0.016. Lipase was negative at 106, coronavirus be severe was not detected Objective - Vital Signs Vital signs: Vital Signs Temp 97.5 F L 10/09/19 11:57 Pulse 78 10/09/19 11:57 Resp 24 10/09/19 11:57 BP 112/76 10/09/19 11:57 Pulse Ox 98 10/09/19 11:57 Intake & Output 10/08/19 10/09/19 10/09/19 18:59 06:59 18:59 Intake Total 1260 Balance 1260 Weight 131.542 kg Intake: Intake, IV Titration 420 Amount Magnesium Sulfate-D5w Pmx 300 1 gm In Dextrose/Water 1 100ml.bag @ 100 mls/hr IVPB Q1H EMILY Rx#: [id number] Sodium Chloride 0.9% 1, 120 000 ml @ 20 mls/hr IV . Q24H EMILY Rx#:[id number] Oral 840 Other: Voiding Method Urinal Toilet Urinal # Voids 600 1 3 - Exam GENERAL EXAM: Alert, very pleasant, 68-year-old white male, on 3 L, with a pulse ox 98%, resting in bed appears to be comfortable in no apparent distress. HEAD: Normocephalic/atraumatic. EYES: Normal reaction of pupils, equal size. Conjunctiva pink, sclera white. NOSE: Clear with pink turbinates. THROAT: No erythema or exudates. NECK: No masses, no JVD, no thyroid enlargement, no adenopathy. CHEST: No chest wall deformity. Symmetrical expansion. LUNGS: Equal air entry with scattered rhonchi CVS: Regular rate and rhythm, normal S1 and S2, no gallops, no murmurs, no rubs ABDOMEN: Soft, nontender. No hepatosplenomegaly, normal bowel sounds, no guard ing or rigidity. EXTREMITIES: No clubbing, no edema, no cyanosis, 2+ pulses and upper and lower extremities. MUSCULOSKELETAL: Muscle strength and tone normal. SPINE: No scoliosis or deformity SKIN: No rashes CENTRAL NERVOUS SYSTEM: Alert and oriented -3. No focal deficits, tone is normal in all 4 extremities. PSYCHIATRIC: Alert and oriented -3. Appropriate affect. Intact judgment and insight. - Labs CBC & Chem 7: 10/08/19 05:11 10/09/19 07:45 Labs: Abnormal Lab Results - Last 24 Hours (Table) 10/09/19 Range/Units 07:45 Sodium 127 L (137-145) mmol/L Chloride 91 L (98-107) mmol/L Carbon Dioxide 35 H (22-30) mmol/L BUN 7 L (9-20) mg/dL Creatinine 0.41 L (0.66-1.25) mg/dL Glucose 164 H (74-99) mg/dL Osmolality 270 L (280-301) mosm/kg Calcium 8.3 L (8.4-10.2) mg/dL Assessment and Plan Plan: Assessment: #1. Shortness of breath, multifactorial, related to acute exacerbation of COPD, and advanced squamous cell lung cancer #2. Dehydration, nausea, vomiting and diarrhea, resolved #3. Hyponatremia related to the above, improving #4. History of COPD #5. No evidence of pneumonia on the chest x-ray #6. Advanced lung cancer, squamous cell carcinoma with multiple lesions bilaterally as well as significant right perihilar and hilar enlargement, status post chemo radiation and immunotherapy with Imfinzi, currently not receiving treatment #7. GERD/reflux #8. History of DVT #9. History of hyperlipidemia #10. History of hypertension #11. History of hepatitis C #12. Degenerative joint disease #13. Chronic back pain and neuropathy Plan: Continue current medical treatment, continue bronchodilators, DuoNeb, Symbicort. Breathing has improved, patient has slight congestion. No hemoptysis, no compl aints of chest pain. Continue gentle IV hydration, serum sodium has improved, no nausea vomiting or diarrhea, patient is tolerating oral diet. Today's CTA chest has been reviewed showing increased right hilar and suprahilar lung mass with consolidative opacities of the right upper lobe and possible narrowing and postobstructive changes in the right upper lobe. New small right pleural effusion. This may represent progression of patient's lung cancer. Consult medical oncology for possibility of immunotherapy. We'll continue treating patient medical I performed a history & physical examination of the patient and discussed their management with my nurse practitioner, Neelima Zheng. I reviewed the nurse practitioner's note and agree with the documented findings and plan of care. Lung sounds are positive for diffuse rhonchi. The findings and the impression was discussed with the patient. I attest to the documentation by the nurse practitioner. Time with Patient: Less than 30
--- NOTE | 2019-10-09 15:02 | P.CONS ---
History of Present Illness - Reason for Consult Consult date: 10/09/19 NSCLC Requesting physician: Micah Orta - Chief Complaint SOB - History of Present Illness Mr. White is a very pleasant 68-year-old male patient of Dr. Mireles who has not received treatment for his recurrent non-small cell lung cancer since the holiness of Covid 19. He is refused to come to the office and to be seen in the office for visits. He did have a telemedicine visit about [address] Mireles, due to a oral infection patient was not able to resume treatment for recently progressed disease. Patient states coming to the hospital for nausea and vomiting. Since admission though, he states that this has resolved. He denies any fevers, chills, the infection in his mouth is improved but he said it has drained recently, he has a persistent cough and is asking for refill on his Tessalon, he denies hemoptysis, chest pain, abdominal pain or cramping, dysuria, hematuria, diarrhea or constipation. Malignancy history: Patient presented in July 2018 with persistent and progressive weakness, shortness of breath and cough times one year. Within the month prior he had evidence of hemoptysis. Chest x-ray 07/23/18 revealed right upper lobe irregular mass, 1.8 cm, right hilar adenopathy. Computed tomography scan showed multiple lobular masses in the right upper lobe and right hilar adenopathy. Staging PET scan August 29 right upper lobe nodule 2.7 x 1.8cm abutting the right main bronchus with an SUV of 7.8, a hypermetabolic nodule in the right parotid gland with a SUV of 6.61. Bronchoscopy August 15, pathology revealed moderately differentiated squamous cell carcinoma. MRI of the brain was negative for metastatic disease at that time and he began concurrent carboplatin and Taxol therapy on 09/10/2018, completed 11/02/18. He was placed on maintenance Imfinzi. He did well until the beginning of this year when Covid 19 started. That was when he refused coming to the office. Review of Systems 14 point ROS is negative except as stated in HPI Past Medical History Past Medical History: Cancer, COPD, Deep Vein Thrombosis (DVT), GERD/Reflux, Hyperlipidemia, Hypertension, Liver Disease, Osteoarthritis (OA) Additional Past Medical History / Comment(s): neuropathy, hx broken vertebrae., back pain, states hx of fall x2 during chemo tx., hepatitis C 20 years ago with tx, Right Lung Cancer (2019)- Chemo & radiation tx. History of Any Multi-Drug Resistant Organisms: None Reported Past Surgical History: No Surgical Hx Reported Additional Past Surgical History / Comment(s): eye sx, lung biopsy, liver bx Past Anesthesia/Blood Transfusion Reactions: No Reported Reaction Past Psychological History: Bipolar Smoking Status: Former smoker Past Alcohol Use History: None Reported Past Drug Use History: None Reported - Past Family History Mother Family Medical History: No Reported History Son(s) Family Medical History: Cancer Additional Family Medical History / Comment(s): lung cancer Medications and Allergies Home Medications Medication Instructions Recorded Confirmed Type Enalapril [Vasotec] 10 mg PO DAILY 09/06/15 10/08/19 History Gabapentin [Neurontin] 800 mg PO TID 09/06/15 10/08/19 History Meloxicam [Mobic] 15 mg PO DAILY 09/06/15 10/08/19 History Omeprazole 20 mg PO BID 09/06/15 10/08/19 History Primidone [Mysoline] 50 mg PO TID 09/06/15 10/08/19 History Simvastatin [Zocor] 10 mg PO DAILY 09/06/15 10/08/19 History buPROPion SR [Wellbutrin SR] 150 mg PO BID 09/06/15 10/08/19 History Budesonide-Formot 160-4.5 Mcg 2 puff INHALATION RT-BID 10/12/18 10/08/19 History [Symbicort 160-4.5 Mcg Inhaler] Albuterol Sulfate [Albuterol 2 puff PO RT-Q6H 08/30/19 10/08/19 History Sulfate Hfa] Propranolol HCl 60 mg PO DAILY 08/30/19 10/08/19 History Hydrocodone/Acetaminophen [[place] 1 tab PO Q6H PRN 10/08/19 10/08/19 History 10-325] Zolpidem [Ambien] 5 mg PO HS PRN 10/08/19 10/08/19 History Allergies Allergy/AdvReac Type Severity Reaction Status Date / Time methadone Allergy Swelling Verified 10/08/19 07:24 of Ears Physical Exam Vitals: Vital Signs Temp Pulse Pulse Resp BP Pulse Ox 10/09/19 11:57 97.5 F L 78 24 112/76 98 10/09/19 11:44 92 10/09/19 11:33 92 10/09/19 08:47 92 10/09/19 08:34 92 10/09/19 07:37 98.1 F 87 18 121/58 94 L 10/09/19 01:06 98.0 F 82 139/77 92 L 10/09/19 00:00 18 10/08/19 21:08 88 10/08/19 20:57 98 10/08/19 20:53 90 10/08/19 19:08 98.3 F 78 18 118/58 97 10/08/19 17:10 18 10/08/19 17:05 77 18 120/80 96 10/08/19 15:57 92 10/08/19 15:49 90 10/08/19 15:00 97.3 F L 18 122/67 98 Intake and Output 10/08/19 10/09/19 10/09/19 22:59 06:59 14:59 Other: Voiding Method Toilet Urinal # Voids 1 1 Weight 131.542 kg - Constitutional General appearance: cooperative, no acute distress, obese - EENT Left lower gumline area of swelling, whitish colored, no current drainage but patient said it has drained recently. No foul odor, redness. There was drainage through the tissue and onto the face previously Eyes: anicteric sclerae, EOMI ENT: hearing grossly normal - Neck Neck: no lymphadenopathy - Respiratory Respiratory: bilateral: CTA - Cardiovascular Rhythm: regular Heart sounds: normal: S1, S2 Abnormal Heart Sounds: no systolic murmur, no diastolic murmur, no rub, no S3 Gallop, no S4 Gallop, no click, no other leg Peripheral Edema: bilateral: Trace - Gastrointestinal General gastrointestinal: no absent bowel sounds, no decreased bowel sounds, no distended, no hepatomegaly, no hyperactive bowel sounds, normal bowel sounds, no organomegaly, no rigid, no scaphoid, soft, no splenomegaly, no tenderness, no umbilical hernia, no ventral hernia - Neurologic Neurologic: CNII-XII intact - Musculoskeletal Musculoskeletal: strength equal bilaterally - Psychiatric Psychiatric: A&O x's 3, appropriate affect, intact judgment & insight Results CBC & Chem 7: 10/08/19 05:11 10/09/19 07:45 Labs: Abnormal Lab Results - Last 24 Hours (Table) 10/09/19 Range/Units 07:45 Sodium 127 L (137-145) mmol/L Chloride 91 L (98-107) mmol/L Carbon Dioxide 35 H (22-30) mmol/L BUN 7 L (9-20) mg/dL Creatinine 0.41 L (0.66-1.25) mg/dL Glucose 164 H (74-99) mg/dL Osmolality 270 L (280-301) mosm/kg Calcium 8.3 L (8.4-10.2) mg/dL Comments: Echo report reviewed CT scan - chest: report reviewed Assessment and Plan (1) Primary lung adenocarcinoma Narrative/Plan: Since patient has refused to come to the office for treatments or OV due to covid. He had a telemedicine visit with Dr. Mireles about 10 days ago with plans to change his immunotherapy treatment for unresectable stage III cancer to combination chemo/immuno-therapy regimen because the patient had recent disease progression. Dr. Mireles wanted patient fever free for greater than 24 hours and to allow him to recuperate from recent oral infection before beginning treatment. He has an appointment already scheduled for October 10 at 1045. Patient may need a little bit more time on treatment for the oral infection. Current Visit: Yes Status: Chronic Priority: High Code(s): C34.90 - MALIGNANT NEOPLASM OF UNSP PART OF UNSP BRONCHUS OR LUNG SNOMED Code(s): 257291354
[2019-10-09] MEDS: BENZONATATE 100 MG CAP PO SCH ×2 (17:16→20:59)
--- NOTE | 2019-10-09 22:26 | P.PN ---
Progress Note - Text Progress Note Date: 10/09/19 Chief Complaint: tired History of presenting complaint: This is a pleasant 68-year-old patient of Dr. Laura Bernabe. Patient's oncologist is Dr. Mireles and radiation oncologist is Dr. Knox. Patient chronic stable medical conditions include COPD, GERD, hypertension, hyperlipidemia, osteoarthritis and peripheral neuropathy. Patient has been diagnosed with moderately differentiated's, squamous cell carcinomaTHE lung.. Has been getting weekly treatment with carboplatin and Taxol with concurrent radiation treatment. also had chemo-induced cytopenias. in the hospital about a month ago with postobstructive pneumonia. Dehydration. patient brought in by the EMS feeling nauseated, some shortness of breath some pain on the right positive chest some edema. Symptoms appear there for about a week or more. No obvious fever and chills. Admitted with-dehydration, possible side effect of Neurontin, hyponatremia. Patient does drink excessive water at home. Patient started IV fluids. Because of Neurontin was cutback. Today-patient for more of awake. Cheerful. Sitting up. Eating better... Review of systems: Was done for constitutional, cardiovascular, GI, pulmonary. relevant finding as above Active Medications Hydrocodone Bitart/Acetaminophen ([place] 10) 1 each PO Q6H PRN PRN Reason: Pain Last Admin: 10/09/19 16:06 Dose: 1 each Documented by: Albuterol/Ipratropium (Duoneb 0.5 Mg-3 Mg/3 Ml Soln) 3 ml INHALATION RT-QID [facility] Last Admin: 10/09/19 20:02 Dose: 3 ml Documented by: Atorvastatin Calcium (Lipitor) 10 mg PO DAILY [facility] Last Admin: 10/09/19 10:31 Dose: 10 mg Documented by: Benzonatate (Tessalon Perles) 100 mg PO TID [facility] Last Admin: 10/09/19 20:59 Dose: 100 mg Documented by: Budesonide/Formoterol Fumarate (Symbicort 160-4.5 Mcg Inhaler) 2 puff INHALATION RT-BID [facility] Last Admin: 10/09/19 20:02 Dose: 2 puff Documented by: Bupropion HCl (Wellbutrin Sr) 150 mg PO BID [facility] Last Admin: 10/09/19 20:59 Dose: 150 mg Documented by: Gabapentin (Neurontin) 300 mg PO TID [facility] Last Admin: 10/09/19 20:59 Dose: 300 mg Documented by: Sodium Chloride (Saline 0.9%) 1,000 mls @ 75 mls/hr IV .[id number] [facility] Last Admin: 10/09/19 16:57 Dose: Not Given Documented by: Lisinopril (Zestril) 20 mg PO DAILY [facility] Last Admin: 10/09/19 10:32 Dose: 20 mg Documented by: Meloxicam (Mobic) 15 mg PO DAILY [facility] Last Admin: 10/09/19 10:33 Dose: 15 mg Documented by: Metoprolol Tartrate (Lopressor) 25 mg PO TID [facility] Last Admin: 10/09/19 20:59 Dose: 25 mg Documented by: Miscellaneous Information (Magnesium Per Protocol) 1 each MISCELLANE DAILY PRN; Protocol PRN Reason: Per Protocol Miscellaneous Information (Rx Info: Iv Contrast Was Given) 1 each MISCELLANE DAILY PRN PRN Reason: Per Protocol Stop: 10/10/19 22:58 Ondansetron HCl (Zofran) 4 mg IVP Q6HR PRN PRN Reason: Nausea And Vomiting Pantoprazole Sodium (Protonix) 40 mg PO AC-BRKFST [facility] Last Admin: 10/09/19 10:35 Dose: 40 mg Documented by: Primidone (Mysoline) 50 mg PO TID [facility] Last Admin: 10/09/19 20:59 Dose: 50 mg Documented by: Propranolol HCl (Inderal La) 60 mg PO DAILY [facility] Last Admin: 10/09/19 10:37 Dose: 60 mg Documented by: Zolpidem Tartrate (Ambien) 5 mg PO HS PRN PRN Reason: Insomnia Physical examination: VITAL SIGNS: 98.3, 81, 22, 111/56, 92% on 3 L GENERAL: BMI 35.2, sitting up, more of a more cheerful EYES: Pupils equal. Conjunctiva pale. HEENT: External appearance of nose and ears normal, oral cavity grossly normal. NECK: JVD not raised; masses not palpable. HEART: First and second heart sounds are normal; edema present LUNGS: Respiratory rate increased, decreased breath sounds. ABDOMEN: Soft, nontender, liver spleen not palpable, no masses palpable. PSYCH: AAO 3, mood affect normal Investigations: Sodium 127 potassium 4.4 creatinine 0.41 sedum osmolality-270 Previous testing white count 5.5 hemoglobin 12.9 platelets 176 sodium 134 to percussion 3.9 bun 7 creatinine 0.43albumin 3.1 EKG tracing personally reviewed by me-normal sinus rhythm Q waves in inferior leads and nonspecific findings Chest x-ray film personally reviewed by me-showing possible mass Assessment: -Symptomatic hyponatremia - hypoosmolar, from excessive fluid intake -Dehydration responded to IV fluids -Some metabolic encephalopathy from Neurontin, improved with decreased dose -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 Patient's had recent disease progression. He will follow-up with them as an outpatient. -COPD in an ex-smoker -GERD -Hyperlipidemia -Essential hypertension -Primary osteoarthritis -Peripheral neuropathy from a combination of being on chemotherapy and from unde rlying malignancy -Obesity BMI 35.3 -Hypomagnesemia Plan: -Patient put on a fluid restriction. Especially free fluids. Continue with IV fluids. Decrease with the patient. Hopefully discharge in 24 hours.
[2019-10-10 01:24] VITALS: RESP 18
[2019-10-10] MEDS: HYDROcodone/APAP 10-325MG 1 EACH TAB PO PRN ×2 (03:49→10:18)
[2019-10-10] MEDS: SODIUM CHLORIDE 0.9% 1,000 ML IV SCH (03:52)
[2019-10-10 07:36] VITALS: BP 123/77; TEMP 97.4
[2019-10-10] MEDS: lisinopriL 20 MG TAB PO SCH (08:18)
[2019-10-10] MEDS: MELOXICAM 7.5 MG TAB PO SCH (08:18)
[2019-10-10] MEDS: ATORVASTATIN 10 MG TAB PO SCH (08:18)
[2019-10-10] MEDS: METOPROLOL TARTRATE 25 MG TAB PO SCH (08:18)
[2019-10-10] MEDS: PANTOPRAZOLE 40 MG TABLET PO SCH (08:19)
[2019-10-10] MEDS: GABAPENTIN 300 MG CAP PO SCH (08:19)
[2019-10-10] MEDS: BENZONATATE 100 MG CAP PO SCH (08:19)
[2019-10-10] MEDS: buPROPion SR 150 MG TABLET.ER PO SCH (08:19)
[2019-10-10] MEDS: PRIMIDONE 50 MG TAB PO SCH (08:19)
[2019-10-10] MEDS: PROPRANOLOL LA 60 MG CAP.SA.24H PO SCH (08:20)
[2019-10-10] MEDS: IPRATROPIUM-ALBUTEROL 3 ML NEB INHALATION SCH ×2 (08:49→11:47)
[2019-10-10] MEDS: SYMBICORT 160-4.5 MCG INHALER INHALATION SCH (08:49)
[2019-10-10 08:56] LABS: African American GFR (CKD) >90 (>60 ml/min/1.73 sqM); Anion Gap 2 mmol/L; Blood Urea Nitrogen 9 mg/dL (9-20); Calcium 8.1 mg/dL (8.4-10.2); Carbon Dioxide 35 mmol/L (22-30); Chloride 91 mmol/L (98-107); Glucose 159 mg/dL (74-99); Non-African American GFR(CKD) >90 (>60 ml/min/1.73 sqM); Potassium 4.6 mmol/L (3.5-5.1); Sodium 128 mmol/L (137-145)
--- NOTE | 2019-10-10 11:34 | P.PN ---
Subjective Progress Note Date: 10/10/19 Principal diagnosis: vomiting In follow-up today patient is feeling better, he is getting anxious to go home. He denies any fevers, chills, nausea, vomiting, chest pain, he has a cough but mostly nonproductive, no abdominal pain or cramping, tolerating oral intake, no acute changes in his bowel habits. Objective - Vital Signs Vital signs: Vital Signs Temp 97.4 F L 10/10/19 07:34 Pulse 92 10/10/19 09:06 Resp 18 10/10/19 08:00 BP 123/77 10/10/19 07:34 Pulse Ox 98 10/10/19 07:34 Intake & Output 10/09/19 10/10/19 10/10/19 18:59 06:59 18:59 Other: Voiding Method Toilet Toilet Urinal Urinal # Voids 3 - Exam well-developed, well-nourished, no acute distress, alert and oriented 3, respirations even and unlabored, chest expansion symmetrical, no swelling in the lower extremities. - Labs CBC & Chem 7: 10/08/19 05:11 10/10/19 08:26 Labs: Abnormal Lab Results - Last 24 Hours (Table) 10/10/19 Range/Units 08:26 Sodium 128 L (137-145) mmol/L Chloride 91 L (98-107) mmol/L Carbon Dioxide 35 H (22-30) mmol/L Creatinine 0.41 L (0.66-1.25) mg/dL Glucose 159 H (74-99) mg/dL Calcium 8.1 L (8.4-10.2) mg/dL Assessment and Plan (1) Primary lung adenocarcinoma Narrative/Plan: Since patient has refused to come to the office for treatments or OV due to covid. He had a telemedicine visit with Dr. Mireles about 10 days ago with plans to change his immunotherapy treatment for unresectable stage III cancer to combination chemo/immuno-therapy regimen because the patient had recent disease progression. Dr. Mireles wanted patient fever free for greater than 24 hours and to allow him to recuperate from recent oral infection before beginning treatment. He has an appointment scheduled for October 10 at 1045. I encouraged the patient to have his antibiotic that he is been taking for his mouth available so he can reported to Dr. Aline and see if maybe he needs treatment a little longer. Patient verbalized understanding. Patient is okay from a Hem/Onc standpoint to be discharged once he is cleared by Attending and other consulting Physicians. Current Visit: Yes Status: Chronic Priority: High Code(s): C34.90 - MALIGNANT NEOPLASM OF UNSP PART OF UNSP BRONCHUS OR LUNG SNOMED Code(s): 972093701
--- NOTE | 2019-10-10 11:42 | P.PN ---
Subjective Progress Note Date: 10/10/19 Principal diagnosis: Shortness of breath, weakness, dehydration, nausea, vomiting and diarrhea, hyponatremia 68-year-old male patient of Dr. Jonas Thomas who was admitted yesterday on 10/08/2019 after the patient came in to the hospital for evaluation of weakness, nausea, vomiting, diarrhea, chest pain and shortness of breath. Patient was found to have hyponatremia related to dehydration. Patient denied any significant shortness of breath. He did report some increased lower extremity edema. He has a known history of COPD, history of advanced lung cancer, squamous cell type, status post chemoradiation and most recently immunotherapy with Imfinzi. Patient's chest x-ray showed evidence of pleural thickening, volume loss in the right hemithorax, right perihilar enlargement, with a 3.3 cm rounded mass in the right midlung, a 3 cm round mass over the anterior left first rib but no evidence of heart failure. There was also some consolidation at the right lung apex which has been present in the past. Follow-up CTA chest was completed today showing right hilar and suprahilar known lung mass redemonstrated, appears increased associated confluent consolidative opacities of the right upper lobe, and right upper lobe atelectasis versus postobstructive and/or infectious etiology. There is attenuation and occlusion of the right posterior lung apex distal subsegmental pulmonary arteries within the dominant right upper lung mass. There was new small right pleural effusion other pulmonary metastasis and hepatic metastasis unchanged since 09/17/2019. On today's exam patient is seen on a general medical surgical floor, he is awake and alert, she is resting comfortably in bed, she looks better, and he states he is breathing easier, lung sounds are diminished with some scattered rhonchi, he remains on 3 L of oxygen the pulse ox of 98%. No chest pain, no hemoptysis, patient is afebrile. His IV fluids have been hep-locked, there has been no further nausea vomiting or diarrhea. Still has some lower extremity edema. Today's sodium is up to 127 from 124 on yesterday's labs, potassium is 4.4, chloride is 91, CO2 is 35, B1 is 7 creatinine 0.41, 2 sets of troponins were negative at 0.0-2, and 0.016. Lipase was negative at 106, coronavirus be severe was not detected On 10/10/2019 patient seen in follow-up on general medical surgical floor. He is doing much better, breathing much more comfortably, he is on 3 L of oxygen with a pulse ox of 98%, he normally does not wear oxygen, will obtain home oxygen assessment, he is afebrile, hemodynamically stable, no completing chest pain, no significant cough or congestion, lung sounds are clear, decreased edema in lower extremities. No acute issues overnight. Today's labs have been reviewed, showing sodium further improved up to 128, potassium is 4.6, chloride is 91, CO2 35, BUN of 9, creatinine 0.41. Objective - Vital Signs Vital signs: Vital Signs Temp 97.4 F L 10/10/19 07:34 Pulse 92 10/10/19 09:06 Resp 18 10/10/19 08:00 BP 123/77 10/10/19 07:34 Pulse Ox 98 10/10/19 07:34 Intake & Output 10/09/19 10/10/19 10/10/19 18:59 06:59 18:59 Other: Voiding Method Toilet Toilet Urinal Urinal # Voids 3 - Exam GENERAL EXAM: Alert, very pleasant, 68-year-old white male, on 3 L, with a pulse ox 98%, resting in bed appears to be comfortable in no apparent distress. HEAD: Normocephalic/atraumatic. EYES: Normal reaction of pupils, equal size. Conjunctiva pink, sclera white. NOSE: Clear with pink turbinates. THROAT: No erythema or exudates. NECK: No masses, no JVD, no thyroid enlargement, no adenopathy. CHEST: No chest wall deformity. Symmetrical expansion. LUNGS: Equal air entry with scattered rhonchi CVS: Regular rate and rhythm, normal S1 and S2, no gallops, no murmurs, no rubs ABDOMEN: Soft, nontender. No hepatosplenomegaly, normal bowel sounds, no guarding or rigidity. EXTREMITIES: No clubbing, no edema, no cyanosis, 2+ pulses and upper and lower extremities. MUSCULOSKELETAL: Muscle strength and tone normal. SPINE: No scoliosis or deformity SKIN: No rashes CENTRAL NERVOUS SYSTEM: Alert and oriented -3. No focal deficits, tone is no rmal in all 4 extremities. PSYCHIATRIC: Alert and oriented -3. Appropriate affect. Intact judgment and insight. - Labs CBC & Chem 7: 10/08/19 05:11 10/10/19 08:26 Labs: Abnormal Lab Results - Last 24 Hours (Table) 10/10/19 Range/Units 08:26 Sodium 128 L (137-145) mmol/L Chloride 91 L (98-107) mmol/L Carbon Dioxide 35 H (22-30) mmol/L Creatinine 0.41 L (0.66-1.25) mg/dL Glucose 159 H (74-99) mg/dL Calcium 8.1 L (8.4-10.2) mg/dL Assessment and Plan Plan: Assessment: #1. Shortness of breath, multifactorial, related to acute exacerbation of COPD, and advanced squamous cell lung cancer #2. Dehydration, nausea, vomiting and diarrhea, resolved #3. Hyponatremia related to the above, improving #4. History of COPD #5. No evidence of pneumonia on the chest x-ray #6. Advanced lung cancer, squamous cell carcinoma with multiple lesions bilaterally as well as significant right perihilar and hilar enlargement, status post chemo radiation and immunotherapy with Imfinzi, currently not receiving treatment #7. GERD/reflux #8. History of DVT #9. History of hyperlipidemia #10. History of hypertension #11. History of hepatitis C #12. Degenerative joint disease #13. Chronic back pain and neuropathy Plan: Medical oncology note was noted, vital signs are stable, no nausea vomiting or diarrhea, serum sodium is improving, no worsening dyspnea. Hemodynamically stable, no altered mentation, from pulmonary perspective patient can be considered for discharge home today. Follow up with medical oncology in regards to recent progression of his lung cancer. I performed a history & physical examination of the patient and discussed their management with my nurse practitioner, Neelima Zheng. I reviewed the nurse pra ctitioner's note and agree with the documented findings and plan of care. Lung sounds are positive for diffuse rhonchi. The findings and the impression was discussed with the patient. I attest to the documentation by the nurse practitioner. Time with Patient: Less than 30
[2019-10-10 14:22] VITALS: PULSE 71
--- NOTE | 2019-10-10 18:42 | P.DS ---
Providers Date of admission: 10/08/19 06:16 Expected date of discharge: 10/10/19 Attending physician: Micah Orta Consults: 10/08/19 06:16 Consult Physician Routine Consulting Provider: Osbaldo Beasley Consult Reason/Comments: cp Do you want consulting provider notified?: Yes 10/08/19 22:59 Consult Physician Routine Consulting Provider: Sean Mireles Consult Reason/Comments: lung cancer Do you want consulting provider notified?: Yes Primary care physician: Jonas Thomas MD Hospital Course: Chief Complaint: tired History of presenting complaint: This is a pleasant 68-year-old patient of Dr. Laura Bernabe. Patient's oncologist is Dr. Mireles and radiation oncologist is Dr. Knox. Patient chronic stable medical conditions include COPD, GERD, hypertension, hyperlipidemia, osteoarthritis and peripheral neuropathy. Patient has been diagnosed with moderately differentiated's, squamous cell carcinomaTHE lung.. Has been getting weekly treatment with carboplatin and Taxol with concurrent radiation treatment. also had chemo-induced cytopenias. in the hospital about a month ago with postobstructive pneumonia. Dehydration. patient brought in by the EMS feeling nauseated, some shortness of breath some pain on the right positive chest some edema. Symptoms appear there for about a week or more. No obvious fever and chills. Admitted with-dehydration, possible side effect of Neurontin, hyponatremia. Patient does drink excessive water at home. Patient started IV fluids. Because of Neurontin was cutback. Today-patient doing well. Doing well with the reduced dose of Neurontin. Sodium improved. Fluid restriction reinforced. Patient follow-up with oncology as an outpatient. Consultation: Dr. Cary from pulmonary Dr. Mireles from oncology Dr. Emilio bolanos from cardiology Physical examination: VITAL SIGNS: 97.4, 71, 18, 123/77, 98% 2 L GENERAL: BMI 35.2, sitting up, more of a more cheerful EYES: Pupils equal. Conjunctiva pale. HEENT: External appearance of nose and ears normal, oral cavity grossly normal. NECK: JVD not raised; masses not palpable. HEART: First and second heart sounds are normal; edema present LUNGS: Respiratory rate increased, decreased breath sounds. ABDOMEN: Soft, nontender, liver spleen not palpable, no masses palpable. PSYCH: AAO 3, mood affect normal Investigations: Sodium 128 Previous testing white count 5.5 hemoglobin 12.9 platelets 176 sodium 124 potassium 3.9 bun 7 creatinine 0.43albumin 3.1 EKG tracing personally reviewed by me-normal sinus rhythm Q waves in inferior leads and nonspecific findings Chest x-ray film personally reviewed by me-showing possible mass serum osmolality-270 Assessment: -Symptomatic hyponatremia - hypoosmolar, from excessive fluid intake-improved -Dehydration responded to IV fluids -Some metabolic encephalopathy from Neurontin, improved with decreased dose -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 Patient's had recent disease progression. He will follow-up with them as an outpatient. -COPD in an ex-smoker -GERD -Hyperlipidemia -Essential hypertension -Primary osteoarthritis -Peripheral neuropathy from a combination of being on chemotherapy and from underlying malignancy -Obesity BMI 35.3 -Hypomagnesemia Disposition: Home Patient Condition at Discharge: Fair Plan - Discharge Summary Discharge Rx Participant: Yes New Discharge Prescriptions: New guaiFENesin [Mucinex] 1,200 mg PO BID #60 tab.er.12h Benzonatate [Tessalon Perles] 100 mg PO TID #90 cap Metoprolol Tartrate [Lopressor] 25 mg PO TID #90 tab Gabapentin [Neurontin] 300 mg PO TID #90 cap Continue Meloxicam [Mobic] 15 mg PO DAILY Omeprazole 20 mg PO BID Enalapril [Vasotec] 10 mg PO DAILY buPROPion SR [Wellbutrin SR] 150 mg PO BID Simvastatin [Zocor] 10 mg PO DAILY Primidone [Mysoline] 50 mg PO TID Budesonide-Formot 160-4.5 Mcg [Symbicort 160-4.5 Mcg Inhaler] 2 puff INHALATION RT-BID Propranolol HCl 60 mg PO DAILY Albuterol Sulfate [Albuterol Sulfate Hfa] 2 puff PO RT-Q6H Zolpidem [Ambien] 5 mg PO HS PRN PRN Reason: Insomnia Hydrocodone/Acetaminophen [[place] 10-325] 1 tab PO Q6H PRN PRN Reason: Pain Discontinued Gabapentin [Neurontin] 800 mg PO TID Discharge Medication List Enalapril [Vasotec] 10 mg PO DAILY 09/06/15 [History] Meloxicam [Mobic] 15 mg PO DAILY 09/06/15 [History] Omeprazole 20 mg PO BID 09/06/15 [History] Primidone [Mysoline] 50 mg PO TID 09/06/15 [History] Simvastatin [Zocor] 10 mg PO DAILY 09/06/15 [History] buPROPion SR [Wellbutrin SR] 150 mg PO BID 09/06/15 [History] Budesonide-Formot 160-4.5 Mcg [Symbicort 160-4.5 Mcg Inhaler] 2 puff INHALATION RT-BID 10/12/18 [History] Albuterol Sulfate [Albuterol Sulfate Hfa] 2 puff PO RT-Q6H 08/30/19 [History] Propranolol HCl 60 mg PO DAILY 08/30/19 [History] Hydrocodone/Acetaminophen [[place] 10-325] 1 tab PO Q6H PRN 10/08/19 [History] Zolpidem [Ambien] 5 mg PO HS PRN 10/08/19 [History] Benzonatate [Tessalon Perles] 100 mg PO TID #90 cap 10/09/19 [Rx] guaiFENesin [Mucinex] 1,200 mg PO BID #60 tab.er.12h 10/09/19 [Rx] Gabapentin [Neurontin] 300 mg PO TID #90 cap 10/10/19 [Rx] Metoprolol Tartrate [Lopressor] 25 mg PO TID #90 tab 10/10/19 [Rx] Follow up Appointment(s)/Referral(s): Sean Mireles MD [STAFF PHYSICIAN] - 10/11/19 10:45 am (This is at the [facility]) Jonas Thomas MD [Primary Care Provider] - 1-2 days (Tomorrow Doctor will call you for a video appointment. ) Patient Instructions/Handouts: Dehydration (DC), Hyponatremia (DC), Acute Nausea and Vomiting (DC), Weakness (DC) Discharge Disposition: HOME SELF-CARE
== END 2019-10-10 13:45 | disposition home or self-care (01) | DRG 640 ==
LOC: EC 04:38 → 4SSUR 06:16
PROVIDERS: ADMIT Hospitalist; ATTEND Hospitalist
DX: E87.1 Hypo-osmolality and hyponatremia (principal); G92 Toxic encephalopathy; M48.56XA Collapsed vertebra, not elsewhere classified, lumbar region, initial encounter for fracture; C78.7 Secondary malignant neoplasm of liver and intrahepatic bile duct; J44.1 Chronic obstructive pulmonary disease with (acute) exacerbation; C34.91 Malignant neoplasm of unspecified part of right bronchus or lung; G62.9 Polyneuropathy, unspecified; E78.5 Hyperlipidemia, unspecified; E66.9 Obesity, unspecified; I44.0 Atrioventricular block, first degree; I10 Essential (primary) hypertension; K21.9 Gastro-esophageal reflux disease without esophagitis; Z20.828 Contact with and (suspected) exposure to other viral communicable diseases; F31.9 Bipolar disorder, unspecified; E86.0 Dehydration; E83.42 Hypomagnesemia; G89.29 Other chronic pain; D75.9 Disease of blood and blood-forming organs, unspecified; M19.91 Primary osteoarthritis, unspecified site; T45.1X5A Adverse effect of antineoplastic and immunosuppressive drugs, initial encounter; T42.6X5A Adverse effect of other antiepileptic and sedative-hypnotic drugs, initial encounter; Z68.35 Body mass index [BMI] 35.0-35.9, adult; Z79.899 Other long term (current) drug therapy; Z79.51 Long term (current) use of inhaled steroids; Z88.5 Allergy status to narcotic agent; Z79.1 Long term (current) use of non-steroidal anti-inflammatories (NSAID); Z86.718 Personal history of other venous thrombosis and embolism; Z87.891 Personal history of nicotine dependence; Z92.3 Personal history of irradiation; Z85.118 Personal history of other malignant neoplasm of bronchus and lung; Z80.1 Family history of malignant neoplasm of trachea, bronchus and lung; Z98.890 Other specified postprocedural states
CPT/HCPCS: 36415; 71046; 71275; 80048; 80053; 83690; 83735; 83880; 83930; 84484; 85025; 85610; 85730; 93005; 93306; 94640; 96361; 96374; 99285

== ENCOUNTER 2019-10-12 02:28 | Observation (INO) | payer MEDICARE, OTHER ==
--- NOTE | 2019-10-12 02:31 | ED ---
SOB HPI - General Stated Complaint: SOB Time Seen by Provider: 10/12/19 02:30 Source: RN notes reviewed, old records reviewed Limitations: no limitations - History of Present Illness Initial Comments: This is a 60-year-old male DF for shortness of breath. Patient has improved. Improved during EMS transport as he did get oxygen. Patient states shortness of breath began when he is also given oxygen delivered 1999 for discharge today known did deliver the oxygen median progressively shortness of breath after arrival home. She also complains of chronic back pain MD Complaint: shortness of breath -: hour(s) Severity: moderate Severity scale (1-10): 4 Quality: aching Consistency: constant Improves With: oxygen Worsens With: nothing Known History Of: COPD, asthma Context: recent URI Associated Symptoms: cough, sputum production Treatments Prior to Arrival: none - Related Data Home Medications Medication Instructions Recorded Confirmed Enalapril [Vasotec] 10 mg PO DAILY 09/06/15 10/08/19 Meloxicam [Mobic] 15 mg PO DAILY 09/06/15 10/08/19 Omeprazole 20 mg PO BID 09/06/15 10/08/19 Primidone [Mysoline] 50 mg PO TID 09/06/15 10/08/19 Simvastatin [Zocor] 10 mg PO DAILY 09/06/15 10/08/19 buPROPion SR [Wellbutrin SR] 150 mg PO BID 09/06/15 10/08/19 Budesonide-Formot 160-4.5 Mcg 2 puff INHALATION RT-BID 10/12/18 10/08/19 [Symbicort 160-4.5 Mcg Inhaler] Albuterol Sulfate [Albuterol 2 puff PO RT-Q6H 08/30/19 10/08/19 Sulfate Hfa] Propranolol HCl 60 mg PO DAILY 08/30/19 10/08/19 Hydrocodone/Acetaminophen [[place] 1 tab PO Q6H PRN 10/08/19 10/08/19 10-325] Zolpidem [Ambien] 5 mg PO HS PRN 10/08/19 10/08/19 Previous Rx's Medication Instructions Recorded Benzonatate [Tessalon Perles] 100 mg PO TID #90 cap 10/09/19 guaiFENesin [Mucinex] 1,200 mg PO BID #60 tab.er.12h 10/09/19 Gabapentin [Neurontin] 300 mg PO TID #90 cap 10/10/19 Metoprolol Tartrate [Lopressor] 25 mg PO TID #90 tab 10/10/19 Allergies Allergy/AdvReac Type Severity Reaction Status Date / Time methadone Allergy Swelling Verified 10/08/19 07:24 of Ears Review of Systems ROS Statement: Those systems with pertinent positive or pertinent negative responses have been documented in the HPI. ROS Other: All systems not noted in ROS Statement are negative. Past Medical History Past Medical History: Cancer, COPD, Deep Vein Thrombosis (DVT), GERD/Reflux, Hyperlipidemia, Hypertension, Liver Disease, Osteoarthritis (OA) Additional Past Medical History / Comment(s): neuropathy, hx broken vertebrae., back pain, states hx of fall x2 during chemo tx., hepatitis C 20 years ago with tx, Right Lung Cancer (2019)- Chemo & radiation tx. History of Any Multi-Drug Resistant Organisms: None Reported Past Surgical History: No Surgical Hx Reported Additional Past Surgical History / Comment(s): eye sx, lung biopsy, liver bx Past Anesthesia/Blood Transfusion Reactions: No Reported Reaction Past Psychological History: Bipolar Smoking Status: Former smoker Past Alcohol Use History: None Reported Past Drug Use History: None Reported - Past Family History Mother Family Medical History: No Reported History Son(s) Family Medical History: Cancer Additional Family Medical History / Comment(s): lung cancer General Exam General appearance: alert, in no apparent distress Head exam: Present: atraumatic, normocephalic, normal inspection Eye exam: Present: normal appearance, PERRL, EOMI. Absent: scleral icterus, conjunctival injection, periorbital swelling ENT exam: Present: normal exam, mucous membranes moist Neck exam: Present: normal inspection. Absent: tenderness, meningismus, lymphadenopathy Respiratory exam: Present: normal lung sounds bilaterally, wheezes, accessory muscle use, decreased breath sounds, prolonged expiratory. Absent: respiratory distress, rales, rhonchi, stridor Cardiovascular Exam: Present: regular rate, normal rhythm, normal heart sounds. Absent: systolic murmur, diastolic murmur, rubs, gallop, clicks GI/Abdominal exam: Present: soft, normal bowel sounds. Absent: distended, tenderness, guarding, rebound, rigid Extremities exam: Present: normal inspection, full ROM, normal capillary refill. Absent: tenderness, pedal edema, joint swelling, calf tenderness Back exam: Present: normal inspection Neurological exam: Present: alert, oriented X3, CN II-XII intact Psychiatric exam: Present: normal affect, normal mood Skin exam: Present: warm, dry, intact, normal color. Absent: rash Course Vital Signs 10/12/19 02:34 Temperature 97.9 F Pulse Rate 97 Blood Pressure 176/93 O2 Sat by Pulse 95 Oximetry - Reevaluation(s) Reevaluation #1: 10/12/19 02:39 medical record is reviewed Reevaluation #2: 10/12/19 02:39 prior hospitilazation is reviewed Reevaluation #3: 10/12/19 03:39 Patient's breathing is significantly improved - Consultations Consultation #1: spoke w Dr You mcpherson for admission Medical Decision Making - Medical Decision Making 68 male DF for evaluation patient has significant shortness of breath cough and congestion. Patient states is also get his home O2 today delivered did not get delivered became increasing short of breath with diffuse body pain throughout the day. Patient denying any fevers recently discharged yesterday was unable to breathe at home without home O2 - EKG Data -: EKG Interpreted by Me (EKG is sinus rhythm 97 IA 238 QRS 88 QTc 434) - Radiology Data Radiology results: report reviewed (Chest x-rays negative for acute disease), image reviewed Disposition Clinical Impression: COPD with acute exacerbation, Oxygen dependent Disposition: ADMITTED IP TO THIS HOSP Condition: Fair Is patient prescribed a controlled substance at d/c from ED?: No Referrals: Jonas Thomas MD [Primary Care Provider] - 1-2 days
[2019-10-12] MEDS ORDERED: methylPREDNISolone SOD SUCCI 125 MG/2 ML VIAL IV STA (02:34)
[2019-10-12] MEDS ORDERED: IPRATROPIUM-ALBUTEROL 3 ML NEB INHALATION PRN (02:34)
[2019-10-12] MEDS ORDERED: IPRATROPIUM-ALBUTEROL 3 ML NEB INHALATION STA (02:34)
[2019-10-12 03:34] LABS: HCT 36.4 % (39.0-53.0); HGB 11.9 gm/dL (13.0-17.5); MCH 31.8 pg (25.0-35.0); MCHC 32.6 g/dL (31.0-37.0); MCV 97.3 fL (80.0-100.0); Mean Platelet Volume 6.5; Platelet Count 141 k/uL (150-450); RBC 3.74 m/uL (4.30-5.90); RDW 15.7 % (11.5-15.5); WBC 4.5 k/uL (3.8-10.6)
--- NOTE | 2019-10-12 03:47 | XR ---
EXAMINATION TYPE: XR chest 2V DATE OF EXAM: 10/12/2019 COMPARISON: 10/08/2019 HISTORY: Chest pain TECHNIQUE: 2 views FINDINGS: Heart is normal. There is some fluid in the right major fissure. There is right central angel ous catheter with tip in the superior vena cava. There are chest leads. There is elevated right diaph ragm. There is 2.5 cm nodular density in the left upper lobe. There is pleural thickening at the righ t lung apex and irregular 4 cm somewhat rounded infiltrate. There is also rounded masslike density th at measures 2.7 cm right midlung. There is no heart failure. IMPRESSION: Right pleural effusion and multiple pulmonary masses. Mild volume loss right lung. Chest not changed compared to recent exam. No heart failure.
[2019-10-12 04:04] LABS: Band Neutrophils % 1 %; Lymphocytes # (M) 1.08 k/uL (1.0-4.8); Monocytes # (M) 0.27 k/uL (0-1.0); Neutrophils % (M) 69 %; Nucleated Red Blood Cells 0 /100 WBC (0-0); Total Cells Counted 100
[2019-10-12] MEDS ORDERED: HYDROmorphone 1 MG/ML 1 ML SYRINGE IVP STA (04:04)
[2019-10-12 04:05] LABS: Poikilocytosis (M) Present
[2019-10-12 04:08] LABS: ALT 27 U/L (4-49); AST 42 U/L (17-59); African American GFR (CKD) >90 (>60 ml/min/1.73 sqM); Albumin 2.8 g/dL (3.5-5.0); Alkaline Phosphatase 137 U/L (38-126); Anion Gap 4 mmol/L; Blood Urea Nitrogen 9 mg/dL (9-20); Calcium 8.4 mg/dL (8.4-10.2); Carbon Dioxide 31 mmol/L (22-30); Chloride 92 mmol/L (98-107); Glucose 126 mg/dL (74-99); Magnesium 1.4 mg/dL (1.6-2.3); Non-African American GFR(CKD) >90 (>60 ml/min/1.73 sqM); Potassium 3.9 mmol/L (3.5-5.1); Sodium 127 mmol/L (137-145); Total Bilirubin 0.9 mg/dL (0.2-1.3)
[2019-10-12] MEDS ORDERED: Magnesium Replacement Protocol 1 EACH MISC MISCELLANE PRN ×2 (04:14→05:31)
[2019-10-12] MEDS ORDERED: MAGNESIUM SULFATE-D5W PMX 1 GM in DEXTROSE/WATER 1 100ML.BAG IVPB SCH ×2 (04:15→04:30)
[2019-10-12] MEDS: MAGNESIUM SULFATE-D5W PMX 1 GM in DEXTROSE/WATER 1 100ML.BAG IVPB SCH ×3 (05:45→08:03)
[2019-10-12] MEDS: ALBUTEROL NEBULIZED 2.5 MG/3 ML INHALATION SCH ×3 (07:55→15:27)
[2019-10-12 08:06] VITALS: BP 166/82; RESP 16; TEMP 98
[2019-10-12] MEDS ORDERED: ZOLPIDEM 5 MG TAB PO PRN (08:27)
[2019-10-12] MEDS ORDERED: guaiFENesin 600 MG TABLET.ER PO SCH (09:00)
[2019-10-12] MEDS ORDERED: PANTOPRAZOLE 40 MG TABLET PO SCH (09:00)
[2019-10-12] MEDS ORDERED: METOPROLOL TARTRATE 25 MG TAB PO SCH (09:00)
[2019-10-12] MEDS ORDERED: lisinopriL 20 MG TAB PO SCH (09:00)
[2019-10-12] MEDS ORDERED: buPROPion SR 150 MG TABLET.ER PO SCH (09:00)
[2019-10-12] MEDS ORDERED: MELOXICAM 7.5 MG TAB PO SCH (09:00)
[2019-10-12] MEDS ORDERED: PROPRANOLOL 20 MG TAB PO SCH (09:00)
[2019-10-12] MEDS ORDERED: ATORVASTATIN 10 MG TAB PO SCH (09:00)
[2019-10-12] MEDS ORDERED: GABAPENTIN 300 MG CAP PO SCH (09:00)
[2019-10-12] MEDS ORDERED: PRIMIDONE 50 MG TAB PO SCH (09:00)
[2019-10-12] MEDS ORDERED: BENZONATATE 100 MG CAP PO SCH (09:00)
[2019-10-12] MEDS: HYDROcodone/APAP 10-325MG 1 EACH TAB PO PRN ×2 (09:08→15:07)
[2019-10-12 11:30] VITALS: PULSE 96
--- NOTE | 2019-10-12 18:49 | P.HPIM ---
History of Present Illness H&P Date: 10/12/19 Chief Complaint: Short of breath History of presenting complaint: This is a pleasant 68-year-old patient of Dr. Laura Bernabe. Patient's oncologist is Dr. Mireles and radiation oncologist is Dr. Knox. Patient chronic stable medical conditions include COPD, GERD, hypertension, hyperlipidemia, osteoarthritis and peripheral neuropathy. Patient has been diagnosed with moder ately differentiated's, squamous cell carcinoma, LUNG. Because of COVID 19 pandemic patient had not followed up. Patient was just in the hospital from October 07 and discharged on October 09. Admitted with the dehydration side effect of Neurontin and hyponatremia. Patient was asked to cut back on his water intake. Because of Neurontin was cut back. He was discharged home. Patient is due to his follow-up with oncology upon discharge. At home patient had an episode where he felt very anxious chest tightness couldn't breathe. He does get these episodes occasionally. Gets very anxious. Patient's pulse ox was good on room air. When I saw the patient this morning is back to his baseline. No swelling of lower extremity. No fever no chills. No cough.. Patient thinks he was supposed to have oxygen at home. That was not delivered. As per the EMS report his pulse ox was 98% on 2 L. 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 Stopped in 2018. Lives alone. No alcohol. Used to work in construction. Family history: Lung cancer Physical examination: VITAL SIGNS: 98% on 2 L by EMS, 98, 16, 166/82 GENERAL: BMI 36.3, sitting up bed, comfortable EYES: Pupils equal. Conjunctiva pale. HEENT: External appearance of nose and ears normal, oral cavity grossly normal. NECK: JVD not raised; masses not palpable. HEART: First and second heart sounds are normal; edema present LUNGS: Respiratory rate normal, decreased breath sounds. ABDOMEN: Soft, nontender, liver spleen not palpable, no masses palpable. PSYCH: AAO 3, mood and affect normal NEUROLOGICAL: Cranial nerves grossly intact; no facial asymmetry, decreased sensation distally. LYMPHATICS: No lymph nodes palpable in the axilla and neck Investigations: White count 4.5 hemoglobin 11.9 which is 141 sodium 127 potassium 3.9 creatinine 0.43 EKG tracing personally reviewed by me-normal sinus rhythm nonspecific changes Chest x-ray film personally reviewed by me-showing lung mass Assessment: -Patient presented with episode of getting anxious some chest tightness. No fever no chills. Present this was short-lived. He is expecting oxygen at home. Per the EMS pulse ox 98% on 2 L. Pulse ox at this morning was 93% on room air. No clinical evidence of infection. This appears to be panic attack. 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 Patient's had recent disease progression. He will follow-up with them as an outpatient. -COPD in an ex-smoker -GERD -Hyperlipidemia -Essential hypertension -Primary osteoarthritis -Peripheral neuropathy from a combination of being on chemotherapy and from underlying malignancy -Obesity BMI 36.3 Plan: -Continue current medication to the plan. Care was discussed with the patient. Patient was informed that he was not supposed of oxygen at home. Patient be going home later today. Past Medical History Past Medical History: Cancer, COPD, GERD/Reflux, Hyperlipidemia, Hypertension, Liver Disease, Osteoarthritis (OA) Additional Past Medical History / Comment(s): neuropathy, hx broken vertebrae., back pain, states hx of fall x2 during chemo tx., hepatitis C 20 years ago with tx, Right Lung Cancer (2019)- Chemo & radiation tx. History of Any Multi-Drug Resistant Organisms: None Reported Past Surgical History: No Surgical Hx Reported Additional Past Surgical History / Comment(s): eye sx, lung biopsy, liver bx Past Anesthesia/Blood Transfusion Reactions: No Reported Reaction Past Psychological History: Bipolar Additional Psychological History / Comment(s): pt states no hx of bipolar, stated "my dr said i had that 10 years ago and that's not true". Smoking Status: Former smoker Past Alcohol Use History: None Reported Additional Past Alcohol Use History / Comment(s): quit 2018 smoked 45 years 1 ppd, quit drinker 30 years ago Past Drug Use History: None Reported - Past Family History Mother Family Medical History: No Reported History Son(s) Family Medical History: Cancer Additional Family Medical History / Comment(s): lung cancer Medications and Allergies Home Medications Medication Instructions Recorded Confirmed Type Enalapril [Vasotec] 10 mg PO DAILY 09/06/15 10/12/19 History Meloxicam [Mobic] 15 mg PO DAILY 09/06/15 10/12/19 History Omeprazole 20 mg PO BID 09/06/15 10/12/19 History Primidone [Mysoline] 50 mg PO TID 09/06/15 10/12/19 History Simvastatin [Zocor] 10 mg PO DAILY 09/06/15 10/12/19 History buPROPion SR [Wellbutrin SR] 150 mg PO BID 09/06/15 10/12/19 History Budesonide-Formot 160-4.5 Mcg 2 puff INHALATION RT-BID 10/12/18 10/12/19 History [Symbicort 160-4.5 Mcg Inhaler] Albuterol Sulfate [Albuterol 2 puff PO RT-Q6H 08/30/19 10/12/19 History Sulfate Hfa] Propranolol HCl 60 mg PO DAILY 08/30/19 10/12/19 History Hydrocodone/Acetaminophen [[place] 1 tab PO Q6H PRN 10/08/19 10/12/19 History 10-325] Zolpidem [Ambien] 5 mg PO HS PRN 10/08/19 10/12/19 History Benzonatate [Tessalon Perles] 100 mg PO TID #90 cap 10/09/19 10/12/19 Rx guaiFENesin [Mucinex] 1,200 mg PO BID #60 tab.er.12h 10/09/19 10/12/19 Rx Gabapentin [Neurontin] 300 mg PO TID #90 cap 10/10/19 10/12/19 Rx Metoprolol Tartrate [Lopressor] 25 mg PO TID #90 tab 10/10/19 10/12/19 Rx Allergies Allergy/AdvReac Type Severity Reaction Status Date / Time methadone Allergy Swelling Verified 10/12/19 08:53 of Ears Physical Exam Vitals: Vital Signs Temp Pulse Pulse Resp BP BP Pulse Ox 10/12/19 08:05 92 10/12/19 08:03 98 F 98 16 166/82 96 10/12/19 07:57 88 10/12/19 04:56 161/94 10/12/19 04:45 94 20 10/12/19 04:30 98.0 F 94 20 165/97 94 L 10/12/19 04:00 98.9 F 92 18 143/86 96 10/12/19 03:52 89 10/12/19 03:36 90 10/12/19 02:34 97.9 F 97 176/93 95 Intake and Output 10/11/19 10/12/19 10/12/19 22:59 06:59 14:59 Intake Total 100 Output Total 175 800 Balance -75 -800 Intake: Oral 100 Output: Urine 175 800 Other: Voiding Method Toilet Toilet Urinal Urinal Weight 135.171 kg Results CBC & Chem 7: 10/12/19 03:19 10/12/19 03:19 Labs: Abnormal Lab Results - Last 24 Hours (Table) 10/12/19 10/12/19 Range/Units 03:19 03:19 RBC 3.74 L (4.30-5.90) m/uL Hgb 11.9 L (13.0-17.5) gm/dL Hct 36.4 L (39.0-53.0) % RDW 15.7 H (11.5-15.5) % Plt Count 141 L (150-450) k/uL Sodium 127 L (137-145) mmol/L Chloride 92 L (98-107) mmol/L Carbon Dioxide 31 H (22-30) mmol/L Creatinine 0.43 L (0.66-1.25) mg/dL Glucose 126 H (74-99) mg/dL Magnesium 1.4 L (1.6-2.3) mg/dL Alkaline Phosphatase 137 H (38-126) U/L Total Protein 6.0 L (6.3-8.2) g/dL Albumin 2.8 L (3.5-5.0) g/dL Thrombosis Risk Factor Assmnt - Choose All That Apply Any of the Below Risk Factors Present?: Yes Each Factor Represents 1 point: Abnormal pulmonary function (COPD) Each Risk Factor Represents 2 Points: Age 61-74 years Thrombosis Risk Factor Assessment Total Risk Factor Score: 3 Thrombosis Risk Factor Assessment Level: Moderate Risk
--- NOTE | 2019-10-12 18:51 | P.DS ---
Providers Date of admission: 10/12/19 02:35 Expected date of discharge: 10/12/19 Attending physician: Micah Orta Primary care physician: Jonas Thomas MD Hospital Course: Chief Complaint: Short of breath History of presenting complaint: This is a pleasant 68-year-old patient of Dr. Laura Bernabe. Patient's oncologist is Dr. Mireles and radiation oncologist is Dr. Knox. Patient chronic stable medical conditions include COPD, GERD, hypertension, hyperlipidemia, osteoarthritis and peripheral neuropathy. Patient has been diagnosed with moderately differentiated's, squamous cell carcinoma, LUNG. Because of COVID 19 pandemic patient had not followed up. Patient was just in the hospital from October 07 and discharged on October 09. Admitted with the dehydration side effect of Neurontin and hyponatremia. Patient was asked to cut back on his water intake. Because of Neurontin was cut back. He was discharged home. Patient is due to his follow-up with oncology upon discharge. At home patient had an episode where he felt very anxious chest tightness couldn't breathe. He does get these episodes occasionally. Gets very anxious. Patient's pulse ox was good on room air. When I saw the patient this morning is back to his baseline. No swelling of lower extremity. No fever no chills. No cough.. Patient thinks he was supposed to have oxygen at home. That was not delivered. As per the EMS report his pulse ox was 98% on 2 L. Physical examination: VITAL SIGNS: 98, 98, 16, [id number] 82, 93% room air GENERAL: BMI 36.3, sitting up bed, comfortable EYES: Pupils equal. Conjunctiva pale. HEENT: External appearance of nose and ears normal, oral cavity grossly normal. NECK: JVD not raised; masses not palpable. HEART: First and second heart sounds are normal; edema present LUNGS: Respiratory rate normal, decreased breath sounds. ABDOMEN: Soft, nontender, liver spleen not palpable, no masses palpable. PSYCH: AAO 3, mood and affect slightly anxious Investigations: White count 4.5 hemoglobin 11.9 which is 141 sodium 127 potassium 3.9 creatinine 0.43 EKG tracing personally reviewed by me-normal sinus rhythm nonspecific changes Chest x-ray film personally reviewed by me-showing lung mass Assessment: -Patient presented with episode of getting anxious some chest tightness. No fever no chills. Present this was short-lived. He is expecting oxygen at home. Per the EMS pulse ox 98% on 2 L. Pulse ox at this morning was 93% on room air. No clinical evidence of infection. This appears to be panic attack. 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 Patient's had recent disease progression. He will follow-up with them as an outpatient. -COPD in an ex-smoker -GERD -Hyperlipidemia -Essential hypertension -Primary osteoarthritis -Peripheral neuropathy from a combination of being on chemotherapy and from underlying malignancy -Obesity BMI 36.3 Disposition: Home Patient Condition at Discharge: Undetermined Plan - Discharge Summary New Discharge Prescriptions: Continue Meloxicam [Mobic] 15 mg PO DAILY Omeprazole 20 mg PO BID Enalapril [Vasotec] 10 mg PO DAILY buPROPion SR [Wellbutrin SR] 150 mg PO BID Simvastatin [Zocor] 10 mg PO DAILY Primidone [Mysoline] 50 mg PO TID Budesonide-Formot 160-4.5 Mcg [Symbicort 160-4.5 Mcg Inhaler] 2 puff INHALATION RT-BID Propranolol HCl 60 mg PO DAILY Albuterol Sulfate [Albuterol Sulfate Hfa] 2 puff PO RT-Q6H Zolpidem [Ambien] 5 mg PO HS PRN PRN Reason: Insomnia Hydrocodone/Acetaminophen [[place] 10-325] 1 tab PO Q6H PRN PRN Reason: Pain guaiFENesin [Mucinex] 1,200 mg PO BID #60 tab.er.12h Benzonatate [Tessalon Perles] 100 mg PO TID #90 cap Metoprolol Tartrate [Lopressor] 25 mg PO TID #90 tab Gabapentin [Neurontin] 300 mg PO TID #90 cap Discharge Medication List Enalapril [Vasotec] 10 mg PO DAILY 09/06/15 [History] Meloxicam [Mobic] 15 mg PO DAILY 09/06/15 [History] Omeprazole 20 mg PO BID 09/06/15 [History] Primidone [Mysoline] 50 mg PO TID 09/06/15 [History] Simvastatin [Zocor] 10 mg PO DAILY 09/06/15 [History] buPROPion SR [Wellbutrin SR] 150 mg PO BID 09/06/15 [History] Budesonide-Formot 160-4.5 Mcg [Symbicort 160-4.5 Mcg Inhaler] 2 puff INHALATION RT-BID 10/12/18 [History] Albuterol Sulfate [Albuterol Sulfate Hfa] 2 puff PO RT-Q6H 08/30/19 [History] Propranolol HCl 60 mg PO DAILY 08/30/19 [History] Hydrocodone/Acetaminophen [[place] 10-325] 1 tab PO Q6H PRN 10/08/19 [History] Zolpidem [Ambien] 5 mg PO HS PRN 10/08/19 [History] Benzonatate [Tessalon Perles] 100 mg PO TID #90 cap 10/09/19 [Rx] guaiFENesin [Mucinex] 1,200 mg PO BID #60 tab.er.12h 10/09/19 [Rx] Gabapentin [Neurontin] 300 mg PO TID #90 cap 10/10/19 [Rx] Metoprolol Tartrate [Lopressor] 25 mg PO TID #90 tab 10/10/19 [Rx] Follow up Appointment(s)/Referral(s): Jonas Thomas MD [Primary Care Provider] - 1-2 days Patient Instructions/Handouts: COPD (Chronic Obstructive Pulmonary Disease) (DC) Discharge Disposition: HOME SELF-CARE
== END 2019-10-12 15:28 | disposition home or self-care (01) ==
LOC: EC 02:28 → 1SOBS 02:35
PROVIDERS: ADMIT Hospitalist; ATTEND Hospitalist
DX: F41.0 Panic disorder [episodic paroxysmal anxiety] (principal); J44.1 Chronic obstructive pulmonary disease with (acute) exacerbation; C34.91 Malignant neoplasm of unspecified part of right bronchus or lung; Z99.81 Dependence on supplemental oxygen; D61.818 Other pancytopenia; Z20.828 Contact with and (suspected) exposure to other viral communicable diseases; G89.29 Other chronic pain; M54.9 Dorsalgia, unspecified; K21.9 Gastro-esophageal reflux disease without esophagitis; I10 Essential (primary) hypertension; E78.5 Hyperlipidemia, unspecified; F31.9 Bipolar disorder, unspecified; M19.91 Primary osteoarthritis, unspecified site; E87.1 Hypo-osmolality and hyponatremia; G62.2 Polyneuropathy due to other toxic agents; T45.1X5A Adverse effect of antineoplastic and immunosuppressive drugs, initial encounter; M48.56XA Collapsed vertebra, not elsewhere classified, lumbar region, initial encounter for fracture; E66.9 Obesity, unspecified; Z68.36 Body mass index [BMI] 36.0-36.9, adult; Z79.1 Long term (current) use of non-steroidal anti-inflammatories (NSAID); Z79.899 Other long term (current) drug therapy; Z79.51 Long term (current) use of inhaled steroids; Z79.891 Long term (current) use of opiate analgesic; Z88.5 Allergy status to narcotic agent; Z87.891 Personal history of nicotine dependence; Z86.718 Personal history of other venous thrombosis and embolism; Z92.3 Personal history of irradiation; Z92.21 Personal history of antineoplastic chemotherapy; Z86.19 Personal history of other infectious and parasitic diseases; Z91.81 History of falling; Z80.1 Family history of malignant neoplasm of trachea, bronchus and lung
CPT/HCPCS: 96365; 96366; 96375; 99285; 94640 ×2; 93005; 80053; 83735; 84484; 85025; 85730; 71046; G0378; U0003; J2930; S0106; J1170; J3475